=== PATIENT | male | born 1935 | race Caucasian/White ===

== ENCOUNTER → 2018-06-03 10:03 | Outpatient (CLI) | payer MEDICARE, OTHER, SELFPAY ==
[2018-05-19 09:38] VITALS: BMI 23.6
[2018-06-03 12:56] LABS: ALB/GLOB Ratio 1.2 RATIO (0.9-2.4); AST(SGOT) 17 U/L (15-37); Alanine Aminotransfer ALT/SGPT 32 U/L (16-61); Alkaline Phosphatase 101 U/L (45-117); Anion Gap 8 (5-15); BUN 34 mg/dL (7-18); BUN/Creat Ratio 22.2 RATIO (10-20); Calcium,Total 8.8 mg/dL (8.5-10.1); Chloride 109 mmol/L (98-107); Cholesterol 149 mg/dL (200); Creatinine, Serum 1.53 mg/dL (0.70-1.30); EST Glomerular Filtration Rate 46 mL/min (>60); Est Glom Filt Rate - Afr Amer 56 mL/min (>60); Globulin 3.4 g/dL (2.2-4.2); Glucose 95 mg/dL (74-106); High Density Lipoprotein 40 mg/dL; PSA,Total- Diagnostic 2.78 ng/mL (0.0-4.0); Potassium 6.1 mmol/L (3.5-5.1); Protein, Total 7.4 g/dL (6.4-8.2); Sodium Level 139 mmol/L (136-145); Triglycerides 145 mg/dL; Very Low Density Lipoprotein 29 mg/dL (5-40)
[2018-06-03 15:37] LABS: T4 Free Direct 0.86 ng/dL (0.76-1.46)
== END ==
PROVIDERS: Family Provider Family Medicine; PCP Family Medicine; Referring Provider Family Medicine; Visit Provider Family Medicine
DX: I50.30 Unspecified diastolic (congestive) heart failure (principal); E78.5 Hyperlipidemia, unspecified; R82.90 Unspecified abnormal findings in urine; N40.0 Benign prostatic hyperplasia without lower urinary tract symptoms; R79.89 Other specified abnormal findings of blood chemistry
CPT/HCPCS: 36415; 80053; 80061; 84153; 84439; 84443; 87086; 87088

== ENCOUNTER → 2018-06-07 08:15 | Outpatient (CLI) | payer MEDICARE, OTHER, SELFPAY ==
[2018-05-19 09:38] VITALS: BMI 23.6
[2018-06-07 10:30] LABS: Anion Gap 12 (5-15); BUN 37 mg/dL (7-18); BUN/Creat Ratio 25.9 RATIO (10-20); Chloride 109 mmol/L (98-107); Creatinine, Serum 1.43 mg/dL (0.70-1.30); EST Glomerular Filtration Rate 50 mL/min (>60); Est Glom Filt Rate - Afr Amer 61 mL/min (>60); Glucose 95 mg/dL (74-106); Potassium 4.2 mmol/L (3.5-5.1); Sodium Level 142 mmol/L (136-145)
== END ==
PROVIDERS: Family Provider Family Medicine; PCP Family Medicine; Visit Provider Family Medicine
DX: N18.3 Chronic kidney disease, stage 3 (moderate) (principal)
CPT/HCPCS: 36415; 80048

== ENCOUNTER → 2018-08-09 | Outpatient (CLI) | payer MEDICARE, OTHER, SELFPAY ==
[2018-05-19 09:38] VITALS: BMI 23.6
--- NOTE | 2018-08-09 08:34 | ECHOD_ITS ---
Reason For Study: CAD, S/P CABG Procedure This was a 2D Doppler, Color Flow transthoracic echocardiogram. Exam performed in department. Left Ventricle Normal LV size. Mild concentric left ventricular hypertrophy. Left ventricular systolic function is normal. The estimated ejection fraction is 55 %. Stage 2 diastolic dysfunction. No regional wall motion abnormalities noted. Right Ventricle Normal RV size. Normal systolic function. Atria The left atrium is moderately enlarged. The right atrium is mildly enlarged. Mitral Valve Mild diffuse mitral valve thickening. Mild (1+) eccentric mitral valve insufficiency. Tricuspid Valve Normal tricuspid valve. Mild tricuspid valve insufficiency. Pulmonary artery systolic pressure is 36 mmHg. Aortic Valve Trisinus/trileaflet aortic valve. Mild focal aortic valve calcification. Mild (1+) eccentric aortic valve insufficiency. Pulmonic Valve Normal pulmonic valve. Great Vessels Normal aortic root. The pulmonary artery is normal size. Normal inferior vena cava. Pericardium/Pleural No pericardial effusion. MMode/2D Measurements & Calculations LVIDd: 4.6 cm IVSd: 1.2 cm Ao root diam: 3.5 cm LVIDs: 3.4 cm LVPWd: 1.2 cm FS: 26.8 % LAV(MOD-bp): 86.8 ml LA A4 area: 25.0 cm2 LA dimension(2D): 4.6 cm LAV(MOD-bp) Indexed: 45.1 ml/m2 LAV(MOD-sp2): 91.2 ml LAV(MOD-sp4): 84.9 ml RA A4 area: 20.4 cm2 Time Measurements MV dec time: 0.20 sec Doppler Measurements & Calculations MV E max salas: 98.2 cm/sec Lat Peak E' Salas: 5.6 cm/sec Med Peak E' Salas: 5.8 cm/sec MV A max salas: 74.5 cm/sec E/E' lat: 17.6 E/E' med: 16.9 MV E/A: 1.3 Ao V2 max: 148.5 cm/sec AI max salas: 366.9 cm/sec LV V1 max: 78.3 cm/sec Ao max P.8 mmHg AI max P.9 mmHg LV V1 max P.5 mmHg AI dec slope: 195.0 cm/sec2 AI P1/2t: 551.3 msec PA V2 max: 96.5 cm/sec PI end-d salas: 117.7 cm/sec TR max salas: 290.8 cm/sec PI dec slope: 295.3 cm/sec2 TR max P.0 mmHg Interpretation Summary Normal LV size. Mild concentric left ventricular hypertrophy. Left ventricular systolic function is normal. The estimated ejection fraction is 55 %. Stage 2 diastolic dysfunction. Mild tricuspid valve insufficiency. Mild (1+) eccentric aortic valve insufficiency. Ordering Physician: Bhavesh Potts Referring Physician: Rick Butler Performed By: Sheron Leyva, BÁRBARA, RVT
== END | disposition home or self-care (01) ==
LOC: CVS 08:34
PROVIDERS: Family Provider Family Medicine; PCP Family Medicine; Referring Provider Internal Medicine Cardiovascular Disease; Visit Provider Internal Medicine Cardiovascular Disease
DX: I50.32 Chronic diastolic (congestive) heart failure (principal)
CPT/HCPCS: 93306

== ENCOUNTER → 2019-05-19 10:41 | Outpatient (CLI) | payer MEDICARE, OTHER, SELFPAY ==
[2019-05-19 09:02] VITALS: BMI 25.5
[2019-05-19 11:58] LABS: AST(SGOT) 21 U/L (15-37); Alanine Aminotransfer ALT/SGPT 28 U/L (16-61); Albumin, Serum 3.9 g/dL (3.2-5.0); Alkaline Phosphatase 121 U/L (45-117); Bilirubin, Direct 0.09 mg/dL (0.00-0.30); Cholesterol 136 mg/dL (200); Globulin 3.3 g/dL (2.2-4.2); High Density Lipoprotein 47 mg/dL; Protein, Total 7.2 g/dL (6.4-8.2); Triglycerides 82 mg/dL; Very Low Density Lipoprotein 16 mg/dL (5-40)
== END ==
PROVIDERS: PCP Family Medicine; Referring Provider Internal Medicine Cardiovascular Disease; Visit Provider Internal Medicine Cardiovascular Disease
DX: I25.810 Atherosclerosis of coronary artery bypass graft(s) without angina pectoris (principal); E78.5 Hyperlipidemia, unspecified
CPT/HCPCS: 36415; 80061; 80076

== ENCOUNTER → 2019-07-14 | Outpatient (CLI) | payer MEDICARE, OTHER, SELFPAY ==
[2019-05-19 09:02] VITALS: BMI 25.5
--- NOTE | 2019-07-14 13:59 | MRI_ITS ---
STUDY: MRI BRAIN WITH AND WITHOUT CONTRAST (ATTENTION INTERNAL AUDITORY CANALS - I.A.C.''s) REASON FOR EXAM: Male, 84 years old. L hearing loss, vertigo x 2 wks- sudden onset TECHNIQUE: Standardized multiplanar fat and water weighted pulse sequences were obtained. IV Dotarem 15ml was administered for the contrast portion of the examination. COMPARISON: None. FINDINGS: Normal bilateral temporal bones. Normal bilateral internal auditory canals. 4 mm round solidly enhancing mass of the 8th cranial nerve laterally in the internal auditory canal consistent with a vestibular schwannoma (acoustic neuroma). There Normal bilateral cochlea, vestibules and semicircular canals. There is mild cerebral atrophy with widening of the extra-axial spaces and ventricular dilatation. There are a limited number of small white matter hyperintensities, distributed throughout the deep white matter tracts of the cerebral hemispheres, consistent with mild chronic white matter ischemic changes. There is no evidence for recent intracranial ischemia or other cause of cytotoxic edema on diffusion weighted imaging (DWI). Normal bilateral basal ganglia. Normal thalami. Normal flow voids within the major intracranial circulation suggesting patency by spin echo criteria. Normal venous enhancement. There is no enhancing intra-axial or extra-axial abnormality. There is no extra-axial fluid accumulation. Normal sella turcica, pituitary gland, infundibular stalk, optic chiasm and hypothalamus. Normal tectal plate and pineal gland. Normal midbrain, gaurang and medulla. Normal cerebellum. Normal basal cisterns. No demonstrated orbital abnormality, within the constraints of a routine brain study. Normal visualized paranasal sinuses. Normal calvarium and skull base. Normal visualized soft tissue structures. Normal visualized upper cervical spine. MRI/Brain W/WO Contrast IMPRESSION: 1. Involutional changes of the brain, as described above. 2. 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 No left-sided vestibular schwannoma. Electronically Signed: Arnold Parmar MD at 15:57 EDT Tel , Service support ,
[2019-07-14 15:11] LABS: CREATININE FINGERSTICK 1.7 mg/dL (0.70-1.30)
== END | disposition home or self-care (01) ==
LOC: MRI 13:54
PROVIDERS: PCP Family Medicine; Referring Provider Otolaryngology; Visit Provider Otolaryngology
DX: H91.92 Unspecified hearing loss, left ear (principal)
CPT/HCPCS: 70553; A9575

== ENCOUNTER → 2019-08-01 | Outpatient (CLI) | payer MEDICARE, OTHER, SELFPAY ==
[2019-05-19 09:02] VITALS: BMI 25.5
--- NOTE | 2019-08-01 09:08 | STRESSREP_ITS ---
Stress Test Report Exercise myocardial perfusion stress test. 83-year-old man with a history of coronary artery disease status post coronary to bypass stenting. Stress protocol: Resting EKG demonstrates normal sinus rhythm with a rate of 72 bpm occasional premature ventricular complexes noted resting blood pressures 122/74 mmHg. The patient exercised according to regular Todd protocol for a total duration of 5 minutes the maximum heart rate was 126 bpm which was 93% of maximum practice heart rate the maximum workload was 7 metabolic equivalents. At rest there were no ST or T wave changes noted to suggest ischemia. At peak exercise there was approximately 1.[address] depression noted in lead V5 and V6 suggestive of ischemia. Occasional premature ventricular complexes were noted during recovery. Patient did experience some sharp chest discomfort with exercise. He was offered nitroglycerin but decided he did not want it. The r esting blood pressure was 122/74 with a peak blood pressure 152/80 mmHg. Myocardial perfusion stress test. 11.8 mCi of technetium 99m sestamibi was injected at rest. The patient exercised according to regular Todd protocol for a total duration of 5 minutes and at peak exercise 34.6 mCi of technetium 99m sestamibi was injected stress images were obtained stress and rest edges were reconstructed and compared in the short axis vertical and horizontal long axis. Gated images were also obtained Perfusion SPECT analysis: Review of the stress images demonstrate normal uptake of tracer noted in all areas of the myocardium the resting images similarly demonstrated normal areas of perfusion noted in all areas of the myocardium. The gated ejection fraction is 73%. Conclusion: Pharmacologic myocardial perfusion stress test with no nuclear images demonstrating ischemia. Electrocardiographic changes suggestive of ischemia at a moderate workload. Atypical chest discomfort noted. Preserved ejection fraction.
== END | disposition home or self-care (01) ==
LOC: CVS 06:38
PROVIDERS: PCP Family Medicine; Referring Provider Physician Assistant Medical; Visit Provider Physician Assistant Medical
DX: I25.10 Atherosclerotic heart disease of native coronary artery without angina pectoris (principal)
CPT/HCPCS: 78452; 93017; A9500; A4216

== ENCOUNTER 2019-08-10 06:26 | Day surgery (SDC) | payer MEDICARE, OTHER, SELFPAY ==
[2019-05-19 09:02] VITALS: BMI 25.5
--- NOTE | 2019-08-09 07:07 | RAD_ITS ---
STUDY: X-RAY CHEST REASON FOR EXAM: Male, 84 years old. Abnormal stress test, pre heart cath -- no chest complaints -- hx-CB, MT TECHNIQUE: PA and lateral views of the chest. COMPARISON: None. FINDINGS: The lungs are clear and expanded. There is no demonstrated pleural abnormality. Sternal cerclage wires and vascular clips are present from a prior sternotomy and coronary artery bypass graft procedure (CABG). Normal mediastinum and sherlyn. Normal visualized pulmonary arteries. There is atherosclerotic calcification of the aortic arch with tortuosity. There are diffuse degenerative changes of the visualized thoracic spine. Normal visualized ribs, clavicles, and shoulders. There is no demonstrated abnormality of the visualized soft tissue structures of the upper abdomen. RAD/Chest PA and Lateral IMPRESSION: No acute abnormality is seen. Prior CABG. Electronically Signed: Antonio Martin, at 8:42 EDT , Service support ,
[2019-08-09 07:17] LABS: Absolute Lymphocyte Count 1.03 X10^3/uL (0.83-4.51); Absolute Neutrophil Count 2.8 X10^3/uL (2.0-7.7); Basophil# 0.02 X10^3/uL; Basophil% 0.4 % (0-1); Eosinophil# 0.27 X10^3/uL; Eosinophils% 5.9 % (0-5); Hematocrit 34.9 % (40-54); Hemoglobin 11.2 g/dL (13.0-16.5); Lymphocyte # 1.03 X10^3/ul (4.0); Lymphocyte % 22.5 % (19-41); Mean Corp Hgb Conc 32.1 g/dL (32-36); Mean Corpuscular Hgb 30.2 pg (27.0-32.0); Mean Corpuscular Volume 94.1 fL (80-94); Mean Platelet Vol. 9.5 fl (6.2-12.0); Monocyte# 0.46 X10^3/uL; NRBC Flagged by Analyzer 0 % (0-5); Neutrophil # 2.79 X10^3/uL (2.7-7.7); Platelet Count 170 K/mm3 (150-450); RBC Distribution Width CV 13.2 % (11.6-14.6); Red Blood Count 3.71 M/mm3 (4.6-6.2); White Blood Count 4.6 K/mm3 (4.4-11.0)
[2019-08-09 07:48] LABS: Anion Gap 4 (5-15); BUN 38 mg/dL (7-18); Calcium,Total 9.2 mg/dL (8.5-10.1); Chloride 114 mmol/L (98-107); Creatinine, Serum 1.52 mg/dL (0.70-1.30); EST Glomerular Filtration Rate 47 mL/min (>60); Est Glom Filt Rate - Afr Amer 56 mL/min (>60); Glucose 99 mg/dL (74-106); Sodium Level 140 mmol/L (136-145)
[2019-08-09 09:18] VITALS: BMI 25.5
--- NOTE | 2019-08-10 09:28 | CL.D_ITS ---
Patient Name: BEVERLY GUSMAN Study Date: 08/10/2019 Performing: Bhavesh Potts MD Ht: 70.07 inches 178 cm : 1935 Wt: 178.57 lbs 81 kg Age: 84 Gender: male BSA: 1.99 PROCEDURE(S) PERFORMED UC58-[id number]/COR/CABG CLINICAL PROFILE AND INDICATIONS Heart Failure: None Stress/Imaging Date: 08/01/2019Stress Test with SPECT MPI: Indeterminant CONCLUSIONS Severe [place] coronary artery disease with a single saphenous vein graft bypass patent to the obtuse marginal branch with moderate disease and a patent left internal mammary artery to the left anterior descending artery. RECOMMENDATIONS Medical therapy DESCRIPTION OF PROCEDURE The patient arrived to the procedure lab. The risks and benefits of the procedure as well as a full d escription of our services here and current unavailability of surgical backup were fully explained to the patient and/or their significant other prior to the catheterization. The Timeout was completed, verifying the correct patient and procedure. The patient's procedural site was prepped and draped in the usual fashion. Local anesthetic was given subcutaneously to right radial region with Lidocaine 2% . Local anesthetic was given subcutaneously to left radial region with Lidocaine 2%. Using a modified Seldinger technique, arterial access was obtained via the right radial artery, a 6Fr sheath was inse rted., arterial access was obtained via the left radial artery, a 6Fr sheath was inserted. Right Cor onary Artery selective angiography was then performed in multiple views using a [address] Left Coronary Artery selective angiography was performed in multiple views using a 5 Fr. 4.0 [place] catheter. Saphenous Vein graft to the OM 1 selective angiography was performed in multi ple views using a 5 Fr. 4.0 [place] catheter. Left internal mammary artery graft to the LAD selective a ngiography was performed in multiple views using a 5 Fr. IM catheter. CORONARY ANGIOGRAPHY DOMINANCE: Right Dominant LEFT HEART ASSESSMENT Left Ventricular Ejection Fraction: by Echo 55 % Normal LV wall motion LEFT MAIN: Mild calcification, Non-obstructive LEFT ANTERIOR DESCENDING ARTERY: PROX LAD: is occluded CIRCUMFLEX ARTERY: PROX CIRC: is occluded RIGHT CORONARY ARTERY: PROX RCA: is occluded GRAFTS: Saphenous Vein graft to the Mid CIRC is diffusely diseased up to 30 % Saphenous Vein graft to the RPDA is totally occluded Saphenous Vein graft to the 1st Diagonal is totally occluded PAREKH graft to the Mid LAD is patent COMPLICATIONS No Complications PROCEDURE MEDICATIONS Fentanyl 50 mcg IV Versed 1 mg IV Oxygen: 2 L/min via nasal cannula Heparin diluted in 23cc Heparinized saline. Patient given 10cc IA of this solution. 08/10/2019 08:36:5 2 Heparin given IA 08/10/2019 09:15:21 Verapamil 2.5mg, Ntg 100mcgs, 2000 units of Heparin diluted in 23cc Heparinized saline. Patient give n 10cc IA of this solution. 08/10/2019 08:36:52 Verapamil 2.5mg, Ntg 100mcgs, 3000 units of Heparin given IA 08/10/2019 09:15:21 SUMMARY OF HEMODYNAMIC DATA Time AIR REST ECG 06:57:42 AO 116/67 (90) SA 08:49:31 Signed By Bhavesh Potts MD On 08/10/2019 09:27:38 Bhavesh Potts MD
--- NOTE | 2019-08-10 10:57 | HP.PCM_ITS ---
History and Physical This is an 84-year-old gentleman that presents here today for an urgent heart catheterization. Patient had called our office a few weeks ago with concerning of increased chest discomfort with exertion. He did undergo a stress test which demonstrated no nuclear images of ischemia however EKG was suggestive of ischemia at a moderate workload. We had attempted to maximize his medications during this coated pandemic. However patient continued to have worsening symptoms and now has discomfort at rest. He recently established with us. He does have a history of coronary artery disease with bypass surgery in 1989. He had an PAREKH to the LAD, SVG to the posterior descending, SVG to the obtuse marginal, SVG to the first diagonal ma rginal. Allergies No Known Allergies Allergy (Unverified 05/19/19 09:02) Medications See chart [facility] Medical History Atherosclerosis of coronary artery bypass graft without angina pectoris (Chronic) Atherosclerosis of coronary artery of [place] [place] heart without angina pectoris (Chronic) History of non-ST elevation myocardial infarction (NSTEMI) (Resolved 01/2015) Chronic diastolic (congestive) heart failure (Chronic) Essential (primary) hypertension (Chronic) Hyperlipidemia (Chronic) Chronic kidney disease (Chronic) Osteoarthritis (Chronic) Melanoma (Resolved) Surgical History H/O coronary artery bypass surgery (Resolved 1989) History of coronary artery stent placement (Resolved 2005) H/O left knee surgery (Acute) H/O foot surgery (Resolved) History of herniorrhaphy (Resolved) History of left heart catheterization (Resolved 01/22/15) Family History Father Heart disease Social History (Updated 05/19/19 @ 10:25 by Bhavesh Potts MD) Smoking Status: Never smoker ROS Const Const: Negative for fatigue, weakness, headache(s), frequent falls, difficulty sleeping or excessive sweating Eyes Eyes: Negative for loss of peripheral vision, transient loss of vision, blurry vision, double vision or tunnel vision ENT ENT: Negative for headache(s), dizziness, Nosebleed/epistaxis or balance problems Cardio Chest Pain: yes Palpitations: No Edema: yes Muscle aches with walking: None Resp Respiratory: Positive for SOB with activity (Initially with activity, but resolves quickly); negative for SOB at rest, SOB orthopnea\SOB lying down, Cough or paroxysmal nocturnal dyspnea GI GI: Negative nausea, vomiting, heartburn or black,tarry stools : Negative for hematuria Musc Musc: Negative for muscle aches/ myalgia, muscle weakness, joint pain or balance problems Skin Skin: Negative non-healing lesions, rash or unusual bruising Neuro Neuro: Negative for dizziness, lightheadedness, near syncope, syncope, orthostatic symptoms, frequent falls, headache(s), weakness, blurry vision, double vision or lack of coordination Melecio Hematologic/Lymphatic: Negative for easy bleeding or easy bruising Endo Endo: Negative for fatigue, excessive sweating or increased thirst/drinking Psych Psych: Negative for anxiety or depression Allergy Allergy/Immunology: Negative for hives, Negative for rash Cardiology Exam Const Appearance: cooperative, healthy appearing, no acute distress, well developed and well groomed Nutritional Appearance: average body habitus and well nourished Orientation: alert, awake and oriented x3 Head Head: normal to inspection, normocephalic and atraumatic Ears: hearing grossly normal bilaterally and external ears normal Nose: external nose normal, nares normal, nasal mucous membranes and turbinates normal, septum normal, no nasal discharge Face and Sinus: face symmetric Mouth: oral mucosae normal, tongue normal, oropharynx normal and moist mucous membranes Teeth and gingiva: dentition normal Throat: posterior oropharynx normal, tonsils normal and uvula midline Eyes General: appearance normal, both eyes and all related structures Eyelids: eyelids normal Conjunctivae: conjunctivae normal Pupils: PERRL, normal by confrontation and accommodation normal EOM: EOM intact bilaterally Neck Neck: normal visual inspection, trachea midline and no JVD JVD: +5 Carotids: normal carotid upstroke and bounding pulses Chest Chest inspection: normal inspection of the chest, symmetric chest movement and normal respiratory effort Auscultation: Bilateral: Clear to Auscultation Cardio Palpation: normal PMI Rate: regular rate Rhythm: regular rhythm Heart sounds: S1 normal, S2 normal and normal, physiologic split S2; soft 1/6 JORDAN GI GI: normal to inspection, soft, no hepatosplenomegaly and bowel sounds present Neuro General: alert, awake, oriented x3, gait normal, moves all extremities and no focal sensory deficit Skin Skin: no rashes or lesions noted Extremities Pulses: Normal: Right Femoral Pulse, Left Femoral Pulse, Right Dorsalis Pedis Pulse, Left Dorsalis Pedis Pulse, Right Posterior Tibial Pulse, Left Posterior Tibial Pulse, Right Radial Pulse, Left Radial Pulse Lower Extremity Edema: trace bilateral Musculoskel Musculoskeletal: No joint tenderness Psych Psychological: normal affect Assessment and plan 1. Coronary artery disease with angina. With patient concerns over worsening angina and abnormal stress test. Would like to proceed with a diagnostic heart catheterization today. Patient did fail maximum medical therapy as he continued to have chest discomfort. He will follow-up in office accordingly. Essential Procedure Criteria Procedure Essential: Yes Criteria Note: On 07/19/2019 the [place] Department of Health ([facility]) Public Order signed by [facility] Director Tia Tanner M.D., regarding the Management of Non- Essential Surgeries and Procedures for the purpose of preserving Personal Protective Equipment (PPE) and critical hospital capacity and resources within [place] went into effect as of 07/20/2019 at 5:00PM. According to the [facility] Public Order: This action will remain in full force and effect until the State of Emergency declared by the Governor no longer exists or the Director of the [facility] rescinds or modifies this Order.. This [facility] order stated all non-essential or elective surgeries and procedures that utilize PPE should be delayed unless there is undue risk to the current or future health of a patient. After reviewing the aforementioned [facility] Public Order and the patients clinical case, I have determined that the scheduled procedure meets the criteria to go forward. Risk to Patient if Procedure Delayed: Risk of rapidly worsening to severe symptoms - Pt has been having worseng chest pain at rest and with exertion
== END 2019-08-10 12:33 | disposition home or self-care (01) ==
LOC: CLSP 06:28
PROVIDERS: PCP Family Medicine; Referring Provider Internal Medicine Cardiovascular Disease; Visit Provider Internal Medicine Cardiovascular Disease
DX: I25.119 Atherosclerotic heart disease of native coronary artery with unspecified angina pectoris (principal); I25.2 Old myocardial infarction; E78.5 Hyperlipidemia, unspecified; M19.90 Unspecified osteoarthritis, unspecified site; I13.0 Hypertensive heart and chronic kidney disease with heart failure and stage 1 through stage 4 chronic kidney disease, or unspecified chronic kidney disease; N18.9 Chronic kidney disease, unspecified; I50.32 Chronic diastolic (congestive) heart failure
CPT/HCPCS: 36415; 71046; 80048; 85025; 93455; 99152; 99153; J7040; Q9967; C1769; C1894

== ENCOUNTER → 2019-09-20 08:07 | Outpatient (CLI) | payer MEDICARE, OTHER, SELFPAY ==
[2019-08-23 14:05] VITALS: BMI 25.5
--- NOTE | 2019-09-20 08:13 | CT_ITS ---
STUDY: CT CHEST WITHOUT CONTRAST REASON FOR EXAM: Male, 84 years old. EXERTIONAL CP, DYSPNEA RADIATION DOSAGE (If Supplied By Facility): CTDIvol = ( 13.83 ) mGy, DLP = ( 501.10 ) mGycm TECHNIQUE: Transaxial imaging was performed without the administration of intravenous contrast material. Individualized dose optimization techniques were used for this CT. COMPARISON: None. FINDINGS: There is a small calcified granuloma of the left lower lobe. There is an additional tiny calcified granuloma of the right middle lobe. There is a small broad-based focus of pleural thickening of the lower lateral left hemithorax measuring 3.0 cm at the base. There is mild cardiomegaly. Coronary arterial calcifications are present. There is no pericardial effusion. Postsurgical changes of the heart are noted. Normal mediastinum. There are calcified left hilar nodes. There is dilatation of the main and right pulmonary arteries. The main pulmonary artery measures up to 3.4 cm in diameter. The ascending thoracic aorta is ectatic measuring up to 3.8 cm. The descending thoracic aorta is upper limits of normal in caliber. There is diffuse endplate spondylosis of the thoracic spine. Status post sternotomy changes are noted. There are several small right renal cysts. There are calcified splenic granulomas. CT/Chest without Contrast IMPRESSION: 1. Tiny calcified granulomas of the left lower lobe and right middle lobe. Calcified left hilar nodes. 2. Small broad-based focus of pleural thickening of the lower lateral left hemithorax measuring 3.0 cm at the bases. 3. Status post cardiac surgical changes. Coronary arterial calcifications are present. There is mild cardiomegaly. 4. Dilatation of the main pulmonary artery measuring up to 3.4 cm in diameter. This may be associated with pulmonary hypertension. 5. Ectatic ascending thoracic aorta measuring up to 3.8 cm. Electronically Signed: Brandan Aleman MD at 17:21 EDT , Service support ,
--- NOTE | 2019-09-22 08:28 | PFT ---
INTRODUCTION: The patient is a 84-year-old male that presents for pulmonary function studies secondary to a diagnosis of dyspnea. Respiratory therapy reports good patient effort. Bronchodilators were used during testing. INTERPRETATION: Forced expiration spirometry demonstrates the presence of a mild large airways obstructive ventilatory defect. There was no significant response to aerosolized bronchodilators. Spirograms are of good quality and plateau gradually indicating slow emptying of the lungs. Body plethysmography was performed and reveals lung volumes to be within normal limits. Diffusing capacity by single breath CO is preserved at 94% of predicted. IMPRESSION: Irreversible mild large airways obstructive ventilatory defect with normal lung volumes and preserved diffusing capacity.
== END ==
PROVIDERS: PCP Family Medicine; Referring Provider Family Medicine; Visit Provider Family Medicine
DX: R07.9 Chest pain, unspecified (principal); R06.00 Dyspnea, unspecified
CPT/HCPCS: 71250; 94060; 94726; 94729

== ENCOUNTER 2019-10-13 12:33 | Emergency (ER) | payer MEDICARE, OTHER, SELFPAY ==
[2019-10-04 05:44] VITALS: BMI 24.3
[2019-10-13 12:34] VITALS: BP 130/65; PULSE 51; RESP 16; TEMP 36.3; O2SAT 99; BMI 23.6
--- NOTE | 2019-10-13 12:42 | ED.VIS.GEN ---
History of Present Illness Chief Complaint: Hypotension Informant: Patient Onset: Today Current Severity: Mild Maximum Severity: Mild Narrative: He presents reporting when he took his home blood pressure using left upper arm it was about 70 then later [address] Barlow's office and was told to come to the emergency department Dr. Barlow would meet him here. His blood pressure in the ED is 133/80 his other vital signs are unremarkable indicates he is feeling at baseline, he has had no fever no cough no chest pain eating and drinking well bowel bladder habits normal, recently had extensive outpatient lab work-up that was unremarkable he indicates he used a blood pressure machine normally, that blood pressure checks today were routine he was feeling fine Past Medical History - Allergies and Home Meds Allergies/Adverse Reactions: Allergies isosorbide Adverse Reaction (Verified 10/13/19 12:34) headache Primary Care Physician: Rick Butler MD [Primary Care Provider] - Past Medical History: - - Cardiac Smoking Status: Never smoker Review of Systems General: Denies: Chills, Fever, Sweats Eyes: Denies: Visual changes - bilaterally, Diplopia ENT: Denies: Rhinorrhea, Sore throat Cardiovascular: Denies: Chest pain, Palpitations Respiratory: Denies: Dyspnea, Cough, Dyspnea on exertion Gastrointestinal: Denies: Abdominal pain, Nausea, Vomiting, Diarrhea, Melena, Hematochezia Genitourinary: Denies: Dysuria, Hematuria, Frequency Musculoskeletal: Denies: Back pain, Extremity Pain Skin: Denies: Rash, Wounds Neurological: Denies: Headache, Weakness, Numbness Physical Exam Vital Signs/Narrative: Vital Signs Temp Pulse Resp BP Pulse Ox 10/13/19 12:34 97.4 F L 51 L 16 130/65 H 99 General: Well nourished, Well developed, No Acute Distress Head: Normocephalic, Atraumatic Eyes: Perrl, EOMI ENT: Moist mucous membranes, No rhinorrhea Neck: Supple, Nontender Cardiovascular: Regular rate, Regular rhythm, No murmurs Respiratory: No distress, CTA bilaterally, Chest nontender Abdomen: Soft, Nontender, Nondistended, Normal bowel sounds Back: Nontender, Normal Inspection Extremities: Nontender, No edema Skin: Normal color, No rash Neurological: Alert, Oriented x3, Cranial nerves II-XII grossly intact, Normal Strength, Normal Sensation Psychological: Normal affect, Normal Mood Diagnostic/Tx/Re-eval - Medical Decision Making The patient's vital signs are unremarkable indicates again he feels fine spoke with Dr. Barlow who informed them he did not tell the patient he would meet him in the emergency department I explained all of the above to the patient, I explained we could do an ED evaluation with EKG labs x-rays etc. urinalysis he did not wish to undergo any of that testing we offered him lunch coffee extended observation etc. he assured me he felt fine he got up walked around the emergency department with me had no symptoms and stated he simply wanted to go home as he felt back to his baseline and he would follow-up with his outpatient providers the was in the room with him she concurred with the above Home stable Final impression reportedly low blood pressure at home resolved ED Disposition - Plan for ED Patient: Diagnosis: Hypotension Diagnosis: (Ruled Out): Instructions: ED Hypotension Orthostatic, ED Low Blood Pressure All Causes Referrals: Rick Butler MD [Primary Care Provider] -
== END 2019-10-13 13:34 | disposition home or self-care (01) ==
LOC: ED 13:13
PROVIDERS: Emergency Provider Emergency Medicine; PCP Family Medicine
DX: I95.9 Hypotension, unspecified (principal)
CPT/HCPCS: 99282

== ENCOUNTER → 2020-03-15 11:07 | Outpatient (CLI) | payer MEDICARE, OTHER, SELFPAY ==
[2020-01-20 09:42] VITALS: BMI 25.5
[2020-03-15 12:37] LABS: Absolute Lymphocyte Count 1.12 X10^3/uL (0.83-4.51); Absolute Neutrophil Count 3.4 X10^3/uL (2.0-7.7); Basophil# 0.02 X10^3/uL; Basophil% 0.4 % (0-1); Eosinophil# 0.14 X10^3/uL; Eosinophils% 2.7 % (0-5); Hematocrit 38.5 % (40-54); Hemoglobin 12.1 g/dL (13.0-16.5); Lymphocyte # 1.12 X10^3/ul (4.0); Lymphocyte % 21.8 % (19-41); Mean Corp Hgb Conc 31.4 g/dL (32-36); Mean Corpuscular Hgb 29.8 pg (27.0-32.0); Mean Corpuscular Volume 94.8 fL (80-94); Mean Platelet Vol. 9.9 fl (6.2-12.0); Monocyte# 0.44 X10^3/uL; Monocyte% 8.6 % (0-10); NRBC Flagged by Analyzer 0 % (0-5); Neutrophil % 66.3 % (47-70); Platelet Count 136 K/mm3 (150-450); RBC Distribution Width CV 13.2 % (11.6-14.6); RBC Distribution Width SD 46.1 fl (35.1-43.9); Red Blood Count 4.06 M/mm3 (4.6-6.2); White Blood Count 5.1 K/mm3 (4.4-11.0)
[2020-03-15 13:04] LABS: International Normalized Ratio 1.1; Prothrombin Time (Protime)PT. 13.8 SECONDS (11.7-14.9)
[2020-03-15 13:05] LABS: Partial Thromboplast Time 29.3 Seconds (24.1-36.2)
[2020-03-15 13:12] LABS: ALB/GLOB Ratio 1.1 RATIO (0.9-2.4); AST(SGOT) 16 U/L (15-37); Alanine Aminotransfer ALT/SGPT 27 U/L (16-61); Albumin, Serum 3.8 g/dL (3.2-5.0); Alkaline Phosphatase 119 U/L (45-117); Anion Gap 4 (5-15); BUN 46 mg/dL (7-18); BUN/Creat Ratio 25.8 RATIO (10-20); Calcium,Total 9.2 mg/dL (8.5-10.1); Chloride 112 mmol/L (98-107); Creatinine, Serum 1.78 mg/dL (0.70-1.30); EST Glomerular Filtration Rate 39 mL/min (>60); Est Glom Filt Rate - Afr Amer 47 mL/min (>60); Globulin 3.4 g/dL (2.2-4.2); Glucose 83 mg/dL (74-106); Potassium 5.4 mmol/L (3.5-5.1); Protein, Total 7.2 g/dL (6.4-8.2); Sodium Level 137 mmol/L (136-145)
== END ==
PROVIDERS: PCP Family Medicine; Referring Provider Family Medicine; Visit Provider Family Medicine
DX: Z01.818 Encounter for other preprocedural examination (principal)
CPT/HCPCS: 36415; 80053; 85025; 85610; 85730

== ENCOUNTER → 2020-03-19 09:59 | Outpatient (CLI) | payer MEDICARE, OTHER, SELFPAY ==
[2020-01-20 09:42] VITALS: BMI 25.5
[2020-03-19 12:57] LABS: Anion Gap 8 (5-15); BUN 55 mg/dL (7-18); BUN/Creat Ratio 27.9 RATIO (10-20); Calcium,Total 9.1 mg/dL (8.5-10.1); Chloride 108 mmol/L (98-107); Creatinine, Serum 1.97 mg/dL (0.70-1.30); EST Glomerular Filtration Rate 35 mL/min (>60); Est Glom Filt Rate - Afr Amer 42 mL/min (>60); Glucose 95 mg/dL (74-106); Sodium Level 137 mmol/L (136-145)
== END ==
PROVIDERS: PCP Family Medicine; Visit Provider Family Medicine
DX: E78.5 Hyperlipidemia, unspecified (principal)
CPT/HCPCS: 36415; 80048

== ENCOUNTER 2020-03-20 07:00 | Outpatient (RCR) | payer MEDICARE, OTHER, SELFPAY ==
[2020-01-20 09:42] VITALS: BMI 25.5
--- NOTE | 2020-03-13 11:07 | HP.PTREVAL ---
Dr. Rick Butler MD, It has been my pleasure to treat BEVERLY GUSMAN over the last 5 visits for parkinson's. Please see the progress note below for an update on the physical therapy plan of care! Subjective: Pt reports that he is doing well and that he is doing his exercises everyday and he feels that they are getting easier. He is not sure that he is improving but he is really thinking about his posture all the time. He thinks that he recognizes his posture more. Still can not figure out the steps... He had pain in his R knee from putting all his weight on his R leg because he can not do the recip stairs because of the L knee not bending.... He had L knee surgery since September 1967 and his knee has gotten worse since then. He has an appointment today at 1:00 with an ortho for his L knee. Objective/Function: opp arm and leg movements are good with sequence but he does not take a big enough step.... Plan Plan: Pt to come in in 1 month to review HEP and see if advancement is needed and to see if he has increased ability to ascend and desend the stairs with his L knee. Goals Goal 1:: I HEP Goal Time Frame: 12-16 Weeks Goal Progress: Goal Met Goal 2:: Increase posture to be able to hold head up easier with gait and sitting Goal Time Frame: 12-16 Weeks Goal Progress: Progressing Goal 3:: Be able to do opp arm and leg movements alternating 3 X 10 B without messing up sequence or losing balance Goal Time Frame: 12-16 Weeks Anticipated Interventions Patient/Client Instruction: Educate patient on: Condition, Plan of Care For the Purpose of:: To improve muscle performance and motor function, To increase tolerance to activity/condition/position, To improve performance and independence with ADL's, To decrease level of supervision to perform tasks, To improve ability of physical actions for home/community/work/leisure, To improve gait and locomotor functions, To improve health of tissue, To decrease soft tissue restriction, To improve endurance, To improve safety with gait Therapeutic Exercise to Include: Strength training, Balance training, Coordination, Body mechanics, Postural training, Flexibilty training, Gait and locomotor training, Neuromotor development, Active ROM, Dynamic Lumbar Stabilization For the Purpose of:: To increase ROM, To improve nutrient delivery to tissue, To improve muscle performance and motor function, To improve ability to perform ADL's, To increase tolerance to activity/condition/position, To improve performance and independence with ADL's, To decrease level of supervision to perform tasks, To improve ability of physical actions for home/community/work/leisure, To improve gait and locomotor functions, To improve health of tissue, To decrease soft tissue restriction, To increase flexibility/ROM, To improve endurance, To improve balance, To improve safety with gait Functional Training to Include: Gait training For the Purpose of:: To improve safety with gait Please do not hesitate to contact me at [phone] by phone or if you have questions or concerns regarding this new plan of care! Sincerely, Alicia Faulkner, MPT
--- NOTE | 2020-03-20 07:57 | HP.PTDCSUM ---
It has been my pleasure to treat BEVERLY GUSMAN referred by Dr. Rick Butler MD, with the diagnosis of parkinson's for a total of 6 visit(s). Discharge Date: 03/20/20 Please see the following information for a summary of their discharge status. Subjective: Pt reports that he has no questions about his exeercies and he does not need his papers anymore to tell him which ones to do. Pt reports that he hurt his leg when walking and taking bigger steps. He reports that he is fine now since the Dr did a cortizone injection in his R knee. He will have a L TKR on Apr 09 and gel injections on the R knee on Apr 03. We will put PD PT on hold until after the surgery. Issued our TKR booklet as pt will be staying in the hospital for surgery. R back pain Pain Intensity (Out of 10): 2 % Improvement: 20 Objective/Function: opp arm and leg movements: able to do 2 X 20 each leg without messing up Goal 1:: I HEP Goal Progress: Goal Met Goal 2:: Increase posture to be able to hold head up easier with gait and sitting Goal Progress: Goal Met Goal 3:: Be able to do opp arm and leg movements alternating 3 X 10 B without messing up sequence or losing balance Goal Progress: Goal Met Plan: DC PT at this time due to Pt having surgery. He will call into his Dr after surgery to get another script for PT after his knee rehab. Discharge Comments: DC PT to HEP If there are questions or concerns regarding this patient's physical therapy, please feel free to call me at [phone]. Thank you for the referral of this patient. Sincerely, Alicia Faulkner, MPT
== END 2020-03-20 19:00 | disposition home or self-care (01) ==
LOC: PT 07:00
PROVIDERS: PCP Family Medicine; Referring Provider Family Medicine; Visit Provider Family Medicine
DX: G20 Parkinson's disease (principal)
CPT/HCPCS: 97110; 97161

== ENCOUNTER → 2020-03-21 07:23 | Outpatient (CLI) | payer MEDICARE, OTHER, SELFPAY ==
[2020-01-20 09:42] VITALS: BMI 25.5
--- NOTE | 2020-03-21 07:25 | CT_ITS ---
STUDY: LEFT LOWER EXTREMITY CT SCAN REASON FOR EXAM: Male, 84 years old. LEFT KNEE PAIN RADIATION DOSAGE (If Supplied By Facility): CTDIvol = ( 18.30 ) mGy, DLP = ( 1045.14 ) mGycm. Individualized dose optimization techniques were used for this CT.? TECHNIQUE: Axial multidetector CT scan of the left lower trauma. Coronal and sagittal reformatted images. MARION technique for preoperative evaluation. COMPARISON: None. FINDINGS: GENERAL: No acute fracture line. No acute dislocation. No acute bone destruction. No focal muscle atrophy. HIP: Moderate left hip osteoarthritis with joint space narrowing, productive changes and chondrocalcinosis. Mild pubic symphysis arthrosis. Visualized left hemipelvis intact. Visualized left proximal femur intact. Prostate radiotherapy seeds. Hamstring calcific peritendinitis. KNEE: Severe lateral compartment joint space narrowing. Moderate medial compartment joint space narrowing. Moderate/severe patellofemoral joint space narrowing. Multiple osteophytes. Extensive chondrocalcinosis at the left knee. Small loose bodies. Distal quadriceps enthesophyte. Mild proximal tibiofibular arthrosis. Vascular calcifications. Peripherally calcified large popliteal cyst with bursal thickening. Large volume left knee joint effusion. ANKLE: Achilles enthesophyte. Normal tibiotalar joint. Normal subtalar joint. Distal tibia, fibula and hindfoot intact. CT/Extremity Lower without Contra IMPRESSION: Moderate left hip osteoarthritis Severe left knee osteoarthritis Left knee joint effusion and popliteal cyst Normal left ankle Additional degenerative changes, as above Electronically Signed: Rick Cespedes DO at 9:32 EST Tel , Service support ,
== END ==
PROVIDERS: PCP Family Medicine; Referring Provider Physician Assistant; Visit Provider Physician Assistant
DX: M17.11 Unilateral primary osteoarthritis, right knee (principal)
CPT/HCPCS: 73700

== ENCOUNTER 2020-04-09 09:54 | Observation (INO) | payer MEDICARE, OTHER, SELFPAY ==
[2020-01-20 09:42] VITALS: BMI 25.5
--- NOTE | 2020-04-02 08:58 | EKG12_ITS ---
Test Reason : PRE OP Blood Pressure : / mmHG Vent. Rate : 058 BPM Atrial Rate : 058 BPM P-R Int : 234 ms QRS Dur : 084 ms QT Int : 392 ms P-R-T Axes : 067 044 004 degrees QTc Int : 384 ms Sinus bradycardia with 1st degree A-V block Otherwise normal ECG Confirmed by KEELY MITCHELL, TRIXIE ([id number]), field map editor PAUL CHRISTIE ([id number]) on 04/03/2020 9:24:15 AM Referred By: Hudson Murdock Confirmed By:TRIXIE RIGGS MD
[2020-04-02 09:13] LABS: Absolute Lymphocyte Count 1.03 X10^3/uL (0.83-4.51); Absolute Neutrophil Count 4.5 X10^3/uL (2.0-7.7); Basophil# 0.02 X10^3/uL; Basophil% 0.3 % (0-1); Eosinophil# 0.23 X10^3/uL; Eosinophils% 3.7 % (0-5); Hematocrit 38.4 % (40-54); Hemoglobin 11.9 g/dL (13.0-16.5); Lymphocyte # 1.03 X10^3/ul (4.0); Lymphocyte % 16.5 % (19-41); Mean Corpuscular Hgb 29.5 pg (27.0-32.0); Mean Corpuscular Volume 95.3 fL (80-94); Mean Platelet Vol. 9.4 fl (6.2-12.0); Monocyte# 0.46 X10^3/uL; Monocyte% 7.4 % (0-10); NRBC Flagged by Analyzer 0 % (0-5); Neutrophil # 4.48 X10^3/uL (2.7-7.7); Neutrophil % 71.8 % (47-70); Platelet Count 124 K/mm3 (150-450); RBC Distribution Width CV 13.3 % (11.6-14.6); RBC Distribution Width SD 47.3 fl (35.1-43.9); Red Blood Count 4.03 M/mm3 (4.6-6.2); White Blood Count 6.2 K/mm3 (4.4-11.0)
[2020-04-02 09:34] LABS: Magnesium 1.8 mg/dL (1.6-2.6)
[2020-04-02 09:36] LABS: Anion Gap 4 (5-15); BUN 40 mg/dL (7-18); BUN/Creat Ratio 23.8 RATIO (10-20); Chloride 113 mmol/L (98-107); Creatinine, Serum 1.68 mg/dL (0.70-1.30); EST Glomerular Filtration Rate 41 mL/min (>60); Est Glom Filt Rate - Afr Amer 50 mL/min (>60); Glucose 82 mg/dL (74-106); Potassium 4.9 mmol/L (3.5-5.1); Sodium Level 138 mmol/L (136-145)
[2020-04-09] VITALS (18 sets, daily range): BP systolic 97–144; BP diastolic 55–79; PULSE 65–82; RESP 14–20; TEMP 36–36.6; O2SAT 94–100; BMI 25.3; BMI 25.4
--- NOTE | 2020-04-09 | KNEE_PTH ---
PATIENT: BEVERLY GUSMAN LOC: [facility]3 U#:[id number] AGE/SX: 84/M ROOM: OK313 RE04/09/[address]: Dr. Hudson Murdock DO : 1935 BED: 1 DIS: 04/10/2020 SPEC #: [id number] RECD: 04/09/20 12:31 STATUS: TREY RETarun #: [id number] LUIS: 04/09/20 00:[address]: Hudson Murdock DEPT: SURGICAL PATHOLOGY RECD BY: Hemant Pérez ENTERED: 04/09/20 12:32 SP TYPE: TOTAL KNEE OTHR DR: Rick Butler MD Tissues: Knee, NOS Procedures: Decalcification bone/plaque Surgery Specimen Level IV HEADER OPERATION: ERAS, total knee replacement robotic arm assist PRE-OP DIAGNOSIS: Osteoarthritis left knee; valgus deformity left knee TISSUE SUBMITTED: Left knee bone and soft tissue MICROSCOPIC DIAGNOSIS Bone and soft tissue of left knee, total knee resection: 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 Bone with severe degenerative joint disease. AM:kristy 04/12/20 MICROSCOPIC DESCRIPTION Slides are reviewed. GROSS DESCRIPTION Received is one container designated bone and soft tissue left knee. The specimen consists of multiple fragments of grier-yellow bone measuring in aggregate 14 x 12 x 2 cm. Also in the specimen container are multiple fragments of yellow-white soft tissue measuring in aggregate 10 x 7 x 2 cm. A number of bony fragments contain articular surfaces consistent with tibial plateau and femoral condyle and displaying prominent osteophyte formation, eburnation, and bone erosion. Plywood Matcher sections are submitted in two cassettes as follows: 1 - soft tissue, 2 - bone after decalcification. / AM:kristy 04/09/20 TC:5 [facility]: [id number], [id number]
[2020-04-09] MEDS: Acetaminophen 500 MG Tablet 1000 MG PO ×3 (08:17→22:14)
[2020-04-09] MEDS: Gabapentin 600 MG Tablet PO (08:20)
[2020-04-09] MEDS: Lactated Ringers 1,000 ML 100 ML IV ×2 (08:30→14:40)
[2020-04-09 09:01] LABS: Bedside Glucose 72 mg/dL (70-110)
[2020-04-09] MEDS: Cefazolin 2 GM in 0.9% Normal Saline 100 ML IV (09:35)
--- NOTE | 2020-04-09 09:56 | RAD_ITS ---
STUDY: X-RAY - LEFT KNEE REASON FOR EXAM: Male, 84 years old. POST OP TECHNIQUE: 2 view(s) of the knee. COMPARISON: None. FINDINGS: Normal visualized distal femur. Normal visualized proximal tibia and fibula. Normal proximal tibiofibular articulation. The patient is status post total knee replacement. There is good alignment. Postoperative soft tissue changes. RAD/Knee 1 or 2 Views IMPRESSION: Status post total knee replacement. There is good alignment. Postoperative soft tissue changes. Electronically Signed: Antonio Martin, at 12:37 EST , Service support ,
[2020-04-09 12:40] LABS: Hematocrit 32.4 % (40-54); Hemoglobin 10.2 g/dL (13.0-16.5); Mean Corp Hgb Conc 31.5 g/dL (32-36); Mean Corpuscular Hgb 29.7 pg (27.0-32.0); Mean Corpuscular Volume 94.2 fL (80-94); Mean Platelet Vol. 9.5 fl (6.2-12.0); Platelet Count 109 K/mm3 (150-450); RBC Distribution Width CV 13.3 % (11.6-14.6); RBC Distribution Width SD 45.8 fl (35.1-43.9); Red Blood Count 3.44 M/mm3 (4.6-6.2); White Blood Count 5.9 K/mm3 (4.4-11.0)
[2020-04-09 12:53] LABS: Anion Gap 6 (5-15); BUN 38 mg/dL (7-18); BUN/Creat Ratio 24.2 RATIO (10-20); Calcium,Total 8.5 mg/dL (8.5-10.1); Chloride 111 mmol/L (98-107); Creatinine, Serum 1.57 mg/dL (0.70-1.30); EST Glomerular Filtration Rate 45 mL/min (>60); Est Glom Filt Rate - Afr Amer 54 mL/min (>60); Estimated Creatinine Clearance 35.52 ml/min; Glucose 126 mg/dL (74-106); Potassium 4.8 mmol/L (3.5-5.1); Sodium Level 137 mmol/L (136-145)
--- NOTE | 2020-04-09 13:10 | OP.PCM_ITS ---
Report of Operation Date of Procedure: 04/09/20 Pre-Operative Diagnosis: OA left knee Post-Operative Diagnosis: same Surgery/Procedure Performed:: Left TKR sales marketing director: Kris Barber Type of Anesthesia:: General Anesthesiologist: Michael Panchal - Admit VTE Documentation VTE Present on Admission: No VTE Mechan Device Prophylaxis: SCD's, Thigh High [place] Hose VTE Pharm Prophylaxis ordered?: Yes
--- NOTE | 2020-04-09 14:45 | NURSING ---
PT STILL VERY DROWSY POST OP - UNABLE TO ANSWER QUESTIONS @ THIS TIME
[2020-04-09] MEDS: Cefazolin 1 GM/50 ML BAG IV (17:09)
[2020-04-09] MEDS: Aspirin 81 MG TAB.CHEW PO (17:10)
[2020-04-09] MEDS: Clopidogrel Bisulfate 75 MG Tablet PO (17:10)
[2020-04-09] MEDS: Senna/Docusate Sodium 1 Tablet 2 TABLET PO ×2 (17:10→22:14)
[2020-04-09] MEDS: Albuterol 2.5 MG/3 ML VIAL.NEB. INHALATION (20:11)
[2020-04-09] MEDS: Budesonide Respules 0.5 MG/2 ML AMPUL.NEB. INHALATION (20:11)
[2020-04-09] MEDS: oxyCODONE 5 MG Tablet PO (20:44)
[2020-04-09] MEDS: Atorvastatin Calcium 40 MG Tablet PO (22:14)
[2020-04-09] MEDS: Pramipexole Di-HCl 0.5 MG Tablet PO (22:16)
[2020-04-10] VITALS (7 sets, daily range): BP systolic 105–140; BP diastolic 61–70; PULSE 65–75; RESP 16–18; TEMP 36.6–36.8; O2SAT 95–98
[2020-04-10] MEDS: Cefazolin 1 GM/50 ML BAG IV (00:19)
[2020-04-10] MEDS: Lactated Ringers 1,000 ML 100 ML IV (00:19)
[2020-04-10] MEDS: oxyCODONE 5 MG Tablet PO (05:45)
[2020-04-10] MEDS: Acetaminophen 500 MG Tablet 1000 MG PO (05:45)
--- NOTE | 2020-04-10 05:46 | NURSING ---
alexandrea wrap removed old drainage marked on dressing.
[2020-04-10 06:47] LABS: Hematocrit 29.5 % (40-54); Hemoglobin 9.3 g/dL (13.0-16.5); Mean Corp Hgb Conc 31.5 g/dL (32-36); Mean Corpuscular Hgb 29.8 pg (27.0-32.0); Mean Corpuscular Volume 94.6 fL (80-94); Mean Platelet Vol. 9.8 fl (6.2-12.0); Platelet Count 106 K/mm3 (150-450); RBC Distribution Width CV 13.5 % (11.6-14.6); RBC Distribution Width SD 46.8 fl (35.1-43.9); Red Blood Count 3.12 M/mm3 (4.6-6.2); White Blood Count 5.5 K/mm3 (4.4-11.0)
[2020-04-10] MEDS: Budesonide Respules 0.5 MG/2 ML AMPUL.NEB. INHALATION (07:17)
[2020-04-10] MEDS: Albuterol 2.5 MG/3 ML VIAL.NEB. INHALATION (07:17)
[2020-04-10 07:31] LABS: Anion Gap 5 (5-15); BUN 38 mg/dL (7-18); BUN/Creat Ratio 21.2 RATIO (10-20); Calcium,Total 8.5 mg/dL (8.5-10.1); Chloride 111 mmol/L (98-107); Creatinine, Serum 1.79 mg/dL (0.70-1.30); EST Glomerular Filtration Rate 39 mL/min (>60); Est Glom Filt Rate - Afr Amer 47 mL/min (>60); Estimated Creatinine Clearance 31.15 ml/min; Glucose 120 mg/dL (74-106); Sodium Level 138 mmol/L (136-145)
--- NOTE | 2020-04-10 07:46 | PCM.PN.ORT ---
Subjective: Patient sitting up in bed eating breakfast. Patient states pain is been very well managed. Patient denies chest pain, shortness of breath, calf pain, nausea vomiting. Patient has no other complaints at this time. Patient states he is ready for discharge home, to continue outpatient therapy. Objective: Dressing is clean dry intact. Vitals and labs were all reviewed and noted in the medical record. Patient is afebrile. Negative signs and symptoms of DVT. Neurovascular patient is otherwise intact. Patient is no respiratory distress, speaking in full sentences. - Physical Exam Vitals/I&O's: Vital Signs Temp Pulse Resp BP Pulse Ox 98.2 F 75 18 140/70 H 98 04/10/20 05:52 04/10/20 05:52 04/10/20 05:52 04/10/20 05:52 04/10/20 05:52 Oxygen Flow Rate (L/min) 6 Oxygen Delivery Method Room Air Weight: 80.343 kg Body Mass Index (BMI) 25.4 Intake and Output for Last 24 Hours 04/08/20 04/09/20 04/10/20 23:59 23:59 23:59 Intake Total 961.17 / 961.17 2014 Output Total 600 / 600 Balance 936.17 / 936.17 1415 / 1415 General: Alert, Oriented x3, Cooperative HEENT: PERRLA Oral: Moist Mucosa Cardiovascular: Regular rate Neurological: Cranial nerves II-XII grossly intact Psych/Mental Status: Normal Affect, Alert and oriented to time, place, person, mood and affect Laboratory Results 04/09/20 08:12: POC Glucose 72 04/09/20 12:30: WBC 5.9, RBC 3.44 L, Hgb 10.2 L, Hct 32.4 L, MCV 94.2 H, MCH 29.7, MCHC 31.5 L, RDW Std Deviation 45.8 H, RDW Coeff of Chas 13.3, Plt Count 109 L, MPV 9.5 04/09/20 12:30: Sodium 137, Potassium 4.8, Chloride 111 H, Carbon Dioxide 20.0 L, Anion Gap 6, BUN 38 H, Creatinine 1.57 H, Estim Creat Clear Calc 35.52, Est GFR (MDRD) Af Amer 54 L, Est GFR (MDRD) Non-Af 45 L, BUN/Creatinine Ratio 24.2 H, Glucose 126 H, Calcium 8.5 04/10/20 06:22: WBC 5.5, RBC 3.12 L, Hgb 9.3 L, Hct 29.5 L, MCV 94.6 H, MCH 29.8, MCHC 31.5 L, RDW Std Deviation 46.8 H, RDW Coeff of Chas 13.5, Plt Count 106 L, MPV 9.8 04/10/20 06:22: Sodium 138, Potassium 5.0, Chloride 111 H, Carbon Dioxide 22.0, Anion Gap 5, BUN 38 H, Creatinine 1.79 H, Estim Creat Clear Calc 31.15, Est GFR (MDRD) Af Amer 47 L, Est GFR (MDRD) Non-Af 39 L, BUN/Creatinine Ratio 21.2 H, Glucose 120 H, Calcium 8.5 Current Medications Acetaminophen (Acetaminophen 500 Mg Tablet) 1,000 mg PO Q8 [facility] Last Admin: 04/10/20 05:45 Dose: 1,000 mg Documented by: Albuterol Sulfate (Albuterol 2.5 Mg/3 Ml Vial.Neb.) 2.5 mg INHALATION Q6HWA.RT [facility] Last Admin: 04/10/20 07:17 Dose: 2.5 mg Documented by: Amlodipine Besylate (Amlodipine 5 Mg Tablet) 5 mg PO DAILY [facility] Aspirin (Aspirin 81 Mg Tab.Chew) 81 mg PO BIDCM [facility] Last Admin: 04/09/20 17:39 Dose: Not Given Documented by: Atorvastatin Calcium (Atorvastatin Calcium 40 Mg Tablet) 40 mg PO QHS [facility] Last Admin: 04/09/20 22:14 Dose: 40 mg Documented by: Budesonide (Budesonide Respules 0.5 Mg/2 Ml Ampul.Neb.) 0.5 mg INHALATION Q12H.RT [facility] Last Admin: 04/10/20 07:17 Dose: 0.5 mg Documented by: Clopidogrel Bisulfate (Clopidogrel Bisulfate 75 Mg Tablet) 75 mg PO DAILY [facility] Last Admin: 04/09/20 17:10 Dose: 75 mg Documented by: Lactated Ringer's () 1,000 mls @ 100 mls/hr IV .Q10H ALEJANDRO Last Admin: 04/10/20 00:19 Dose: 100 mls/hr Documented by: Insulin Human Lispro (Insulin Lispro 100 Unit/Ml Insuln.Pen) 1 - 6 unit SC Q4H PRN PRN; Protocol PRN Reason: BG>/= 180, SEE PROTOCOL Lisinopril (Lisinopril 20 Mg Tablet) 20 mg PO DAILY [facility] Metoprolol Tartrate (Metoprolol Tartrate 25 Mg Tablet) 25 mg PO DAILY [facility] Nitroglycerin (Nitroglycerin (Inpatient Use) 0.4 Mg Tab.Subl) 0.4 mg SUBLINGUAL .Q5-15M PRN PRN Reason: chest pain Ondansetron HCl (Ondansetron 4 Mg/2 Ml Vial) 4 mg IV Q8H PRN PRN PRN Reason: NAUSEA Oxycodone HCl (Oxycodone 5 Mg Tablet) 5 - 10 mg PO Q4H PRN PRN PRN Reason: Pain Score 4-10 Last Admin: 04/10/20 05:45 Dose: 5 mg Documented by: Pramipexole Dihydrochloride (Pramipexole Di-Hcl 0.5 Mg Tablet) 0.5 mg PO BID [facility] Last Admin: 04/09/20 22:16 Dose: 0.5 mg Documented by: Promethazine HCl (Promethazine 25 Mg/Ml Syringe) 12.5 mg IM Q6H PRN PRN; Protocol PRN Reason: NAUSEA/VOMITING Senna/Docusate Sodium (Senna/Docusate Sodium 1 Tablet) 2 tablet PO BID [facility] Last Admin: 04/09/20 22:14 Dose: 2 tablet Documented by: Sodium Chloride (0.9% Saline Lock 10 Ml Syringe) 10 - 40 ml IV UD PRN PRN Reason: SALINE FLUSH Assessment/Plan All Active Problems (Last Updated 10/14/19 @ 07:37 by Annette Murphy) History of non-ST elevation myocardial infarction (NSTEMI) (Resolved 01/2015) H/O coronary artery bypass surgery (Resolved 1989) History of coronary artery stent placement (Resolved 2005) Abnormal cardiovascular stress test (Resolved) Angina at rest (Resolved) Status post left total knee arthroplasty Plan 1. Continue all pain medications as prescribed 2. Continue physical therapy, weight-bear as tolerated with walker 3. Resume Plavix as prescribed preoperatively. Patient will continue his Plavix for postop DVT prophylaxis 4. Encourage incentive spirometry 5. Discharge home today to continue with outpatient physical therapy at [facility] 6. Follow-up as scheduled, see pink sheet
--- NOTE | 2020-04-10 07:53 | DCINST_ITS ---
Discharge Diet: No Restrictions Discharge Activity: May Not Drive, May Shower, Use Walker May shower in (days): 3 Ice area for (Minutes): 20 - each hour while awake. Weight Bearing Status: Weight bearing as tolerated Elevate: Operative Extremity Additional Activity Instructions:: Wear elastic stockings for 2 weeks after your surgery. Call your doctor if your incision/area has: Continuous Slow Oozing, Sudden Increased Bleeding, Increased Pain/ Swelling, Increased Redness, Foul Smelling Discharge Call your doctor if you observe: Fever of 101 or Higher, Coldness, Increased Pain - in extremity, Numbness or Tingling, Change in Color, Calf discomfort, Uncontrolled pain Change Dressing in (Days):: 0 - and daily as needed. Remove Dressing in (days):: 3 Cleanse incision/area with: Soap & Water Allergies/Adverse Reactions: Allergies isosorbide Adverse Reaction (Verified 03/23/20 09:18) headache Medications to take at Discharge aspirin 81 mg tablet,delayed release 81 mg PO DAILY 09/13/18 clopidogrel 75 mg tablet 75 mg PO DAILY #90 tab 05/19/19 nitroglycerin 0.4 mg sublingual tablet 0.4 mg SUBLINGUAL Q5-15M PRN #25 tab 08/03/19 amlodipine 5 mg tablet 5 mg PO DAILY tab 09/20/19 atorvastatin 80 mg tablet 40 mg PO QHS tab 10/04/19 pramipexole 0.5 mg tablet 0.5 mg PO BID tab 10/04/19 metoprolol tartrate 25 mg tablet 25 mg PO DAILY tab 10/13/19 Benazepril HCl 20 mg PO DAILY 03/23/20 Budesonide/Formoterol Fumarate [Symbicort 160-4.5 Mcg Inhaler] 2 puff INHALATION BID PRN 03/23/20 Acetaminophen [Tylenol] 1,000 mg PO Q8 #90 tab 04/10/20 Oxycodone [Oxyir] 5 - 10 mg PO Q4H PRN PRN 7 Days #84 tablet 04/10/20 The following prescriptions were given: Oxycodone [Oxyir] 5 - 10 mg PO Q4H PRN PRN 7 Days #84 tablet PRN Reason: Pain Score 4-10 Transmission Status: Sent to [facility] Acetaminophen [Tylenol] 1,000 mg PO Q8 #90 tab Transmission Status: Pending to [facility] Orders to be completed after discharge: 12 Lead EKG [[facility]] Time Frame: 04/02/20, Location: None Selected Primary Care Physician: Rick Butler MD [Primary Care Provider] - Test Results: Test results from this visit will be discussed in further detail at your follow- up appointment, if applicable. Please Follow Up With: Kris Barber PA-C
[2020-04-10] MEDS: Aspirin 81 MG TAB.CHEW PO (08:10)
[2020-04-10] MEDS: Metoprolol Tartrate 25 MG Tablet PO (08:10)
[2020-04-10] MEDS: amLODIPine 5 MG Tablet PO (08:12)
[2020-04-10] MEDS: Clopidogrel Bisulfate 75 MG Tablet PO (08:12)
[2020-04-10] MEDS: Lisinopril 20 MG Tablet PO (08:12)
[2020-04-10] MEDS: Senna/Docusate Sodium 1 Tablet 2 TABLET PO (08:12)
[2020-04-10] MEDS: Pramipexole Di-HCl 0.5 MG Tablet PO (08:16)
--- NOTE | 2020-04-10 10:50 | CASEMGMT ---
RN CM Face to Face with patient for initial transition planning/care coordination assessment. RN CM introduced self and role at [facility]. Patient sitting, alert and oriented. Patient willing to participate in assessment and is able to answer all questions appropriately. Care providers, pharmacy, and demographics verified. Patient wishes to discharge home and is setup with [facility] for outpatient therapy. Patient states he has no further needs or concerns at this time. CM to follow for discharge planning needs that may arise. PCP: Rick Butler Specialists: Valentina, urologist; Delroy, online trader Preferred Pharmacy: [facility] Insurance: [employer] Prescription Benefit: No Living Will/HPOA: yes, Sarah Flores LNOK: Living Arrangements: Patient lives with in a single story home with 3 steps to enter the home. Patient states he was independent at home prior to surgery. Transportation: DME/C: Patient states he has a walker. Patient is setup with [facility] for outpatient therapy starting Thursday. Disposition Plan: Patient to discharge home with outpatient therapy, family support, and follow-up plans in place. Key SANCHEZ, RN, CM
--- NOTE | 2020-04-10 11:48 | PHA.DC.MC ---
Pharmacy Service has performed discharge medication reconciliation and counseling for this patient. 1. OXYCODONE 5-10MG PO Q4H PRN PAIN 4-10 The patient's discharge medication list was reviewed for discrepancies and discrepancies were resolved. Home Medications aspirin 81 mg tablet,delayed release 81 mg PO DAILY 09/13/18 clopidogrel 75 mg tablet 75 mg PO DAILY #90 tab 05/19/19 nitroglycerin 0.4 mg sublingual tablet 0.4 mg SUBLINGUAL Q5-15M PRN #25 tab 08/03/19 amlodipine 5 mg tablet 5 mg PO DAILY tab 09/20/19 atorvastatin 80 mg tablet 40 mg PO QHS tab 10/04/19 pramipexole 0.5 mg tablet 0.5 mg PO BID tab 10/04/19 metoprolol tartrate 25 mg tablet 25 mg PO DAILY tab 10/13/19 Benazepril HCl 20 mg PO DAILY 03/23/20 Budesonide/Formoterol Fumarate [Symbicort 160-4.5 Mcg Inhaler] 2 puff INHALATION BID PRN 03/23/20 Acetaminophen [Tylenol] 1,000 mg PO Q8 #90 tab 04/10/20 Oxycodone [Oxyir] 5 - 10 mg PO Q4H PRN PRN 7 Days #84 tab 04/10/20 The patient was counseled on the following discharge medications and changes in medications for homegoing were reviewed. The Reason for Use, instructions for use, and potential side effects were reviewed for all new medications. The patient's questions regarding all of their medications were answered. The patient was able to verbally demonstrate an understanding of their discharge medications.
== END 2020-04-10 13:55 | disposition home or self-care (01) ==
LOC: SDC 12:56 → MS3 12:56
PROVIDERS: Anesthesiology; Admitting Provider Orthopaedic Surgery; PCP Family Medicine; Referring Provider Orthopaedic Surgery; Visit Provider Orthopaedic Surgery
PROC: 0SRD0JZ Replacement of Left Knee Joint with Synthetic Substitute, Open Approach (ICD-10-PCS; CPT 27447; principal; 2020-04-09 09:10)
DX: M17.12 Unilateral primary osteoarthritis, left knee (principal); Z20.828 Contact with and (suspected) exposure to other viral communicable diseases; I25.2 Old myocardial infarction; I25.10 Atherosclerotic heart disease of native coronary artery without angina pectoris; E78.00 Pure hypercholesterolemia, unspecified; G20 Parkinson's disease; R00.1 Bradycardia, unspecified; I73.9 Peripheral vascular disease, unspecified; I11.0 Hypertensive heart disease with heart failure; I50.9 Heart failure, unspecified; L40.9 Psoriasis, unspecified; Z95.1 Presence of aortocoronary bypass graft; Z79.899 Other long term (current) drug therapy; Z79.51 Long term (current) use of inhaled steroids; Z79.02 Long term (current) use of antithrombotics/antiplatelets; M21.062 Valgus deformity, not elsewhere classified, left knee
CPT/HCPCS: 01400; 27447; 64447; S2900; 36415; 73560; 80048; 82962; 83735; 85025; 85027; 87081; 87426; 88305; 88311; 93005; 94640; 96361; 96365; 96366; 97110; 97116; 97162; 97166; 97535; 99218; 99251; C1776; C9803; J7120; G0378; G0379; G0463

== ENCOUNTER → 2020-05-17 10:59 | Outpatient (CLI) | payer MEDICARE, OTHER, SELFPAY ==
[2020-05-17 08:54] VITALS: BMI 24.5
[2020-05-17 12:01] LABS: Anion Gap 4 (5-15); BUN 42 mg/dL (7-18); BUN/Creat Ratio 21.3 RATIO (10-20); Calcium,Total 9.6 mg/dL (8.5-10.1); Chloride 109 mmol/L (98-107); Creatinine, Serum 1.97 mg/dL (0.70-1.30); EST Glomerular Filtration Rate 34 mL/min (>60); Est Glom Filt Rate - Afr Amer 42 mL/min (>60); Glucose 100 mg/dL (74-106); Potassium 5.4 mmol/L (3.5-5.1); Sodium Level 136 mmol/L (136-145)
== END ==
PROVIDERS: PCP Family Medicine; Referring Provider Internal Medicine Cardiovascular Disease; Visit Provider Internal Medicine Cardiovascular Disease
DX: Z95.1 Presence of aortocoronary bypass graft (principal)
CPT/HCPCS: 36415; 80048

== ENCOUNTER 2020-05-24 15:00 | Outpatient (RCR) | payer MEDICARE, OTHER, SELFPAY ==
[2020-05-17 08:54] VITALS: BMI 24.5
== END 2020-05-24 23:59 ==
LOC: IMMUN 15:00
PROVIDERS: PCP Family Medicine; Visit Provider Family Medicine
DX: Z23 Encounter for immunization (principal)
CPT/HCPCS: 0011A; 0012A; 91301

== ENCOUNTER → 2020-08-07 10:50 | Outpatient (CLI) | payer MEDICARE, OTHER, SELFPAY ==
[2020-08-07 08:40] VITALS: BMI 25.2
[2020-08-07 11:39] LABS: Absolute Lymphocyte Count 1.25 X10^3/uL (0.83-4.51); Basophil# 0.02 X10^3/uL; Basophil% 0.3 % (0-1); Eosinophil# 0.13 X10^3/uL; Eosinophils% 2.2 % (0-5); Hematocrit 33.7 % (40-54); Hemoglobin 10.1 g/dL (13.0-16.5); Lymphocyte # 1.25 X10^3/ul (4.0); Lymphocyte % 21.2 % (19-41); Mean Corpuscular Hgb 27.1 pg (27.0-32.0); Mean Corpuscular Volume 90.3 fL (80-94); Mean Platelet Vol. 9.9 fl (6.2-12.0); Monocyte# 0.48 X10^3/uL; Monocyte% 8.1 % (0-10); NRBC Flagged by Analyzer 0 % (0-5); Neutrophil # 3.99 X10^3/uL (2.7-7.7); Neutrophil % 67.9 % (47-70); Platelet Count 178 K/mm3 (150-450); Red Blood Count 3.73 M/mm3 (4.6-6.2); White Blood Count 5.9 K/mm3 (4.4-11.0)
[2020-08-07 12:19] LABS: Anion Gap 5 (5-15); BUN 38 mg/dL (7-18); BUN/Creat Ratio 22.6 RATIO (10-20); Calcium,Total 8.9 mg/dL (8.5-10.1); Chloride 107 mmol/L (98-107); Creatinine, Serum 1.68 mg/dL (0.70-1.30); EST Glomerular Filtration Rate 41 mL/min (>60); Est Glom Filt Rate - Afr Amer 50 mL/min (>60); Glucose 97 mg/dL (74-106); Potassium 5.2 mmol/L (3.5-5.1); Sodium Level 137 mmol/L (136-145)
== END ==
PROVIDERS: PCP Family Medicine; Referring Provider Internal Medicine Cardiovascular Disease; Visit Provider Internal Medicine Cardiovascular Disease
DX: N18.9 Chronic kidney disease, unspecified (principal); Z95.1 Presence of aortocoronary bypass graft
CPT/HCPCS: 36415; 80048; 85025

== ENCOUNTER → 2020-08-08 09:39 | Outpatient (CLI) | payer MEDICARE, OTHER, SELFPAY ==
[2020-08-07 08:40] VITALS: BMI 25.2
--- NOTE | 2020-08-08 09:48 | RAD_ITS ---
STUDY: X-RAY CHEST REASON FOR EXAM: Male, 85 years old. Chest pain TECHNIQUE: PA and lateral views of the chest. COMPARISON: 08/09/2019 FINDINGS: Lungs are mildly hyperexpanded with chronic interstitial changes but no superimposed acute pulmonary process. There is no demonstrated pleural abnormality. Sternal cerclage wires and vascular clips are present from a prior sternotomy and coronary artery bypass graft procedure (CABG). Normal mediastinum and sherlyn. Normal visualized pulmonary arteries. Normal visualized aortic arch and descending thoracic aorta. There are diffuse degenerative changes of the visualized thoracic spine. Normal visualized ribs, clavicles, and shoulders. There is no demonstrated abnormality of the visualized soft tissue structures of the upper abdomen. RAD/Chest PA and Lateral IMPRESSION: Mildly hyperexpanded lungs with chronic interstitial changes, no superimposed acute pulmonary process Electronically Signed: Jovany Kaplan MD at 14:15 EDT , Service support ,
== END ==
PROVIDERS: PCP Family Medicine; Referring Provider Internal Medicine Cardiovascular Disease; Visit Provider Internal Medicine Cardiovascular Disease
DX: I25.700 Atherosclerosis of coronary artery bypass graft(s), unspecified, with unstable angina pectoris (principal); I25.110 Atherosclerotic heart disease of native coronary artery with unstable angina pectoris; R94.39 Abnormal result of other cardiovascular function study; Z95.1 Presence of aortocoronary bypass graft
CPT/HCPCS: 71046

== ENCOUNTER → 2020-08-13 10:50 | Outpatient (CLI) | payer MEDICARE, OTHER, SELFPAY ==
[2020-08-07 08:40] VITALS: BMI 25.2
[2020-08-13 12:29] LABS: Absolute Lymphocyte Count 1.26 X10^3/uL (0.83-4.51); Basophil# 0.02 X10^3/uL; Basophil% 0.3 % (0-1); Eosinophils% 1.7 % (0-5); Lymphocyte # 1.26 X10^3/ul (4.0); Lymphocyte % 21.4 % (19-41); Mean Corp Hgb Conc 30.6 g/dL (32-36); Mean Corpuscular Hgb 27.2 pg (27.0-32.0); Mean Corpuscular Volume 89.1 fL (80-94); Mean Platelet Vol. 10.3 fl (6.2-12.0); Monocyte# 0.46 X10^3/uL; Monocyte% 7.8 % (0-10); NRBC Flagged by Analyzer 0 % (0-5); Neutrophil # 4.04 X10^3/uL (2.7-7.7); Neutrophil % 68.5 % (47-70); Platelet Count 189 K/mm3 (150-450); RBC Distribution Width CV 14.9 % (11.6-14.6); RBC Distribution Width SD 49.1 fl (35.1-43.9); Red Blood Count 4.04 M/mm3 (4.6-6.2); White Blood Count 5.9 K/mm3 (4.4-11.0)
[2020-08-13 12:34] LABS: International Normalized Ratio 1.1; Prothrombin Time (Protime)PT. 13.7 SECONDS (11.7-14.9)
[2020-08-13 12:35] LABS: Partial Thromboplast Time 28.1 Seconds (24.1-36.2)
[2020-08-13 12:38] LABS: AST(SGOT) 15 U/L (15-37); Alanine Aminotransfer ALT/SGPT 38 U/L (16-61); Albumin, Serum 3.9 g/dL (3.2-5.0); Alkaline Phosphatase 168 U/L (45-117); Anion Gap 5 (5-15); BUN 42 mg/dL (7-18); BUN/Creat Ratio 24.6 RATIO (10-20); Calcium,Total 9.4 mg/dL (8.5-10.1); Chloride 105 mmol/L (98-107); Creatinine, Serum 1.71 mg/dL (0.70-1.30); EST Glomerular Filtration Rate 41 mL/min (>60); Est Glom Filt Rate - Afr Amer 49 mL/min (>60); Globulin 4.1 g/dL (2.2-4.2); Glucose 99 mg/dL (74-106); Potassium 5.4 mmol/L (3.5-5.1); Sodium Level 134 mmol/L (136-145)
[2020-08-13 13:02] LABS: Vitamin D,25 Hydroxy 17.4 ng/mL
== END ==
PROVIDERS: PCP Family Medicine; Visit Provider Family Medicine
DX: S86.002A Unspecified injury of left Achilles tendon, initial encounter (principal)
CPT/HCPCS: 36415; 80053; 82306; 85025; 85610; 85730

== ENCOUNTER → 2020-08-13 12:56 | Outpatient (CLI) | payer MEDICARE, OTHER, SELFPAY ==
[2020-08-07 08:40] VITALS: BMI 25.2
--- NOTE | 2020-08-13 12:57 | ECHOD_ITS ---
Reason For Study: SOB, CAD Procedure This was a 2D Doppler, Color Flow transthoracic echocardiogram. Exam performed in department. Left Ventricle Normal LV size. Moderate concentric left ventricular hypertrophy. Left ventricular systolic function is normal. The estimated ejection fraction is 65 %. No regional wall motion abnormalities noted. Right Ventricle Normal RV size. Normal systolic function. Atria The left atrium is moderately enlarged. Normal right atrium. Mitral Valve Bileaflet diffuse mitral valve thickening. Mild-Moderate (1-2+) eccentric mitral valve insufficiency. Tricuspid Valve Normal tricuspid valve. Mild to moderate (1-2+) tricuspid valve insufficiency. Pulmonary artery systolic pressure is 45 mmHg. Aortic Valve Trisinus/trileaflet aortic valve. Mild focal aortic valve calcification. Peak aortic valve gradient 23 mmHg. Mean aortic valve gradient 12 mmHg. Mild aortic stenosis. Pulmonic Valve Normal pulmonic valve. Great Vessels Calcified aortic root. The pulmonary artery is normal size. Pericardium/Pleural No pericardial effusion. MMode/2D Measurements & Calculations LVIDd: 3.9 cm IVSd: 1.5 cm LVOT diam: 2.2 cm LVIDs: 2.8 cm LVPWd: 1.6 cm LVOT area: 3.6 cm2 RVDd: 4.2 cm FS: 29.0 % Ao root diam: 3.0 cm LAV(MOD-bp): 102.1 ml EDV(MOD-sp4): 111.3 ml LAV(MOD-bp) Indexed: 53.1 ml/m2 ESV(MOD-sp4): 32.2 ml LAV(MOD-sp2): 94.7 ml EF(MOD-sp4): 71.1 % LAV(MOD-sp4): 101.5 ml EDV(MOD-sp2): 93.9 ml SV(MOD-sp4): 79.1 ml SV(MOD-sp2): 55.6 ml EF(MOD-sp2): 59.2 % LA A4 area: 27.9 cm2 LA dimension(2D): 5.1 cm RA A4 area: 17.6 cm2 Doppler Measurements & Calculations MV E max salas: 95.0 cm/sec Lat Peak E' Salas: 6.5 cm/sec Med Peak E' Salas: 6.6 cm/sec MV A max salas: 60.0 cm/sec E/E' lat: 14.5 E/E' med: 14.4 MV E/A: 1.6 Ao V2 max: 241.3 cm/sec AI max salas: 346.5 cm/sec LV V1 max: 103.0 cm/sec Ao max P.4 mmHg AI max P.1 mmHg LV V1 max P.2 mmHg Ao V2 mean: 161.5 cm/sec LV V1 mean P.3 mmHg Ao mean P.8 mmHg AI dec slope: 157.2 cm/sec2 LV V1 mean: 71.6 cm/sec Ao V2 VTI: 54.9 cm AI P1/2t: 645.6 msec LV V1 VTI: 25.1 cm CONY(I,D): 1.7 cm2 CONY(V,D): 1.5 cm2 SV(LVOT): 91.0 ml PA V2 max: 112.8 cm/sec TR max salas: 320.6 cm/sec TR max P.3 mmHg ECHO/Echo Complete Interpretation Summary Normal LV size. Moderate concentric left ventricular hypertrophy. Left ventricular systolic function is normal. The estimated ejection fraction is 65 %. Mean aortic valve gradient 12 mmHg. Mild aortic stenosis. Pulmonary artery systolic pressure is 45 mmHg. The global longitudinal strain = -20.5 % (normal). Ordering Physician: Bhavesh Potts Referring Physician: Rick Butler MD Performed By: Irene Birmingham RDCS
== END ==
PROVIDERS: PCP Family Medicine; Referring Provider Internal Medicine Cardiovascular Disease; Visit Provider Internal Medicine Cardiovascular Disease
DX: R06.00 Dyspnea, unspecified (principal); I50.30 Unspecified diastolic (congestive) heart failure; N18.30 Chronic kidney disease, stage 3 unspecified; S86.002A Unspecified injury of left Achilles tendon, initial encounter
CPT/HCPCS: 36415; 80053; 82306; 85025; 85610; 85730; 93306

== ENCOUNTER → 2020-08-16 13:41 | Outpatient (CLI) | payer MEDICARE, OTHER, SELFPAY ==
[2020-08-07 08:40] VITALS: BMI 25.2
--- NOTE | 2020-08-16 13:43 | ART_ITS ---
Reason For Study: PVD Procedure A bilateral lower extremity continuous wave Doppler with analog waveform analysis and ankle brachial indexes. Left Segmental Pressures Left brachial= 152mmHg. Left posterior tibial artery = 174mmHg. Left dorsalis pedis artery = 176mmHg. The left dorsalis pedis waveforms are triphasic. The left posterior tibial artery waveforms are triphasic. Right Segmental Pressures Right brachial= 158mmHg. Right posterior tibial artery = 181mmHg. Right dorsalis pedis artery = 162mmHg. The right dorsalis pedis waveforms are triphasic. The right posterior tibial artery waveforms are triphasic. Indices The right ankle brachial index by the dorsalis pedis is 1.03. The right ankle brachial index by the posterior tibial artery is 1.15. The left ankle brachial index by the posterior tibial artery is 1.1. The left ankle brachial index by the dorsalis pedis is 1.11. VL/Ankle Brachial Index Interpretation Summary Normal resting bilateral lower extremity ankle-brachial indices and triphasic b ilateral posterior tibialis and dorsalis pedis Doppler waveforms Ordering Physician: Bhavesh Potts Performed By: Oscar Jefferson RVT and Student
== END ==
PROVIDERS: PCP Family Medicine; Referring Provider Internal Medicine Cardiovascular Disease; Visit Provider Internal Medicine Cardiovascular Disease
DX: I73.9 Peripheral vascular disease, unspecified (principal)
CPT/HCPCS: 93922

== ENCOUNTER 2020-09-21 11:00 | Outpatient (RCR) | payer MEDICARE, OTHER, SELFPAY ==
[2020-08-07 08:40] VITALS: BMI 25.2
--- NOTE | 2020-08-21 13:15 | HP.PTEVAL ---
Patient's Visit Information BEVERLY GUSMAN is a 85 year old M referred to Physical Therapy by Dr. Rick Butler MD with a diagnosis of PD. Date of Evaluation: 08/21/20 Physical Therapist: ISIDRO Dimas - Visit Plan Frequency: 3x /Week Duration: 4 Weeks Plan: 3X/ week for 4 weeks for postural exercises, deep slow breathing with good posture, endurance, gait training with upright posture, dual tasking with strengthening with HEP - Subjective Pt had L TKR (Apr 09) and had PT and he is better. Dr Butler now wants him to come here for PD. Pt reports that he struggles with SOB. He has been to pulmonary and heart Dr and all of that is normal. He will sit there and just be out of breath. THis happens about a dozen times a day. His pulse is normal and O2 is normal. He is not having any axiety. He tries to walk and can walk 500 feet and has to stop and catch his breath. Going up the stairs and down the stairs he has to stop and catch his breath. When he walks to the car he has to stop and catch his breath. Still doing postural exercises at home and riding his bike/seated elliptical every other day... 10 min...at a slow pace. This started a month ago.... He had a COVID shot in May and JUN. He had no reaction. No sawllowing issues. He is sleeping like he normal does... not well. Dr Butler pointed out that he is walking shorter strides and something wrong with his speech. He feels that he is walking same pace inside but outside he is slower. Pt feels that his balance is good. Sometimes he can go up stairs with no SOB and other times he has SOB. They have changed his meds for PD last week. - Objective Not using abdomin muscles to help him breath. Takes short breaths when asked to breathe in deep and back out. Posture: sits with rounded shoulders and fw head. Gait: walks with decreased trunk rotation and decreased arm swing, fw head, feet close together,. FGA . LE MMT: B hip flex, abd 4+/5, B B knee flex and ext 4+/5. Pt is able to walk on heels and toes. Stairs: up and down recip with 1 hand rail. Had pt sit up nice and tall and he was able to breathe in a deep breathe and control letting it come out. Then had pt slump fw and he was not able to get as good of a deep breath. Pt became SOB after walking to the stairs, up and down the stairs. He was also SOB walking back to the treatment area and was not able to keep up with my walking pace. seated in chair with towel behind shoulder blades thoracic stretch, seated in chair high thoracic extension mobs over theraist hand... pt felt he could sit with more retraction of the scapular/thoracic - Balance Scores Functional Gait Assessment Score: 20 % Disability: 33.3400 - Goals Goal 1:: Be able to work in the yard with fewer SOB episodes Goal Time Frame: 4-6 Weeks Goal 2:: Be able to walk back to the treatment area with no SOB episodes and complete entire treatment with no SOB episodes Goal Time Frame: 4-6 Weeks Goal 3:: Be able to increase FGA by 5 points to decrease fall risk (score at time of eval was 20) Goal Time Frame: 4-6 Weeks Goal 4:: Be able to sit and walk with upright posture with increase trunk motion and arm swing Goal Time Frame: 4-6 Weeks - Rehabilitation Potential Rehabilitation Potential: Good - Anticipated Interventions Patient/Client Instruction: Educate patient on: Condition, Plan of Care For the Purpose of:: To increase ROM, To improve nutrient delivery to tissue, To increase oxygenation perfusion, To improve muscle performance and motor function, To improve ability to perform ADL's, To increase tolerance to activity/condition/position, To improve performance and independence with ADL's, To improve ability of physical actions for home/community/work/leisure, To improve gait and locomotor functions, To increase flexibility/ROM, To improve endurance, To improve safety with gait Therapeutic Exercise to Include: Strength training, Endurance training, Balance training, Body mechanics, Postural training, Flexibilty training, Gait and locomotor training, Neuromotor development, Passive ROM, Active ROM, Dynamic Lumbar Stabilization, Scapular Strength/Stabilization For the Purpose of:: To increase ROM, To improve nutrient delivery to tissue, To increase oxygenation perfusion, To improve muscle performance and motor function, To improve ability to perform ADL's, To increase tolerance to activity/condition/position, To improve performance and independence with ADL's, To decrease level of supervision to perform tasks, To improve ability of physical actions for home/community/work/leisure, To improve health of tissue, To decrease soft tissue restriction, To increase flexibility/ROM, To improve balance, To improve safety with gait Functional Training to Include: Gait training For the Purpose of:: To improve safety with gait Manual Therapy Techniques to Include: Mobilization, Soft tissue mobilization For the Purpose of:: To increase ROM, To improve nutrient delivery to tissue, To improve muscle performance and motor function, To improve ability to perform ADL's, To increase tolerance to activity/condition/position, To improve performance and independence with ADL's, To decrease level of supervision to perform tasks, To improve ability of physical actions for home/community/work/leisure, To improve gait and locomotor functions, To improve health of tissue, To decrease soft tissue restriction, To increase flexibility/ROM Thank you for the opportunity to evaluate your patient. For Medicare and Medicare HMO plans, please review the plan of care and approve it. It will need to be FAXED BACK to us at [phone] for Medicare purposes. For Medicare only, by signing this I certify the plan of care. Please let me know if there are questions or concerns regarding this plan of care. Physician Signature: Date:
--- NOTE | 2020-09-18 10:08 | HP.PTREVAL ---
Dr. Rick Butler MD, It has been my pleasure to treat BEVERLY GUSMAN over the last 10 visits for PD. Please see the progress note below for an update on the physical therapy plan of care! Subjective: Pt reports that he is sore and stiff today because he did mulch yesterday... Objective/Function: pt did very well today. Improved posture and head and thoracici ext noticed. Plan Plan: 3X/ week for 4 weeks for postural exercises, deep slow breathing with good posture, endurance, gait training with upright posture, dual tasking with strengthening with HEP Goals Goal 1:: Be able to work in the yard with fewer SOB episodes Goal Time Frame: 4-6 Weeks Goal Progress: Progressing Goal 2:: Be able to walk back to the treatment area with no SOB episodes and complete entire treatment with no SOB episodes Goal Time Frame: 4-6 Weeks Goal Progress: Progressing Goal 3:: Be able to increase FGA by 5 points to decrease fall risk (score at time of eval was 20) Goal Time Frame: 4-6 Weeks Goal 4:: Be able to sit and walk with upright posture with increase trunk motion and arm swing Goal Time Frame: 4-6 Weeks Goal Progress: Progressing Anticipated Interventions Patient/Client Instruction: Educate patient on: Condition, Plan of Care For the Purpose of:: To increase ROM, To improve nutrient delivery to tissue, To increase oxygenation perfusion, To improve muscle performance and motor function, To improve ability to perform ADL's, To increase tolerance to activity/condition/position, To improve performance and independence with ADL's, To improve ability of physical actions for home/community/work/leisure, To improve gait and locomotor functions, To increase flexibility/ROM, To improve endurance, To improve safety with gait Therapeutic Exercise to Include: Strength training, Endurance training, Balance training, Body mechanics, Postural training, Flexibilty training, Gait and locomotor training, Neuromotor development, Passive ROM, Active ROM, Dynamic Lumbar Stabilization, Scapular Strength/Stabilization For the Purpose of:: To increase ROM, To improve nutrient delivery to tissue, To increase oxygenation perfusion, To improve muscle performance and motor function, To improve ability to perform ADL's, To increase tolerance to activity/condition/position, To improve performance and independence with ADL's, To decrease level of supervision to perform tasks, To improve ability of physical actions for home/community/work/leisure, To improve health of tissue, To decrease soft tissue restriction, To increase flexibility/ROM, To improve balance, To improve safety with gait Functional Training to Include: Gait training For the Purpose of:: To improve safety with gait Manual Therapy Techniques to Include: Mobilization, Soft tissue mobilization For the Purpose of:: To increase ROM, To improve nutrient delivery to tissue, To improve muscle performance and motor function, To improve ability to perform ADL's, To increase tolerance to activity/condition/position, To improve performance and independence with ADL's, To decrease level of supervision to perform tasks, To improve ability of physical actions for home/community/work/leisure, To improve gait and locomotor functions, To improve health of tissue, To decrease soft tissue restriction, To increase flexibility/ROM Please do not hesitate to contact me at [phone] by phone or if you have questions or concerns regarding this new plan of care! Sincerely, Alicia Faulkner MPT
--- NOTE | 2021-01-18 09:51 | HP.PTDCNRP_ITS ---
BEVERLY GUSMAN was seen in my office for initial evaluation on 08/21/20. The following Plan of Care was established for this patient: Initial Frequency: 3x /Week Initial Duration: 4 Weeks Patient/Client Instruction: Educate patient on: Condition, Plan of Care For the Purpose of:: To increase ROM, To improve nutrient delivery to tissue, To increase oxygenation perfusion, To improve muscle performance and motor function, To improve ability to perform ADL's, To increase tolerance to activity/condition/position, To improve performance and independence with ADL's, To improve ability of physical actions for home/community/work/leisure, To improve gait and locomotor functions, To increase flexibility/ROM, To improve endurance, To improve safety with gait Therapeutic Exercise to Include: Strength training, Endurance training, Balance training, Body mechanics, Postural training, Flexibilty training, Gait and locomotor training, Neuromotor development, Passive ROM, Active ROM, Dynamic Lumbar Stabilization, Scapular Strength/Stabilization For the Purpose of:: To increase ROM, To improve nutrient delivery to tissue, To increase oxygenation perfusion, To improve muscle performance and motor function, To improve ability to perform ADL's, To increase tolerance to activity/condition/position, To improve performance and independence with ADL's, To decrease level of supervision to perform tasks, To improve ability of ph ysical actions for home/community/work/leisure, To improve health of tissue, To decrease soft tissue restriction, To increase flexibility/ROM, To improve balance, To improve safety with gait Functional Training to Include: Gait training For the Purpose of:: To improve safety with gait Manual Therapy Techniques to Include: Mobilization, Soft tissue mobilization For the Purpose of:: To increase ROM, To improve nutrient delivery to tissue, To improve muscle performance and motor function, To improve ability to perform ADL's, To increase tolerance to activity/condition/position, To improve performance and independence with ADL's, To decrease level of supervision to perform tasks, To improve ability of physical actions for home/community/work/leisure, To improve gait and locomotor functions, To improve health of tissue, To decrease soft tissue restriction, To increase flexibility/ROM This patient was last seen in our office 09/21/20. Pertinent comments regarding their Physical therapy will appear below: DC PT to HEP At this point I will be discontinuing this patient from physical therapy. I would be happy to see this patient again in the future if found appropriate by the physician. Thank you! Alicia Faulkner, ISIDRO Balance/Gait/Functional tests - Balance/Special Test Scores Functional Gait Assessment Score: 20 % Disability: 33.3400 Lower Extremity Functional Score: 52
== END 2020-09-21 19:00 | disposition home or self-care (01) ==
LOC: PT 11:00
PROVIDERS: PCP Family Medicine; Referring Provider Family Medicine; Visit Provider Family Medicine
DX: G20 Parkinson's disease (principal)
CPT/HCPCS: 97110; 97161

== ENCOUNTER → 2021-03-07 12:38 | Outpatient (CLI) | payer MEDICARE, OTHER, SELFPAY ==
[2021-03-07 15:17] LABS: Absolute Lymphocyte Count 1.16 X10^3/uL (0.83-4.51); Absolute Neutrophil Count 3.1 X10^3/uL (2.0-7.7); Basophil# 0.02 X10^3/uL; Basophil% 0.4 % (0-1); Eosinophil# 0.15 X10^3/uL; Eosinophils% 3.1 % (0-5); Hematocrit 34.7 % (40-54); Hemoglobin 11.3 g/dL (13.0-16.5); Lymphocyte # 1.16 X10^3/ul (0.83-4.51); Lymphocyte % 23.6 % (19-41); Mean Corp Hgb Conc 32.6 g/dL (32-36); Mean Corpuscular Hgb 29.9 pg (27.0-32.0); Mean Corpuscular Volume 91.8 fL (80-94); Mean Platelet Vol. 10.2 fl (6.2-12.0); Monocyte# 0.52 X10^3/uL; Monocyte% 10.6 % (0-10); NRBC Flagged by Analyzer 0 % (0-5); Neutrophil # 3.05 X10^3/uL (2.7-7.7); Neutrophil % 62.1 % (47-70); Platelet Count 130 K/mm3 (150-450); RBC Distribution Width CV 13.5 % (11.6-14.6); Red Blood Count 3.78 M/mm3 (4.6-6.2); White Blood Count 4.9 K/mm3 (4.4-11.0)
[2021-03-07 15:56] LABS: Hemoglobin A1c 5.5 % (3.8-5.6)
[2021-03-07 16:15] LABS: ALB/GLOB Ratio 1.1 RATIO (0.9-2.4); AST(SGOT) 17 U/L (15-37); Alanine Aminotransfer ALT/SGPT 20 U/L (16-61); Albumin, Serum 3.6 g/dL (3.2-5.0); Alkaline Phosphatase 125 U/L (45-117); Anion Gap 6 (5-15); BUN 35 mg/dL (7-18); BUN/Creat Ratio 21.3 RATIO (10-20); Calcium,Total 9.2 mg/dL (8.5-10.1); Chloride 109 mmol/L (98-107); Creatinine, Serum 1.64 mg/dL (0.70-1.30); EST Glomerular Filtration Rate 43 mL/min (>60); Est Glom Filt Rate - Afr Amer 51 mL/min (>60); Globulin 3.4 g/dL (2.2-4.2); Glucose 96 mg/dL (74-106); PSA,Total- Diagnostic 0.79 ng/mL (0.0-4.0); Potassium 4.9 mmol/L (3.5-5.1); Sodium Level 139 mmol/L (136-145)
== END ==
PROVIDERS: PCP Family Medicine; Referring Provider Family Medicine; Visit Provider Family Medicine
DX: N40.0 Benign prostatic hyperplasia without lower urinary tract symptoms (principal); R35.1 Nocturia; R06.9 Unspecified abnormalities of breathing
CPT/HCPCS: 36415; 80053; 83036; 84153; 85025

== ENCOUNTER → 2021-04-22 16:41 | Outpatient (CLI) | payer MEDICARE, OTHER, SELFPAY ==
--- NOTE | 2021-04-22 16:44 | RAD_ITS ---
STUDY: X-RAY - RIGHT FOOT CLINICAL: Male, 85 years old. pain TECHNIQUE: 3 view(s) of the foot. COMPARISON: None. FINDINGS: Normal talus, calcaneus, and tarsal bones. Normal visualized subtalar, talonavicular, calcaneocuboid, tarsal and tarsometatarsal articulations. Normal metatarsi. There is degenerative arthrosis of the metatarsophalangeal joint of the hallux . Normal tibial and fibular sesamoid bones. Normal interphalangeal joint of the great toe. Normal phalanges of the great toe. Normal second through fifth metatarsophalangeal joints. Normal interphalangeal joints and phalanges of the lesser toes. The soft tissue structures are unremarkable. RAD/Foot min 3 Views IMPRESSION: Severe first metatarsophalangeal joint arthrosis. Electronically Signed: Arnold Parmar MD at 16:59 EST Tel , Service support ,
--- NOTE | 2021-04-22 16:44 | RAD_ITS ---
STUDY: X-RAY - RIGHT ANKLE REASON FOR EXAM: Male, 85 years old. pain TECHNIQUE: 3 view(s) of the ankle. COMPARISON: None. FINDINGS: Normal visualized distal tibia and fibula. Normal medial and lateral malleoli. Normal tibiotalar articulation and ankle mortise. Normal visualized talus and calcaneus. The visualized subtalar, talonavicular, calcaneocuboid and tarsal articulations are normal. The soft tissue structures are unremarkable. RAD/Ankle min 3 Views IMPRESSION: Normal x-ray examination of the ankle. Electronically Signed: Darryl Gibson DO at 6:28 EST Tel , Service support ,
== END ==
PROVIDERS: PCP Family Medicine; Referring Provider Nurse Practitioner Family; Visit Provider Nurse Practitioner Family
DX: M79.671 Pain in right foot (principal)
CPT/HCPCS: 73610; 73630

== ENCOUNTER 2021-05-21 09:00 | Outpatient (CLI) | payer MEDICARE, OTHER, SELFPAY ==
--- NOTE | 2021-05-21 09:03 | CT_ITS ---
STUDY: CT RIGHT LOWER EXTREMITY WITHOUT CONTRAST REASON FOR EXAM: Right knee osteoarthritis, surgical planning. TECHNIQUE: Transaxial CT imaging of the lower extremity was performed. Coronal and sagittal images were reformatted. Individualized dose optimization techniques were used for this CT. COMPARISON: None. FINDINGS: Knee: There is joint space narrowing of the lateral femorotibial compartment (coronal reconstruction 26). There is joint space narrowing of the lateral aspect of the patellofemoral articulation (axial image 276). There is a joint effusion. There is chondrocalcinosis, and calcific tendinitis of the patellar tendon (sagittal reconstructions 21-49). There is vascular calcification. Hip: There is a herniation pit in the lateral aspect of the femoral head/neck (coronal reconstruction 54). There is chondrocalcinosis (coronal reconstructions 49-61). There is calcific tendinitis of the right hamstring tendons (coronal reconstructions 73-75). There is vascular calcification. Ankle: There is mild chondrocalcinosis the tibiotalar articulation (sagittal reconstructions 25-30). There is a small posterior calcaneal enthesophyte. There is calcific tendinitis of the flexor digitorum longus tendon (sagittal reconstruction 37). CT/Extremity Lower without Contra IMPRESSION: Right knee osteoarthritis. Electronically Signed: Nickolas Escalera MD at 15:00 EST Tel , Service support ,
== END 2021-05-21 23:59 | disposition short-term general hospital (02) ==
LOC: CT 09:01
PROVIDERS: PCP Family Medicine; Referring Provider Orthopaedic Surgery; Visit Provider Orthopaedic Surgery
DX: M17.11 Unilateral primary osteoarthritis, right knee (principal); M25.561 Pain in right knee
CPT/HCPCS: 73700

== ENCOUNTER 2021-05-28 08:17 | Outpatient (CLI) | payer MEDICARE, OTHER, SELFPAY ==
[2021-05-28 09:09] LABS: Anion Gap 5 (5-15); BUN 45 mg/dL (7-18); Calcium,Total 9.4 mg/dL (8.5-10.1); Chloride 107 mmol/L (98-107); EST Glomerular Filtration Rate 38 mL/min (>60); Est Glom Filt Rate - Afr Amer 46 mL/min (>60); Glucose 99 mg/dL (74-106); Magnesium 2.1 mg/dL (1.6-2.6); Potassium 4.5 mmol/L (3.5-5.1); Sodium Level 137 mmol/L (136-145)
== END 2021-05-28 23:59 | disposition short-term general hospital (02) ==
PROVIDERS: PCP Family Medicine; Visit Provider Family Medicine
DX: I50.30 Unspecified diastolic (congestive) heart failure (principal)
CPT/HCPCS: 80048; 83735

== ENCOUNTER 2021-06-03 05:12 | Day surgery (SDC) | payer MEDICARE, OTHER, SELFPAY ==
--- NOTE | 2021-05-21 08:59 | EKG12_ITS ---
Test Reason : PRE OP Blood Pressure : / mmHG Vent. Rate : 055 BPM Atrial Rate : 055 BPM P-R Int : 244 ms QRS Dur : 082 ms QT Int : 420 ms P-R-T Axes : 063 064 027 degrees QTc Int : 401 ms Sinus bradycardia with 1st degree A-V block with occasional Premature ventricular complexes Otherwise normal ECG Confirmed by ТАТЬЯНА MITCHELL, VICTOR M ([id number]), online editor PAUL CHRISTIE ([id number]) on 05/22/2021 9:46:53 AM Referred By: Hudson Murdock Confirmed By:VICTOR M VAZ MD
[2021-05-21 11:35] LABS: Hematocrit 37.6 % (40-54); Hemoglobin 11.7 g/dL (13.0-16.5); Mean Corp Hgb Conc 31.1 g/dL (32-36); Mean Corpuscular Volume 93.3 fL (80-94); Mean Platelet Vol. 10.1 fl (6.2-12.0); Platelet Count 111 K/mm3 (150-450); RBC Distribution Width CV 13.7 % (11.6-14.6); RBC Distribution Width SD 46.4 fl (35.1-43.9); Red Blood Count 4.03 M/mm3 (4.6-6.2); White Blood Count 6.2 K/mm3 (4.4-11.0)
[2021-05-21 11:57] LABS: International Normalized Ratio 1.1; Prothrombin Time (Protime)PT. 13.9 SECONDS (11.7-14.9)
[2021-05-21 11:58] LABS: Partial Thromboplast Time 31.5 Seconds (24.1-36.2)
[2021-05-21 12:01] LABS: Anion Gap 5 (5-15); BUN 35 mg/dL (7-18); BUN/Creat Ratio 21.3 RATIO (10-20); Calcium,Total 9.2 mg/dL (8.5-10.1); Chloride 107 mmol/L (98-107); Creatinine, Serum 1.64 mg/dL (0.70-1.30); EST Glomerular Filtration Rate 43 mL/min (>60); Est Glom Filt Rate - Afr Amer 51 mL/min (>60); Glucose 103 mg/dL (74-106); Magnesium 2.1 mg/dL (1.6-2.6); Potassium 5.4 mmol/L (3.5-5.1); Sodium Level 139 mmol/L (136-145)
[2021-05-21 12:07] LABS: AST(SGOT) 16 U/L (15-37); Alanine Aminotransfer ALT/SGPT 30 U/L (16-61); Albumin, Serum 3.8 g/dL (3.2-5.0); Alkaline Phosphatase 126 U/L (45-117); Bilirubin, Direct 0.18 mg/dL (0.00-0.30); Cholesterol 114 mg/dL (200); Globulin 3.3 g/dL (2.2-4.2); High Density Lipoprotein 46 mg/dL; Protein, Total 7.1 g/dL (6.4-8.2); Triglycerides 76 mg/dL; Very Low Density Lipoprotein 15 mg/dL (5-40)
[2021-05-21 12:11] LABS: Hemoglobin A1c 5.6 % (3.8-5.6)
[2021-06-03] VITALS (9 sets, daily range): BP systolic 121–170; BP diastolic 57–84; PULSE 55–69; RESP 15–34; TEMP 36.3–37; O2SAT 93–100; BMI 25.7
[2021-06-03 06:21] LABS: Bedside Glucose 68 mg/dL (70-110)
[2021-06-03] MEDS: Gabapentin 600 MG Tablet PO (06:35)
[2021-06-03] MEDS: Acetaminophen 500 MG Tablet 1000 MG PO (06:35)
[2021-06-03 06:37] LABS: Potassium 4.4 mmol/L (3.5-5.1)
[2021-06-03] MEDS: Lactated Ringers 1,000 ML 15 ML IV (07:04)
[2021-06-03] MEDS: Cefazolin 2 GM in 0.9% Normal Saline 100 ML IV (08:00)
--- NOTE | 2021-06-03 08:00 | KNEE_PTH ---
PATIENT: BEVERLY GUSMAN LOC: [facility] [place] U#:[id number] AGE/SX: 85/M ROOM: RE06/03/[address]: Dr. Hudson Murdock DO : 1935 BED: DIS: 06/03/2021 SPEC #: [id number] RECD: 06/03/21 10:19 STATUS: TREY RETarun #: [id number] LUIS: 06/03/21 08:[address]: Hudson Murdock DEPT: SURGICAL PATHOLOGY RECD BY: Paris Garcia ENTERED: 06/03/21 10:54 SP TYPE: TOTAL KNEE OTHR DR: Rick Butler MD Tissues: Knee, NOS Procedures: Decalcification bone/plaque Surgery Specimen Level IV HEADER OPERATION: ERAS, total knee replacement robotic arm assist PRE-OP DIAGNOSIS: Osteoarthritis right knee TISSUE SUBMITTED: Right knee bone and soft tissue MICROSCOPIC DIAGNOSIS Bone and tissue of right knee, total knee resection: Severe degenerative joint disease. AM:kristy 06/06/2021 MICROSCOPIC DESCRIPTION Slides are reviewed. GROSS DESCRIPTION Received is one container designated bone and soft tissue right knee. The specimen consists of multiple fragments of grier-yellow bone measuring in aggregate 10 x 9 x 3 cm. No soft tissue is identified. A number of bony fragments contain articular surfaces consistent with tibial plateau and femoral condyle and displaying prominent osteophyte formation, eburnation, and bone erosion. Ostomy Care Nurse sections are submitted in two cassettes after decalcification. / SJ:kristy 06/03/2021 TC:5 CPT: 50553, 02392
[2021-06-03] MEDS: TXA 1000mg in NS100 100ml (IVPB at Incision) 660 MG IV (08:15)
[2021-06-03] MEDS: TXA 1000mg in NS100 100ml (IVPB at Closure) 660 MG IV (09:05)
--- NOTE | 2021-06-03 09:15 | OP.PCM_ITS ---
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 Findings: Stable knee with good patella tracking Specimen(s): Bony cuts Complications: No intraoperative complications Estimated Blood Loss: 20 cc IV Fluids: 1000 cc crystalloid Implants Used: 1. [place] [employer] press-fit size 4 CR femur 2. [place] [employer] size 5 tibia 3. 35 mm patella 4. 9 mm CS polyethylene Brief History Operative Indications: [ (85 y/o male) ] with history of [right ] knee osteoarthrosis with radiographic findings with loss of joint space, osteophyte formation and subchondral sclerosis. Failed conservative measures as mentioned in the H&P. Discussion of total knee arthroplasty as well as risk and benefits were discussed with the patient including but not limited to blood loss, DVTs, PEs, neurovascular damage, general risk of anesthesia including loss of life, and stiffness or instability were also discussed with the patient. Patient demonstrated understanding and was able to sign informed consent. Procedure: On the date of procedure, patient's [right ] lower extremity was marked in the preoperative area. The patient was then taken back to the operating room where that patient was placed on the table in the supine position. All bony prominences were identified and well-padded. Anesthesia assumed control of the C-spine and airway throughout the remainder of the procedure. A tourniquet was placed on the [right ] upper thigh and the leg was prepped in a sterile fashion. The surgeon then scrubbed at this time. Upon reentering the room, the [ right ] lower extremity was draped in a standard orthopedic fashion. A timeout was then called and everyone agreed upon the side, the site, the procedure to be performed, patient's identity and antibiotics given. Esmarch bandage was used to exsanguinate the extremity and the tourniquet was placed up to 250 mmHg with the knee in flexion. A midline skin incision was made and a sharp dissection was taken down through skin, subcutaneous tissue and fat. The standard medial parapatellar incision was made and the patella was subluxed laterally. An appropriate deep MCL release was done and the fat pad was resected. Our attention was then directed to the patella. The patella was everted and a flat resection was made. The knee was then flexed up and 2 femoral pins were placed inside the incision and 2 tibial pins were placed outside the incision in the medial tibia bicortically. Once this was completed, the 2 checkpoints in the femur and tibia were placed. Knee was then flexed up and the bony landmarks were registered. Once the was completed, the knee taken through range of motion and manually stressed allowing us to plan for an appropriate tibial cut. The robotic arm was brought into the field sterilely and checkpoint and saw were registered. Based on the patient's deformity, the tibial cut was made in [neutral ]. At this time, the tensioner was then placed in the joint and ligament tension was checked at 90 degrees and full extension. Based on the patient's ligamentous tension, appropriate adjustments were made to the operative plan and ligament releases were done. Once we were happy with our operative plan with balanced flexion and extension gaps, our attention was directed to the femur. The robot was brought into the field sterilely and registered. Posterior condylar cuts, anterior chamfer cuts and anterior cuts were appropriately made for a [ size 4 ] femur. When these were completed, the saws were switched out in the distal femoral and posterior chamfer cuts were made. Protecting the soft tissue throughout this time. A [ size 5 ] base plate was selected. The knee was flexed to 90 degrees and soft tissues and posterior osteophytes were removed from the joint. 40 cc of the periarticular injection was injected into the posterior medial corner of the joint. The appropriate trials were then placed on the femur and tibia. A trial polyethylene was trialed to ensure proper balancing and stability of the knee. The appropriate tibial internal rotation was then marked with a bovie. Our attention was then directed to the patella. The lug holes were drilled and the patella trial was placed. Patellar tracking was checked and deemed appropriate. Once we were happy, lug holes were drilled for the femur and trial components were removed. The tibia was subluxed and pinned into place and the keel was punched and drilled appropriately. Final components were verified and opened. The wound was copiously irrigated with normal saline. The components were impacted into place with the tibia, femur and finally the patella. The trial poly component was placed and the knee was placed in full extension. The tracking, alignment and balance were verified and a [ 9 mm CS ] polyethylene component was placed. Once the final components were placed an Irrisept lavage was performed and the wound was copiously irrigated with normal saline solution and the periarticular injection was given. the wound was closed in a layer-gross fashion using #1 vicryl interrupted sutures for the arthrotomy, 2-0 interrupted vicryl suture for the subcuticular layer and marizol for final skin closure. A sterile compressive dressing was then placed. The patient was then awakened from anesthesia, transferred to the rmobile and transferred to the PACU for recovery. My physician librarian assistant was a vital part of this case. He was important in appropriate retraction during the case, and protection of soft tissues during bony cuts. His intimate knowledge of the case and my steps aided in safe and expedient completion of the procedure as well as appropriate position of the leg during the case. He was also vital in assisting with closure under my direct supervision. Due to the complexity of this case, robotic arm was used to assist in the surgery to improve accuracy and clinical outcomes. Post-op Plan: DVT ppx; ASA 81 mg BID, thigh high compression stockings Follow up: in office in 2 weeks for wound check PT: to start POD #0 at hospital, outpatient PT should be arranged. Preoperative antibiotic: Ancef 2 grams IV Hudson Murdock DO Surgeon: Hudson Murdock laminating machine feeder: Kris Barber Type of Anesthesia: General Anesthesiologist: Rick Delarosa Specimen's removed: bone Estimated Blood Loss (mL): 20 cc Fluids Replaced: 1000 cc crystalloid Admit VTE Documentation VTE Present on Admission: No VTE Mechan Device Prophylaxis: Thigh High [place] Hose VTE Pharm Prophylaxis ordered?: Yes
[2021-06-03] MEDS: 0.9% Normal Saline 1,000 ML 80 ML IV (10:00)
--- NOTE | 2021-06-03 10:15 | RAD_ITS ---
STUDY: X-RAY - RIGHT KNEE REASON FOR EXAM: Male, 85 years old. Post op TKR -- in PACU TECHNIQUE: 2 view(s) of the knee. COMPARISON: None. FINDINGS: Normal visualized distal femur. Normal visualized proximal tibia and fibula. Normal proximal tibiofibular articulation. The patient is status post total knee replacement. There is good alignment. Postoperative soft tissue changes. RAD/Knee 1 or 2 Views IMPRESSION: Status post total knee replacement. There is good alignment. Postoperative soft tissue changes. Electronically Signed: Antonio Martin MD at 15:57 EST ,
[2021-06-03 10:36] LABS: Bedside Glucose 118 mg/dL (70-110)
[2021-06-03] MEDS: oxyCODONE 5 MG Tablet PO (11:19)
[2021-06-03 11:55] LABS: Bedside Glucose 121 mg/dL (70-110)
[2021-06-03 12:51] LABS: Magnesium 2.4 mg/dL (1.6-2.6)
== END 2021-06-03 23:59 | disposition home or self-care (01) ==
LOC: SDC 05:13 → AC 05:13
PROVIDERS: Anesthesiology; Internal Medicine Cardiovascular Disease; PCP Family Medicine; Referring Provider Orthopaedic Surgery; Visit Provider Orthopaedic Surgery
PROC: 0SRC0JZ Replacement of Right Knee Joint with Synthetic Substitute, Open Approach (ICD-10-PCS; CPT 27447; principal; 2021-06-03 07:30)
DX: M17.11 Unilateral primary osteoarthritis, right knee (principal); G20 Parkinson's disease; I27.21 Secondary pulmonary arterial hypertension; I25.709 Atherosclerosis of coronary artery bypass graft(s), unspecified, with unspecified angina pectoris; I25.10 Atherosclerotic heart disease of native coronary artery without angina pectoris; I35.0 Nonrheumatic aortic (valve) stenosis; I12.9 Hypertensive chronic kidney disease with stage 1 through stage 4 chronic kidney disease, or unspecified chronic kidney disease; N18.9 Chronic kidney disease, unspecified; I44.0 Atrioventricular block, first degree; I25.2 Old myocardial infarction; E78.00 Pure hypercholesterolemia, unspecified; Z95.1 Presence of aortocoronary bypass graft; Z95.5 Presence of coronary angioplasty implant and graft; Z79.82 Long term (current) use of aspirin; Z79.899 Other long term (current) drug therapy
CPT/HCPCS: 27447; S2900; 01402; 64447; 36415; 73560; 80048; 80061; 80076; 82962; 83036; 83735; 84132; 85027; 85610; 85730; 87081; 88305; 88311; 93005; 97162; C1776; J7120; J2405

== ENCOUNTER 2021-08-09 11:44 | Outpatient (CLI) | payer MEDICARE, OTHER, SELFPAY ==
--- NOTE | 2021-08-09 11:46 | RAD_ITS ---
HISTORY: SOB EXAMINATION/TECHNIQUE: XR Chest 2 Views: COMPARISON: August 09, [address] chest [address]ograph. Sep [address] chest FINDINGS: LINES/DEVICES: None. LUNGS: Left inferior lower lung subpleural fat unchanged from August 09, 2019. No airspace consolidation. Unremarkable interstitium. No effusion. No pneumothorax. MEDIASTINUM: No cardiomegaly. Coronary stent noted. MUSCULOSKELETAL: No acute osseous finding. Sternotomy wires are midline and intact. RAD/Chest PA and Lateral IMPRESSION: No evidence of acute cardiopulmonary process. at 0638 Reported and signed by: Oracio Stanton MD Electronically Signed: Oracio Stanton MD at 6:36 EDT ,
[2021-08-09 14:15] LABS: BNP,B-Type NATRIURETIC PEPTIDE 364.5 pg/mL (0-100)
[2021-08-09 14:22] LABS: Anion Gap 4 (5-15); BUN 49 mg/dL (7-18); BUN/Creat Ratio 24.6 RATIO (10-20); Calcium,Total 9.2 mg/dL (8.5-10.1); Chloride 106 mmol/L (98-107); Creatinine, Serum 1.99 mg/dL (0.70-1.30); EST Glomerular Filtration Rate 34 mL/min (>60); Est Glom Filt Rate - Afr Amer 41 mL/min (>60); Glucose 96 mg/dL (74-106); Potassium 5.1 mmol/L (3.5-5.1); Sodium Level 134 mmol/L (136-145)
== END 2021-08-09 23:59 | disposition home or self-care (01) ==
PROVIDERS: PCP Family Medicine; Referring Provider Nurse Practitioner Family; Visit Provider Nurse Practitioner Family
DX: R06.00 Dyspnea, unspecified (principal); N18.9 Chronic kidney disease, unspecified
CPT/HCPCS: 36415; 71046; 80048; 83880

== ENCOUNTER 2021-08-19 07:47 | Outpatient (CLI) | payer MEDICARE, OTHER, SELFPAY ==
[2021-08-19 08:32] LABS: Anion Gap 5 (5-15); BUN 75 mg/dL (7-18); BUN/Creat Ratio 35.7 RATIO (10-20); Calcium,Total 9.2 mg/dL (8.5-10.1); Chloride 108 mmol/L (98-107); EST Glomerular Filtration Rate 32 mL/min (>60); Est Glom Filt Rate - Afr Amer 39 mL/min (>60); Glucose 111 mg/dL (74-106); Potassium 4.7 mmol/L (3.5-5.1); Sodium Level 138 mmol/L (136-145)
== END 2021-08-19 23:59 | disposition home or self-care (01) ==
LOC: LAB 07:48
PROVIDERS: PCP Family Medicine; Referring Provider Nurse Practitioner Family; Visit Provider Nurse Practitioner Family
DX: R06.00 Dyspnea, unspecified (principal); I12.9 Hypertensive chronic kidney disease with stage 1 through stage 4 chronic kidney disease, or unspecified chronic kidney disease; N18.9 Chronic kidney disease, unspecified; Z95.1 Presence of aortocoronary bypass graft
CPT/HCPCS: 36415; 80048

== ENCOUNTER 2021-08-29 21:28 | Observation (INO) | payer MEDICARE, OTHER, SELFPAY ==
[2021-08-29 21:29] VITALS: BP 130/70; PULSE 59; RESP 18; TEMP 36.7; O2SAT 98; BMI 23.6
--- NOTE | 2021-08-29 21:47 | EKG12_ITS ---
Test Reason : CP Blood Pressure : / mmHG Vent. Rate : 066 BPM Atrial Rate : 066 BPM P-R Int : 250 ms QRS Dur : 082 ms QT Int : 404 ms P-R-T Axes : 083 027 007 degrees QTc Int : 423 ms Sinus rhythm with 1st degree A-V block with occasional and consecutive Premature ventricular complexe s Abnormal ECG Confirmed by ТАТЬЯНА MITCHELL, VICTOR M ([id number]), editor producer PAUL CHRISTIE ([id number]) on 09/02/2021 11:34:15 AM Referred By: EMMANUEL Confirmed By:VICTOR M VAZ MD
--- NOTE | 2021-08-29 21:47 | ED.VIS.CHEST ---
HPI History of Present Illness Chief Complaint: Chest Pain Informant: patient and spouse/S.O. Narrative Narrative: 86-year-old male presenting to the emergency department for the evaluation of chest pain. The patient states that he has a known history of coronary artery disease having had coronary bypass surgery as well as prior stenting. History of aortic stenosis and follows locally with Dr. Potts. The patient states that for some time now he has been having dyspnea and has been working with cardiology to assist him with that. Recently they have added and Lasix. Work-up so far has been negative. Last heart catheterization August 2019 after a failed stress test. He had an echocardiogram spring 2020 that showed mild aortic stenosis and ejection fraction 65% The patient states that today he has been taking his blood pressure every hour to 2 hours and has noticed that it has been up and down. Around 9:00 his blood pressure was in the 120/70 range with a heart rate of 59 and he mentioned that he was having some chest pressure to his . He states that he had been feeling that there was something abnormal going on in his chest since around 1700 hrs but he did not want to alarm anybody so he did not mention it. Currently he states that things are calming down. [facility] Medical History (Updated 08/29/21 @ 22:[address] Esteban Prado, ) Acute bacterial sinusitis Atherosclerosis of coronary artery bypass graft of [place] heart with angina pectoris Atherosclerosis of coronary artery of [place] heart without angina pectoris Bronchiectasis Cardiology follow-up encounter Chronic diastolic (congestive) heart failure Chronic kidney disease Diverticulitis Easy bruising Essential (primary) hypertension Excessive bleeding High cholesterol History of diverticulitis History of echocardiogram History of edema History of heart attack History of hiatal hernia History of irregular heartbeat History of non-ST elevation myocardial infarction (NSTEMI) (01/2015) History of stress test History of trigger finger Hx of melanoma of skin Hyperlipidemia Kidney stones Loss of consciousness Melanoma Osteoarthritis Parkinson's disease Prostate disease Restless legs Secondary pulmonary arterial hypertension Shortness of breath on exertion Thickening of pleura Wears dentures Wears glasses Home Medications aspirin 81 mg tablet,delayed release 81 mg PO DAILY 09/13/18 [History Last Taken 08/10/19] nitroglycerin 0.4 mg sublingual tablet 0.4 mg SUBLINGUAL Q5-15M PRN #25 tab 04/01/20 [Rx Last Taken Unknown] pramipexole 0.5 mg tablet 0.5 mg PO BID tab 10/04/19 [History Last Taken 06/03/21 03:45] cholecalciferol (vitamin D3) [Vitamin D3] 25 mcg PO DAILY 05/20/21 [History Last Taken Unknown] atorvastatin 40 mg tablet 40 mg PO QHS #90 tab 05/21/21 [Rx Last Taken Unknown] benazepril 5 mg tablet 5 mg PO DAILY #90 tab 05/21/21 [Rx Last Taken 06/03/21 03:45] metoprolol tartrate 25 mg tablet 25 mg PO BID #180 tab 05/21/21 [Rx Last Taken 06/03/21 03:45] amlodipine 2.5 mg tablet 2.5 mg PO DAILY #30 tab 08/21/21 [Rx Last Taken Unknown] furosemide 40 mg tablet 40 mg PO DAILY #60 tab 08/27/21 [Rx Last Taken Unknown] Allergy/AdvReac Type Severity Reaction Status Date / Time isosorbide AdvReac headache Verified 08/29/21 21:32 Family History Father Heart disease Mother CVA (cerebral vascular accident) Surgical History (Updated 08/29/21 @ 21:58 by Alvaro Austin) H/O coronary artery bypass surgery (1989) H/O foot surgery H/O left knee surgery History of cardiac catheterization History of carpal tunnel release of both wrists History of coronary artery stent placement (2005) History of herniorrhaphy History of left cataract surgery History of left heart catheterization (08/10/19) History of right knee joint replacement (05/03/21) History of total left knee replacement (04/2020) Hx of hernia repair Hx of oral surgery Social History Smoking Status: Never smoker alcohol intake: never substance use type: does not use caffeine: Yes ROS ROS ED Constitutional Constitutional ED: Denies chills or weight loss Eyes Eyes: Denies change in vision or diplopia ENT ENT ED: Denies ear pain, rhinorrhea or sore throat Cardiovascular Cardiovascular: Reports chest pain; Denies orthopnea, palpitations or racing heartbeat Respiratory/Chest Respiratory/Chest: Reports dyspnea; Denies cough or orthopnea Gastrointestinal Gastrointestinal: Denies abdominal pain, diarrhea, nausea or vomiting Genitourinary Genitourinary ED: Denies dysuria, hematuria or urinary frequency Musculoskeletal Musculoskeletal: Denies arthralgias or myalgias Integumentary Denies abscess or rash Neurologic Neurologic: Denies headache(s) or weakness Psychiatric Psychiatric: Denies anxiety, depression, suicidal ideation or suicidal thoughts Endocrine Endocrinology: Denies polydipsia, polyphagia or polyuria Allergic/Immunologic Allergic/Immunologic ED: Denies mouth swelling, tongue swelling or urticaria EXAM Physical Exam Const Vital Signs: 08/29/21 21:29 Temperature 98.0 F Temperature Source Temporal Pulse Rate 59 L Respiratory Rate 18 Blood Pressure 130/70 H Blood Pressure Mean 90 Pulse Ox 98 Oxygen Delivery Method Room Air Positive well nourished and well developed General Appearance ED: well developed HEENT Reports normocephalic, head/scalp atraumatic and moist mucous membranes Eyes PERRL and EOMs intact bilaterally Neck no lymphadenopathy, supple and no JVD Resp normal respiratory effort and clear to auscultation bilaterally Cardio regular rate and regular rhythm; Negative for no murmurs Rate: other Other Details: Systolic murmur GI normal to inspection, nondistended, normoactive bowel sounds and non-tender Palpation: soft Back/Spine no CVA tenderness and normal ROM Extremity normal to inspection General Extremety ED: Yes edema General Extremity: edema Neuro oriented x3 and CN's II-XII intact bilaterally Sensorium / Orientation: alert Motor Exam: strength 5/5 throughout Psych mental status grossly normal Mood & Affect: Negative for depressed or tearful Skin no rashes or lesions noted and no wounds Heart Score History: Moderately Suspicious ECG: Normal Age: >/= 65 years Risk Factors: >/= 3 Risk Factors or History of CAD Troponin: </= Normal Limit Score: 5 MDM MDM MDM Narrative Medical decision making narrative: CBC shows a hemoglobin of 10.6. BMP demonstrates a creatinine of 2.16. BUN of 58. Troponin 32. My interpretation of the chest x-ray is mild pulmonary edema. Otherwise unchanged from prior. He has had no events on the monitor and is now pain-free. I spoke with Dr. Garcia who came to the emergency room to evaluate the patient. Plan is admission with serial enzymes and echocardiogram. Lab Data Attestation: I reviewed the patient's lab results. Labs: Laboratory Results - last 24 hr 08/29/21 08/29/21 08/29/21 21:40 21:40 21:40 WBC 9.8 RBC 3.74 L Hgb 10.6 L Hct 34.0 L MCV 90.9 MCH 28.3 MCHC 31.2 L RDW Std Deviation 48.7 H RDW Coeff of Chas 14.6 Plt Count 141 L MPV 9.7 Immature Gran % (Auto) 0.400 Neut % (Auto) 73.5 H Lymph % (Auto) 17.6 L [facility] % (Auto) 6.7 Eos % (Auto) 1.6 Baso % (Auto) 0.2 Absolute Neuts (auto) 7.2 Absolute Lymphs (auto) 1.72 Nucleated RBC % 0 Sodium 136 Potassium 5.1 Chloride 107 Carbon Dioxide 24.0 Anion Gap 5 BUN 58 H Creatinine 2.16 H Estim Creat Clear Calc 24.88 Est GFR (MDRD) Af Amer 37 L Est GFR (MDRD) Non-Af 31 L BUN/Creatinine Ratio 26.9 H Glucose 115 H Calcium 9.4 Troponin I High Sens 32 EKG Initial EKG: Attestation: I personally reviewed and interpreted this EKG as follows: Comments: Sinus rhythm with first-degree AV block. Ventricular rate of 66 bpm. PVCs noted. Discharge Plan Dx/Rx/DC Orders Clinical Impression: Chest pain, Chronic kidney disease, Aortic stenosis, CAD (coronary artery disease) Disposition Disposition: Acute Care [facility]
[2021-08-29] MEDS: Aspirin 81 MG TAB.CHEW 324 MG PO (21:55)
[2021-08-29 22:10] LABS: Absolute Lymphocyte Count 1.72 X10^3/uL (0.83-4.51); Absolute Neutrophil Count 7.2 X10^3/uL (2.0-7.7); Basophil# 0.02 X10^3/uL; Basophil% 0.2 % (0-1); Eosinophil# 0.16 X10^3/uL; Eosinophils% 1.6 % (0-5); Hemoglobin 10.6 g/dL (13.0-16.5); Lymphocyte # 1.72 X10^3/ul (0.83-4.51); Lymphocyte % 17.6 % (19-41); Mean Corp Hgb Conc 31.2 g/dL (32-36); Mean Corpuscular Hgb 28.3 pg (27.0-32.0); Mean Corpuscular Volume 90.9 fL (80-94); Mean Platelet Vol. 9.7 fl (6.2-12.0); Monocyte# 0.65 X10^3/uL; Monocyte% 6.7 % (0-10); NRBC Flagged by Analyzer 0 % (0-5); Neutrophil # 7.18 X10^3/uL (2.7-7.7); Neutrophil % 73.5 % (47-70); Platelet Count 141 K/mm3 (150-450); RBC Distribution Width CV 14.6 % (11.6-14.6); RBC Distribution Width SD 48.7 fl (35.1-43.9); Red Blood Count 3.74 M/mm3 (4.6-6.2); White Blood Count 9.8 K/mm3 (4.4-11.0)
--- NOTE | 2021-08-29 22:12 | RAD_ITS ---
EXAM: XR CHEST, 1 VIEW CLINICAL INDICATION: chest pain TECHNIQUE: Frontal view of the chest. This report was created using [employer] report generation technology. COMPARISON: Multiple exams including August 08, [address] September 20, 2019. Prior chest CT mentioned ectatic ascending aorta 3.8 cm and upper limits of normal descending thoracic aorta. FINDINGS: LUNGS AND PLEURAL SPACES: The lung bases are mildly suboptimally inflated compared to prior exams. Mild double density appearance adjacent to the apparent right hemidiaphragm is most suspicious for mild diaphragmatic eventration. There was minimal lobulated contour of the right diaphragm prior exams. It is difficult to exclude infiltrate or infarct but they are less likely. No pulmonary vascular congestion. No pneumothorax. No effusion. HEART: Borderline cardiomegaly, similar to prior exams. MEDIASTINUM: Central airways and mediastinal contour are stable. 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 BONES/JOINTS: Median sternotomy wires are again noted. SOFT TISSUES: Unremarkable. RAD/Chest 1 View (Portable) IMPRESSION: Mildly underinflated lung bases and question of atelectasis versus infiltrate or diaphragmatic eventration at the right lung base. Please correlate with exam. Consider standard PA and lateral views for further evaluation. Otherwise stable chest compared to August 09, 2019 with borderline cardiomegaly, median sternotomy changes, and mildly tortuous contour of aorta. Electronically Signed: Mari Bravo MD at 22:59 EDT ,
[2021-08-29 22:21] LABS: Anion Gap 5 (5-15); BUN 58 mg/dL (7-18); BUN/Creat Ratio 26.9 RATIO (10-20); Calcium,Total 9.4 mg/dL (8.5-10.1); Chloride 107 mmol/L (98-107); Creatinine, Serum 2.16 mg/dL (0.70-1.30); EST Glomerular Filtration Rate 31 mL/min (>60); Est Glom Filt Rate - Afr Amer 37 mL/min (>60); Estimated Creatinine Clearance 24.88 ml/min; Glucose 115 mg/dL (74-106); Potassium 5.1 mmol/L (3.5-5.1); Sodium Level 136 mmol/L (136-145)
[2021-08-29 22:29] LABS: Troponin-I HS (w/2H Reflex) 32 pg/mL (3.0-78.0)
--- NOTE | 2021-08-29 23:07 | CON.PCM.CA_ITS ---
Assessment & Plan Assessment/Plan (1) Dyspnea on exertion: (2) Chest pain: (3) CAD (coronary artery disease): (4) Atherosclerosis of coronary artery bypass graft of [place] heart with angina pectoris: (5) H/O coronary artery bypass surgery: (6) Essential (primary) hypertension: (7) Acute on chronic diastolic heart failure: PLAN: 86-year-old patient, seen and evaluated in the ER along with the at bedside. Presented with symptoms shortness of breath chest pain and bilateral lower extremity swelling. Patient with extensive cardiac history. Has history of CAD with CABG 1989, PAREKH to LAD, SVG to diagonal, SVG to RPDA and SVG left circumflex Subsequently he had PCI using bare-metal stent to the SVG to the circumflex artery/OM Also noted patient had occluded SVG graft to the PDA and the diagonal branches. Patient actually seen recently in the office and had echocardiogram a year ago which showed LV function preserved Mild aortic stenosis, mild to moderate pulm hypertension, moderate concentric left ventricular hypertrophy. Ejection fraction 65%, moderate concentric left ventricle hypertrophy, mild aortic stenosis, mild to moderate pulm hypertension. Last cardiac catheterization in August 2019 revealed occluded proximal LAD, occluded proximal circumflex and occluded proximal RCA with. Noted PAREKH to LAD is patent with occluded SVG graft to RPDA and SVG graft to first diagonal. Also noted SVG graft to the mid circumflex diffusely diseased 30%. Cardiac care plan recommendations; 1. The initial set of cardiac biomarker is normal we will continue medical treatment This clinical presentation is acute on chronic CHF we will continue on the diuretic therapy and monitor renal function electrolytes 2. I do not see an indication for cardiac catheterization at this point and I will continue conservative treatment and maximizing medical therapy. 3. 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 Potts HPI Consult Data Date of Consult: 08/29/21 HPI Narrative Reason for Consultation: CAD/CABG/[place]/CHF HPI Narrative: BEVERLY GUSMAN, is a 86 M who presents [facility] Medical History (Updated 08/29/21 @ 23:[address] Kaleb Garcia MD) Acute bacterial sinusitis Acute on chronic diastolic heart failure Atherosclerosis of coronary artery bypass graft of [place] heart with angina pectoris Atherosclerosis of coronary artery of [place] heart without angina pectoris Bronchiectasis Cardiology follow-up encounter Chronic diastolic (congestive) heart failure Chronic kidney disease Diverticulitis Easy bruising Essential (primary) hypertension Excessive bleeding High cholesterol History of diverticulitis History of echocardiogram History of edema History of heart attack History of hiatal hernia History of irregular heartbeat History of non-ST elevation myocardial infarction (NSTEMI) (01/2015) History of stress test History of trigger finger Hx of melanoma of skin Hyperlipidemia Kidney stones Loss of consciousness Melanoma Osteoarthritis Parkinson's disease Prostate disease Restless legs Secondary pulmonary arterial hypertension Shortness of breath on exertion Thickening of pleura Wears dentures Wears glasses Home Medications aspirin 81 mg tablet,delayed release 81 mg PO DAILY 09/13/18 [History Last Taken 08/10/19] nitroglycerin 0.4 mg sublingual tablet 0.4 mg SUBLINGUAL Q5-15M PRN #25 tab 08/03/19 [Rx Last Taken Unknown] pramipexole 0.5 mg tablet 0.5 mg PO BID tab 10/04/19 [History Last Taken 06/03/21 03:45] cholecalciferol (vitamin D3) [Vitamin D3] 25 mcg PO DAILY 05/20/21 [History Last Taken Unknown] atorvastatin 40 mg tablet 40 mg PO QHS #90 tab 05/21/21 [Rx Last Taken Unknown] benazepril 5 mg tablet 5 mg PO DAILY #90 tab 05/21/21 [Rx Last Taken 06/03/21 03 :45] metoprolol tartrate 25 mg tablet 25 mg PO BID #180 tab 05/21/21 [Rx Last Taken 06/03/21 03:45] amlodipine 2.5 mg tablet 2.5 mg PO DAILY #30 tab 08/21/21 [Rx Last Taken Unknown] furosemide 40 mg tablet 40 mg PO DAILY #60 tab 08/27/21 [Rx Last Taken Unknown] Allergy/AdvReac Type Severity Reaction Status Date / Time isosorbide AdvReac headache Verified 08/29/21 21:32 Family History Father Heart disease Mother CVA (cerebral vascular accident) Surgical History (Updated 08/29/21 @ 21:58 by Alvaro Austin) H/O coronary artery bypass surgery (1989) H/O foot surgery H/O left knee surgery History of cardiac catheterization History of carpal tunnel release of both wrists History of coronary artery stent placement (2005) History of herniorrhaphy History of left cataract surgery History of left heart catheterization (08/10/19) History of right knee joint replacement (05/03/21) History of total left knee replacement (04/2020) Hx of hernia repair Hx of oral surgery Social History Smoking Status: Never smoker alcohol intake: never substance use type: does not use caffeine: Yes ROS ROS Narrative Patient presented with symptoms of chest discomfort Bilateral lower extremity swelling and shortness of breath Physical Exam Narrative Seen and evaluated in the ER, at bedside Patient cooperative not in acute distress cardiovascular exam almond paste mixer showed normal sinus with PVCs Cardiac examination S1-S2 regular Had systolic murmur well heard in the aortic valve area There is no diastolic murmur Chest examination minimal bilateral basilar rales. Examination lower extremity had +2?+3 lower extremity edema bilateral Risk Stratification Risk Stratification Applicable: Yes Age >/= 65: Yes >/= 3 CAD Risk Factors (HTN, HLD, DM, family hx of CAD, or current smoker): Yes Aspirin Use in the Past 7 Days: Yes Severe Angina (>/= episodes in 24 hours): No EKG ST Changes >/= 0.5mm: No Positive Cardiac Marker: No DARBY Risk Stratification Score: 3 DARBY % Risk: 13% Risk Objective Data Vital Signs: Vital Signs Temp Pulse Resp BP Pulse Ox 98.0 F 59 L 18 130/70 H 98 08/29/21 21:29 08/29/21 21:29 08/29/21 21:29 08/29/21 21:29 08/29/21 21:29 Oxygen Delivery Method Room Air Weight: 165 lb Body Mass Index (BMI) 23.6 Lab / Micro Data Result Diagrams: 08/29/21 21:40 08/29/21 21:40 Labs: Laboratory Results - last 24 hr 08/29/21 21:40: WBC 9.8, RBC 3.74 L, Hgb 10.6 L, Hct 34.0 L, MCV 90.9, MCH 28.3, MCHC 31.2 L, RDW Std Deviation 48.7 H, RDW Coeff of Chas 14.6, Plt Count 141 L, MPV 9.7, Immature Gran % (Auto) 0.400, Neut % (Auto) 73.5 H, Lymph % (Auto) 17.6 L, [place] % (Auto) 6.7, Eos % (Auto) 1.6, Baso % (Auto) 0.2, Absolute Neuts (auto) 7.2, Absolute Lymphs (auto) 1.72, Nucleated RBC % 0 08/29/21 21:40: Sodium 136, Potassium 5.1, Chloride 107, Carbon Dioxide 24.0, Anion Gap 5, BUN 58 H, Creatinine 2.16 H, Estim Creat Clear Calc 24.88, Est GFR (MDRD) Af Amer 37 L, Est GFR (MDRD) Non-Af 31 L, BUN/Creatinine Ratio 26.9 H, Glucose 115 H, Calcium 9.4 08/29/21 21:40: Troponin I High Sens 32 Cardiology Labs/Tests 08/29/21 21:40: WBC 9.8, RBC 3.74 L, Hgb 10.6 L, Hct 34.0 L, MCV 90.9, MCH 28.3, MCHC 31.2 L, Plt Count 141 L, MPV 9.7, Immature Gran % (Auto) 0.400, Neut % (Auto) 73.5 H, Lymph % (Auto) 17.6 L, [place] % (Auto) 6.7, Eos % (Auto) 1.6, Baso % (Auto) 0.2, Absolute Neuts (auto) 7.2, Nucleated RBC % 0 08/29/21 21:40: Sodium 136, Potassium 5.1, Chloride 107, Carbon Dioxide 24.0, Anion Gap 5, BUN 58 H, Creatinine 2.16 H, Est GFR (MDRD) Af Amer 37 L, Est GFR (MDRD) Non-Af 31 L, BUN/Creatinine Ratio 26.9 H, Glucose 115 H, Calcium 9.4 Rhythm: Underlying normal sinus with PVCs Radiography Diagnostic Testing: Radiology Impression Chest X-Ray 08/29/21 22:12 IMPRESSION: Mildly underinflated lung bases and question of atelectasis versus infiltrate or diaphragmatic eventration at the right lung base. Please correlate with exam. Consider standard PA and lateral views for further evaluation. Otherwise stable chest compared to August 09, 2019 with borderline cardiomegaly, median sternotomy changes, and mildly tortuous contour of aorta. Electronically Signed: Mari Bravo MD at 22:59 EDT ,
--- NOTE | 2021-08-29 23:09 | HP.PCM.HOS_ITS ---
[facility] - General General Date of Admission: 08/29/21 HPI Narrative BEVERLY GUSMAN, is a 86 M with a significant history of heart failure with preserved ejection fraction; Valvular disease; CAD s/p CABG and stent who presents to the emergency department with excruciating chest pain dustpan across his entire chest. His chest pain started on the same day of presentation. His chest pain was intermittent and then it became constant. He described chest pain as somebody sitting on his chest. The chest pain is nonradiating. He denies any aggravating factors or chest pain. His chest pain improved with a second nitroglycerin tablets that he took at home. Also he received 4 baby aspirin at emergency department and that helped with his chest pain. Patient reports having a quadruple CABG in 1989. He had 2 stents placed in his coronaries in 2002 and 1 stent placed in his coronary in 2005. He reported that all his stents have clogged off and he has been told that he is not a candidate of further cardiac angiography. He reports that his chest pain is reminiscent of previous heart attack although he report that with previous episode of chest pain he had pain going into his jaws and in his arms. At the time of hospitalist evaluation at the emergency department patient's chest pain had resolved. He report that after vein harvest in his left leg in 1989 he has had swelling in his left leg. He also reported he has had bilateral knee surgery. And after a knee surgery in his right knee on June 03, 2021 he has had swelling in his right leg. Patient has been on Lasix for swelling in his legs. His Lasix was 60 mg every day but recently it was decreased to 40 mg awaiting repeat labs. He reports dyspnea on exertion that been going on for at least 1 year. His dyspnea on exertion worsened after his knee surgery on June 03, 2021. His dyspnea on exertion has progressively gotten worse. He denies any nausea or vomiting. He denies any diaphoresis. Emergency plan doctor discussed the case with weigher alloy who saw patient's at the emergency department and recommended that patient stays at the hospital. [facility] Medical History Acute bacterial sinusitis Acute on chronic diastolic heart failure Atherosclerosis of coronary artery bypass graft of [place] heart with angina pectoris Atherosclerosis of coronary artery of [place] heart without angina pectoris Bronchiectasis Cardiology follow-up encounter Chronic diastolic (congestive) heart failure Chronic kidney disease Diverticulitis Easy bruising Essential (primary) hypertension Excessive bleeding High cholesterol History of diverticulitis History of echocardiogram History of edema History of heart attack History of hiatal hernia History of irregular heartbeat History of non-ST elevation myocardial infarction (NSTEMI) (01/2015) History of stress test History of trigger finger Hx of melanoma of skin Hyperlipidemia Kidney stones Loss of consciousness Melanoma Osteoarthritis Parkinson's disease Prostate disease Restless legs Secondary pulmonary arterial hypertension Shortness of breath on exertion Thickening of pleura Wears dentures Wears glasses Home Medications aspirin 81 mg tablet,delayed release 81 mg PO DAILY 09/13/18 [History Last Taken 08/10/19] nitroglycerin 0.4 mg sublingual tablet 0.4 mg SUBLINGUAL Q5-15M PRN #25 tab 08/03/19 [Rx Last Taken Unknown] pramipexole 0.5 mg tablet 0.5 mg PO BID tab 10/04/19 [History Last Taken 06/03/21 03:45] cholecalciferol (vitamin D3) [Vitamin D3] 25 mcg PO DAILY 05/20/21 [History Last Taken Unknown] atorvastatin 40 mg tablet 40 mg PO QHS #90 tab 05/21/21 [Rx Last Taken Unknown] benazepril 5 mg tablet 5 mg PO DAILY #90 tab 05/21/21 [Rx Last Taken 06/03/21 03:45] metoprolol tartrate 25 mg tablet 25 mg PO BID #180 tab 05/21/21 [Rx Last Taken 06/03/21 03:45] amlodipine 2.5 mg tablet 2.5 mg PO DAILY #30 tab 08/21/21 [Rx Last Taken Unknown] furosemide 40 mg tablet 40 mg PO DAILY #60 tab 08/27/21 [Rx Last Taken Unknown] Allergy/AdvReac Type Severity Reaction Status Date / Time isosorbide AdvReac headache Verified 08/29/21 21:32 Family History Father Heart disease Mother CVA (cerebral vascular accident) Surgical History H/O coronary artery bypass surgery (1989) H/O foot surgery H/O left knee surgery History of cardiac catheterization History of carpal tunnel release of both wrists History of coronary artery stent placement (2005) History of herniorrhaphy History of left cataract surgery History of left heart catheterization (08/10/19) History of right knee joint replacement (05/03/21) History of total left knee replacement (04/2020) Hx of hernia repair Hx of oral surgery Social History Smoking Status: Never smoker alcohol intake: never substance use type: does not use caffeine: Yes ROS ROS Narrative Pertinent positives and pertinent negatives as noted in HPI. All other systems were reviewed and are negative. Vital Signs Vital Signs Vital Signs: 08/29/21 21:29 Temperature 98.0 F Temperature Source Temporal Pulse Rate 59 L Respiratory Rate 18 Blood Pressure 130/70 H Blood Pressure Mean 90 Pulse Ox 98 Oxygen Delivery Method Room Air Weight Weight: 74.843 kg Body Mass Index (BMI) 23.6 Physical Exam Narrative Physical exam: General: Well-nourished, well-developed. Head: Normocephalic, atraumatic, no tenderness Eyes: Vision is grossly intact. EOMI ENT, no trauma, moist mucous membranes, no rhinorrhea Neck: Nontender, full range of motion, no spinal tenderness, deformities, step- off CVS: Regular rate and rhythm. S1-S2 present. Murmur present. No gallop or rub. Respiratory : clear to auscultation bilaterally, chest wall nontender, no wheezing Abdomen: Soft, nontender, nondistended, normal bowel sounds, no masses : Deferred Back: Nontender, no CVA tenderness, no midline spinal tenderness, deformities, step-offs Extremities: Nontender full range of motion, no trauma. 2+ bilateral leg edema. Skin: Normal color, no trauma, abrasions Neuro: Alert, oriented, cranial nerves II through XII grossly intact. Psychiatry: Normal mood. Normal affect. Not depressed. Not anxious. Results Lab / Micro Data Result Diagrams: 08/29/21 21:40 08/29/21 21:40 Labs: Laboratory Results - last 24 hr 08/29/21 21:40: WBC 9.8, RBC 3.74 L, Hgb 10.6 L, Hct 34.0 L, MCV 90.9, MCH 28.3, MCHC 31.2 L, RDW Std Deviation 48.7 H, RDW Coeff of Chas 14.6, Plt Count 141 L, MPV 9.7, Immature Gran % (Auto) 0.400, Neut % (Auto) 73.5 H, Lymph % (Auto) 17.6 L, [place] % (Auto) 6.7, Eos % (Auto) 1.6, Baso % (Auto) 0.2, Absolute Neuts (auto) 7.2, Absolute Lymphs (auto) 1.72, Nucleated RBC % 0 08/29/21 21:40: Sodium 136, Potassium 5.1, Chloride 107, Carbon Dioxide 24.0, Anion Gap 5, BUN 58 H, Creatinine 2.16 H, Estim Creat Clear Calc 24.88, Est GFR (MDRD) Af Amer 37 L, Est GFR (MDRD) Non-Af 31 L, BUN/Creatinine Ratio 26.9 H, Glucose 115 H, Calcium 9.4 08/29/21 21:40: Troponin I High Sens 32 Radiology Impression Chest X-Ray 08/29/21 22:12 IMPRESSION: Mildly underinflated lung bases and question of atelectasis versus infiltrate or diaphragmatic eventration at the right lung base. Please correlate with exam. Consider standard PA and lateral views for further evaluation. Otherwise stable chest compared to August 09, 2019 with borderline cardiomegaly, median sternotomy changes, and mildly tortuous contour of aorta. Electronically Signed: Mari Bravo MD at 22:59 EDT Reading Location ID and State: [facility] / [place] Tel , Service support , Assessment & Plan Assessment/Plan (1) Chest pain: QUALIFIERS: Chest pain type: unspecified Qualified Code(s): R07.9 - Chest pain, unspecified (2) Acute on chronic diastolic heart failure: PLAN: Chest Pain Place on a monitored bed at PCU Actual CXR image was visualized and independently interpreted. I agree with radiologist interpretation of questionable atelectasis versus infiltration or diaphragmatic eventration at the right lung base. We will follow radiologist recommendation and get a chest x-ray PA and lateral. Actual EKG tracing was independently visualized. EKG tracing showed SR with occasional PVCs and first-degree heart block Continue daily ASA and high intensity statin ASA 81 mg p.o. daily ordered SL NTG 0.4 mg prn as needed for chest pain ordered Initial high sensitive troponin was unremarkable. Serial cardiac enzymes ordered Stat EKG as needed for chest pain Cardiology consult DVT prophylaxis ordered. Acute Exacerbation of heart failure with preserved ejection fraction Last echocardiogram on file was on 08/13/2020: Estimate ejection fraction 65%. Mild to moderate eccentric mitral valve insufficiency; mild to moderate tricuspid valve insufficiency; pulmonary artery systolic pressure of 45 mmHg; mild aortic stenosis Discussed with cardiology within the patient may been extubation of heart failure. New echocardiogram and BNP recommended. Echocardiogram ordered. BNP ordered in the ED. BNP returned as 200.9. His BNP on 08/09/2021 was 364.5. On home Lasix 40 mg p.o. daily. Per cardiology recommendation Lasix 40 mg IV daily ordered. Lasix 40 mg IV ordered at the ED. Place on monitored bed on progressive care unit Weight on admission to the floor; and then daily Strict I&O's Jhonny wrap to bilateral lower extremities Fluid restriction of 1500 mls daily Cardiac diet ordered Chronic anemia Review of CBC showed normal white counts but a chronic anemia. Also with mild thrombocytopenia. Trend CBC. CKD stage IIIb Stable. Trend BMP DVT prophylaxis Subcutaneous Lovenox ordered. Charges/Coding Visit Charges OBSV E&M: 09392 Initial observation care L3
[2021-08-29 23:23] LABS: BNP,B-Type NATRIURETIC PEPTIDE 200.9 pg/mL (0-100)
[2021-08-29] MEDS: Furosemide 40 MG/4 ML Vial IV (23:43)
--- NOTE | 2021-08-29 23:50 | EKG12_ITS ---
Test Reason : CP ADMIT Blood Pressure : / mmHG Vent. Rate : 062 BPM Atrial Rate : 062 BPM P-R Int : 258 ms QRS Dur : 088 ms QT Int : 394 ms P-R-T Axes : 110 011 014 degrees QTc Int : 399 ms Sinus rhythm with 1st degree A-V block Otherwise normal ECG Confirmed by ТАТЬЯНА MITCHELL, VICTOR M ([id number]), editor dictionary PAUL CHRISTIE ([id number]) on 09/02/2021 11:36:45 AM Referred By: DR BAEZA Confirmed By:VICTOR M VAZ MD
--- NOTE | 2021-08-29 23:50 | ECHOD_ITS ---
Reason For Study: Chest Pain Procedure This was a 2D Doppler, Color Flow transthoracic echocardiogram. The exam was of adequate technical quality. Exam performed portable in patient room. Left Ventricle Normal LV size. Left ventricular systolic function is normal. The estimated ejection fraction is 55 %. There is evidence of diastolic dysfunction. No regional wall motion abnormalities noted. Right Ventricle Normal RV size. Normal systolic function. Atria The left atrium is moderately enlarged. The right atrium is mildly enlarged. No doppler evidence for ASD. Mitral Valve There is no mitral annular calcification. Mild focal mitral valve calcification of the anterior leaflet. Mild-Moderate (1-2+) mitral valve insufficiency. Tricuspid Valve Normal tricuspid valve. Mild to moderate (1-2+) tricuspid valve insufficiency. Right ventricular systolic pressure estimated to be 32 mmHg. Aortic Valve Trisinus/trileaflet aortic valve. Mild diffuse aortic valve thickening. Mild diffuse aortic valve calcification. Mild to moderate aortic stenosis. Trivial aortic valve insufficiency. Pulmonic Valve The pulmonic valve is not well visualized. Moderately severe (3+) pulmonic valve insufficiency. Great Vessels The aortic root is not well visualized. Pericardium/Pleural No pericardial effusion. MMode/2D Measurements & Calculations LVIDd: 4.6 cm IVSd: 1.1 cm LVOT diam: 2.2 cm LVIDs: 2.8 cm LVPWd: 1.4 cm LVOT area: 3.7 cm2 RVDd: 4.5 cm FS: 39.0 % LA dimension: 4.8 cm LAV(MOD-bp): 67.7 ml Aortic Valve Planimetry: 1.1 cm2 LAV(MOD-bp) Indexed: 34.7 ml/m2 LAV(MOD-sp2): 56.4 ml LAV(MOD-sp4): 83.7 ml LA A4 area: 24.3 cm2 RA A4 area: 21.3 cm2 Time Measurements MV dec time: 0.29 sec Doppler Measurements & Calculations MV E max salas: 69.6 cm/sec Lat Peak E' Salas: 5.9 cm/sec Med Peak E' Salas: 4.6 cm/sec MV A max salas: 82.5 cm/sec E/E' lat: 11.7 E/E' med: 15.0 MV E/A: 0.84 MV V2 max: 84.1 cm/sec MV P1/2t max salas: 79.6 cm/sec Ao V2 max: 257.0 cm/sec MV max P.8 mmHg MV P1/2t: 71.2 msec Ao max P.5 mmHg MV V2 mean: 46.4 cm/sec MV dec slope: 327.5 cm/sec2 Ao V2 mean: 158.2 cm/sec MV mean P.0 mmHg Ao mean P.9 mmHg MV V2 VTI: 31.7 cm MVA(P1/2t): 3.1 cm2 Ao V2 VTI: 53.8 cm MVA(VTI): 2.3 cm2 CONY(I,D): 1.4 cm2 CONY(V,D): 1.3 cm2 AI max salas: 382.7 cm/sec LV V1 max: 89.7 cm/sec SV(LVOT): 73.0 ml AI max P.6 mmHg LV V1 max P.2 mmHg LV V1 mean P.6 mmHg AI dec slope: 148.0 cm/sec2 LV V1 mean: 59.1 cm/sec AI P1/2t: 757.3 msec LV V1 VTI: 19.7 cm PA V2 max: 93.4 cm/sec PI end-d salas: 110.7 cm/sec TR max salas: 271.1 cm/sec TR max P.4 mmHg ECHO/Echo Complete Interpretation Summary Left ventricular systolic function is normal. The estimated ejection fraction is 55 %. The left atrium is moderately enlarged. The right atrium is mildly enlarged. Mild focal mitral valve calcification of the anterior leaflet. Mild-Moderate (1-2+) mitral valve insufficiency. Mild to moderate (1-2+) tricuspid valve insufficiency. Mild to moderate aortic stenosis. Trivial aortic valve insufficiency. Moderately severe (3+) pulmonic valve insufficiency. Right ventricular systolic pressure estimated to be 32 mmHg. There is evidence of diastolic dysfunction. Ordering Physician: Wilson Hutchinson Referring Physician: Rick Butler Performed By: Terrence Grady RCS
[2021-08-29 23:57] VITALS: PULSE 61; BMI 24.3
[2021-08-29 23:57] LABS: Reflex Troponin-HS? (from REC) Y
[2021-08-30] VITALS (8 sets, daily range): BP systolic 100–151; BP diastolic 58–73; PULSE 60–98; RESP 14–18; TEMP 35.9–37.2; O2SAT 96–100
[2021-08-30 00:28] LABS: Troponin-I HS 33 pg/mL (3.0-78.0)
[2021-08-30 04:06] LABS: Absolute Lymphocyte Count 1.09 X10^3/uL (0.83-4.51); Basophil# 0.01 X10^3/uL; Basophil% 0.1 % (0-1); Eosinophil# 0.11 X10^3/uL; Eosinophils% 1.6 % (0-5); Hemoglobin 10.1 g/dL (13.0-16.5); Lymphocyte # 1.09 X10^3/ul (0.83-4.51); Lymphocyte % 16.3 % (19-41); Mean Corp Hgb Conc 31.6 g/dL (32-36); Mean Corpuscular Hgb 28.4 pg (27.0-32.0); Mean Corpuscular Volume 89.9 fL (80-94); Mean Platelet Vol. 9.7 fl (6.2-12.0); Monocyte# 0.45 X10^3/uL; Monocyte% 6.7 % (0-10); NRBC Flagged by Analyzer 0 % (0-5); Neutrophil # 5.02 X10^3/uL (2.7-7.7); Platelet Count 116 K/mm3 (150-450); RBC Distribution Width CV 14.5 % (11.6-14.6); Red Blood Count 3.56 M/mm3 (4.6-6.2); White Blood Count 6.7 K/mm3 (4.4-11.0)
[2021-08-30 04:23] LABS: Troponin-I HS 35 pg/mL (3.0-78.0)
[2021-08-30 04:27] LABS: Anion Gap 6 (5-15); BUN 60 mg/dL (7-18); BUN/Creat Ratio 29.3 RATIO (10-20); Calcium,Total 9.2 mg/dL (8.5-10.1); Chloride 108 mmol/L (98-107); Cholesterol 135 mg/dL (200); Creatinine, Serum 2.05 mg/dL (0.70-1.30); EST Glomerular Filtration Rate 33 mL/min (>60); Est Glom Filt Rate - Afr Amer 40 mL/min (>60); Estimated Creatinine Clearance 26.21 ml/min; Glucose 114 mg/dL (74-106); High Density Lipoprotein 51 mg/dL; Sodium Level 136 mmol/L (136-145); Triglycerides 54 mg/dL; Very Low Density Lipoprotein 11 mg/dL (5-40)
--- NOTE | 2021-08-30 08:40 | RAD_ITS ---
STUDY: X-RAY CHEST REASON FOR EXAM: Male, 86 years old. CHEST PAIN Chest Pain; Dsypnea on exertion TECHNIQUE: XR Chest 2 Views COMPARISON: Yesterday FINDINGS: There is no demonstrated pleural abnormality. There are multiple median sternotomy wires. Normal size heart. Normal mediastinum and sherlyn. Normal visualized pulmonary arteries. There is atherosclerotic calcification of the aortic arch with tortuosity. There are diffuse degenerative changes of the visualized thoracic spine. There is degenerative osteoarthritis of the bilateral shoulders. There is no demonstrated abnormality of the visualized soft tissue structures of the upper abdomen. RAD/Chest PA and Lateral IMPRESSION: There are no acute findings. Electronically Signed: Srinivasan Roberts MD at 17:27 EDT ,
[2021-08-30] MEDS: Enoxaparin 30 MG/0.3 ML Syringe SC (09:59)
[2021-08-30] MEDS: Furosemide 40 MG/4 ML Vial IV (09:59)
--- NOTE | 2021-08-30 14:17 | PCM.DC ---
Discharge Instructions Diet Discharge Diet: 2000 mg Sodium Diet Activity Discharge Activity: Return to Normal Activity Follow Up Care Test Results: Test results from this visit will be discussed in further detail at your follow-up appointment, if applicable. Discharge Plan Admission Admit Date/Time: 08/29/21 22:59 Primary Reason for Your Visit: Chest pain Attending Provider: Cristine Adams Primary Care Provider: Rick Butler Consulting Providers: Kaleb Garcia Instructions Additional Instructions / Restrictions: Continue to take your medications as prescribed. Follow-up with cardiology in the outpatient. Discharge Orders/Prescriptions Prescriptions: Continued pramipexole 0.5 mg tablet 0.5 mg PO BID RF: 0 cholecalciferol (vitamin D3) [Vitamin D3] 25 mcg (1,000 unit) Tablet 25 mcg PO DAILY RF: 0 aspirin [Adult Aspirin Regimen] 81 mg tablet,delayed release (DR/EC) 81 mg PO DAILY RF: 0 nitroglycerin 0.4 mg tablet, sublingual 0.4 mg SUBLINGUAL Q5-15M PRN (Reason: chest pain) Qty: 25 RF: 11 atorvastatin 40 mg tablet 40 mg PO QHS Qty: 90 RF: 3 benazepril 5 mg tablet 5 mg PO DAILY Qty: 90 RF: 3 metoprolol tartrate 25 mg tablet 25 mg PO BID Qty: 180 RF: 3 furosemide [Lasix] 40 mg tablet 40 mg PO DAILY Qty: 60 RF: 2 Discontinued amlodipine 2.5 mg tablet 2.5 mg PO DAILY Qty: 30 RF: 11 Referrals / Follow Up: Rick Butler MD [Primary Care Provider] - Within 1 Week Disposition Disposition (needs filled in before D/C Order can be placed): Home, Self Care
--- NOTE | 2021-08-30 14:30 | DS.PCM_ITS ---
Providers Date of Admission: 08/29/21 Date of Discharge: 08/31/21 Primary Care Physician: Rick Butler MD Consultations 08/29/21 23:50 Consult: Cardiology Routine Consulting Provider: Kaleb Garcia Reason for Consult: chest pain; dyspnea on exertion EMERGENT Consult: No MD Notified: Yes Date Notified: 08/29/21 Time Notified: 23:44 Method of Notification: ED Physician Initiated Comments:: Radha saw pt in ED Reason For Visit: ACUTE EXACERBATION OF HEART FAILURE W/PRESERVE EF Diagnosis Discharge Diagnosis (1) Chest pain: Status: Acute Code(s): R07.9 - Chest pain, unspecified Qualifiers: Chest pain type: unspecified Qualified Code(s): R07.9 - Chest pain, unspecified (2) Acute on chronic diastolic heart failure: Status: Chronic Code(s): I50.33 - Acute on chronic diastolic (congestive) heart failure Medications at Discharge Home Medications aspirin 81 mg tablet,delayed release 81 mg PO DAILY 09/13/18 nitroglycerin 0.4 mg sublingual tablet 0.4 mg SUBLINGUAL Q5-15M PRN #25 tab 08/03/19 pramipexole 0.5 mg tablet 0.5 mg PO BID tab 10/04/19 cholecalciferol (vitamin D3) [Vitamin D3] 25 mcg PO DAILY 05/20/21 atorvastatin 40 mg tablet 40 mg PO QHS #90 tab 05/21/21 benazepril 5 mg tablet 5 mg PO DAILY #90 tab 05/21/21 furosemide [Lasix] 60 mg PO DAILY 30 Days #45 tab 08/30/21 isosorbide mononitrate 30 mg PO DAILY 30 Days #30 tab 08/30/21 metoprolol tartrate 12.5 mg PO BID 30 Days #30 tab 08/30/21 Hospital Course Operations None Procedures 2-D Echocardiogram Summary of Care Provided Minutes Spent on Discharge: 30 Hospital Course: 86-year-old male with past medical history of heart failure with preserved EF, history of CAD status post CABG and stents who presented with substernal chest pain that radiated across his entire chest. This was intermittent, described as somebody sitting on his chest, no aggravating factors. This was associated with dyspnea on exertion. Patient took 4 baby aspirin's and 2 nitroglycerin tablets that helped a little bit. He was admitted to the Medr floor. His admitting EKG shows sinus rhythm with occasional PVCs. Troponins were 32. Cardiology was consulted. Patient was also managed as acute exacerbation of heart failure preserved EF. His admitting BNP was 200.9. He was on Lasix 60 mg daily at home and that was decreased recently approximately 130. He improved on Lasix 40 mg IV twice daily. He was discharged back on Lasix 60 mg p.o. daily. Patient had a 2D echo done that showed EF of 55%, mild to moderate mitral and tricuspid valve insufficiency. There was evidence of diastolic dysfunction. Patient was discharged on Imdur, metoprolol, Lasix, aspirin, statin, benazepril. He had relative hypotension and his home amlodipine was discontinued at discharge. He will follow-up with his primary care doctor as well as with cardiology in the outpatient. Physical Exam Narrative Physical exam: General: Alert, Oriented x3, Cooperative, No apparent distress, appears frail HEENT: Atraumatic Oral: Moist Mucosa Neck: Supple Lungs: diminished at the lung bases to auscultation Cardiovascular: HS I+II, regular, no murmurs Abdomen: Bowel Sounds Present, Soft, Non Tender Extremities: No edema Skin: No rashes, No breakdown Neurological: Grossly intact Psych/Mental Status: Appropriate Weight / BMI Weight Weight: 76.7 kg Body Mass Index (BMI) 24.3 ABG / Lab / Microbiology Data Result Diagrams: 08/30/21 03:51 08/30/21 03:51 Laboratory: Laboratory Results - last 24 hr 08/29/21 21:40: WBC 9.8, RBC 3.74 L, Hgb 10.6 L, Hct 34.0 L, MCV 90.9, MCH 28.3, MCHC 31.2 L, RDW Std Deviation 48.7 H, RDW Coeff of Chas 14.6, Plt Count 141 L, MPV 9.7, Immature Gran % (Auto) 0.400, Neut % (Auto) 73.5 H, Lymph % (Auto) 17.6 L, [place] % (Auto) 6.7, Eos % (Auto) 1.6, Baso % (Auto) 0.2, Absolute Neuts (auto) 7.2, Absolute Lymphs (auto) 1.72, Nucleated RBC % 0 08/29/21 21:40: Sodium 136, Potassium 5.1, Chloride 107, Carbon Dioxide 24.0, Anion Gap 5, BUN 58 H, Creatinine 2.16 H, Estim Creat Clear Calc 24.88, Est GFR (MDRD) Af Amer 37 L, Est GFR (MDRD) Non-Af 31 L, BUN/Creatinine Ratio 26.9 H, Glucose 115 H, Calcium 9.4 08/29/21 21:40: Troponin I High Sens 32 08/29/21 21:40: B-Natriuretic Peptide 200.9 H 08/30/21 00:02: Troponin I High Sens 33 08/30/21 03:51: WBC 6.7, RBC 3.56 L, Hgb 10.1 L, Hct 32.0 L, MCV 89.9, MCH 28.4, MCHC 31.6 L, RDW Std Deviation 48.0 H, RDW Coeff of Chas 14.5, Plt Count 116 L, MPV 9.7, Immature Gran % (Auto) 0.300, Neut % (Auto) 75.0 H, Lymph % (Auto) 16.3 L, [place] % (Auto) 6.7, Eos % (Auto) 1.6, Baso % (Auto) 0.1, Absolute Neuts (auto) 5.0, Absolute Lymphs (auto) 1.09, Nucleated RBC % 0 08/30/21 03:51: Sodium 136, Potassium 5.0, Chloride 108 H, Carbon Dioxide 22.0, Anion Gap 6, BUN 60 H, Creatinine 2.05 H, Estim Creat Clear Calc 26.21, Est GFR (MDRD) Af Amer 40 L, Est GFR (MDRD) Non-Af 33 L, BUN/Creatinine Ratio 29.3 H, Glucose 114 H, Calcium 9.2, Triglycerides 54, Cholesterol 135, LDL Cholesterol 73, VLDL Cholesterol 11, HDL Cholesterol 51 08/30/21 03:51: Troponin I High Sens 35 Radiography Diagnostic Testing: Radiology Impression Chest X-Ray 08/29/21 22:12 IMPRESSION: Mildly underinflated lung bases and question of atelectasis versus infiltrate or diaphragmatic eventration at the right lung base. Please correlate with exam. Consider standard PA and lateral views for further evaluation. Otherwise stable chest compared to August 09, 2019 with borderline cardiomegaly, median sternotomy changes, and mildly tortuous contour of aorta. Electronically Signed: Mari Bravo MD at 22:59 EDT , ADDENDUM: 08/29/21 0605 IMPRESSION: Mildly underinflated lung bases and question of atelectasis versus infiltrate or diaphragmatic eventration at the right lung base. Please correlate with exam. Consider standard PA and lateral views for further evaluation. Otherwise stable chest compared to August 09, 2019 with borderline cardiomegaly, median sternotomy changes, and mildly tortuous contour of aorta. N.B. : Jose F Bartlett RN, confirmed on 08/29/2021 23:09:03 (ET) that the healthcare facility has received the radiology report. Electronically Signed: Mari Bravo MD at 22:59 EDT , Echocardiogram 08/29/21 23:50 Interpretation Summary Left ventricular systolic function is normal. The estimated ejection fraction is 55 %. The left atrium is moderately enlarged. The right atrium is mildly enlarged. Mild focal mitral valve calcification of the anterior leaflet. Mild-Moderate (1-2+) mitral valve insufficiency. Mild to moderate (1-2+) tricuspid valve insufficiency. Mild to moderate aortic stenosis. Trivial aortic valve insufficiency. Moderately severe (3+) pulmonic valve insufficiency. Right ventricular systolic pressure estimated to be 32 mmHg. There is evidence of diastolic dysfunction. Ordering Physician: Wilson Hutchinson Referring Physician: Rick Butler Performed By: Terrence Grady RCS D/C Instructions Discharge Diet: 2000 mg Sodium Diet Meaningful Use Info Meaningful Use Diagnoses (Choose all that apply): None applicable Discharge Plan Admission Admit Date/Time: 08/29/21 22:59 Primary Reason for Your Visit: Chest pain Attending Provider: Cristine Adams Primary Care Provider: Rick Butler Consulting Providers: Kaleb Garcia Instructions Additional Instructions / Restrictions: Continue to take your medications as prescribed. Follow-up with cardiology in the outpatient. Discharge Orders/Prescriptions Prescriptions: New furosemide [Lasix] 40 mg tablet 60 mg PO DAILY 30 Days Qty: 45 RF: 0 isosorbide mononitrate 30 mg tablet extended release 24 hr 30 mg PO DAILY 30 Days Qty: 30 RF: 0 metoprolol tartrate 25 mg tablet 12.5 mg PO BID 30 Days Qty: 30 RF: 0 Continued pramipexole 0.5 mg tablet 0.5 mg PO BID RF: 0 cholecalciferol (vitamin D3) [Vitamin D3] 25 mcg (1,000 unit) Tablet 25 mcg PO DAILY RF: 0 aspirin [Adult Aspirin Regimen] 81 mg tablet,delayed release (DR/EC) 81 mg PO DAILY RF: 0 nitroglycerin 0.4 mg tablet, sublingual 0.4 mg SUBLINGUAL Q5-15M PRN (Reason: chest pain) Qty: 25 RF: 11 atorvastatin 40 mg tablet 40 mg PO QHS Qty: 90 RF: 3 benazepril 5 mg tablet 5 mg PO DAILY Qty: 90 RF: 3 Discontinued metoprolol tartrate 25 mg tablet 25 mg PO BID Qty: 180 RF: 3 amlodipine 2.5 mg tablet 2.5 mg PO DAILY Qty: 30 RF: 11 furosemide [Lasix] 40 mg tablet 40 mg PO DAILY Qty: 60 RF: 2 Referrals / Follow Up: Rick Butler MD [Primary Care Provider] - Within 1 Week Disposition Disposition (needs filled in before D/C Order can be placed): Home, Self Care Charges/Coding Addendum Addendum: I discussed and explained in details the various types of CODE STATUS- full code, DNR CCA, DNR CC. Patient stated that he does not want aggressive cardiopulmonary resuscitation.-I explained the different types of DNR. Patient stated that he just wanted to be comfortable and chose DNR CC. Time spent discussing CODE STATUS 16 minutes Visit Charges OBSV E&M: 69335 Observation care discharge Procedures Hospitalists Procedures: 76640 Advncd Care Plan 30 Min
--- NOTE | 2021-08-30 14:31 | PCM.PN.CARD ---
Subjective Subjective This is a pleasant 86-year-old white male who appears to be resting reasonably comfortably at the moment in no acute distress. He states his main concern has been shortness of breath and dyspnea especially with any exertional activity. He denies ongoing chest discomfort other than the sensation he gets when he feels more short of breath and dyspneic. Objective Data Vital Signs: Vital Signs Temp Pulse Resp BP Pulse Ox 98.6 F 60 14 108/58 L 100 08/30/21 11:40 08/30/21 11:40 08/30/21 11:40 08/30/21 11:40 08/30/21 11:40 Oxygen Delivery Method Room Air Weight: 169 lb 1.513 oz Body Mass Index (BMI) 24.3 Intake & Output: Intake and Output for Last 24 Hours 08/28/21 08/29/21 08/30/21 23:59 23:59 23:59 Intake Total 600 / 600 Output Total 2100 / 2100 Balance -1500 / -1500 Lab / Micro Data Result Diagrams: 08/30/21 03:51 08/30/21 03:51 Labs: Laboratory Results - last 24 hr 08/29/21 21:40: WBC 9.8, RBC 3.74 L, Hgb 10.6 L, Hct 34.0 L, MCV 90.9, MCH 28.3, MCHC 31.2 L, RDW Std Deviation 48.7 H, RDW Coeff of Chas 14.6, Plt Count 141 L, MPV 9.7, Immature Gran % (Auto) 0.400, Neut % (Auto) 73.5 H, Lymph % (Auto) 17.6 L, [place] % (Auto) 6.7, Eos % (Auto) 1.6, Baso % (Auto) 0.2, Absolute Neuts (auto) 7.2, Absolute Lymphs (auto) 1.72, Nucleated RBC % 0 08/29/21 21:40: Sodium 136, Potassium 5.1, Chloride 107, Carbon Dioxide 24.0, Anion Gap 5, BUN 58 H, Creatinine 2.16 H, Estim Creat Clear Calc 24.88, Est GFR (MDRD) Af Amer 37 L, Est GFR (MDRD) Non-Af 31 L, BUN/Creatinine Ratio 26.9 H, Glucose 115 H, Calcium 9.4 08/29/21 21:40: Troponin I High Sens 32 08/29/21 21:40: B-Natriuretic Peptide 200.9 H 08/30/21 00:02: Troponin I High Sens 33 08/30/21 03:51: WBC 6.7, RBC 3.56 L, Hgb 10.1 L, Hct 32.0 L, MCV 89.9, MCH 28.4, MCHC 31.6 L, RDW Std Deviation 48.0 H, RDW Coeff of Chas 14.5, Plt Count 116 L, MPV 9.7, Immature Gran % (Auto) 0.300, Neut % (Auto) 75.0 H, Lymph % (Auto) 16.3 L, [place] % (Auto) 6.7, Eos % (Auto) 1.6, Baso % (Auto) 0.1, Absolute Neuts (auto) 5.0, Absolute Lymphs (auto) 1.09, Nucleated RBC % 0 08/30/21 03:51: Sodium 136, Potassium 5.0, Chloride 108 H, Carbon Dioxide 22.0, Anion Gap 6, BUN 60 H, Creatinine 2.05 H, Estim Creat Clear Calc 26.21, Est GFR (MDRD) Af Amer 40 L, Est GFR (MDRD) Non-Af 33 L, BUN/Creatinine Ratio 29.3 H, Glucose 114 H, Calcium 9.2, Triglycerides 54, Cholesterol 135, LDL Cholesterol 73, VLDL Cholesterol 11, HDL Cholesterol 51 08/30/21 03:51: Troponin I High Sens 35 Cardiology Labs/Tests 08/29/21 21:40: WBC 9.8, RBC 3.74 L, Hgb 10.6 L, Hct 34.0 L, MCV 90.9, MCH 28.3, MCHC 31.2 L, Plt Count 141 L, MPV 9.7, Immature Gran % (Auto) 0.400, Neut % (Auto) 73.5 H, Lymph % (Auto) 17.6 L, [place] % (Auto) 6.7, Eos % (Auto) 1.6, Baso % (Auto) 0.2, Absolute Neuts (auto) 7.2, Nucleated RBC % 0 08/29/21 21:40: Sodium 136, Potassium 5.1, Chloride 107, Carbon Dioxide 24.0, Anion Gap 5, BUN 58 H, Creatinine 2.16 H, Est GFR (MDRD) Af Amer 37 L, Est GFR (MDRD) Non-Af 31 L, BUN/Creatinine Ratio 26.9 H, Glucose 115 H, Calcium 9.4 08/29/21 21:40: B-Natriuretic Peptide 200.9 H 08/30/21 03:51: WBC 6.7, RBC 3.56 L, Hgb 10.1 L, Hct 32.0 L, MCV 89.9, MCH 28.4, MCHC 31.6 L, Plt Count 116 L, MPV 9.7, Immature Gran % (Auto) 0.300, Neut % (Auto) 75.0 H, Lymph % (Auto) 16.3 L, [place] % (Auto) 6.7, Eos % (Auto) 1.6, Baso % (Auto) 0.1, Absolute Neuts (auto) 5.0, Nucleated RBC % 0 08/30/21 03:51: Sodium 136, Potassium 5.0, Chloride 108 H, Carbon Dioxide 22.0, Anion Gap 6, BUN 60 H, Creatinine 2.05 H, Est GFR (MDRD) Af Amer 40 L, Est GFR (MDRD) Non-Af 33 L, BUN/Creatinine Ratio 29.3 H, Glucose 114 H, Calcium 9.2, Triglycerides 54, Cholesterol 135, LDL Cholesterol 73, VLDL Cholesterol 11, HDL Cholesterol 51 Rhythm: Sinus rhythm; PVCs Radiography Diagnostic Testing: Radiology Impression Chest X-Ray 08/29/21 22:12 IMPRESSION: Mildly underinflated lung bases and question of atelectasis versus infiltrate or diaphragmatic eventration at the right lung base. Please correlate with exam. Consider standard PA and lateral views for further evaluation. Otherwise stable chest compared to August 09, 2019 with borderline cardiomegaly, median sternotomy changes, and mildly tortuous contour of aorta. Electronically Signed: Mari Bravo MD at 22:59 EDT , ADDENDUM: 08/29/21 [id number] IMPRESSION: Mildly underinflated lung bases and question of atelectasis versus infiltrate or diaphragmatic eventration at the right lung base. Please correlate with exam. Consider standard PA and lateral views for further evaluation. Otherwise stable chest compared to August 09, 2019 with borderline cardiomegaly, median sternotomy changes, and mildly tortuous contour of aorta. N.B. : Jose F Bartlett RN, confirmed on 08/29/2021 23:09:03 (ET) that the healthcare facility has received the radiology report. Electronically Signed: Mari Bravo MD at 22:59 EDT , Echocardiogram 08/29/21 23:50 Interpretation Summary Left ventricular systolic function is normal. The estimated ejection fraction is 55 %. The left atrium is moderately enlarged. The right atrium is mildly enlarged. Mild focal mitral valve calcification of the anterior leaflet. Mild-Moderate (1-2+) mitral valve insufficiency. Mild to moderate (1-2+) tricuspid valve insufficiency. Mild to moderate aortic stenosis. Trivial aortic valve insufficiency. Moderately severe (3+) pulmonic valve insufficiency. Right ventricular systolic pressure estimated to be 32 mmHg. There is evidence of diastolic dysfunction. Ordering Physician: Wilson Hutchinson Referring Physician: Rick Butler Performed By: Terrence Grady RCS Physical Exam Const alert, oriented x3 and no apparent distress Orientation / Consciousness: awake HEENT normocephalic, head/scalp atraumatic and hearing grossly normal bilaterally Eyes PERRL, EOMs intact bilaterally and conjunctivae normal Neck full ROM, supple and no JVD Resp clear to auscultation bilaterally Cardio regular rate, regular rhythm, S1 normal heart sound and S2 normal heart sound Rhythm: abnormal rhythm ectopic beats Heart Sounds: murmur systolic III/ harsh mid left sternal border and LVOT GI normal to inspection, nondistended, normoactive bowel sounds Extremity General Extremity: edema bilateral lower extremity Details: trace Skin no rashes or lesions noted Psych mental status grossly normal Assessment & Plan Assessment/Plan (1) CAD (coronary artery disease): PLAN: He does have a history of CAD as previously described. At the moment he will continue risk factor modification and medical management. (2) History of coronary artery stent placement: PLAN: He has undergone revascularization therapy. Per his medical records this is included PCI and CABG. He will continue medical therapy and follow-up. (3) H/O coronary artery bypass surgery: PLAN: He has undergone CABG in the past. He is undergone subsequent invasive evaluation. Based upon his studies there is notation of progressive graft vessel disease. (4) Aortic stenosis: PLAN: He did have an element of aortic valve stenosis. (5) Acute on chronic diastolic heart failure: PLAN: There is some concern he has developed acute on chronic diastolic mediated CHF. He does need to continue medical therapy. (6) Hyperlipidemia: PLAN: He will continue risk factor evaluation and care. Procedure Criteria Type of Procedure Procedure Type: Elective Elective Risks - COVID COVID Risk Discussion: At the present time status post review of his case, review of his outpatient cardiovascular records, review of the cardiovascular consultation, and discussion with the patient, it appears the consensus is to continue conservative medical management. The patient states has been told in the past that he is not an ideal candidate for additional invasive evaluation/revascularization therapy. This would also have to be taken into consideration, with respect IV contrast related studies, based upon his chronic renal insufficiency as well because of the concerns of IV contrast related nephropathy. Thus at the present time he will continue conservative medical therapy with an attempt to optimize his medications as best as possible. This may include the addition of nitrates as long as tolerated and increasing his diuretic dose. 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 Potts. The patient's case has been discussed and reviewed with the patient and Dr. Adams. This note was generated using a voice recognition system and there may be incorrect words, spelling or punctuation that were not noted when reviewing the office note prior to saving.
--- NOTE | 2021-08-30 16:33 | CASEMGMT ---
Pt has been up ambulating halls independent throughout the day and states no concerns with going home. Linh AZUL CM
== END 2021-08-30 14:16 | disposition home or self-care (01) ==
LOC: ED 23:07 → PCU 23:12
PROVIDERS: Admitting Provider Hospitalist; Emergency Provider Emergency Medicine; PCP Family Medicine; Visit Provider Internal Medicine
DX: I13.0 Hypertensive heart and chronic kidney disease with heart failure and stage 1 through stage 4 chronic kidney disease, or unspecified chronic kidney disease (principal); G20 Parkinson's disease; I50.33 Acute on chronic diastolic (congestive) heart failure; I27.21 Secondary pulmonary arterial hypertension; I77.1 Stricture of artery; I25.119 Atherosclerotic heart disease of native coronary artery with unspecified angina pectoris; N18.32 Chronic kidney disease, stage 3b; E78.5 Hyperlipidemia, unspecified; Z79.82 Long term (current) use of aspirin; Z79.899 Other long term (current) drug therapy; Z95.1 Presence of aortocoronary bypass graft; M19.90 Unspecified osteoarthritis, unspecified site; I08.3 Combined rheumatic disorders of mitral, aortic and tricuspid valves; I44.0 Atrioventricular block, first degree
CPT/HCPCS: 36415; 71045; 71046; 80048; 80061; 83880; 84484; 85025; 93005; 93306; 96372; 96374; 96376; 99218; 99283; A4216; G0378; J1940

== ENCOUNTER → 2021-09-03 | Outpatient (CLI) | payer MEDICARE, OTHER, SELFPAY ==
[2021-09-03 11:35] LABS: Anion Gap 11 (5-15); BUN 89 mg/dL (7-18); Calcium,Total 9.6 mg/dL (8.5-10.1); Chloride 103 mmol/L (98-107); Creatinine, Serum 2.54 mg/dL (0.70-1.30); EST Glomerular Filtration Rate 26 mL/min (>60); Est Glom Filt Rate - Afr Amer 31 mL/min (>60); Glucose 99 mg/dL (74-106); Potassium 4.8 mmol/L (3.5-5.1); Sodium Level 136 mmol/L (136-145)
== END | disposition home or self-care (01) ==
LOC: LAB 10:17
PROVIDERS: PCP Family Medicine; Visit Provider Nurse Practitioner Family
DX: N18.9 Chronic kidney disease, unspecified (principal); R06.00 Dyspnea, unspecified
CPT/HCPCS: 36415; 80048

== ENCOUNTER → 2021-09-04 | Outpatient (CLI) | payer MEDICARE, OTHER, SELFPAY ==
[2021-09-04 17:55] LABS: Absolute Lymphocyte Count 1.23 X10^3/uL (0.83-4.51); Absolute Neutrophil Count 4.5 X10^3/uL (2.0-7.7); Basophil# 0.02 X10^3/uL; Basophil% 0.3 % (0-1); Eosinophil# 0.07 X10^3/uL; Eosinophils% 1.1 % (0-5); Hematocrit 33.3 % (40-54); Hemoglobin 10.6 g/dL (13.0-16.5); Lymphocyte # 1.23 X10^3/ul (0.83-4.51); Lymphocyte % 19.7 % (19-41); Mean Corp Hgb Conc 31.8 g/dL (32-36); Mean Corpuscular Hgb 28.3 pg (27.0-32.0); Mean Platelet Vol. 10.5 fl (6.2-12.0); Monocyte# 0.44 X10^3/uL; Monocyte% 7.1 % (0-10); NRBC Flagged by Analyzer 0 % (0-5); Neutrophil # 4.47 X10^3/uL (2.7-7.7); Neutrophil % 71.6 % (47-70); Platelet Count 125 K/mm3 (150-450); RBC Distribution Width CV 14.7 % (11.6-14.6); RBC Distribution Width SD 47.3 fl (35.1-43.9); Red Blood Count 3.74 M/mm3 (4.6-6.2); White Blood Count 6.2 K/mm3 (4.4-11.0)
[2021-09-04 18:18] LABS: Ferritin 54 ng/mL (26-388); Iron 94 ug/dL (65-175); Iron Binding Capacity,Total 315 ug/dL (250-450)
== END | disposition home or self-care (01) ==
LOC: MFPLAB 14:51
PROVIDERS: PCP Family Medicine; Referring Provider Family Medicine; Visit Provider Nurse Practitioner Family
DX: D64.9 Anemia, unspecified (principal)
CPT/HCPCS: 36415; 82728; 83540; 83550; 85025

== ENCOUNTER → 2021-09-10 | Outpatient (CLI) | payer MEDICARE, OTHER, SELFPAY ==
[2021-09-10 11:35] LABS: Anion Gap 8 (5-15); BUN 65 mg/dL (7-18); Calcium,Total 9.2 mg/dL (8.5-10.1); Chloride 108 mmol/L (98-107); Creatinine, Serum 1.97 mg/dL (0.70-1.30); EST Glomerular Filtration Rate 34 mL/min (>60); Est Glom Filt Rate - Afr Amer 42 mL/min (>60); Glucose 119 mg/dL (74-106); Potassium 4.5 mmol/L (3.5-5.1); Sodium Level 137 mmol/L (136-145)
== END | disposition home or self-care (01) ==
LOC: LAB 09:27
PROVIDERS: PCP Family Medicine; Referring Provider Nurse Practitioner Family; Visit Provider Nurse Practitioner Family
DX: N18.9 Chronic kidney disease, unspecified (principal)
CPT/HCPCS: 36415; 80048

== ENCOUNTER → 2021-09-12 | Outpatient (CLI) | payer MEDICARE, OTHER, SELFPAY ==
[2021-09-12 07:29] LABS: Platelet Count 109 K/mm3 (150-450); RET-HE 33.7 pg (30-35); Reticulocyte Count 1.07 % (0.5-1.5)
[2021-09-12 08:38] LABS: Vitamin B12 342 pg/mL (211-911)
== END | disposition home or self-care (01) ==
PROVIDERS: PCP Family Medicine; Referring Provider Nurse Practitioner Family; Visit Provider Nurse Practitioner Family
DX: D64.9 Anemia, unspecified (principal)
CPT/HCPCS: 36415; 82607; 82746; 85045

== ENCOUNTER → 2021-09-23 | Outpatient (CLI) | payer MEDICARE, OTHER, SELFPAY | END | disposition home or self-care (01) | LOC: PSN 08:40 | PROVIDERS: PCP Family Medicine; Referring Provider Nurse Practitioner Family; Visit Provider Nurse Practitioner Family | DX: R00.1 Bradycardia, unspecified (principal); R53.83 Other fatigue; G47.10 Hypersomnia, unspecified | CPT/HCPCS: 93225; 93226 ==

== ENCOUNTER → 2021-10-22 | Outpatient (CLI) | payer MEDICARE, OTHER, SELFPAY | END | disposition home or self-care (01) | LOC: MFPLAB 10:30 | PROVIDERS: PCP Family Medicine; Referring Provider Family Medicine; Visit Provider Family Medicine | DX: R79.89 Other specified abnormal findings of blood chemistry (principal); E78.5 Hyperlipidemia, unspecified | CPT/HCPCS: 36415; 84439; 84443; 84481 ==

== ENCOUNTER → 2021-10-23 | Outpatient (CLI) | payer MEDICARE, OTHER, SELFPAY ==
[2021-10-23 12:48] LABS: Free T3 1.6 pg/mL (2.18-3.98); T4 Free Direct 1.03 ng/dL (0.76-1.46); Thyroid Stim Hormone (TSH) 7.84 uIU/mL (0.358-3.74)
== END | disposition home or self-care (01) ==
PROVIDERS: Ophthalmology; PCP Family Medicine; Referring Provider Family Medicine; Visit Provider Family Medicine
DX: H53.2 Diplopia (principal); R79.89 Other specified abnormal findings of blood chemistry; E78.5 Hyperlipidemia, unspecified
CPT/HCPCS: 36415; 84439; 84443; 84481

== ENCOUNTER → 2021-12-06 | Outpatient (CLI) | payer MEDICARE, OTHER, SELFPAY ==
[2021-12-06 10:35] LABS: BNP,B-Type NATRIURETIC PEPTIDE 156.3 pg/mL (0-100)
[2021-12-06 10:53] LABS: Anion Gap 5 (5-15); BUN 37 mg/dL (7-18); BUN/Creat Ratio 19.2 RATIO (10-20); Calcium,Total 9.5 mg/dL (8.5-10.1); Chloride 107 mmol/L (98-107); Creatinine, Serum 1.93 mg/dL (0.70-1.30); EST Glomerular Filtration Rate 35 mL/min (>60); Est Glom Filt Rate - Afr Amer 43 mL/min (>60); Free T3 1.7 pg/mL (2.18-3.98); Glucose 103 mg/dL (74-106); Potassium 4.8 mmol/L (3.5-5.1); Sodium Level 138 mmol/L (136-145); Thyroid Stim Hormone (TSH) 7.95 uIU/mL (0.358-3.74)
== END | disposition home or self-care (01) ==
PROVIDERS: PCP Family Medicine; Referring Provider Family Medicine; Visit Provider Family Medicine
DX: E03.9 Hypothyroidism, unspecified (principal); I50.30 Unspecified diastolic (congestive) heart failure
CPT/HCPCS: 36415; 80048; 83880; 84436; 84443; 84481

== ENCOUNTER → 2022-01-08 | Outpatient (CLI) | payer MEDICARE, OTHER, SELFPAY ==
[2022-01-08 08:27] LABS: Hematocrit 34.3 % (40-54); Hemoglobin 11.2 g/dL (13.0-16.5); Mean Corp Hgb Conc 32.7 g/dL (32-36); Mean Platelet Vol. 9.3 fl (6.2-12.0); Platelet Count 128 K/mm3 (150-450); RBC Distribution Width CV 13.8 % (11.6-14.6); RBC Distribution Width SD 46.5 fl (35.1-43.9); Red Blood Count 3.73 M/mm3 (4.6-6.2); White Blood Count 5.2 K/mm3 (4.4-11.0)
[2022-01-08 09:06] LABS: ALB/GLOB Ratio 1.1 RATIO (0.9-2.4); AST(SGOT) 21 U/L (15-37); Alanine Aminotransfer ALT/SGPT 19 U/L (16-61); Albumin, Serum 3.7 g/dL (3.2-5.0); Alkaline Phosphatase 127 U/L (45-117); Anion Gap 7 (5-15); BUN 45 mg/dL (7-18); BUN/Creat Ratio 21.1 RATIO (10-20); Calcium,Total 9.8 mg/dL (8.5-10.1); Chloride 107 mmol/L (98-107); Creatinine, Serum 2.13 mg/dL (0.70-1.30); EST Glomerular Filtration Rate 31 mL/min (>60); Est Glom Filt Rate - Afr Amer 38 mL/min (>60); Globulin 3.3 g/dL (2.2-4.2); Glucose 103 mg/dL (74-106); Potassium 4.4 mmol/L (3.5-5.1); Sodium Level 139 mmol/L (136-145)
[2022-01-08 09:15] LABS: Free T3 1.9 pg/mL (2.18-3.98); T4 Free Direct 1.18 ng/dL (0.76-1.46); Thyroid Stim Hormone (TSH) 5.21 uIU/mL (0.358-3.74)
[2022-01-08 09:28] LABS: BNP,B-Type NATRIURETIC PEPTIDE 140.1 pg/mL (0-100)
== END | disposition home or self-care (01) ==
PROVIDERS: PCP Family Medicine; Referring Provider Nurse Practitioner Gerontology; Visit Provider Nurse Practitioner Gerontology
DX: I50.32 Chronic diastolic (congestive) heart failure (principal); N18.9 Chronic kidney disease, unspecified; R60.9 Edema, unspecified; R06.00 Dyspnea, unspecified; E03.9 Hypothyroidism, unspecified
CPT/HCPCS: 36415; 80053; 83880; 84439; 84443; 84481; 85027

== ENCOUNTER 2022-02-08 15:33 | Emergency (ER) | payer MEDICARE, OTHER, SELFPAY ==
[2022-02-08 15:35] VITALS: BP 147/51; PULSE 72; RESP 18; TEMP 36.5; O2SAT 98; BMI 26.4
--- NOTE | 2022-02-08 15:55 | CT_ITS ---
STUDY: CT BRAIN WITHOUT CONTRAST ADMINISTRATION OF 1604 HOURS ON 02/08/2022 REASON FOR EXAM: 86-year-old male with head trauma after falling on steps. RADIATION DOSAGE (If Supplied By Facility): CTDIvol = ( 44.99 ) mGy, DLP = ( 796.11 ) mGycm. TECHNIQUE: Transaxial CT imaging of the brain was performed without administration of intravenous contrast material. Individualized dose optimization techniques were used for this CT. Sagittal and coronal reconstructions were obtained and all were demonstrated in osseous and soft tissue algorithms. COMPARISON: No relevant priors. FINDINGS: Mild cortical atrophy. Normal ventricular system without midline shift. No subdural, epidural, or intracerebral hematoma, hemorrhage or contusion. No intracranial mass lesions or metastatic disease. No ischemic or hemorrhagic infarct. Normal sella and pituitary appear normal brainstem and posterior fossa. Normal calvarium without linear or depressed skull fractures. Normal paranasal sinuses. Presence of a 3.4 cm in width by 7 mm in depth left frontal cephalohematoma. CT/Brain/Head without Contrast IMPRESSION: 1. No subdural, epidural, or intracerebral hematoma, hemorrhage or contusion. 2. No infarcts or intracranial mass lesions. 3. No other intracranial pathology. 4. Normal calvarium without fractures. 5. Findings of a 3.4 cm in width by 7 mm in depth left frontal cephalohematoma. 6. Normal paranasal sinuses. Electronically Signed: Vivek Manuel MD at 17:11 EDT ,
--- NOTE | 2022-02-08 15:56 | EDS_ITS ---
HPI HPI - Fall History of Present Illness Chief Complaint: Head Injury Informant: patient and family Occured/Mechanism Occurred: Today and Hours Mechanism/Context: Yes same level fall and Yes trip Usually ambulates: Without assistance Pain/Injury Pain Location: head Quality of Pain: Dull and Aching Current Severity: Mild Maximum Severity: Mild Associated Symptoms Associated Symptoms: Negative for Parasthesias, Weakness, Loss of function, Inability to ambulate, Loss of consciousness or Amnesia Narrative Narrative: 86-year-old male history of CAD, CHF and CABG. Parkinson's disease and chronic kidney disease. He is on aspirin but no other blood thinners. Today he was walking in his home from the outside going up the front steps tripped or lost his balance on the last step fell forward striking his head on the cement. No LOC. Mild headache. Moderate sized left frontal contusion and abrasion. He denies any other injuries. He had no loss conscious. No neck pain. He denies any nausea or vomiting. Prior similar symptoms: No Recent Illness/Hospitalization: No PFSH PFSH Medical History Acute bacterial sinusitis Acute on chronic diastolic heart failure Atherosclerosis of coronary artery bypass graft of [place] heart with angina pectoris Atherosclerosis of coronary artery of [place] heart without angina pectoris Bronchiectasis Cardiology follow-up encounter Chronic diastolic (congestive) heart failure Chronic kidney disease Diverticulitis Easy bruising Essential (primary) hypertension Excessive bleeding High cholesterol History of diverticulitis History of echocardiogram History of edema History of heart attack History of hiatal hernia History of irregular heartbeat History of non-ST elevation myocardial infarction (NSTEMI) (01/2015) History of stress test History of trigger finger Hx of melanoma of skin Hyperlipidemia Kidney stones Loss of consciousness Melanoma Osteoarthritis Parkinson's disease Prostate disease Restless legs Secondary pulmonary arterial hypertension Shortness of breath on exertion Thickening of pleura Wears dentures Wears glasses Home Medications aspirin 81 mg tablet,delayed release (Adult Aspirin Regimen) 81 mg PO DAILY 09/13/18 [History Last Taken 08/10/19] nitroglycerin 0.4 mg sublingual tablet 0.4 mg sublingual Q5-15M PRN chest pain #25 tabs 08/03/19 [Rx Last Taken Unknown] cholecalciferol (vitamin D3) 25 mcg (1,000 unit) tablet (Vitamin D3) 25 mcg PO DAILY 05/20/21 [History Last Taken Unknown] atorvastatin 40 mg tablet 40 mg PO QHS HOLD until calls for new RX #90 tabs 05/21/21 [Rx Last Taken Unknown] glycopyrrolate 1 mg tablet 0.5 mg PO BID PRN 09/03/21 [History Last Taken Unknown] pramipexole 0.5 mg tablet 0.5 mg PO BID 12/02/21 [History Last Taken Unknown] selenium 200 mcg tablet 200 mcg PO DAILY 12/02/21 [History Last Taken Unknown] amiodarone 100 mg tablet 100 mg PO DAILY 01/07/22 [History Last Taken Unknown] levothyroxine 50 mcg tablet 50 mcg PO DAILY 01/07/22 [History Last Taken Unknown] doxazosin 4 mg tablet 4 mg PO QHS #90 tabs 01/28/22 [Rx Last Taken Unknown] furosemide 40 mg tablet 40 mg PO .COMPLEX edema 01/28/22 [History Last Taken Unknown] Allergy/AdvReac Type Severity Reaction Status Date / Time amlodipine AdvReac Intermediate severe leg Verified 02/08/22 15:40 edema isosorbide AdvReac headache Verified 02/08/22 15:40 Family History Father Heart disease Mother CVA (cerebral vascular accident) Surgical History H/O coronary artery bypass surgery (1989) H/O foot surgery H/O left knee surgery History of cardiac catheterization History of carpal tunnel release of both wrists History of coronary artery stent placement (2005) History of herniorrhaphy History of left cataract surgery History of left heart catheterization (08/10/19) History of right knee joint replacement (05/03/21) History of total left knee replacement (04/2020) Hx of hernia repair Hx of oral surgery Social History Smoking Status: Never smoker alcohol intake: never substance use type: does not use caffeine: Yes ROS ROS ED ROS Narrative Mild headache post fall. Denies any recent illness. Review of Systems ROS Unobtainable: Denies due to encephalopathy Constitutional Constitutional ED: Denies chills or fever(s) Eyes Eyes: Denies blurry vision ENT ENT ED: Denies ear pain Cardiovascular Cardiovascular: Denies chest pain Respiratory/Chest Respiratory/Chest: Denies cough or dyspnea Gastrointestinal Gastrointestinal: Denies abdominal pain Genitourinary Genitourinary ED: Denies dysuria or hematuria Musculoskeletal Musculoskeletal: Denies arthralgias Integumentary Denies abscess Neurologic Neurologic: Reports headache(s) Psychiatric Psychiatric: Denies anxiety Endocrine Endocrinology: Denies polydipsia Hematologic/Lymphatic Hematologic/Lymphatic: Denies easy bleeding or easy bruising Allergic/Immunologic Allergic/Immunologic ED: Denies mouth swelling or tongue swelling EXAM Physical Exam Narrative Exam Narrative: 86-year-old male no acute distress. Vital signs stable afebrile. H EENT exam give dry mutilation motions are intact pupils about 2 mm bilaterally. Reactive light. His left forehead he has a half dollar sized contusion that is raised. There is an abrasion but no laceration is repaired. No other facial trauma scalp otherwise nontender. C-spine nontender. Trachea midline. Normal range of motion. Lungs clear to auscultation. Heart regular rhythm rate about 70 4/6 systolic ejection murmur. Chest wall nontender. Abdomen soft nontender. Pelvic girdle intact. Back nontender spine nontender. He has normal lamination inspector strength both upper extremities. Normal range of motion of both wrists, elbows and shoulders. Hips, knees and ankles are nontender. He has 1+ pitting edema both lower extremities which is chronic. Neurologically is awake and alert. No focal motor deficits. Answering questions and following commands. GCS of 15. Const Vital Signs: 02/08/22 15:35 02/08/22 15:41 02/08/22 17:48 Temperature 97.7 F L Temperature Source Oral Pulse Rate 72 70 Respiratory Rate 18 18 Respiratory Effort Normal Non-Labored Respiratory Depth Normal Respiratory Pattern Normal Blood Pressure 147/51 H 140/62 H Blood Pressure Mean 83 88 Pulse Ox 98 97 Oxygen Delivery Method Room Air Room Air Room Air Positive well nourished and well developed; Negative for obese, cachectic, contractures or unkempt General Appearance ED: well developed and NAD; Negative for unkempt, cachectic or contractures Nutritional Appearance: Negative for cachectic or obese HEENT Reports normocephalic HEENT Narrative: Left forehead contusion, abrasion and hematoma. trauma, contusion and hematoma; Negative for atraumatic Eyes PERRL and EOMs intact bilaterally General Eye ED: Negative for pale conjunctiva or scleral icterus Neck full ROM, no lymphadenopathy and supple General: Negative for tenderness Chest Wall inspection of chest normal and palpation of chest normal Resp normal respiratory effort, no retractions and clear to auscultation bilaterally Effort and Inspection: Negative for pain with movement Auscultation: Negative for rales, rhonchi or wheezes Cardio regular rate, regular rhythm, S1 normal heart sound, S2 normal heart sound and no murmurs Rate: Negative for bradycardia or tachycardic Rhythm: Negative for abnormal rhythm Bruits: Negative for other GI non-tender, non-distended and no masses Inspection: Negative for abdominal distention Auscultation: normoactive bowel sounds Palpation: soft; Negative for guarding Back/Spine no CVA tenderness General Back: Negative for CVA tenderness, erythema, ecchymosis, swelling or tenderness Cervical Spine: Negative for cervical spine tenderness Thoracic Spine / Upper Back: Negative for ROM limited, pain with ROM or thoracic spinal tenderness Lumbar Spine / Lower Back: Negative for lumbar spinal tenderness or paraspinal muscle tenderness Neuro oriented x3, CN's II-XII intact bilaterally, moves all extremities and no focal motor deficits [place] Coma Scale: document GCS findings Spontaneous Obeys Commands Oriented 15 Sensorium / Orientation: alert, oriented to person, oriented to place and oriented to time; Negative for orientation impaired, confused, lethargic or stuporous Motor Exam: strength 5/5 throughout Psych Appearance: Negative for unkempt Skin Skin Narrative: Left forearm abrasion and hematoma. General Skin Exam: Negative for other Lesions: no lesions Rashes: no rashes Trauma: abrasion MDM MDM MDM Narrative Medical decision making narrative: A 78-year-old male that fell striking his head on the cement. No LOC history. He is on aspirin, thinners. With a moderate sized left forward contusion and hematoma. Nothing needs to be sewn. CAT scan will be performed. He has no neck pain. He will be given Tylenol for his headache. Repeat exam patient doing well. We discussed his CAT scan results. He will be discharged home. Nurses will clean and dress his left forehead contusion hematoma. Wound care instructions. Head injury instructions. Radiography Diagnostic Testing: Clinical Impression(s) from Imaging Studies Brain CT 02/08/22 15:55 IMPRESSION: 1. No subdural, epidural, or intracerebral hematoma, hemorrhage or contusion. 2. No infarcts or intracranial mass lesions. 3. No other intracranial pathology. 4. Normal calvarium without fractures. 5. Findings of a 3.4 cm in width by 7 mm in depth left frontal cephalohematoma. 6. Normal paranasal sinuses. Electronically Signed: Vivek Manuel MD at 17:11 EDT , Discharge Plan Triage Chief Complaint: Head Injury ED Provider: Bakari Lau Dx/Rx/DC Orders Clinical Impression: Fall, Head injury, Facial hematoma, History of Parkinson's disease Instructions: ED Concussion, ED Facial Contusion Prescriptions: No Action glycopyrrolate 1 mg tablet 0.5 mg PO BID PRN Label Comments: TAKE 1/2 TO 1 (ONE-HALF TO ONE) TABLET BY MOUTH EVERY 8 HOURS TO REDUCE SALIVATION pramipexole 0.5 mg tablet 0.5 mg PO BID selenium 200 mcg tablet 200 mcg PO DAILY Label Comments: TAKE 1 TABLET BY MOUTH ONCE DAILY cholecalciferol (vitamin D3) [Vitamin D3] 25 mcg (1,000 unit) Tablet 25 mcg PO DAILY aspirin [Adult Aspirin Regimen] 81 mg tablet,delayed release (DR/EC) 81 mg PO DAILY nitroglycerin 0.4 mg tablet, sublingual 0.4 mg SUBLINGUAL Q5-15M PRN (Reason: chest pain) Qty: 25 11RF Rx Instructions: Take one table under the tongue every 5-15 minutes if needed. Do not exceed 3 doses. atorvastatin 40 mg tablet 40 mg PO QHS Qty: 90 3RF levothyroxine 50 mcg tablet 50 mcg PO DAILY amiodarone 100 mg tablet 100 mg PO DAILY doxazosin 4 mg tablet 4 mg PO QHS Qty: 90 3RF furosemide 40 mg tablet 40 mg PO .COMPLEX Rx Instructions: 40 mg orally Mon, Weds, Fri; Primary Care Provider: Rick Butler Referrals: Rick Butler MD [Primary Care Provider] - 3-5 Days if not improving Activity Restrictions/Additional Instructions: Ice to his left forehead to decrease pain and swelling. Tylenol for pain. Return if severe headache, vomiting or not acting right. Disposition Disposition: Home, Self Care Discharge Date/Time: 02/08/22 17:51
[2022-02-08] MEDS: Acetaminophen 500 MG Tablet 1000 MG PO (16:11)
[2022-02-08 17:48] VITALS: BP 140/62; PULSE 70; RESP 18; O2SAT 97
== END 2022-02-08 17:51 | disposition home or self-care (01) ==
LOC: ED 16:27
PROVIDERS: Emergency Provider Emergency Medicine; PCP Family Medicine; Visit Provider Emergency Medicine
DX: S00.83XA Contusion of other part of head, initial encounter (principal); G20 Parkinson's disease; I13.0 Hypertensive heart and chronic kidney disease with heart failure and stage 1 through stage 4 chronic kidney disease, or unspecified chronic kidney disease; I50.32 Chronic diastolic (congestive) heart failure; N18.9 Chronic kidney disease, unspecified; E78.5 Hyperlipidemia, unspecified; I25.10 Atherosclerotic heart disease of native coronary artery without angina pectoris; Z79.82 Long term (current) use of aspirin; W10.8XXA Fall (on) (from) other stairs and steps, initial encounter; Z79.899 Other long term (current) drug therapy
CPT/HCPCS: 70450; 99284

== ENCOUNTER → 2022-02-11 | Outpatient (CLI) | payer MEDICARE, OTHER, SELFPAY ==
--- NOTE | 2022-02-11 11:47 | RAD_ITS ---
STUDY: X-RAY - LEFT SHOULDER REASON FOR EXAM: Male, 86 years old. Increasing pain with decreased range of motion. TECHNIQUE: 4 view(s) of the shoulder. COMPARISON: None. FINDINGS: Osteopenia. Mild arthrosis of the glenohumeral joint. Mild arthrosis of the AC joint. Small subacromial spur. Normal humeral head and visualized proximal humerus. The soft tissue structures are unremarkable. Normal visualized pulmonary apex. RAD/Shoulder min 2 Views IMPRESSION: Osteopenia with mild arthrosis of the glenohumeral and acromioclavicular joints. Small subacromial spur. No acute abnormality or erosive changes. Electronically Signed: Kris Perez, at 12:14 EDT ,
== END | disposition home or self-care (01) ==
LOC: MTRAD 11:41
PROVIDERS: PCP Family Medicine; Referring Provider Nurse Practitioner Family; Visit Provider Nurse Practitioner Family
DX: M25.512 Pain in left shoulder (principal)
CPT/HCPCS: 73030

== ENCOUNTER → 2022-02-24 | Outpatient (CLI) | payer MEDICARE, OTHER, SELFPAY ==
[2022-02-24 15:26] LABS: Absolute Neutrophil Count 3.4 X10^3/uL (2.0-7.7); Basophil# 0.01 X10^3/uL; Basophil% 0.2 % (0-1); Eosinophils% 2.1 % (0-5); Hematocrit 30.2 % (40-54); Hemoglobin 9.6 g/dL (13.0-16.5); Lymphocyte % 18.9 % (19-41); Mean Corp Hgb Conc 31.8 g/dL (32-36); Mean Corpuscular Hgb 29.7 pg (27.0-32.0); Mean Corpuscular Volume 93.5 fL (80-94); Mean Platelet Vol. 9.9 fl (6.2-12.0); Monocyte# 0.32 X10^3/uL; Monocyte% 6.7 % (0-10); NRBC Flagged by Analyzer 0 % (0-5); Neutrophil # 3.42 X10^3/uL (2.7-7.7); Neutrophil % 71.9 % (47-70); Platelet Count 118 K/mm3 (150-450); RBC Distribution Width CV 14.3 % (11.6-14.6); RBC Distribution Width SD 49.1 fl (35.1-43.9); RET-HE 32.7 pg (30-35); Red Blood Count 3.23 M/mm3 (4.6-6.2); Reticulocyte Count 0.82 % (0.5-1.5); White Blood Count 4.8 K/mm3 (4.4-11.0)
[2022-02-24 16:08] LABS: Vitamin B12 311 pg/mL (211-911)
[2022-02-24 17:02] LABS: ALB/GLOB Ratio 1.2 RATIO (0.9-2.4); AST(SGOT) 19 U/L (15-37); Alanine Aminotransfer ALT/SGPT 19 U/L (16-61); Albumin, Serum 3.5 g/dL (3.2-5.0); Alkaline Phosphatase 102 U/L (45-117); Anion Gap 5 (5-15); BUN 51 mg/dL (7-18); BUN/Creat Ratio 24.1 RATIO (10-20); Calcium,Total 9.2 mg/dL (8.5-10.1); Chloride 110 mmol/L (98-107); Creatinine, Serum 2.12 mg/dL (0.70-1.30); EST Glomerular Filtration Rate 32 mL/min (>60); Est Glom Filt Rate - Afr Amer 38 mL/min (>60); Ferritin 23 ng/mL (26-388); Free T3 1.7 pg/mL (2.18-3.98); Glucose 98 mg/dL (74-106); Iron 43 ug/dL (65-175); Iron Binding Capacity,Total 302 ug/dL (250-450); Potassium 4.9 mmol/L (3.5-5.1); Protein, Total 6.5 g/dL (6.4-8.2); Sodium Level 139 mmol/L (136-145); T4 Free Direct 1.21 ng/dL (0.76-1.46); Thyroid Stim Hormone (TSH) 3.15 uIU/mL (0.358-3.74)
[2022-02-24 18:22] LABS: Microalbumin,Random Urine 47.3 mg/L (NO RANGE EST.); Microalbumin:Creatinine Ratio 36.1 mg/g CRE (<30 mg/g CRE)
== END | disposition home or self-care (01) ==
LOC: MFPLAB 14:06
PROVIDERS: PCP Family Medicine; Visit Provider Family Medicine
DX: I50.30 Unspecified diastolic (congestive) heart failure (principal); G47.30 Sleep apnea, unspecified; D64.9 Anemia, unspecified; R79.89 Other specified abnormal findings of blood chemistry
CPT/HCPCS: 36415; 80053; 82043; 82570; 82607; 82728; 82746; 83540; 83550; 83735; 84439; 84443; 84481; 85025; 85045

== ENCOUNTER 2022-02-26 08:22 | Inpatient (IN) | payer MEDICARE, OTHER, SELFPAY ==
--- NOTE | 2022-02-18 10:04 | EKG12_ITS ---
Test Reason : PREOP Blood Pressure : / mmHG Vent. Rate : 062 BPM Atrial Rate : 062 BPM P-R Int : 000 ms QRS Dur : 090 ms QT Int : 440 ms P-R-T Axes : 000 036 024 degrees QTc Int : 446 ms Sinus vs Ectopic Atrial Rhythm Abnormal ECG Confirmed by ТАТЬЯНА MITCHELL, VICTOR M ([id number]), deputy editor in chief PAUL CHRISTIE ([id number]) on 02/19/2022 6:45:58 AM Referred By: GRABIEL Confirmed By:VICTOR M VAZ MD
[2022-02-18 10:31] LABS: Erythrocyte Sedimentation Rate 6 mm/hr (0-20)
[2022-02-18 10:39] LABS: Absolute Lymphocyte Count 0.91 X10^3/uL (0.83-4.51); Absolute Neutrophil Count 3.2 X10^3/uL (2.0-7.7); Basophil# 0.01 X10^3/uL; Basophil% 0.2 % (0-1); Eosinophil# 0.15 X10^3/uL; Eosinophils% 3.3 % (0-5); Hematocrit 33.6 % (40-54); Hemoglobin 10.4 g/dL (13.0-16.5); Lymphocyte # 0.91 X10^3/ul (0.83-4.51); Lymphocyte % 19.9 % (19-41); Mean Corpuscular Hgb 28.7 pg (27.0-32.0); Mean Corpuscular Volume 92.6 fL (80-94); Mean Platelet Vol. 9.7 fl (6.2-12.0); Monocyte# 0.32 X10^3/uL; NRBC Flagged by Analyzer 0 % (0-5); Neutrophil # 3.17 X10^3/uL (2.7-7.7); Neutrophil % 69.4 % (47-70); Platelet Count 129 K/mm3 (150-450); RBC Distribution Width CV 13.9 % (11.6-14.6); RBC Distribution Width SD 46.9 fl (35.1-43.9); Red Blood Count 3.63 M/mm3 (4.6-6.2); White Blood Count 4.6 K/mm3 (4.4-11.0)
[2022-02-18 10:54] LABS: International Normalized Ratio 1.2; Partial Thromboplast Time 30.7 Seconds (24.1-36.2); Prothrombin Time (Protime)PT. 14.9 SECONDS (11.7-14.9)
[2022-02-18 11:01] LABS: Albumin, Serum 3.7 g/dL (3.2-5.0); CRP < 2.90 mg/L (0.0-3.0)
[2022-02-18 11:15] LABS: AST(SGOT) 25 U/L (15-37); Alanine Aminotransfer ALT/SGPT 23 U/L (16-61); Albumin, Serum 3.8 g/dL (3.2-5.0); Alkaline Phosphatase 111 U/L (45-117); Bilirubin, Direct 0.16 mg/dL (0.00-0.30); Globulin 3.2 g/dL (2.2-4.2); Magnesium 2.1 mg/dL (1.6-2.6); Thyroid Stim Hormone (TSH) 4.44 uIU/mL (0.358-3.74)
[2022-02-26] VITALS (20 sets, daily range): BP systolic 101–154; BP diastolic 51–84; PULSE 63–75; RESP 14–18; TEMP 36.3–36.9; O2SAT 92–100; BMI 25.6; BMI 27.5
[2022-02-26] MEDS: Lactated Ringers 1,000 ML 999 ML IV ×2 (08:58→15:00)
[2022-02-26] MEDS: Celecoxib 200 MG Capsule 400 MG PO (08:59)
[2022-02-26] MEDS: Acetaminophen 500 MG Tablet 1000 MG PO ×2 (08:59→22:36)
[2022-02-26] MEDS: Magnesium 1 GM over 15 mins IV (08:59)
[2022-02-26] MEDS: Gabapentin 600 MG Tablet PO (09:00)
[2022-02-26 09:35] LABS: Bedside Glucose 93 mg/dL (74-106)
[2022-02-26] MEDS: Lactated Ringers 1,000 ML 75 ML IV (10:31)
[2022-02-26] MEDS: dexAMETHasone 10 MG/ML Vial IV (11:19)
[2022-02-26] MEDS: Cefazolin 2 GM in 0.9% Normal Saline 100 ML IV (11:19)
[2022-02-26] MEDS: TXA 1000mg in NS100 100ml (IVPB at Incision) 660 MG IV (11:25)
[2022-02-26] MEDS: TXA 1000mg in NS100 100ml (IVPB at Closure) 660 MG IV (11:47)
--- NOTE | 2022-02-26 12:46 | OP.PCM_ITS ---
Report of Operation Date of Procedure: 02/26/22 Pre-Operative Diagnosis: Painful right total knee, instability Post-Operative Diagnosis: Painful right total knee, instability Surgery/Procedure Performed:: Revision right total knee replacement polyethylene exchange Description of Surgical Findings:: Patient had instability with varus and valgus testing and anterior posterior drawer testing with his 9 mm polyethylene. After trialing a 11 mm polyethylene patient had greater stability and decreased anterior posterior translation. Surgeon: Wilman Good development editor: Sarita Abrams Type of Anesthesia: General Anesthesiologist: Joon Ayoub Special Medications: 2 g Ancef, 1 g TXA at incision, 1 g TXA closure, 10 mg Decadron, joint cocktail (5 mg Duramorph, 30 mL of 0.5% Ropivicaine, 1000 units of epinephrine, 30 mg of Toradol) Specimen's removed: 3 separate specimens were sent to microbiology Estimated Blood Loss (mL): 50 Fluids Replaced: 500 mL crystalloid Description of Procedure: 86 yo m history of r TKA presents with symptoms of instability and associated pain. Reviewed options were discussed the patient. Risks and benefits of the procedure were discussed with the patient including but not limited to blood loss, DVTs, PEs, neurovascular damage, infection, general risk of anesthesia including loss of life. Demonstrated understanding and was able to sign informed consent. On the date of procedure patient's R lower extremity was marked in the preoperative area. The patient was then taken back to the operating room where the patient was placed on the table in the supine position. All bony prominences were identified a well-padded. Anesthesia assumed control of the C-spine and airway and remained controlled throughout the remainder of the procedure. A tourniquet was placed on the operative thigh and the leg was prepped in a sterile fashion. The surgeon then scrubbed at this time .Upon reentering the room left lower extremity was draped in a standard orthopedic fashion. A timeout was then called and everyone agreed upon the side, the site, the procedure to be performed, patient's identity and antibiotics given. A midline skin incision was made and sharp dissection was taken down through skin subcutaneous tissue and fat. Appropriate flaps were elevated medially and laterally. His arthrotomy was identified and the standard medial parapatellar incision was made and the patella was subluxed laterally. The standard deep MCL release was done. At this point an aggressive synovectomy commenced. Our attention was first turned towards the subpatellar pouch and all suspicious synovium and tissues were debrided. We then directed our attention towards medial lateral gutters were these tissues were aggressively debrided. Knee was then flexed up the polyethylene was removed. Once polyethylene was removed we did the remainder of the synovium in the medial and lateral gutters and along the lateral structures and MCL. Knee was flexed up and culture was taken from the femoral notch. And also there was a membrane beneath the tibial baseplate that was removed and sent for culture. He had completed our synovectomy and were happy with the joint. The trial polyethylene components were used to trial an 11 mm polyethylene. This gave the patient increased varus and valgus stability as well as decreased anterior posterior translation with the knee in flexion. At this point the tourniquet was let down and hemostasis was obtained and the trial component was removed. 6 L of normal saline were then irrigated throughout the wound with low-pressure lavage and the wound was once again explored. 11 mm polyethylene was then opened and put back into place after appropriate trialing. Once the final components were placed the wound was copiously irrigated with normal saline solution. The wound was closed in a layer gross fashion using #1 vicryl interrupted sutures for the arthrotomy, 2-0 interrupted Vicryl for the subcuticular layer and marizol for final skin closure. A sterile compressive dressing was then placed. The patient was then awakened from anesthesia, transferred to the [facility] and transferred to the PACU for recovery. Post op plan 1. DVT prophylaxis: 81 mg aspirin twice daily 2. Therapy: Activity as tolerated, weightbearing as tolerated 3. Patient be placed on doxycycline 100 mg twice daily for 2 weeks as we follow cultures. Grafts/Implants Used: [place] triathlon X3 11 mm size 5 CS polyethylene component Complications No intraoperative complications Admit VTE Documentation VTE Present on Admission: No VTE Mechan Device Prophylaxis: SCD's and Thigh High [place] Hose VTE Pharm Prophylaxis ordered?: Yes
--- NOTE | 2022-02-26 12:55 | RAD_ITS ---
EXAM: XR RIGHT KNEE, 1 OR 2 VIEWS CLINICAL INDICATION: post op -- AP and Lateral xray of operative knee in PACU TECHNIQUE: Frontal and/or lateral views of the right knee. This report was created using [employer] report [employer] technology. COMPARISON: None. FINDINGS: BONES/JOINTS: There is a total knee prosthesis in anatomic alignment. SOFT TISSUES: There is a small amount of gas in soft tissues due to recent surgery. There is no osseous abnormality. No radiopaque foreign body. RAD/Knee 1 or 2 Views IMPRESSION: Total knee prosthesis in anatomic alignment. Electronically Signed: Matti Caldwell MD at 16:50 EDT ,
[2022-02-26] MEDS: Lactated Ringers 1,000 ML 125 ML IV (16:01)
--- NOTE | 2022-02-26 16:46 | PCM.PN.HOSP ---
Subjective Subjective [id number] male presents to the hospital for an elective total knee replacement secondary to significant pain in his right knee with instability. He is doing well postoperatively. Denies any changes in his medications recently and states that his medical history is stable at the moment. Objective Data Objective Data Vital Signs: Vital Signs Temp Pulse Resp BP Pulse Ox O2 Del Method O2 Flow Rate 98.4 F 69 16 127/73 H 92 Nasal Cannula 2 02/26/22 15:30 02/26/22 15:30 02/26/22 15:30 02/26/22 15:30 02/26/22 15:30 02/26/22 15:30 02/26/22 15:30 Oxygen Flow Rate (L/min) 2 Oxygen Delivery Method Nasal Cannula Weight: 178 lb 9.191 oz Body Mass Index (BMI) 25.6 Intake & Output: Intake and Output for Last 24 Hours 02/25/22 02/26/22 02/27/22 03:59 03:59 03:59 Intake Total 2432 / 2432 Balance 2432 / 2432 Lab / Micro Data Result Diagrams: 02/18/22 09:52 Labs: Laboratory Results - last 24 hr 02/26/22 08:46: POC Glucose 93 Micro: Microbiology 02/26/22 11:50 Tissue - Tibial Membrane Gram Stain - Final 02/26/22 11:50 Tissue - Femoral Membrane Gram Stain - Final 02/26/22 11:50 Tissue - Suprapatellar Pouch Gram Stain - Final 02/18/22 09:52 Swab (Method) Nasal Screen MRSA/MSSA - Final Physical Exam Narrative General: Alert, Oriented x3, Cooperative, No apparent distress HEENT: Atraumatic, PERRLA, EOMI, Normocephalic Oral: Moist Mucosa Neck: Supple, No JVD Lungs: Clear to auscultation, Normal air movement, No rhonchi, No wheeze, No rales Cardiovascular: Regular rate, Regular Rhythm, Normal S1, Normal S2, J[place]AN Abdomen: Soft, Non Tender, Non-Distended, No Hepato-splenomegaly Extremities: No edema, Capillary Refill Less than 3 Seconds Skin: Dressing intact Musculoskeletal: No Tenderness to Palpation of Joints or Extremities Neurological: Cranial nerves II-XII grossly intact, Motor Exam 5/5 strength throughout, Sensory exam intact to light touch and pain Psych/Mental Status: Normal Affect, Appropriate Assessment & Plan Assessment/Plan (1) Status post revision of total replacement of right knee: PLAN: Plan 1. Status post right total knee revision on 02/26/2022 ? Pain management per primary ? Anticoagulation per primary ? PT/OT 2. CAD status post CABG and stents/HTN/HLD/chronic diastolic CHF/borderline dilated thoracic aorta/PVCs ? Blood pressures are stable ? Can continue with his amiodarone ? Continue with his Lasix per his home instructions secondary to his edema and his diastolic dysfunction ? Continue with Lipitor ? Continue with aspirin initially to be twice daily postoperatively then he go back to his daily dosing 3. Hypothyroidism ? Stable ? Continue with Synthroid 4. BPH ? Stable ? Continue with doxazosin DVT: Aspirin twice daily Charges/Coding Visit Charges Inpatient E&M: 59471 Subs Hosp L2
[2022-02-26] MEDS: Ensure Surgery 237 ML LIQUID PO (17:53)
[2022-02-26] MEDS: Cefazolin 1 GM/50 ML BAG IV (17:53)
[2022-02-26] MEDS: Pramipexole Di-HCl 0.5 MG Tablet PO (22:35)
[2022-02-26] MEDS: Doxazosin 4 MG Tablet PO (22:35)
[2022-02-26] MEDS: Atorvastatin Calcium 40 MG Tablet PO (22:35)
[2022-02-26] MEDS: Senna/Docusate Sodium 1 Tablet 2 TABLET PO (22:35)
[2022-02-26] MEDS: Aspirin 81 MG TAB.CHEW PO (22:35)
[2022-02-26] MEDS: Doxycycline 100 MG CAPSULE PO (22:37)
[2022-02-27 03:00] VITALS: BP 138/71; PULSE 64; RESP 18; TEMP 36.6; O2SAT 96
[2022-02-27] MEDS: Cefazolin 1 GM/50 ML BAG IV (03:07)
[2022-02-27 03:34] VITALS: BP 138/71; PULSE 64; RESP 18; TEMP 36.6; O2SAT 96
[2022-02-27] MEDS: Pramipexole Di-HCl 0.5 MG Tablet PO ×2 (05:40→14:37)
[2022-02-27] MEDS: Levothyroxine 50 MCG Tablet PO (05:40)
[2022-02-27] MEDS: Acetaminophen 500 MG Tablet 1000 MG PO ×2 (05:40→14:37)
--- NOTE | 2022-02-27 06:21 | NURSING ---
On 1844 surgical site was bleeding profusely, previous shift changed the mepilex dsg and 5lb sand bag and alexandrea was applied. After one hour the bleeding had stopped leaving a small spot on the new mepilex. This morning 02/27 at 0530, dsg is still intact. Patient is pain free and sitting up in chair.
[2022-02-27 06:58] LABS: Hematocrit 27.5 % (40-54); Hemoglobin 8.9 g/dL (13.0-16.5); Mean Corp Hgb Conc 32.4 g/dL (32-36); Mean Corpuscular Volume 92.6 fL (80-94); Mean Platelet Vol. 10.1 fl (6.2-12.0); Platelet Count 117 K/mm3 (150-450); RBC Distribution Width CV 13.9 % (11.6-14.6); RBC Distribution Width SD 47.5 fl (35.1-43.9); Red Blood Count 2.97 M/mm3 (4.6-6.2); White Blood Count 6.8 K/mm3 (4.4-11.0)
[2022-02-27 07:23] LABS: Anion Gap 4 (5-15); BUN 53 mg/dL (7-18); BUN/Creat Ratio 22.9 RATIO (10-20); Calcium,Total 8.8 mg/dL (8.5-10.1); Chloride 106 mmol/L (98-107); Creatinine, Serum 2.31 mg/dL (0.70-1.30); EST Glomerular Filtration Rate 29 mL/min (>60); Est Glom Filt Rate - Afr Amer 35 mL/min (>60); Estimated Creatinine Clearance 23.26 ml/min; Glucose 137 mg/dL (74-106); Potassium 5.8 mmol/L (3.5-5.1); Sodium Level 135 mmol/L (136-145)
[2022-02-27 07:38] VITALS: BP 128/57; PULSE 67; RESP 16; TEMP 37.1; O2SAT 97
[2022-02-27] MEDS: Aspirin 81 MG TAB.CHEW PO (08:02)
[2022-02-27] MEDS: Ensure Surgery 237 ML LIQUID PO ×2 (08:02→12:41)
--- NOTE | 2022-02-27 09:57 | PCM.PN.ORT ---
Subjective Subjective Patient is s/p revision right total knee replacement with polyethylene exchange with Dr. Good 02/26/2022. Patient resting comfortably in bed. Rates pain 5/ 10 at rest. With movement 7/10. States taking Tylenol and oxycodone as needed and ice help to relieve pain. Patient has been up with therapy. Walking with the assit of a walker. Afebrile, no chest pain, shortness of breath, negative calf pain/ erythema, and no other signs of DVT. Patient's dressing was saturated last night and required sand bagging and an exchange. Since then today he has a small area of dried blood at superior aspect. No additional issues. Objective Data Objective Data Vital Signs: Vital Signs Temp Pulse Resp BP Pulse Ox O2 Del Method O2 Flow Rate 98.8 F 67 16 128/57 H 97 Room Air 2 02/27/22 07:38 02/27/22 07:38 02/27/22 07:38 02/27/22 07:38 02/27/22 07:38 02/27/22 07:38 02/26/22 17:41 Oxygen Flow Rate (L/min) 2 Oxygen Delivery Method Room Air Weight: 87 kg Body Mass Index (BMI) 27.5 Intake & Output: Intake and Output for Last 24 Hours 02/25/22 02/26/22 02/27/22 23:59 23:59 23:59 Intake Total 9122 / 4722 50 / 50 Output Total 300 / 300 Balance 7722 / 0022 -250 / -250 Lab / Micro Data Result Diagrams: 02/27/22 06:20 02/27/22 06:20 Labs: Laboratory Results - last 24 hr 02/27/22 06:20: WBC 6.8, RBC 2.97 L, Hgb 8.9 L, Hct 27.5 L, MCV 92.6, MCH 30.0, MCHC 32.4, RDW Std Deviation 47.5 H, RDW Coeff of Chas 13.9, Plt Count 117 L, MPV 10.1 02/27/22 06:20: Sodium 135 L, Potassium 5.8 H, Chloride 106, Carbon Dioxide 25.0, Anion Gap 4 L, BUN 53 H, Creatinine 2.31 H, Estim Creat Clear Calc 23.26, Est GFR (MDRD) Af Amer 35 L, Est GFR (MDRD) Non-Af 29 L, BUN/Creatinine Ratio 22.9 H, Glucose 137 H, Calcium 8.8 Micro: Microbiology 02/26/22 11:50 Tissue - Tibial Membrane Gram Stain - Final 02/26/22 11:50 Tissue - Tibial Membrane Wound Culture - Preliminary No growth-Final to follow 02/26/22 11:50 Tissue - Femoral Membrane Gram Stain - Final 02/26/22 11:50 Tissue - Femoral Membrane Wound Culture - Preliminary No growth-Final to follow 02/26/22 11:50 Tissue - Suprapatellar Pouch Gram Stain - Final 02/26/22 11:50 Tissue - Suprapatellar Pouch Wound Culture - Preliminary No growth-Final to follow 02/18/22 09:52 Swab (Method) Nasal Screen MRSA/MSSA - Final Radiography Diagnostic Testing: Radiology Impression Knee X-Ray 02/26/22 12:55 IMPRESSION: Total knee prosthesis in anatomic alignment. Electronically Signed: Matti Caldwell MD at 16:50 EDT , Physical Exam Narrative Patient resting comfortably in bed No signs of acute distress Satting well on room air Limb is warm to touch, Sensation intact throughout entire lower extremity, including saphenous, sural, superficial and deep peroneal, and tibial distribution. DP/PT pulses bounding. Dorsi and plantar flexion strength 5/5 Dressing small area of dried blood at superior portion. Otherwise clear dry intact. Calf nontender to palpation, no erythema, no edema. Negative Homans Assessment & Plan Assessment/Plan (1) Status post revision of total replacement of right knee: PLAN: 1. Will continue PT today. Weightbearing as tolerated 2. plan for discharge this afternoon following PT 3. Patient will follow up for post op appointment in 2 weeks as previously scheduled 4. Patient has outpatient PT appointment on Thursday 5. WBC 6.8 no acute reactive leukocytosis 6. H/H 8.9/.5: post operavtive anemia secondary to acute blood loss intraoperatively. Patient is asymptomatic at this time. No intraoperative complications. will continue to monitor. no acute interventions. 7. DVT prophylaxis : Aspirin 81 mg twice daily x4 weeks 8. Pain control: patient instructed to take tylenol 500mg 2 tablets TID. and oxycodone 1-2 tablets every 4-6 hours only as needed for pain control. 9. ok to remove post op dressing. post op day 5
--- NOTE | 2022-02-27 10:05 | CASEMGMT ---
JORGE ALBERTO INGRAM Assessment: Face to Face with pt for initial transition planning/care coordination assessment. JORGE ALBERTO INGRAM introduced self and role at [facility], pt voices understanding and consents to assessment. Pt is A/O x4 and answers all questions appropriately at this time. Pt sitting up in chair in no distress. Care providers, pharmacy, and demographics verified/updated. Admitting Dx: R total knee poly exchange PCP:Luke Specialists:Florentino Murdock, myranda; Delroy, cardio; Altaf, neuro Preferred Pharmacy: [facility] Retail Insurance: [facility], [employer] Prescription Benefit: no LNOK: Sarah Flores, Living Arrangements: Pt lives with in a single story house with one step to enter and rails on both sides when entering the garage. Pt reports prior to surgery he was I in ADL's. Transportation: Pt drives self and denies concerns with transportation. Pt is able to transport pt to medical appts until pt can drive again. DME/HHC/SNF: Pt has a FWW, built in shower chair and grab bars in the bathroom. Pt typically does not use AD. Pt denies hx of HHC or SNF stays. Pt states no concerns with going home at time of dc. He states he normally walks 150 miles/month in his living complex area. Pt has outpt therapy set up at [facility] on Thursday. Pt states no further concerns/needs. CM to follow. Advised pt to ask CM if any further question/concerns/needs arise, voices understanding. Pt Goal: Home with outpt therapy already set up Plan: Home with outpt therapy already set up
[2022-02-27] MEDS: Doxycycline 100 MG CAPSULE PO (10:17)
[2022-02-27] MEDS: Senna/Docusate Sodium 1 Tablet 2 TABLET PO (10:17)
[2022-02-27] MEDS: Cholecalciferol (VIT D3) 25 MCG TABLET (1,000 UNITS) PO (10:17)
[2022-02-27] MEDS: Famotidine 20 MG Tablet PO (10:17)
[2022-02-27] MEDS: Amiodarone 200 MG Tablet 100 MG PO (10:17)
--- NOTE | 2022-02-27 10:42 | DCINST_ITS ---
Discharge Instructions Diet Discharge Diet: No restrictions Activity Discharge Activity: Return to Normal Activity Weight Bearing Status: Weight bearing as tolerated Dressing / Incision Call your doctor if your incision/area has: Continuous Slow Oozing, Sudden Increased Bleeding, Increased Pain/ Swelling, Increased Redness, Foul Smelling Discharge and Swelling at the incision site Call your doctor if you observe: Fever of 101 or Higher, Shortness of breath, Chest pain and Calf discomfort Remove Dressing in: 5 days Cleanse incision/area with: Soap & Water and Keep Dressing Clean & Dry Follow Up Care Test Results: Test results from this visit will be discussed in further detail at your follow- up appointment, if applicable. Discharge Plan Admission Admit Date/Time: 02/26/22 08:22 Attending Provider: Wilman Good Primary Care Provider: Rick Butler Consulting Providers: Claire Mirza ; Sulaiman Cruz ; Roosevelt Valencia Discharge Orders/Prescriptions Prescriptions: No Action glycopyrrolate 1 mg tablet 0.5 mg PO BID PRN (Reason: OTHER) Label Comments: TAKE 1/2 TO 1 (ONE-HALF TO ONE) TABLET BY MOUTH EVERY 8 HOURS TO REDUCE SALIVATION pramipexole 0.5 mg tablet 0.5 mg PO TID selenium 200 mcg tablet 200 mcg PO DAILY Label Comments: TAKE 1 TABLET BY MOUTH ONCE DAILY cholecalciferol (vitamin D3) [Vitamin D3] 25 mcg (1,000 unit) Tablet 25 mcg PO DAILY doxazosin 4 mg tablet 4 mg PO QHS amiodarone 100 mg tablet 100 mg PO DAILY aspirin [Adult Aspirin Regimen] 81 mg tablet,delayed release (DR/EC) 81 mg PO DAILY nitroglycerin 0.4 mg tablet, sublingual 0.4 mg SUBLINGUAL Q5-15M PRN (Reason: chest pain) Qty: 25 11RF Rx Instructions: Take one table under the tongue every 5-15 minutes if needed. Do not exceed 3 doses. atorvastatin 40 mg tablet 40 mg PO QHS Qty: 90 3RF levothyroxine 50 mcg tablet 50 mcg PO DAILY furosemide 40 mg tablet 40 mg PO .COMPLEX Rx Instructions: 40 mg orally Mon, Weds, Fri; Other Ambulatory Orders: 12 Lead EKG (Routine) Timeframe: [id number] Location: None Selected Ordered By: Dr. Michael Panchal Referrals / Follow Up: Rick Butler MD [Primary Care Provider] -
[2022-02-27 12:01] VITALS: O2SAT 96
[2022-02-27 14:34] VITALS: BP 114/62; PULSE 63; RESP 16; TEMP 36.7; O2SAT 98
== END 2022-02-27 15:20 | disposition home or self-care (01) | DRG 488 ==
LOC: ACINP 08:23 → MS3 15:38
PROVIDERS: Anesthesiology; Admitting Provider Specialist; PCP Family Medicine; Referring Provider Specialist; Visit Provider Specialist
PROC: 0SPC09Z Removal of Liner from Right Knee Joint, Open Approach (ICD-10-PCS; CPT 27487; principal; 2022-02-26 10:55)
DX: T84.84XA Pain due to internal orthopedic prosthetic devices, implants and grafts, initial encounter (principal); I50.32 Chronic diastolic (congestive) heart failure; I11.0 Hypertensive heart disease with heart failure; E03.9 Hypothyroidism, unspecified; G20 Parkinson's disease; I73.9 Peripheral vascular disease, unspecified; E78.5 Hyperlipidemia, unspecified; M25.561 Pain in right knee; M25.361 Other instability, right knee; I25.10 Atherosclerotic heart disease of native coronary artery without angina pectoris; I25.2 Old myocardial infarction; I49.3 Ventricular premature depolarization; Z96.651 Presence of right artificial knee joint; N40.0 Benign prostatic hyperplasia without lower urinary tract symptoms; Z95.1 Presence of aortocoronary bypass graft; Y82.9 Unspecified medical devices associated with adverse incidents
CPT/HCPCS: 36415; 73560; 80048; 80053; 80076; 82040; 82043; 82570; 82607; 82728; 82746; 82962; 83540; 83550; 83735; 84439; 84443; 84481; 85025; 85027; 85045; 85610; 85652; 85730; 86140; 87015; 87070; 87075; 87081; 87102; 87116; 87176; 87205; 87206; 93005; 97110; 97116; 97162; 97166; 97530; 97535; 99251; C1776; J7120; G0463; J2405; J3475

== ENCOUNTER → 2022-03-18 | Outpatient (CLI) | payer MEDICARE, OTHER, SELFPAY ==
--- NOTE | 2022-03-18 09:28 | MRI_ITS ---
STUDY: MRI BRAIN WITHOUT CONTRAST REASON FOR EXAM: Male, 86 years old. 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 COMPARISON: 07/14/2019 FINDINGS: There is mild cerebral atrophy with widening of the extra-axial spaces and ventricular dilatation. There are a limited number of small white matter hyperintensities, distributed throughout the deep white matter tracts of the cerebral hemispheres, consistent with mild chronic white matter ischemic changes. There is no evidence for recent intracranial ischemia or other cause of cytotoxic edema on diffusion weighted imaging (DWI). Normal bilateral basal ganglia. Normal thalami. There is no extra-axial fluid accumulation. Normal flow voids within the major intracranial circulation suggesting patency by spin echo criteria. Normal sella turcica, pituitary gland, infundibular stalk, optic chiasm and hypothalamus. Normal tectal plate and pineal gland. Normal midbrain, gaurang and medulla. Normal cerebellum. Normal basal cisterns. Normal bilateral temporal bones. Normal bilateral internal auditory canals. There are bilateral ocular lens implants with otherwise normal intraorbital contents. Normal visualized paranasal sinuses. Normal calvarium and skull base. Normal visualized soft tissue structures. Normal visualized upper cervical spine. MRI/Brain without Contrast IMPRESSION: Involutional changes of the brain, as described above. No acute infarct. Electronically Signed: Arnold Parmar MD at 13:02 [facility] ,
== END | disposition home or self-care (01) ==
LOC: MRI 09:23
PROVIDERS: PCP Family Medicine; Referring Provider Psychiatry & Neurology Neurology; Visit Provider Psychiatry & Neurology Neurology
DX: G50.0 Trigeminal neuralgia (principal)
CPT/HCPCS: 70551

== ENCOUNTER → 2022-03-19 | Outpatient (CLI) | payer MEDICARE, OTHER, SELFPAY ==
[2022-03-19 10:08] LABS: Absolute Lymphocyte Count 0.73 X10^3/uL (0.83-4.51); Absolute Neutrophil Count 2.4 X10^3/uL (2.0-7.7); Basophil# 0.02 X10^3/uL; Basophil% 0.5 % (0-1); Eosinophils% 5.4 % (0-5); Hematocrit 27.5 % (40-54); Hemoglobin 8.5 g/dL (13.0-16.5); Lymphocyte # 0.73 X10^3/ul (0.83-4.51); Lymphocyte % 19.8 % (19-41); Mean Corp Hgb Conc 30.9 g/dL (32-36); Mean Corpuscular Hgb 29.1 pg (27.0-32.0); Mean Corpuscular Volume 94.2 fL (80-94); Mean Platelet Vol. 9.9 fl (6.2-12.0); Monocyte% 8.2 % (0-10); NRBC Flagged by Analyzer 0 % (0-5); Neutrophil # 2.42 X10^3/uL (2.7-7.7); Neutrophil % 65.8 % (47-70); Platelet Count 124 K/mm3 (150-450); RBC Distribution Width SD 51.5 fl (35.1-43.9); Red Blood Count 2.92 M/mm3 (4.6-6.2); White Blood Count 3.7 K/mm3 (4.4-11.0)
[2022-03-19 10:57] LABS: ALB/GLOB Ratio 1.1 RATIO (0.9-2.4); AST(SGOT) 20 U/L (15-37); Alanine Aminotransfer ALT/SGPT 26 U/L (16-61); Albumin, Serum 3.3 g/dL (3.2-5.0); Alkaline Phosphatase 95 U/L (45-117); Anion Gap 7 (5-15); BUN 32 mg/dL (7-18); BUN/Creat Ratio 18.5 RATIO (10-20); Calcium,Total 9.3 mg/dL (8.5-10.1); Chloride 110 mmol/L (98-107); Creatinine, Serum 1.73 mg/dL (0.70-1.30); EST Glomerular Filtration Rate 40 mL/min (>60); Est Glom Filt Rate - Afr Amer 48 mL/min (>60); Free T3 1.5 pg/mL (2.18-3.98); Glucose 82 mg/dL (74-106); Magnesium 2.1 mg/dL (1.6-2.6); Potassium 4.5 mmol/L (3.5-5.1); Protein, Total 6.3 g/dL (6.4-8.2); Sodium Level 140 mmol/L (136-145); T4 Free Direct 1.15 ng/dL (0.76-1.46); Thyroid Stim Hormone (TSH) 5.58 uIU/mL (0.358-3.74)
[2022-03-19 11:59] LABS: Microalbumin:Creatinine Ratio 35.4 mg/g CRE (<30 mg/g CRE)
== END | disposition home or self-care (01) ==
LOC: MFPLAB 09:15
PROVIDERS: PCP Family Medicine; Referring Provider Family Medicine; Visit Provider Family Medicine
DX: R79.89 Other specified abnormal findings of blood chemistry (principal); I50.30 Unspecified diastolic (congestive) heart failure; G47.30 Sleep apnea, unspecified; D64.9 Anemia, unspecified; E03.9 Hypothyroidism, unspecified
CPT/HCPCS: 36415; 80053; 82043; 82570; 83735; 84439; 84443; 84481; 85025

== ENCOUNTER 2022-05-20 08:29 | Outpatient (CLI) | payer MEDICARE, OTHER, SELFPAY ==
[2022-05-20 09:48] LABS: Absolute Lymphocyte Count 1.18 X10^3/uL (0.83-4.51); Absolute Neutrophil Count 2.7 X10^3/uL (2.0-7.7); Basophil# 0.02 X10^3/uL; Basophil% 0.5 % (0-1); Eosinophil# 0.15 X10^3/uL; Eosinophils% 3.4 % (0-5); Hematocrit 33.4 % (40-54); Hemoglobin 10.5 g/dL (13.0-16.5); Lymphocyte # 1.18 X10^3/ul (0.83-4.51); Mean Corp Hgb Conc 31.4 g/dL (32-36); Mean Corpuscular Hgb 29.9 pg (27.0-32.0); Mean Corpuscular Volume 95.2 fL (80-94); Mean Platelet Vol. 10.2 fl (6.2-12.0); Monocyte# 0.33 X10^3/uL; Monocyte% 7.6 % (0-10); NRBC Flagged by Analyzer 0 % (0-5); Neutrophil # 2.68 X10^3/uL (2.7-7.7); Neutrophil % 61.3 % (47-70); Platelet Count 103 K/mm3 (150-450); RBC Distribution Width CV 14.5 % (11.6-14.6); RBC Distribution Width SD 50.2 fl (35.1-43.9); Red Blood Count 3.51 M/mm3 (4.6-6.2); White Blood Count 4.4 K/mm3 (4.4-11.0)
[2022-05-20 10:17] LABS: Iron 45 ug/dL (65-175); Iron Binding Capacity,Total 273 ug/dL (250-450); PERCENT IRON SATURATION 16.5 % (15.0-55.0)
[2022-05-20 10:18] LABS: Ferritin 37 ng/mL (26-388)
[2022-05-20 16:35] LABS: Xtra Tube EP Lab EXTRA TUBE
== END 2022-05-20 23:59 | disposition home or self-care (01) ==
LOC: LAB 08:32
PROVIDERS: PCP Family Medicine; Referring Provider Internal Medicine Hematology & Oncology; Visit Provider Internal Medicine Hematology & Oncology
DX: I25.10 Atherosclerotic heart disease of native coronary artery without angina pectoris (principal); N18.9 Chronic kidney disease, unspecified; D63.1 Anemia in chronic kidney disease
CPT/HCPCS: 82728; 83540; 83550; 85025

== ENCOUNTER → 2022-06-18 | Outpatient (CLI) | payer MEDICARE, OTHER, SELFPAY | END | disposition home or self-care (01) | LOC: MFPLAB 08:25 | PROVIDERS: PCP Family Medicine; Referring Provider Family Medicine; Visit Provider Family Medicine | DX: E03.9 Hypothyroidism, unspecified (principal) | CPT/HCPCS: 36415; 84439; 84481 ==

== ENCOUNTER → 2022-09-23 | Outpatient (CLI) | payer MEDICARE, OTHER, SELFPAY ==
[2022-09-23 10:45] LABS: Microalbumin,Random Urine 23.5 mg/L (NO RANGE EST.); Microalbumin:Creatinine Ratio 27.6 mg/g CRE (<30 mg/g CRE)
[2022-09-23 10:57] LABS: ALB/GLOB Ratio 1.3 RATIO (0.9-2.4); AST(SGOT) 49 U/L (15-37); Alanine Aminotransfer ALT/SGPT 86 U/L (16-61); Albumin, Serum 3.6 g/dL (3.2-5.0); Alkaline Phosphatase 117 U/L (45-117); Anion Gap 7 (5-15); BUN 46 mg/dL (7-18); Calcium,Total 8.9 mg/dL (8.5-10.1); Chloride 108 mmol/L (98-107); Creatinine, Serum 1.92 mg/dL (0.70-1.30); EST Glomerular Filtration Rate 35 mL/min (>60); Est Glom Filt Rate - Afr Amer 43 mL/min (>60); Ferritin 228 ng/mL (26-388); Globulin 2.7 g/dL (2.2-4.2); Glucose 102 mg/dL (74-106); Iron 62 ug/dL (65-175); Iron Binding Capacity,Total 274 ug/dL (250-450); Magnesium 2.1 mg/dL (1.6-2.6); Potassium 5.2 mmol/L (3.5-5.1); Protein, Total 6.3 g/dL (6.4-8.2); Sodium Level 139 mmol/L (136-145)
== END | disposition home or self-care (01) ==
LOC: MFPLAB 09:10
PROVIDERS: PCP Family Medicine; Visit Provider Family Medicine
DX: N18.30 Chronic kidney disease, stage 3 unspecified (principal); D63.8 Anemia in other chronic diseases classified elsewhere
CPT/HCPCS: 36415; 80053; 82043; 82570; 82728; 83540; 83550; 83735

== ENCOUNTER 2022-10-09 03:16 | Emergency (ER) | payer MEDICARE, OTHER, SELFPAY ==
[2022-10-09 03:16] VITALS: BP 158/95; PULSE 71; RESP 18; TEMP 36.4; O2SAT 97; BMI 25.5
[2022-10-09] MEDS: Lidocaine 2% /Epi 1:100 (20ml) 20 ML VIAL INFILT (03:36)
--- NOTE | 2022-10-09 04:12 | EDS_ITS ---
HPI History of Present Illness Chief Complaint: Nosebleed Informant: patient and spouse/S.O. Narrative Narrative: Patient is an 87-year-old male from home with past medical history of hypertension hyperlipidemia and chronic kidney disease who is currently only on aspirin. He states he awoke from sleep with spontaneous bleeding from his right nostril. He states he has had spontaneous bleeding in the past but this 1 was more severe. He denies any trauma but states that he tried holding pressure at home without any symptom improvement and therefore had to call EMS to bring him in for evaluation [facility] Medical History Acute bacterial sinusitis Acute on chronic diastolic heart failure Anemia of chronic renal failure Arthritis Atherosclerosis of coronary artery bypass graft of [place] heart with angina pectoris Atherosclerosis of coronary artery of [place] heart without angina pectoris Bronchiectasis Cancer Chronic diastolic (congestive) heart failure Chronic kidney disease Chronic renal failure, stage 3b Diverticulitis Dyspnea on exertion Easy bruising Essential (primary) hypertension Excessive bleeding Facial hematoma Fall Head injury High cholesterol History of CHF (congestive heart failure) History of diverticulitis History of echocardiogram History of edema History of heart attack History of hiatal hernia History of irregular heartbeat History of non-ST elevation myocardial infarction (NSTEMI) (01/2015) History of renal disease History of stress test History of trigger finger Hx of melanoma of skin Hyperlipidemia Hypersomnolence Hypertension Iron deficiency anemia due to chronic blood loss Kidney stones Loss of consciousness Melanoma Non-smoker Nonrheumatic aortic (valve) stenosis Osteoarthritis Parkinson's disease Pitting edema Prostate disease Restless legs Secondary pulmonary arterial hypertension Shortness of breath on exertion Thickening of pleura Thyroid disease Wears dentures Wears glasses Wears partial dentures Home Medications nitroglycerin 0.4 mg sublingual tablet 0.4 mg sublingual Q5-15M PRN chest pain #25 tabs 08/03/19 [Rx Last Taken Unknown] cholecalciferol (vitamin D3) 25 mcg (1,000 unit) tablet (Vitamin D3) 25 mcg PO DAILY Check with primary doctor 05/20/21 [History Last Taken Unknown] pramipexole 0.5 mg tablet 0.5 mg PO TID Check with primary doctor 12/02/21 [History Last Taken Unknown] selenium 200 mcg tablet 200 mcg PO DAILY Check with primary doctor 08/01/22 [History Last Taken Unknown] doxazosin 4 mg tablet 4 mg PO QHS Check with primary doctor 02/17/22 [History Last Taken Unknown] amiodarone 200 mg tablet 100 mg PO DAILY Pt wants to cut pills in half due to cost #45 tabs 04/21/22 [Rx Last Taken Unknown] levothyroxine 50 mcg tablet 50 mcg PO DAILY Check with primary doctor 05/20/22 [History Last Taken Unknown] liothyronine 5 mcg tablet 5 mcg PO DAILY 05/20/22 [History Last Taken Unknown] acetaminophen 500 mg tablet 1,000 mg PO Q8 PRN Pain 05/22/22 [History Last Taken Unknown] aspirin 81 mg chewable tablet 81 mg PO QODAY 05/22/22 [History Last Taken Unknown] atorvastatin 40 mg tablet 40 mg PO QHS #90 tabs 08/15/22 [Rx Last Taken Unknown] furosemide 40 mg tablet 40 mg PO MOWEFR edema 10/09/22 [History Last Taken Unknown] glycopyrrolate 1 mg tablet 1 mg PO QHS 10/09/22 [History Last Taken Unknown] Allergy/AdvReac Type Severity Reaction Status Date / Time levofloxacin Allergy Unknown PT UNSURE Verified 10/09/22 03:21 OF REACTION meloxicam Allergy Unknown PT UNSURE Verified 10/09/22 03:21 OF REACTION amlodipine AdvReac Intermediate severe leg Verified 10/09/22 03:21 edema isosorbide AdvReac headache Verified 10/09/22 03:21 Family History Father Heart disease Mother CVA (cerebral vascular accident) Surgical History H/O coronary artery bypass surgery (1989) H/O foot surgery H/O left knee surgery History of cardiac catheterization History of carpal tunnel release of both wrists History of coronary artery stent placement (2005) History of herniorrhaphy History of left cataract surgery History of left heart catheterization (08/10/19) History of right knee joint replacement (05/03/21) History of total left knee replacement (04/2020) Hx of hernia repair Hx of oral surgery Hx of transurethral resection of prostate Status post revision of total replacement of right knee Social History Smoking Status: Never smoker alcohol intake: never substance use type: does not use caffeine: Yes ROS ROS ED Constitutional Constitutional ED: Denies chills or fever(s) Eyes Eyes: Denies change in vision ENT ENT ED: Reports other Details: Positive nosebleed ; Denies sore throat Cardiovascular Cardiovascular: Denies chest pain Respiratory/Chest Respiratory/Chest: Reports cough; Denies dyspnea Gastrointestinal Gastrointestinal: Denies abdominal pain, diarrhea, nausea or vomiting Genitourinary Genitourinary ED: Denies dysuria Musculoskeletal Musculoskeletal: Denies myalgias Integumentary Denies rash Neurologic Neurologic: Denies headache(s) Hematologic/Lymphatic Hematologic/Lymphatic: Denies easy bleeding or easy bruising EXAM Physical Exam Const Vital Signs: 10/09/22 03:16 Temperature 97.5 F L Temperature Source Temporal Pulse Rate 71 Respiratory Rate 18 Blood Pressure 158/95 H Blood Pressure Mean 116 Pulse Ox 97 Positive well nourished, well developed and obese General Appearance ED: well developed Nutritional Appearance: obese HEENT HEENT Narrative: Patient has a brisk dark red bleed coming from his right nostril. There is blood clot present in the left nostril which when removed showed only mild ooze of blood. There is dried blood present in the posterior pharynx but no signs of active posterior bleeding. No tongue or lip swelling no oral lesions no airway edema or compromise. Eyes PERRL and EOMs intact bilaterally General Eye ED: Yes pale conjunctiva Neck supple Resp normal respiratory effort and clear to auscultation bilaterally Cardio regular rate and regular rhythm Extremity normal to inspection Neuro oriented x3, CN's II-XII intact bilaterally and no sensory deficits noted Sensorium / Orientation: alert Psych mental status grossly normal Skin no rashes or lesions noted MDM MDM MDM Narrative Medical decision making narrative: Patient had spontaneous onset of right sided nasal bleeding. The bleeding was brisk but it was still dark red nonpulsatile indicating it is a bleed from Kiesselbach plexus/anterior nosebleed versus posterior and the sphenopalatine artery. Based on the brisk nature of the bleed I elected to have the patient blow his nose and following this a 7.5 cm rapid Rhino was placed into the right nasal passage. The balloon was inflated to 6 cm of air. Following this lidocaine with epinephrine and Afrin soaked cotton balls were then placed in the left nostril. The cotton balls were left in place for 25 minutes. Once the cotton balls were removed there is no active bleeding out of the left nostril. There is no active bleeding from the right nostril either that the rapid Rhino was placed in. Once again checking the posterior pharynx there is dried blood but no active bleeding noted. These findings indicate that the right anterior nosebleed has been cauterized/coagulated. The patient is awake and alert with stable heart rate blood pressure and oxygen value going against any severe blood loss and therefore do not feel there is need to check these values. At this time patient will have the rapid Rhino left in place but as there is no active bleeding or derangement of vital signs he can follow-up with ENT on an outpatient basis. History & Record Review Discussion w/independent historian: EMS personnel, Patient and Significant other Discharge Plan Triage Chief Complaint: Nosebleed ED Provider: Hao Herron Dx/Rx/DC Orders Clinical Impression: Acute anterior epistaxis, Essential (primary) hypertension, Chronic kidney disease Instructions: ED Epistaxis (Adult) Prescriptions: No Action acetaminophen 500 mg tablet 1,000 mg PO Q8 PRN (Reason: Pain) aspirin 81 mg tablet,chewable 81 mg PO QODAY pramipexole 0.5 mg tablet 0.5 mg PO TID selenium 200 mcg tablet 200 mcg PO DAILY Label Comments: TAKE 1 TABLET BY MOUTH ONCE DAILY liothyronine 5 mcg tablet 5 mcg PO DAILY Label Comments: prescribed by PCP to be taken with Levothyroxine cholecalciferol (vitamin D3) [Vitamin D3] 25 mcg (1,000 unit) Tablet 25 mcg PO DAILY doxazosin 4 mg tablet 4 mg PO QHS glycopyrrolate 1 mg tablet 1 mg PO QHS Label Comments: TAKE 1/2 TO 1 (ONE-HALF TO ONE) TABLET BY MOUTH EVERY 8 HOURS TO REDUCE SALIVATION furosemide 40 mg tablet 40 mg PO MOWEFR nitroglycerin 0.4 mg tablet, sublingual 0.4 mg SUBLINGUAL Q5-15M PRN (Reason: chest pain) Qty: 25 11RF Rx Instructions: Take one table under the tongue every 5-15 minutes if needed. Do not exceed 3 doses. amiodarone 200 mg tablet 100 mg PO DAILY Qty: 45 3RF levothyroxine 50 mcg tablet 50 mcg PO DAILY atorvastatin 40 mg tablet 40 mg PO QHS Qty: 90 3RF Primary Care Provider: Rick Butler Referrals: Rick Butler MD [Primary Care Provider] - Saurabh Encinas MD [Med Staff - Active Staff] - Activity Restrictions/Additional Instructions: Please contact Dr. Encinas/GUERO today to arrange follow-up regarding your nosebleed and placement of packing. If you have return of bleeding despite the packing or any further concerns please return to the ER for repeat evaluation. Disposition Disposition: Home, Self Care
[2022-10-09 05:26] VITALS: BP 140/78; PULSE 81; RESP 16; O2SAT 97
== END 2022-10-09 05:33 | disposition home or self-care (01) ==
PROVIDERS: Emergency Provider Emergency Medicine; PCP Family Medicine; Visit Provider Emergency Medicine
DX: R04.0 Epistaxis (principal); I13.0 Hypertensive heart and chronic kidney disease with heart failure and stage 1 through stage 4 chronic kidney disease, or unspecified chronic kidney disease; I50.32 Chronic diastolic (congestive) heart failure; N18.32 Chronic kidney disease, stage 3b; I25.10 Atherosclerotic heart disease of native coronary artery without angina pectoris; E78.00 Pure hypercholesterolemia, unspecified; Z79.82 Long term (current) use of aspirin; Z79.899 Other long term (current) drug therapy; E66.9 Obesity, unspecified
CPT/HCPCS: 30901; 99284

== ENCOUNTER 2022-10-13 20:00 | Emergency (ER) | payer MEDICARE, OTHER, SELFPAY ==
[2022-10-13 20:01] VITALS: BP 151/79; PULSE 78; RESP 16; TEMP 36.3; O2SAT 99; BMI 25.5
--- NOTE | 2022-10-13 21:38 | EDS_ITS ---
HPI History of Present Illness Chief Complaint: Nosebleed Narrative Narrative: Patient presents with right-sided epistaxis. He just had his nasal packing removed and he was cauterized by ENT. He started bleeding and soon after. [facility] Medical History Acute bacterial sinusitis Acute on chronic diastolic heart failure Anemia of chronic renal failure Arthritis Atherosclerosis of coronary artery bypass graft of [place] heart with angina pectoris Atherosclerosis of coronary artery of [place] heart without angina pectoris Bronchiectasis Cancer Chronic diastolic (congestive) heart failure Chronic kidney disease Chronic renal failure, stage 3b Diverticulitis Dyspnea on exertion Easy bruising Essential (primary) hypertension Excessive bleeding Facial hematoma Fall Head injury High cholesterol History of CHF (congestive heart failure) History of diverticulitis History of echocardiogram History of edema History of heart attack History of hiatal hernia History of irregular heartbeat History of non-ST elevation myocardial infarction (NSTEMI) (01/2015) History of renal disease History of stress test History of trigger finger Hx of melanoma of skin Hyperlipidemia Hypersomnolence Hypertension Iron deficiency anemia due to chronic blood loss Kidney stones Loss of consciousness Melanoma Non-smoker Nonrheumatic aortic (valve) stenosis Osteoarthritis Parkinson's disease Pitting edema Prostate disease Restless legs Secondary pulmonary arterial hypertension Shortness of breath on exertion Thickening of pleura Thyroid disease Wears dentures Wears glasses Wears partial dentures Home Medications nitroglycerin 0.4 mg sublingual tablet 0.4 mg sublingual Q5-15M PRN chest pain #25 tabs 08/03/19 [Rx Last Taken Unknown] cholecalciferol (vitamin D3) 25 mcg (1,000 unit) tablet (Vitamin D3) 25 mcg PO DAILY Check with primary doctor 05/20/21 [History Last Taken Unknown] pramipexole 0.5 mg tablet 0.5 mg PO TID Check with primary doctor 12/02/21 [History Last Taken Unknown] selenium 200 mcg tablet 200 mcg PO DAILY Check with primary doctor 12/02/21 [History Last Taken Unknown] doxazosin 4 mg tablet 4 mg PO QHS Check with primary doctor 02/17/22 [History Last Taken Unknown] amiodarone 200 mg tablet 100 mg PO DAILY Pt wants to cut pills in half due to cost #45 tabs 04/21/22 [Rx Last Taken Unknown] levothyroxine 50 mcg tablet 50 mcg PO DAILY Check with primary doctor 05/20/22 [History Last Taken Unknown] liothyronine 5 mcg tablet 5 mcg PO DAILY 05/20/22 [History Last Taken Unknown] acetaminophen 500 mg tablet 1,000 mg PO Q8 PRN Pain 05/22/22 [History Last Taken Unknown] aspirin 81 mg chewable tablet 81 mg PO QODAY 05/22/22 [History Last Taken Unknown] atorvastatin 40 mg tablet 40 mg PO QHS #90 tabs 08/15/22 [Rx Last Taken Unknown] furosemide 40 mg tablet 40 mg PO MOWEFR edema 10/09/22 [History Last Taken Unknown] glycopyrrolate 1 mg tablet 1 mg PO QHS 10/09/22 [History Last Taken Unknown] clindamycin HCl 150 mg capsule 150 mg PO TID #14 caps 10/13/22 [Rx Last Taken Unknown] Allergy/AdvReac Type Severity Reaction Status Date / Time levofloxacin Allergy Unknown PT UNSURE Verified 10/13/22 20:03 OF REACTION meloxicam Allergy Unknown PT UNSURE Verified 10/13/22 20:03 OF REACTION amlodipine AdvReac Intermediate severe leg Verified 10/13/22 20:03 edema isosorbide AdvReac headache Verified 10/13/22 20:03 Family History Father Heart disease Mother CVA (cerebral vascular accident) Surgical History H/O coronary artery bypass surgery (1989) H/O foot surgery H/O left knee surgery History of cardiac catheterization History of carpal tunnel release of both wrists History of coronary artery stent placement (2005) History of herniorrhaphy History of left cataract surgery History of left heart catheterization (08/10/19) History of right knee joint replacement (05/03/21) History of total left knee replacement (04/2020) Hx of hernia repair Hx of oral surgery Hx of transurethral resection of prostate Status post revision of total replacement of right knee Social History Smoking Status: Never smoker alcohol intake: never substance use type: does not use caffeine: Yes ROS ROS ED ROS Narrative Past medical history: Reviewed Medications: Reviewed Social history: Noncontributory Review of systems: All systems negative except as indicated General: No fever Eyes: No visual changes ENT: Epistaxis as in HPI Hematologic: On aspirin only he usually does not bleed easily. EXAM Physical Exam Narrative Exam Narrative: Physical exam General: Patient appears somewhat uncomfortable Head: Normocephalic, Atraumatic Eyes: Conjunctiva not pale ENT: Right epistaxis is quite brisk Neck: Supple, Nontender, No lymphadenopathy Skin: Normal color, No rash Const Vital Signs: 10/13/22 20:01 Temperature 97.4 F L Temperature Source Temporal Pulse Rate 78 Respiratory Rate 16 Blood Pressure 151/79 H Blood Pressure Mean 103 Pulse Ox 99 Oxygen Delivery Method Room Air MDM MDM MDM Narrative Medical decision making narrative: I talked to the patient's also give me the history. Patient received a Rhino Rocket. I will observe him in the ED and he did not rebleed. I will discharge him with antibiotics and ENT follow-up. Procedures Other Procedures Procedure(s): Epistaxis Verbal consent Because of the briskness of epistaxis and nasal rocket was placed I inflated it with about 8 cc of air, epistaxis is now controlled. Discharge Plan Triage Chief Complaint: Nosebleed ED Provider: Liban Webster Dx/Rx/DC Orders Clinical Impression: Acute anterior epistaxis Instructions: ED Epistaxis (Adult) Prescriptions: New clindamycin HCl 150 mg capsule 150 mg PO TID Qty: 14 0RF No Action acetaminophen 500 mg tablet 1,000 mg PO Q8 PRN (Reason: Pain) aspirin 81 mg tablet,chewable 81 mg PO QODAY pramipexole 0.5 mg tablet 0.5 mg PO TID selenium 200 mcg tablet 200 mcg PO DAILY Label Comments: TAKE 1 TABLET BY MOUTH ONCE DAILY liothyronine 5 mcg tablet 5 mcg PO DAILY Label Comments: prescribed by PCP to be taken with Levothyroxine cholecalciferol (vitamin D3) [Vitamin D3] 25 mcg (1,000 unit) Tablet 25 mcg PO DAILY doxazosin 4 mg tablet 4 mg PO QHS glycopyrrolate 1 mg tablet 1 mg PO QHS Label Comments: TAKE 1/2 TO 1 (ONE-HALF TO ONE) TABLET BY MOUTH EVERY 8 HOURS TO REDUCE SALIVATION furosemide 40 mg tablet 40 mg PO MOWEFR nitroglycerin 0.4 mg tablet, sublingual 0.4 mg SUBLINGUAL Q5-15M PRN (Reason: chest pain) Qty: 25 11RF Rx Instructions: Take one table under the tongue every 5-15 minutes if needed. Do not exceed 3 doses. amiodarone 200 mg tablet 100 mg PO DAILY Qty: 45 3RF levothyroxine 50 mcg tablet 50 mcg PO DAILY atorvastatin 40 mg tablet 40 mg PO QHS Qty: 90 3RF Primary Care Provider: Rick Butler Referrals: Rick Butler MD [Primary Care Provider] - Saurabh Encinas MD [Med Staff - Active Staff] - 3-5 Days Disposition Disposition: Home, Self Care
[2022-10-13] MEDS: HYDROcodone Bitartrate/Apap 5/325 Tablet PO (21:53)
[2022-10-13 21:55] VITALS: BP 139/74; PULSE 67; RESP 18; O2SAT 98
== END 2022-10-13 22:27 | disposition home or self-care (01) ==
PROVIDERS: Emergency Provider Emergency Medicine; PCP Family Medicine; Visit Provider Emergency Medicine
DX: R04.0 Epistaxis (principal); I13.0 Hypertensive heart and chronic kidney disease with heart failure and stage 1 through stage 4 chronic kidney disease, or unspecified chronic kidney disease; I50.32 Chronic diastolic (congestive) heart failure; N18.32 Chronic kidney disease, stage 3b; I25.10 Atherosclerotic heart disease of native coronary artery without angina pectoris; E78.00 Pure hypercholesterolemia, unspecified; D63.1 Anemia in chronic kidney disease; D50.0 Iron deficiency anemia secondary to blood loss (chronic)
CPT/HCPCS: 30901; 99283

== ENCOUNTER 2022-10-16 13:24 | Emergency (ER) | payer MEDICARE, OTHER, SELFPAY ==
[2022-10-16 13:24] VITALS: BP 109/63; PULSE 75; RESP 18; TEMP 36.2; O2SAT 100
[2022-10-16 13:27] VITALS: BMI 25.7
--- NOTE | 2022-10-16 14:04 | EKG12_ITS ---
Test Reason : CP Blood Pressure : / mmHG Vent. Rate : 079 BPM Atrial Rate : 096 BPM P-R Int : 000 ms QRS Dur : 096 ms QT Int : 394 ms P-R-T Axes : 000 053 248 degrees QTc Int : 451 ms Atrial fibrillation Anterior infarct , age undetermined Abnormal ECG Confirmed by LEEANNE MITCHELL, VICK ([id number]), scientific publications editor PAUL CHRISTIE ([id number]) on 10/20/2022 10:14:57 A M Referred By: THOMAS/SHWETA Confirmed By:AL FALLON MD
--- NOTE | 2022-10-16 14:05 | RAD_ITS ---
STUDY: X-RAY CHEST REASON FOR EXAM: Male, 87 years old. Chest pain TECHNIQUE: PA and lateral views of the chest. COMPARISON: Comparison is made with prior study dated August 30, 2021. FINDINGS: EKG electrodes are seen. There is hyperinflation of the lungs consistent with chronic obstructive lung disease (COPD). There is no demonstrated pleural abnormality. Sternal cerclage wires and vascular clips are present from a prior sternotomy and coronary artery bypass graft procedure (CABG). Normal mediastinum and sherlyn. Normal visualized pulmonary arteries. There is atherosclerotic calcification of the aortic arch with tortuosity. There are degenerative changes of the visualized thoracic spine. There is degenerative osteoarthritis of the bilateral shoulders. There is no demonstrated abnormality of the visualized soft tissue structures of the upper abdomen. RAD/Chest PA and Lateral IMPRESSION: Hypoventilation. The lungs are clear. Electronically Signed: Antonio Martin MD at 15:05 EDT ,
--- NOTE | 2022-10-16 14:05 | ED.VIS.CHEST ---
HPI History of Present Illness Chief Complaint: Chest Pain Informant: patient and spouse/S.O. Narrative Narrative: Patient presenting with nonpleuritic substernal chest heaviness that started while sitting at rest this morning around 6 hours prior to evaluation here in the ED. It has been unchanged ever since. No associated symptoms. He has taken 3 or 4 nitroglycerin, none of them have helped any of the discomfort. He has not taken aspirin, usually takes baby aspirin daily, but he stopped it several days ago after a recurrent epistaxis. He is on no other antiplatelet or anticoagulant medications. He had a right-sided nosebleed 1 week ago, he was seen in the ER and had a pack placed, he followed up with ENT and had a removed but then they recurred that night after getting it cauterized in the office, and had another packing placed at which point he then stopped his aspirin. He has had no bleeding issues since and the pack is still in place. [facility] Medical History Acute bacterial sinusitis Acute on chronic diastolic heart failure Anemia of chronic renal failure Arthritis Atherosclerosis of coronary artery bypass graft of [place] heart with angina pectoris Atherosclerosis of coronary artery of [place] heart without angina pectoris Bronchiectasis Cancer Chronic diastolic (congestive) heart failure Chronic kidney disease Chronic renal failure, stage 3b Diverticulitis Dyspnea on exertion Easy bruising Essential (primary) hypertension Excessive bleeding Facial hematoma Fall Head injury High cholesterol History of CHF (congestive heart failure) History of diverticulitis History of echocardiogram History of edema History of heart attack History of hiatal hernia History of irregular heartbeat History of non-ST elevation myocardial infarction (NSTEMI) (01/2015) History of renal disease History of stress test History of trigger finger Hx of melanoma of skin Hyperlipidemia Hypersomnolence Hypertension Iron deficiency anemia due to chronic blood loss Kidney stones Loss of consciousness Melanoma Non-smoker Nonrheumatic aortic (valve) stenosis Osteoarthritis Parkinson's disease Pitting edema Prostate disease Restless legs Secondary pulmonary arterial hypertension Shortness of breath on exertion Thickening of pleura Thyroid disease Wears dentures Wears glasses Wears partial dentures Home Medications nitroglycerin 0.4 mg sublingual tablet 0.4 mg sublingual Q5-15M PRN chest pain #25 tabs 08/03/19 [Rx Last Taken Unknown] cholecalciferol (vitamin D3) 25 mcg (1,000 unit) tablet (Vitamin D3) 25 mcg PO DAILY Check with primary doctor 05/20/21 [History Last Taken Unknown] pramipexole 0.5 mg tablet 0.5 mg PO TID Check with primary doctor 12/02/21 [History Last Taken Unknown] selenium 200 mcg tablet 200 mcg PO DAILY Check with primary doctor 12/02/21 [History Last Taken Unknown] doxazosin 4 mg tablet 4 mg PO QHS Check with primary doctor 02/17/22 [History Last Taken Unknown] amiodarone 200 mg tablet 100 mg PO DAILY Pt wants to cut pills in half due to cost #45 tabs 04/21/22 [Rx Last Taken Unknown] levothyroxine 50 mcg tablet 50 mcg PO DAILY Check with primary doctor 05/20/22 [History Last Taken Unknown] liothyronine 5 mcg tablet 5 mcg PO DAILY 05/20/22 [History Last Taken Unknown] acetaminophen 500 mg tablet 1,000 mg PO Q8 PRN Pain 05/22/22 [History Last Taken Unknown] aspirin 81 mg chewable tablet 81 mg PO QODAY 05/22/22 [History Last Taken Unknown] atorvastatin 40 mg tablet 40 mg PO QHS #90 tabs 08/15/22 [Rx Last Taken Unknown] furosemide 40 mg tablet 40 mg PO MOWEFR edema 10/09/22 [History Last Taken Unknown] glycopyrrolate 1 mg tablet 1 mg PO QHS 10/09/22 [History Last Taken Unknown] clindamycin HCl 150 mg capsule 150 mg PO TID #14 caps 10/13/22 [Rx Last Taken Unknown] Allergy/AdvReac Type Severity Reaction Status Date / Time levofloxacin Allergy Unknown PT UNSURE Verified 10/13/22 20:03 OF REACTION meloxicam Allergy Unknown PT UNSURE Verified 10/13/22 20:03 OF REACTION amlodipine AdvReac Intermediate severe leg Verified 10/13/22 20:03 edema isosorbide AdvReac headache Verified 10/13/22 20:03 Family History Father Heart disease Mother CVA (cerebral vascular accident) Surgical History H/O coronary artery bypass surgery (1989) H/O foot surgery H/O left knee surgery History of cardiac catheterization History of carpal tunnel release of both wrists History of coronary artery stent placement (2005) History of herniorrhaphy History of left cataract surgery History of left heart catheterization (08/10/19) History of right knee joint replacement (05/03/21) History of total left knee replacement (04/2020) Hx of hernia repair Hx of oral surgery Hx of transurethral resection of prostate Status post revision of total replacement of right knee Social History Smoking Status: Never smoker alcohol intake: never substance use type: does not use caffeine: Yes ROS ROS ED Constitutional Constitutional ED: Denies chills or fever(s) Eyes Eyes: Denies change in vision or diplopia ENT ENT ED: Denies rhinorrhea or sore throat Cardiovascular Cardiovascular: Reports chest pain and pedal edema; Denies palpitations or racing heartbeat Respiratory/Chest Respiratory/Chest: Denies cough or dyspnea Gastrointestinal Gastrointestinal: Denies abdominal pain, diarrhea, nausea or vomiting Genitourinary Genitourinary ED: Denies dysuria or hematuria Musculoskeletal Musculoskeletal: Denies back pain or neck pain Integumentary Denies abscess or rash Neurologic Neurologic: Denies headache(s), paresthesias or weakness Psychiatric Psychiatric: Denies anxiety or suicidal thoughts EXAM Physical Exam Const Vital Signs: 10/16/22 13:24 10/16/22 13:39 10/16/22 15:33 Temperature 97.1 F L Temperature Source Temporal Pulse Rate 75 59 L Respiratory Rate 18 14 Respiratory Effort Normal Non-Labored Blood Pressure 109/63 114/68 Blood Pressure Mean 78 83 Pulse Ox 100 96 Oxygen Delivery Method Room Air Room Air 10/16/22 16:14 10/16/22 17:33 Temperature Temperature Source Pulse Rate 65 61 Respiratory Rate 16 17 Respiratory Effort Blood Pressure 127/67 H 100/82 H Blood Pressure Mean 87 88 Pulse Ox 97 97 Oxygen Delivery Method Room Air Positive well nourished and well developed General Appearance ED: well developed and NAD HEENT Reports moist mucous membranes normocephalic and atraumatic Eyes PERRL and EOMs intact bilaterally Neck full ROM and supple Resp normal respiratory effort and clear to auscultation bilaterally Resp Narrative: Diminished throughout, symmetrically, no distress Cardio regular rate and regular rhythm Rate: other Other Details: Frequent irregularity. Soft systolic 1/6 murmur more prominent at right second intercostal space. GI non-tender and non-distended Auscultation: normoactive bowel sounds Palpation: soft Back/Spine no CVA tenderness General Back: other FROM Extremity normal to inspection General Extremety ED: Yes edema; Negative for pulses abnormal or tenderness General Extremity: edema bilateral lower extremity Details: moderate; Negative for pulses abnormal Neuro oriented x3, CN's II-XII intact bilaterally and no sensory deficits noted Sensorium / Orientation: awake and alert Motor Exam: strength 5/5 throughout Psych mental status grossly normal Skin no rashes or lesions noted and no wounds Heart Score History: Moderately Suspicious ECG: Normal Age: >/= 65 years Risk Factors: >/= 3 Risk Factors or History of CAD Troponin: </= Normal Limit Score: 5 MDM MDM MDM Narrative Medical decision making narrative: Patient has a significant history of coronary artery disease. He had a CABG before the year 1999, then he had 2 stents placed separately from each other in the mid-late . He does not recall ever having this chest discomfort before. He has chronic leg edema that is unchanged. No pleuritic symptoms, palpitations, syncope or near syncope, no recent travel out of the area or history of DVT or PE. No history of A-fib that he knows of or other dysrhythmias. While working him up patient was given morphine 2 mg in addition to a GI cocktail after his initial troponin came back normal. On reevaluation he is pain-free and states he has been ever since he received some morphine. The GI cocktail did make a difference since his pain was already gone. I did 2-hour troponin repeated, it actually went down. This is essentially ruling out acute coronary syndrome in this patient although his heart score is high it is because of his history not necessarily his acute symptoms. Given all of this I am comfortable with him going home. It is notable that his hemoglobin is 8.8. He does not require transfusion here and it is possible this is related to his recent recurrent epistaxis, but he should follow-up with his doctor for further testing and evaluation which I discussed with him and his . History & Record Review Discussion w/independent historian: Patient and Family Additional record(s) reviewed:: Prior outpatient record and Prior labs Lab Data Attestation: I reviewed the patient's lab results. Labs: Laboratory Results - last 24 hr 10/16/22 10/16/22 10/16/22 13:35 13:35 16:05 WBC 6.9 RBC 2.80 L Hgb 8.8 L Hct 28.1 L MCV 100.4 H MCH 31.4 MCHC 31.3 L RDW Std Deviation 55.1 H RDW Coeff of Chas 14.8 H Plt Count 109 L MPV 9.9 Immature Gran % (Auto) 0.300 Neut % (Auto) 75.6 H Lymph % (Auto) 14.6 L Real % (Auto) 8.3 Eos % (Auto) 0.9 Baso % (Auto) 0.3 Absolute Neuts (auto) 5.2 Absolute Lymphs (auto) 1.00 Nucleated RBC % 0 Sodium 138 Potassium 3.9 Chloride 106 Carbon Dioxide 25.0 Anion Gap 7 BUN 47 H Creatinine 2.43 H Est GFR (MDRD) Af Amer 33 L Est GFR (MDRD) Non-Af 27 L BUN/Creatinine Ratio 19.3 Glucose 123 H Calcium 9.2 Troponin I High Sens 56 55 Radiography Diagnostic Testing: Clinical Impression(s) from Imaging Studies Chest X-Ray 10/16/22 14:05 IMPRESSION: Hypoventilation. The lungs are clear. Electronically Signed: Antonio Martin MD at 15:05 EDT , Rhythm Strip Rhythm Strip: Sinus Rhythm Rate: 80 Ectopy: PVC(s) EKG Initial EKG: Attestation: I personally reviewed and interpreted this EKG as follows: Interpretation: Sinus Rhythm (Limited eval due to artifact not able to rule out A-fib versus a flutter), No Acute Injury Pattern and Non-Specific ST Changes (Nonspecific diffuse T wave flattening in limb leads) Comments: Frequent PVCs appear monofocal Prior EKG tracings: available for review Prior: Unchanged (Except for minor T wave flattening in some of the limb leads, and PVCs) Discharge Plan Triage Chief Complaint: Chest Pain ED Provider: Buck Mcdaniel Dx/Rx/DC Orders Clinical Impression: Chest pain, unspecified, Anemia Instructions: Anemia, ED Chest Pain, Uncertain Cause Prescriptions: No Action acetaminophen 500 mg tablet 1,000 mg PO Q8 PRN (Reason: Pain) aspirin 81 mg tablet,chewable 81 mg PO QODAY pramipexole 0.5 mg tablet 0.5 mg PO TID selenium 200 mcg tablet 200 mcg PO DAILY Label Comments: TAKE 1 TABLET BY MOUTH ONCE DAILY liothyronine 5 mcg tablet 5 mcg PO DAILY Label Comments: prescribed by PCP to be taken with Levothyroxine cholecalciferol (vitamin D3) [Vitamin D3] 25 mcg (1,000 unit) Tablet 25 mcg PO DAILY doxazosin 4 mg tablet 4 mg PO QHS glycopyrrolate 1 mg tablet 1 mg PO QHS Label Comments: TAKE 1/2 TO 1 (ONE-HALF TO ONE) TABLET BY MOUTH EVERY 8 HOURS TO REDUCE SALIVATION furosemide 40 mg tablet 40 mg PO MOWEFR clindamycin HCl 150 mg capsule 150 mg PO TID Qty: 14 0RF nitroglycerin 0.4 mg tablet, sublingual 0.4 mg SUBLINGUAL Q5-15M PRN (Reason: chest pain) Qty: 25 11RF Rx Instructions: Take one table under the tongue every 5-15 minutes if needed. Do not exceed 3 doses. amiodarone 200 mg tablet 100 mg PO DAILY Qty: 45 3RF levothyroxine 50 mcg tablet 50 mcg PO DAILY atorvastatin 40 mg tablet 40 mg PO QHS Qty: 90 3RF Primary Care Provider: Rick Butler Referrals: Rick Butler MD [Primary Care Provider] - 3-5 Days Activity Restrictions/Additional Instructions: Would be reasonable to hold off on taking your aspirin until the nasal packing comes out and you know you were no longer bleeding. Disposition Disposition: Home, Self Care
[2022-10-16 14:18] LABS: Absolute Neutrophil Count 5.2 X10^3/uL (2.0-7.7); Basophil# 0.02 X10^3/uL; Basophil% 0.3 % (0-1); Eosinophil# 0.06 X10^3/uL; Eosinophils% 0.9 % (0-5); Hematocrit 28.1 % (40-54); Hemoglobin 8.8 g/dL (13.0-16.5); Lymphocyte % 14.6 % (19-41); Mean Corp Hgb Conc 31.3 g/dL (32-36); Mean Corpuscular Hgb 31.4 pg (27.0-32.0); Mean Corpuscular Volume 100.4 fL (80-94); Mean Platelet Vol. 9.9 fl (6.2-12.0); Monocyte# 0.57 X10^3/uL; Monocyte% 8.3 % (0-10); NRBC Flagged by Analyzer 0 % (0-5); Neutrophil # 5.18 X10^3/uL (2.7-7.7); Neutrophil % 75.6 % (47-70); Platelet Count 109 K/mm3 (150-450); RBC Distribution Width CV 14.8 % (11.6-14.6); RBC Distribution Width SD 55.1 fl (35.1-43.9); White Blood Count 6.9 K/mm3 (4.4-11.0)
[2022-10-16] MEDS: Ondansetron 4 MG/2 ML Vial IV (14:20)
[2022-10-16] MEDS: Morphine 4 MG/ML Syringe 2 MG IV (14:20)
[2022-10-16 14:29] LABS: Anion Gap 7 (5-15); BUN 47 mg/dL (7-18); BUN/Creat Ratio 19.3 RATIO (10-20); Calcium,Total 9.2 mg/dL (8.5-10.1); Chloride 106 mmol/L (98-107); Creatinine, Serum 2.43 mg/dL (0.70-1.30); EST Glomerular Filtration Rate 27 mL/min (>60); Est Glom Filt Rate - Afr Amer 33 mL/min (>60); Glucose 123 mg/dL (74-106); Potassium 3.9 mmol/L (3.5-5.1); Sodium Level 138 mmol/L (136-145); Troponin-I HS (w/2H Reflex) 56 pg/mL (3.0-78.0)
[2022-10-16 15:33] VITALS: BP 114/68; PULSE 59; RESP 14; O2SAT 96
[2022-10-16] MEDS: Mag Hydrox/Al Hydrox/Simeth 30 ML UDC PO (15:58)
[2022-10-16 16:10] LABS: Reflex Troponin-HS? (from REC) Y
[2022-10-16 16:14] VITALS: BP 127/67; PULSE 65; RESP 16; O2SAT 97
[2022-10-16 16:39] LABS: Troponin-I HS 55 pg/mL (3.0-78.0)
[2022-10-16 17:33] VITALS: BP 100/82; PULSE 61; RESP 17; O2SAT 97
== END 2022-10-16 18:14 | disposition home or self-care (01) ==
PROVIDERS: Emergency Provider Emergency Medicine; PCP Family Medicine; Visit Provider Emergency Medicine
DX: R07.9 Chest pain, unspecified (principal); I13.0 Hypertensive heart and chronic kidney disease with heart failure and stage 1 through stage 4 chronic kidney disease, or unspecified chronic kidney disease; I50.32 Chronic diastolic (congestive) heart failure; N18.32 Chronic kidney disease, stage 3b; E78.00 Pure hypercholesterolemia, unspecified; I25.10 Atherosclerotic heart disease of native coronary artery without angina pectoris; D64.9 Anemia, unspecified; Z95.1 Presence of aortocoronary bypass graft; Z95.5 Presence of coronary angioplasty implant and graft; R60.0 Localized edema
CPT/HCPCS: 71046; 80048; 84484; 85025; 93005; 96374; 96375; 99283; A4216; J2405

== ENCOUNTER → 2022-10-29 | Outpatient (CLI) | payer MEDICARE, OTHER, SELFPAY ==
[2022-10-29 17:29] LABS: Absolute Lymphocyte Count 0.81 X10^3/uL (0.83-4.51); Absolute Neutrophil Count 4.1 X10^3/uL (2.0-7.7); Basophil# 0.01 X10^3/uL; Basophil% 0.2 % (0-1); Eosinophil# 0.06 X10^3/uL; Eosinophils% 1.1 % (0-5); Hematocrit 29.6 % (40-54); Hemoglobin 9.1 g/dL (13.0-16.5); Lymphocyte # 0.81 X10^3/ul (0.83-4.51); Lymphocyte % 15.3 % (19-41); Mean Corp Hgb Conc 30.7 g/dL (32-36); Mean Corpuscular Hgb 31.3 pg (27.0-32.0); Mean Corpuscular Volume 101.7 fL (80-94); Mean Platelet Vol. 9.8 fl (6.2-12.0); Monocyte# 0.31 X10^3/uL; Monocyte% 5.9 % (0-10); NRBC Flagged by Analyzer 0 % (0-5); Neutrophil # 4.07 X10^3/uL (2.7-7.7); Neutrophil % 77.1 % (47-70); Platelet Count 113 K/mm3 (150-450); RBC Distribution Width CV 15.1 % (11.6-14.6); RBC Distribution Width SD 56.7 fl (35.1-43.9); RET-HE 33.4 pg (30-35); Red Blood Count 2.91 M/mm3 (4.6-6.2); Reticulocyte Count 1.78 % (0.5-1.5); White Blood Count 5.3 K/mm3 (4.4-11.0)
[2022-10-29 18:11] LABS: ALB/GLOB Ratio 1.2 RATIO (0.9-2.4); AST(SGOT) 21 U/L (15-37); Alanine Aminotransfer ALT/SGPT 31 U/L (16-61); Albumin, Serum 3.5 g/dL (3.2-5.0); Alkaline Phosphatase 129 U/L (45-117); Anion Gap 4 (5-15); BUN 44 mg/dL (7-18); BUN/Creat Ratio 19.6 RATIO (10-20); Calcium,Total 9.1 mg/dL (8.5-10.1); Chloride 111 mmol/L (98-107); Creatinine, Serum 2.24 mg/dL (0.70-1.30); EST Glomerular Filtration Rate 30 mL/min (>60); Est Glom Filt Rate - Afr Amer 36 mL/min (>60); Ferritin 88 ng/mL (26-388); Globulin 2.8 g/dL (2.2-4.2); Glucose 103 mg/dL (74-106); Iron 36 ug/dL (65-175); Iron Binding Capacity,Total 263 ug/dL (250-450); Potassium 4.7 mmol/L (3.5-5.1); Protein, Total 6.3 g/dL (6.4-8.2); Sodium Level 140 mmol/L (136-145)
== END | disposition home or self-care (01) ==
LOC: MFPLAB 16:31
PROVIDERS: PCP Family Medicine; Visit Provider Family Medicine
DX: D64.9 Anemia, unspecified (principal)
CPT/HCPCS: 36415; 80053; 82728; 83540; 83550; 85025; 85045

== ENCOUNTER 2022-11-03 11:10 | Observation (INO) | payer MEDICARE, OTHER, SELFPAY ==
[2022-11-03] VITALS (12 sets, daily range): BP systolic 105–157; BP diastolic 59–97; PULSE 53–76; RESP 7–21; TEMP 36.5–36.7; O2SAT 94–99; BMI 26.6; BMI 25.5
--- NOTE | 2022-11-03 12:06 | EKG12_ITS ---
Test Reason : CP Blood Pressure : / mmHG Vent. Rate : 073 BPM Atrial Rate : 000 BPM P-R Int : 000 ms QRS Dur : 102 ms QT Int : 408 ms P-R-T Axes : 000 046 -19 degrees QTc Int : 449 ms Atrial fibrillation with premature ventricular or aberrantly conducted complexes Low voltage QRS Nonspecific T wave abnormality Abnormal ECG Confirmed by LEEANNE MITCHELL, VICK ([id number]), state editor PAUL CHRISTIE ([id number]) on 11/05/2022 11:24:25 AM Referred By: EL Confirmed By:AL FALLON MD
[2022-11-03] MEDS: Nitroglycerin Oint 1 INCH PACKET 0.5 INCH TRANSDERM. (12:14)
[2022-11-03] MEDS: Aspirin 81 MG TAB.CHEW 324 MG PO (12:14)
[2022-11-03 12:18] LABS: Absolute Lymphocyte Count 1.08 X10^3/uL (0.83-4.51); Absolute Neutrophil Count 3.6 X10^3/uL (2.0-7.7); Basophil# 0.01 X10^3/uL; Basophil% 0.2 % (0-1); Eosinophil# 0.11 X10^3/uL; Eosinophils% 2.1 % (0-5); Hematocrit 31.1 % (40-54); Hemoglobin 9.4 g/dL (13.0-16.5); Lymphocyte # 1.08 X10^3/ul (0.83-4.51); Lymphocyte % 20.8 % (19-41); Mean Corp Hgb Conc 30.2 g/dL (32-36); Mean Corpuscular Hgb 30.9 pg (27.0-32.0); Mean Corpuscular Volume 102.3 fL (80-94); Mean Platelet Vol. 10.1 fl (6.2-12.0); Monocyte% 7.7 % (0-10); NRBC Flagged by Analyzer 0 % (0-5); Neutrophil # 3.58 X10^3/uL (2.7-7.7); Neutrophil % 68.8 % (47-70); Platelet Count 108 K/mm3 (150-450); RBC Distribution Width CV 14.9 % (11.6-14.6); RBC Distribution Width SD 56.6 fl (35.1-43.9); Red Blood Count 3.04 M/mm3 (4.6-6.2); White Blood Count 5.2 K/mm3 (4.4-11.0)
--- NOTE | 2022-11-03 12:20 | RAD_ITS ---
STUDY: X-RAY CHEST REASON FOR EXAM: Male, 87 years old. Chest pain. TECHNIQUE: Single AP portable view of the chest. COMPARISON: Comparison is made with prior study dated October 16, 2022. FINDINGS: EKG electrodes are seen. Hyperinflation. Stable mild linear scarring at the lung bases. There is no demonstrated pleural abnormality. Sternal cerclage wires and vascular clips are present from a prior sternotomy and coronary artery bypass graft procedure (CABG). Normal mediastinum and sherlyn. Normal visualized pulmonary arteries. There is atherosclerotic tortuosity of the aortic arch and descending thoracic aorta. There are diffuse degenerative changes of the visualized thoracic spine. Normal visualized ribs, clavicles, and shoulders. There is no demonstrated abnormality of the visualized soft tissue structures of the upper abdomen. RAD/Chest 1 View (Portable) IMPRESSION: Hyperinflation. No acute abnormality is seen. Electronically Signed: Antoino Martin MD at 12:42 EDT ,
--- NOTE | 2022-11-03 12:23 | ED.VIS.CHEST ---
HPI History of Present Illness Chief Complaint: Chest Pain Informant: patient and spouse/S.O. Narrative Narrative: About an hour prior to arrival, patient was standing in his garage without exerting himself, he had chest pressure like someone sitting on his chest, radiating into both upper arms simultaneously without any other acute symptoms. Nonpleuritic. [place] cardiac to him he has a history of that, a CABG in the s, several stents that were placed after that, the last of which was 2007. He took 3 nitroglycerin total, with almost complete resolution of the discomfort, he states it is barely there in his chest right now substernal without radiation currently or dyspnea. No syncope today or other acute symptoms. He was seen here by myself last week for chest discomfort that was with light activity, but it was a little different and did not go away when he took nitroglycerin. He ruled out and we discharged him home with close outpatient follow-up, he saw his PCP and the nurse practitioner in cardiology, they repeated his labs because he was anemic, his hemoglobin went up a little, and no stress test was scheduled. He was initially thought to be anemic because of a nosebleed, he has had no recurrence of that. This is the only other episode of chest discomfort that he has had since he was discharged from his last ER visit. 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 Atherosclerosis of coronary artery of elim ir[place] heart without angina pectoris Bronchiectasis Cancer Chronic diastolic (congestive) heart failure Chronic kidney disease Chronic renal failure, stage 3b Diverticulitis Dyspnea on exertion Easy bruising Essential (primary) hypertension Excessive bleeding Facial hematoma Fall Head injury High cholesterol History of CHF (congestive heart failure) History of diverticulitis History of echocardiogram History of edema History of heart attack History of hiatal hernia History of irregular heartbeat History of non-ST elevation myocardial infarction (NSTEMI) (01/2015) History of renal disease History of stress test History of trigger finger Hx of melanoma of skin Hyperlipidemia Hypersomnolence Hypertension Iron deficiency anemia due to chronic blood loss Kidney stones Loss of consciousness Melanoma Non-smoker Nonrheumatic aortic (valve) stenosis Osteoarthritis Parkinson's disease Pitting edema Prostate disease Restless legs Secondary pulmonary arterial hypertension Shortness of breath on exertion Thickening of pleura Thyroid disease Wears dentures Wears glasses Wears partial dentures Home Medications nitroglycerin 0.4 mg sublingual tablet 0.4 mg sublingual Q5-15M PRN chest pain #25 tabs 08/03/19 [Rx Last Taken 11/03/22] cholecalciferol (vitamin D3) 25 mcg (1,000 unit) tablet (Vitamin D3) 25 mcg PO DAILY SUPPLEMENT 05/20/21 [History Last Taken 11/03/22] selenium 200 mcg tablet 200 mcg PO DAILY SUPPLEMENT 12/02/21 [History Last Taken 11/03/22] amiodarone 200 mg tablet 100 mg (1/2 x 200 mg) PO DAILY HEART #45 tabs 04/21/22 [Rx Last Taken 11/03/22] levothyroxine 50 mcg tablet 50 mcg PO DAILY THYROID 05/20/22 [History Last Taken 11/03/22] liothyronine 5 mcg tablet 5 mcg PO DAILY THYROID 05/20/22 [History Last Taken 11/03/22] acetaminophen 500 mg tablet 1,000 mg PO Q8 PRN Pain 05/22/22 [History Last Taken Unknown] aspirin 81 mg chewable tablet 81 mg PO QODAY HEART HEALTH 05/22/22 [History Last Taken 11/03/22] atorvastatin 40 mg tablet 40 mg PO QHS CHOLESTEROL #90 tabs 08/15/22 [Rx Last Taken 11/02/22] furosemide 40 mg tablet 40 mg PO MOWEFR edema 10/09/22 [History Last Taken 10/31/22] glycopyrrolate 1 mg tablet 0.5 - 1 mg PO Q8H SALIVATION REDUCTION 10/09/22 [History Last Taken 11/02/22] doxazosin 4 mg tablet 2 mg PO QHS BLOOD PRESSURE 10/29/22 [History Last Taken 11/02/22] ferrous sulfate 325 mg (65 mg iron) tablet (FeroSul) 325 mg PO DAILY 10/29/22 [History Last Taken 11/03/22] pramipexole 0.5 mg tablet 0.5 mg PO BID RESTLESS LEGS 10/29/22 [History Last Taken 11/02/22] Allergy/AdvReac Type Severity Reaction Status Date / Time levofloxacin Allergy Unknown PT UNSURE Verified 10/29/22 15:00 OF REACTION meloxicam Allergy Unknown PT UNSURE Verified 10/29/22 15:00 OF REACTION amlodipine AdvReac Intermediate severe leg Verified 10/29/22 15:00 edema isosorbide AdvReac headache Verified 10/29/22 15:00 Family History Father Heart disease Mother CVA (cerebral vascular accident) Surgical History H/O coronary artery bypass surgery (1989) H/O foot surgery H/O left knee surgery History of cardiac catheterization History of carpal tunnel release of both wrists History of coronary artery stent placement (2005) History of herniorrhaphy History of left cataract surgery History of left heart catheterization (08/10/19) History of right knee joint replacement (05/03/21) History of total left knee replacement (04/2020) Hx of hernia repair Hx of oral surgery Hx of transurethral resection of prostate Status post revision of total replacement of right knee Social History Smoking Status: Never smoker alcohol intake: never substance use type: does not use caffeine: Yes ROS ROS ED Constitutional Constitutional ED: Denies chills or fever(s) Eyes Eyes: Denies change in vision or diplopia ENT ENT ED: Denies rhinorrhea or sore throat Cardiovascular Cardiovascular: Reports as per HPI, chest pain and radiating jaw, neck or arm pain; Denies lightheadedness, palpitations or syncope Respiratory/Chest Respiratory/Chest: Denies cough or dyspnea Gastrointestinal Gastrointestinal: Denies abdominal pain, diarrhea, nausea or vomiting Genitourinary Genitourinary ED: Denies dysuria or hematuria Musculoskeletal Musculoskeletal: Denies back pain or neck pain Integumentary Denies abscess or rash Neurologic Neurologic: Denies headache(s), paresthesias or weakness Psychiatric Psychiatric: Denies anxiety or suicidal thoughts EXAM Physical Exam Const Vital Signs: 11/03/22 11:11 11/03/22 11:16 11/03/22 12:09 Temperature 97.7 F L Temperature Source Oral Pulse Rate 76 Respiratory Rate 7 L Respiratory Effort Normal Non-Labored Blood Pressure 147/85 H Blood Pressure Mean 105 Pulse Ox 97 97 Oxygen Delivery Method Room Air Room Air 11/03/22 12:14 11/03/22 13:04 11/03/22 14:05 Temperature Temperature Source Pulse Rate 66 56 L 55 L Respiratory Rate 14 15 Respiratory Effort Blood Pressure 119/59 L 152/80 H 132/97 H Blood Pressure Mean 104 108 Pulse Ox 99 99 Oxygen Delivery Method Room Air Room Air 11/03/22 15:11 Temperature Temperature Source Pulse Rate 66 Respiratory Rate 16 Respiratory Effort Blood Pressure 132/86 H Blood Pressure Mean 101 Pulse Ox 94 Oxygen Delivery Method Room Air Positive well nourished and well developed General Appearance ED: well developed and NAD HEENT Reports moist mucous membranes normocephalic and atraumatic Eyes PERRL and EOMs intact bilaterally Neck full ROM and supple Chest Wall inspection of chest normal and palpation of chest normal Resp normal respiratory effort and clear to auscultation bilaterally Cardio regular rate, regular rhythm and peripheral pulses 2+ throughout Rate: Negative for tachycardic Heart Sounds: murmur systolic II/ soft GI non-tender and non-distended Auscultation: normoactive bowel sounds Palpation: soft Back/Spine no CVA tenderness General Back: other FROM Extremity normal to inspection General Extremety ED: Negative for edema, pulses abnormal or tenderness General Extremity: Negative for edema or pulses abnormal Neuro oriented x3, CN's II-XII intact bilaterally and no sensory deficits noted Sensorium / Orientation: awake and alert Motor Exam: strength 5/5 throughout Psych mental status grossly normal Skin no rashes or lesions noted and no wounds Heart Score ECG: Nonspecific Repolarization Age: >/= 65 years Risk Factors: >/= 3 Risk Factors or History of CAD Troponin: </= Normal Limit Score: 5 MDM MDM MDM Narrative Medical decision making narrative: Patient's chest discomfort resolved with nitroglycerin paste placed on his chest. 2 serial troponins are noted as below, slight elevation. EKG is nonspecific. Given his heart score, and second episode of chest discomfort with anemia that is only slowly getting better, which she does not necessarily need to be transfused for, I think admitting him is most reasonable. Will discuss with cardiology as well as hospitalist. Patient was given aspirin as well. History & Record Review Additional record(s) reviewed:: Prior ED visit Lab Data Attestation: I reviewed the patient's lab results. Labs: Laboratory Results - last 24 hr 11/03/22 11/03/22 12:00 14:05 WBC 5.2 RBC 3.04 L Hgb 9.4 L Hct 31.1 L MCV 102.3 H MCH 30.9 MCHC 30.2 L RDW Std Deviation 56.6 H RDW Coeff of Chas 14.9 H Plt Count 108 L MPV 10.1 Immature Gran % (Auto) 0.400 Neut % (Auto) 68.8 Lymph % (Auto) 20.8 [place] % (Auto) 7.7 Eos % (Auto) 2.1 Baso % (Auto) 0.2 Absolute Neuts (auto) 3.6 Absolute Lymphs (auto) 1.08 Nucleated RBC % 0 Sodium 138 Potassium 4.6 Chloride 110 H Carbon Dioxide 25.0 Anion Gap 3 L BUN 44 H Creatinine 2.04 H Estim Creat Clear Calc 25.84 Est GFR (MDRD) Af Amer 40 L Est GFR (MDRD) Non-Af 33 L BUN/Creatinine Ratio 21.6 H Glucose 97 Calcium 9.3 Troponin I High Sens 39 42 Radiography Chest X-Ray - ED: 2 View, Read by ED Physician, No Acute Disease and No Infiltrates Diagnostic Testing: Clinical Impression(s) from Imaging Studies Chest X-Ray 11/03/22 12:20 IMPRESSION: Hyperinflation. No acute abnormality is seen. Electronically Signed: Antonio Martin MD at 12:42 EDT , Rhythm Strip Rhythm Strip: A-fib Rate: 75 Ectopy: None EKG Initial EKG: Attestation: I personally reviewed and interpreted this EKG as follows: Interpretation: No Acute Injury Pattern, Atrial Fibrillation and Non-Specific ST Changes Prior EKG tracings: available for review Prior: Unchanged Management Discussion w/another healthcare provider: Hospitalist and Research Nutritionist (Dr. Skinner cardiology) Discharge Plan Dx/Rx/DC Orders Clinical Impression: Chest pain, Chronic renal failure, stage 3b, Atrial fibrillation, Anemia Disposition Disposition: Acute Care [facility]
[2022-11-03 12:37] LABS: Anion Gap 3 (5-15); BUN 44 mg/dL (7-18); BUN/Creat Ratio 21.6 RATIO (10-20); Calcium,Total 9.3 mg/dL (8.5-10.1); Chloride 110 mmol/L (98-107); Creatinine, Serum 2.04 mg/dL (0.70-1.30); EST Glomerular Filtration Rate 33 mL/min (>60); Est Glom Filt Rate - Afr Amer 40 mL/min (>60); Estimated Creatinine Clearance 25.84 ml/min; Glucose 97 mg/dL (74-106); Potassium 4.6 mmol/L (3.5-5.1); Sodium Level 138 mmol/L (136-145); Troponin-I HS (w/2H Reflex) 39 pg/mL (3.0-78.0)
[2022-11-03 14:14] LABS: Reflex Troponin-HS? (from REC) Y
[2022-11-03 14:51] LABS: Troponin-I HS 42 pg/mL (3.0-78.0)
[2022-11-03 18:51] LABS: Troponin-I HS 47 pg/mL (3.0-78.0)
--- NOTE | 2022-11-03 19:03 | PCM.HP.STD ---
HPI - General General Date of Admission: 11/03/22 HPI Narrative BEVERLY GUSMAN, is a 87 M who presents the hospital with chest pain. He said that it started on the day of admission he took 3 nitros and lasted for about 15 minutes and then resolved. He denies any chest pain currently. He said he had a similar episode a few weeks ago that also resolved on its own. He does have a previous history of CABG as well as stents for coronary artery disease. EKG on admission is nonischemic and troponins are normal. He denies any association with activity and states that both times he had the chest pain he was not doing any type of strenuous activity. [facility] Medical History (Updated 11/03/22 @ 17:15 by Nereyda Sahu) Acute bacterial sinusitis Acute on chronic diastolic heart failure Anemia of chronic renal failure Arthritis Atherosclerosis of coronary artery bypass graft of [place] heart with angina pectoris Atherosclerosis of coronary artery of [place] heart without angina pectoris Bronchiectasis Cancer Chronic diastolic (congestive) heart failure Chronic kidney disease Chronic renal failure, stage 3b Congestive heart failure (CHF) COPD (chronic obstructive pulmonary disease) Coronary artery disease Diverticulitis Dyspnea on exertion Easy bruising Essential (primary) hypertension Excessive bleeding Facial hematoma Fall Head injury High cholesterol History of CHF (congestive heart failure) History of diverticulitis History of echocardiogram History of edema History of heart attack History of hiatal hernia History of irregular heartbeat History of non-ST elevation myocardial infarction (NSTEMI) (01/2015) History of renal disease History of stress test History of trigger finger Hx of melanoma of skin Hyperlipidemia Hypersomnolence Hypertension Hyperthyroidism Iron deficiency anemia due to chronic blood loss Kidney disease Kidney stones Loss of consciousness Melanoma Migraines Myocardial infarct Non-smoker Nonrheumatic aortic (valve) stenosis Osteoarthritis Parkinson's disease Pitting edema Prostate disease Secondary pulmonary arterial hypertension Shortness of breath on exertion Thickening of pleura Thyroid disease Wears dentures Wears glasses Wears partial dentures Home Medications nitroglycerin 0.4 mg sublingual tablet 0.4 mg sublingual Q5-15M PRN chest pain #25 tabs 08/03/19 [Rx Last Taken 11/03/22] cholecalciferol (vitamin D3) 25 mcg (1,000 unit) tablet (Vitamin D3) 25 mcg PO DAILY SUPPLEMENT 05/20/21 [History Last Taken 11/03/22] selenium 200 mcg tablet 200 mcg PO DAILY SUPPLEMENT 12/02/21 [History Last Taken 11/03/22] amiodarone 200 mg tablet 100 mg (1/2 x 200 mg) PO DAILY HEART #45 tabs 04/21/22 [Rx Last Taken 11/03/22] levothyroxine 50 mcg tablet 50 mcg PO DAILY THYROID 05/20/22 [History Last Taken 11/03/22] liothyronine 5 mcg tablet 5 mcg PO DAILY THYROID 05/20/22 [History Last Taken 11/03/22] acetaminophen 500 mg tablet 1,000 mg PO Q8 PRN Pain 05/22/22 [History Last Taken Unknown] aspirin 81 mg chewable tablet 81 mg PO QODAY HEART HEALTH 05/22/22 [History Last Taken 11/03/22] atorvastatin 40 mg tablet 40 mg PO QHS CHOLESTEROL #90 tabs 08/15/22 [Rx Last Taken 11/02/22] furosemide 40 mg tablet 40 mg PO MOWEFR edema 10/09/22 [History Last Taken 10/31/22] glycopyrrolate 1 mg tablet 0.5 - 1 mg PO Q8H SALIVATION REDUCTION 10/09/22 [History Last Taken 11/02/22] doxazosin 4 mg tablet 2 mg PO QHS BLOOD PRESSURE 10/29/22 [History Last Taken 11/02/22] ferrous sulfate 325 mg (65 mg iron) tablet (FeroSul) 325 mg PO DAILY 10/29/22 [History Last Taken 11/03/22] pramipexole 0.5 mg tablet 0.5 mg PO BID RESTLESS LEGS 10/29/22 [History Last Taken 11/02/22] Allergy/AdvReac Type Severity Reaction Status Date / Time levofloxacin Allergy Unknown PT UNSURE Verified 11/03/22 15:46 OF REACTION meloxicam Allergy Unknown PT UNSURE Verified 11/03/22 15:46 OF REACTION amlodipine AdvReac Intermediate severe leg Verified 11/03/22 15:46 edema isosorbide AdvReac headache Verified 11/03/22 15:46 Family History (Reviewed 10/29/22 @ 15:22 by Leonel Okeefe [employer]OWEL [employer] REPAIRER, [employer]OWEL [employer] REPAIRER-C) Father Heart disease Mother CVA (cerebral vascular accident) Surgical History H/O coronary artery bypass surgery (1989) H/O foot surgery H/O left knee surgery History of cardiac catheterization History of carpal tunnel release of both wrists History of coronary artery stent placement (2005) History of herniorrhaphy History of left cataract surgery History of left heart catheterization (08/10/19) History of right knee joint replacement (05/03/21) History of total left knee replacement (04/2020) Hx of hernia repair Hx of oral surgery Hx of transurethral resection of prostate Status post revision of total replacement of right knee Social History Smoking Status: Never smoker alcohol intake: never substance use type: does not use caffeine: Yes ROS Constitutional Constitutional: Denies chills, fatigue, fever(s) or malaise Eyes Eyes: Denies blurry vision ENT HEENT: Denies headache(s) or nasal discharge Cardiovascular Cardiovascular: Reports chest pain; Denies dyspnea on exertion or syncope Respiratory/Chest Respiratory/Chest: Denies cough, shortness of breath at rest or shortness of breath with exertion Gastrointestinal Gastrointestinal: Denies constipation, diarrhea, nausea or vomiting Genitourinary Genitourinary: Denies dysuria Neurologic Neurologic: Denies focal weakness, numbness or tremor(s) Psychiatric Psychiatric: Denies anxiety or depression Vital Signs Vital Signs Vital Signs: 11/03/22 11:11 11/03/22 11:16 11/03/22 12:09 Temperature 97.7 F L Temperature Source Oral Pulse Rate 76 Respiratory Rate 7 L Respiratory Effort Normal Non-Labored Blood Pressure 147/85 H Blood Pressure Mean 105 Blood Pressure Source Blood Pressure Position Blood Pressure Location Pulse Ox 97 97 Oxygen Delivery Method Room Air Room Air 11/03/22 12:14 11/03/22 13:04 11/03/22 14:05 Temperature Temperature Source Pulse Rate 66 56 L 55 L Respiratory Rate 14 15 Respiratory Effort Blood Pressure 119/59 L 152/80 H 132/97 H Blood Pressure Mean 104 108 Blood Pressure Source Blood Pressure Position Blood Pressure Location Pulse Ox 99 99 Oxygen Delivery Method Room Air Room Air 11/03/22 15:11 11/03/22 15:39 11/03/22 16:09 Temperature 97.9 F Temperature Source Oral Pulse Rate 66 65 65 Respiratory Rate 16 21 H 16 Respiratory Effort Blood Pressure 132/86 H 153/89 H 157/79 H Blood Pressure Mean 101 110 105 Blood Pressure Source Blood Pressure Position Blood Pressure Location Pulse Ox 94 97 99 Oxygen Delivery Method Room Air Room Air Room Air 11/03/22 16:50 11/03/22 17:34 11/03/22 17:04 Temperature 98.1 F Temperature Source Oral Pulse Rate 67 70 70 Respiratory Rate 16 Respiratory Effort Blood Pressure 152/69 H Blood Pressure Mean 96 Blood Pressure Source Monitor Blood Pressure Position Semi-Fowlers Blood Pressure Location Right Arm Pulse Ox 98 Oxygen Delivery Method Room Air Weight Weight: 177 lb 14.4 oz Body Mass Index (BMI) 25.5 Physical Exam Narrative General: Alert, Oriented x3, Cooperative, No apparent distress HEENT: Atraumatic, PERRLA, EOMI, Normocephalic Oral: Moist Mucosa Neck: Supple, No JVD Lungs: Clear to auscultation, Normal air movement, No rhonchi, No wheeze, No rales Cardiovascular: Regular rate, Regular Rhythm, Normal S1, Normal S2, murmurs Abdomen: Soft, Non Tender, Non-Distended, No Hepato-splenomegaly Extremities: No edema, Capillary Refill Less than 3 Seconds Skin: No rashes, No breakdown Musculoskeletal: No Tenderness to Palpation of Joints or Extremities Neurological: Cranial nerves II-XII grossly intact, Motor Exam 5/5 strength throughout, Sensory exam intact to light touch and pain Psych/Mental Status: Normal Affect, Appropriate Results Lab / Micro Data 11/04/22 05:54 11/04/22 05:54 Labs: Laboratory Results - last 24 hr 11/03/22 12:00: WBC 5.2, RBC 3.04 L, Hgb 9.4 L, Hct 31.1 L, MCV 102.3 H, MCH 30.9, MCHC 30.2 L, RDW Std Deviation 56.6 H, RDW Coeff of Chas 14.9 H, Plt Count 108 L, MPV 10.1, Immature Gran % (Auto) 0.400, Neut % (Auto) 68.8, Lymph % (Auto) 20.8, [place] % (Auto) 7.7, Eos % (Auto) 2.1, Baso % (Auto) 0.2, Absolute Neuts (auto) 3.6, Absolute Lymphs (auto) 1.08, Nucleated RBC % 0, Sodium 138, Potassium 4.6, Chloride 110 H, Carbon Dioxide 25.0, Anion Gap 3 L, BUN 44 H, Creatinine 2.04 H, Estim Creat Clear Calc 25.84, Est GFR (MDRD) Af Amer 40 L, Est GFR (MDRD) Non-Af 33 L, BUN/Creatinine Ratio 21.6 H, Glucose 97, Calcium 9.3, Troponin I High Sens 39 11/03/22 14:05: Troponin I High Sens 42 11/03/22 18:16: Troponin I High Sens 47 Rhythm Strip Rhythm Strip: A-fib Rate: 75 Ectopy: None Radiology Impression Chest X-Ray 11/03/22 12:20 IMPRESSION: Hyperinflation. No acute abnormality is seen. Electronically Signed: Antonio Martin MD at 12:42 EDT , Assessment & Plan Assessment/Plan (1) Chest pain: PLAN: Plan 1. Chest pain/CAD status post CABG and stent/HTN/HLD/aortic stenosis ? Will do a stress test, I discussed with him that on 04 November that we will be able to do it and if you have to wait until Thursday which he agreed to ? Continue with his home blood pressure medications ? We will obtain a carotid duplex as he has been having issues with history of dizziness 2. Iron deficiency anemia ? Stable ? Continue with home medications 3. BPH ? Stable ? Continue with doxazosin 4. Hypothyroidism ? Stable ? Continue with Synthroid DVT: Ambulation 75 minutes was spent on direct patient care as well as chart review and collaboration with colleagues Charges/Coding Visit Charges Inpatient E&M: 74233 Init Hosp L3
[2022-11-03] MEDS: Atorvastatin Calcium 40 MG Tablet PO (22:20)
[2022-11-03] MEDS: Glycopyrrolate 1 MG TABLET PO (22:20)
[2022-11-03] MEDS: Doxazosin 1 MG Tablet 2 MG PO (22:20)
[2022-11-03] MEDS: Pramipexole Di-HCl 0.5 MG Tablet PO (22:20)
--- NOTE | 2022-11-04 00:38 | NURSING ---
Nitroglycerin patch was removed at Midnight.
[2022-11-04 05:00] VITALS: BP 153/76; PULSE 65; RESP 18; TEMP 36.7; O2SAT 98
[2022-11-04] MEDS: Glycopyrrolate 1 MG TABLET PO ×3 (05:19→21:52)
[2022-11-04 06:19] LABS: Absolute Lymphocyte Count 0.74 X10^3/uL (0.83-4.51); Absolute Neutrophil Count 2.8 X10^3/uL (2.0-7.7); Basophil# 0.01 X10^3/uL; Basophil% 0.3 % (0-1); Eosinophil# 0.08 X10^3/uL; Eosinophils% 2.1 % (0-5); Hematocrit 28.1 % (40-54); Hemoglobin 8.9 g/dL (13.0-16.5); Lymphocyte # 0.74 X10^3/ul (0.83-4.51); Lymphocyte % 19.4 % (19-41); Mean Corp Hgb Conc 31.7 g/dL (32-36); Mean Corpuscular Hgb 31.6 pg (27.0-32.0); Mean Corpuscular Volume 99.6 fL (80-94); Mean Platelet Vol. 9.7 fl (6.2-12.0); Monocyte# 0.24 X10^3/uL; Monocyte% 6.3 % (0-10); NRBC Flagged by Analyzer 0 % (0-5); Neutrophil # 2.75 X10^3/uL (2.7-7.7); Neutrophil % 71.9 % (47-70); POSITIVE COUNT YES; Platelet Count 97 K/mm3 (150-450); RBC Distribution Width CV 14.8 % (11.6-14.6); RBC Distribution Width SD 54.2 fl (35.1-43.9); Red Blood Count 2.82 M/mm3 (4.6-6.2); White Blood Count 3.8 K/mm3 (4.4-11.0)
[2022-11-04 06:41] LABS: Anion Gap 2 (5-15); BUN 42 mg/dL (7-18); Chloride 112 mmol/L (98-107); Creatinine, Serum 1.91 mg/dL (0.70-1.30); EST Glomerular Filtration Rate 36 mL/min (>60); Est Glom Filt Rate - Afr Amer 43 mL/min (>60); Glucose 97 mg/dL (74-106); Sodium Level 139 mmol/L (136-145)
[2022-11-04 07:08] LABS: Differential Indicated SCAN CRITERIA MET
[2022-11-04 09:09] LABS: Differential Comment SCANNED
[2022-11-04] MEDS: Amiodarone 200 MG Tablet 100 MG PO (09:27)
[2022-11-04] MEDS: Levothyroxine 50 MCG Tablet PO (09:27)
[2022-11-04] MEDS: Liothyronine 5 MCG Tablet PO (09:28)
[2022-11-04] MEDS: Cholecalciferol (VIT D3) 25 MCG TABLET (1,000 UNITS) PO (09:28)
[2022-11-04] MEDS: Pramipexole Di-HCl 0.5 MG Tablet PO ×2 (09:28→21:51)
[2022-11-04] MEDS: Ferrous Sulfate 325 MG Tablet PO (09:29)
--- NOTE | 2022-11-04 10:50 | PN.HOSP_ITS ---
Subjective Subjective Doing well, no issues overnight. No chest pain Objective Data Objective Data Vital Signs: Vital Signs Temp Pulse Resp BP Pulse Ox O2 Del Method 98.1 F 65 18 153/76 H 98 Room Air 11/04/22 05:00 11/04/22 05:00 11/04/22 05:00 11/04/22 05:00 11/04/22 05:00 11/04/22 09:20 Oxygen Delivery Method Room Air Weight: 177 lb 14.4 oz Body Mass Index (BMI) 25.5 Intake & Output: Intake and Output for Last 24 Hours 11/03/22 11/04/22 11/05/22 03:59 03:59 03:59 Intake Total 50 / 50 Balance 50 / 50 Lab / Micro Data 11/04/22 05:54 11/04/22 05:54 Labs: Laboratory Results - last 24 hr 11/03/22 12:00: WBC 5.2, RBC 3.04 L, Hgb 9.4 L, Hct 31.1 L, MCV 102.3 H, MCH 3 0.9, MCHC 30.2 L, RDW Std Deviation 56.6 H, RDW Coeff of Chas 14.9 H, Plt Count 108 L, MPV 10.1, Immature Gran % (Auto) 0.400, Neut % (Auto) 68.8, Lymph % (Auto) 20.8, [place] % (Auto) 7.7, Eos % (Auto) 2.1, Baso % (Auto) 0.2, Absolute Neuts (auto) 3.6, Absolute Lymphs (auto) 1.08, Nucleated RBC % 0, Sodium 138, Potassium 4.6, Chloride 110 H, Carbon Dioxide 25.0, Anion Gap 3 L, BUN 44 H, Creatinine 2.04 H, Estim Creat Clear Calc 25.84, Est GFR (MDRD) Af Amer 40 L, Est GFR (MDRD) Non-Af 33 L, BUN/Creatinine Ratio 21.6 H, Glucose 97, Calcium 9.3, Troponin I High Sens 39 11/03/22 14:05: Troponin I High Sens 42 11/03/22 18:16: Troponin I High Sens 47 11/04/22 05:54: WBC 3.8 L, RBC 2.82 L, Hgb 8.9 L, Hct 28.1 L, MCV 99.6 H, MCH 31.6, MCHC 31.7 L, RDW Std Deviation 54.2 H, RDW Coeff of Chas 14.8 H, Plt Count 97 L, MPV 9.7, Immature Gran % (Auto) 0.000, Neut % (Auto) 71.9 H, Lymph % (Auto) 19.4, [place] % (Auto) 6.3, Eos % (Auto) 2.1, Baso % (Auto) 0.3, Absolute Neuts (auto) 2.8, Absolute Lymphs (auto) 0.74 L, Nucleated RBC % 0, Differential Comment SCANNED, Sodium 139, Potassium 5.0, Chloride 112 H, Carbon Dioxide 25.0, Anion Gap 2 L, BUN 42 H, Creatinine 1.91 H, Estim Creat Clear Calc 27.60, Est GFR (MDRD) Af Amer 43 L, Est GFR (MDRD) Non-Af 36 L, BUN/Creatinine Ratio 22.0 H , Glucose 97, Calcium 9.0 Radiography Diagnostic Testing: Radiology Impression Chest X-Ray 11/03/22 12:20 IMPRESSION: Hyperinflation. No acute abnormality is seen. Electronically Signed: Antonio Martin MD at 12:42 EDT , Rhythm Strip Rhythm Strip: A-fib Rate: 75 Ectopy: None Physical Exam Narrative General: Alert, Oriented x3, Cooperative, No apparent distress HEENT: Atraumatic, PERRLA, EOMI, Normocephalic Oral: Moist Mucosa Neck: Supple, No JVD Lungs: Clear to auscultation, Normal air movement, No rhonchi, No wheeze, No rales Cardiovascular: Regular rate, Regular Rhythm, Normal S1, Normal S2, murmurs Abdomen: Soft, Non Tender, Non-Distended, No Hepato-splenomegaly Extremities: No edema, Capillary Refill Less than 3 Seconds Skin: No rashes, No breakdown Musculoskeletal: No Tenderness to Palpation of Joints or Extremities Neurological: Cranial nerves II-XII grossly intact, Motor Exam 5/5 strength throughout, Sensory exam intact to light touch and pain Psych/Mental Status: Normal Affect, Appropriate Assessment & Plan Assessment/Plan (1) Chest pain: PLAN: Plan 1. Chest pain/CAD status post CABG and stent/HTN/HLD/aortic stenosis ? Will do a stress test, I discussed with him that on 04 November that we will be able to do it and if you have to wait until Thursday which he agreed to ? Continue with his home blood pressure medications ? We will obtain a carotid duplex as he has been having issues with history of dizziness 2. Iron deficiency anemia ? Stable ? Continue with home medications 3. BPH ? Stable ? Continue with doxazosin 4. Hypothyroidism ? Stable ? Continue with Synthroid DVT: Ambulation 75 minutes was spent on direct patient care as well as chart review and collaboration with colleagues Charges/Coding Visit Charges Inpatient E&M: 67230 Subs Hosp L2
--- NOTE | 2022-11-04 10:51 | CDU_ITS ---
Reason For Study: Dizziness Rt. Velocities/BP Lt. Velocities/BP Prox CCA 69.2/8.8 cm/sec. Prox CCA 75.9/9.7 cm/sec. Mid CCA 67.4/9.7 cm/sec. Mid CCA 38.1/7.8 cm/sec. Dist CCA 71.1/9.7 cm/sec. Dist CCA 51.3/7.8 cm/sec. Prox ICA 70.2/11.6 cm/sec. Prox ICA 58.9/14.5 cm/sec. Mid ICA 55/13.1 cm/sec. Mid ICA 65.5/14.5 cm/sec. Dist ICA 60.5/15.1 cm/sec. Dist ICA 59.8/17.3 cm/sec. Rt. ICA/CCA = 1.01. Lt. ICA/CCA = 1.28. Prox ECA 64.5/8.8 cm/sec. Prox ECA 52.2/7.8 cm/sec. Rt. Vert. 39/7.8 cm/sec. Lt. Vert. 38.1/12.6 cm/sec. Right Extracranial There is homogeneous, smooth atherosclerotic plaque noted in the right common carotid artery. There is heterogeneous, irregular atherosclerotic plaque noted in the right internal carotid artery. The right internal carotid artery is very tortuous. There is heterogeneous, irregular atherosclerotic plaque noted in the right external carotid artery. Antegrade flow is noted in the right vertebral artery. Left Extracranial There is homogeneous, smooth atherosclerotic plaque noted in the left common carotid artery. There is heterogeneous, irregular atherosclerotic plaque noted in the left internal carotid artery. There is homogeneous, smooth atherosclerotic plaque noted in the left external carotid artery. Antegrade flow is noted in the left vertebral artery. Procedure Carotid Duplex 31998. This is a Carotid Duplex examination using B-mode, color flow and specral Doppler. Exam performed in department. VL/Carotid Duplex Ultrasound Interpretation Summary Mild (<50%) stenosis right extracranial internal carotid. Mild (<50%) stenosis left extracranial internal carotid. Patent and antegrade vertebrals bilaterally. Ordering Physician: Sulaiman Cruz Referring Physician: Rick Butler MD Performed By: Key Fair RVT
[2022-11-04 11:10] VITALS: BP 117/61; PULSE 62; RESP 16; TEMP 36.4; O2SAT 99
[2022-11-04 17:00] VITALS: BP 115/78; PULSE 61; RESP 18; TEMP 36.6; O2SAT 97
[2022-11-04 21:48] VITALS: BP 137/79; PULSE 60; RESP 18; TEMP 36.7; O2SAT 99
[2022-11-04] MEDS: Doxazosin 1 MG Tablet 2 MG PO (21:51)
[2022-11-04] MEDS: Atorvastatin Calcium 40 MG Tablet PO (21:51)
[2022-11-05 04:19] VITALS: BP 137/72; PULSE 54; RESP 18; TEMP 36.7; O2SAT 95
[2022-11-05 05:53] LABS: Absolute Lymphocyte Count 0.94 X10^3/uL (0.83-4.51); Absolute Neutrophil Count 4.2 X10^3/uL (2.0-7.7); Basophil# 0.02 X10^3/uL; Basophil% 0.4 % (0-1); Eosinophil# 0.15 X10^3/uL; Eosinophils% 2.7 % (0-5); Hematocrit 30.8 % (40-54); Hemoglobin 9.4 g/dL (13.0-16.5); Lymphocyte # 0.94 X10^3/ul (0.83-4.51); Lymphocyte % 16.6 % (19-41); Mean Corp Hgb Conc 30.5 g/dL (32-36); Mean Corpuscular Hgb 31.4 pg (27.0-32.0); Mean Platelet Vol. 9.6 fl (6.2-12.0); Monocyte# 0.34 X10^3/uL; NRBC Flagged by Analyzer 0 % (0-5); Neutrophil # 4.19 X10^3/uL (2.7-7.7); Neutrophil % 73.9 % (47-70); POSITIVE COUNT YES; Platelet Count 97 K/mm3 (150-450); RBC Distribution Width CV 14.5 % (11.6-14.6); RBC Distribution Width SD 54.6 fl (35.1-43.9); Red Blood Count 2.99 M/mm3 (4.6-6.2); White Blood Count 5.7 K/mm3 (4.4-11.0)
--- NOTE | 2022-11-05 05:55 | EKG12_ITS ---
Test Reason : PRE-OP Blood Pressure : / mmHG Vent. Rate : 053 BPM Atrial Rate : 057 BPM P-R Int : 000 ms QRS Dur : 090 ms QT Int : 464 ms P-R-T Axes : 000 046 009 degrees QTc Int : 435 ms Atrial fibrillation Low voltage QRS Abnormal ECG When compared with ECG of 03-NOV-2022 11:17, MANUAL COMPARISON REQUIRED, DATA IS UNCONFIRMED Confirmed by KEELY MITCHELL, TRIXIE ([id number]), senior editor PAUL CHRISTIE ([id number]) on 11/11/2022 12:29:12 PM Referred By: JENNIFFER Confirmed By:TRIXIE RIGGS MD
[2022-11-05 06:29] VITALS: BP 146/75; PULSE 53; RESP 18; TEMP 36.7; O2SAT 98
[2022-11-05] MEDS: Aspirin 81 MG TAB.CHEW PO (06:32)
[2022-11-05] MEDS: Glycopyrrolate 1 MG TABLET PO ×2 (06:32→13:50)
[2022-11-05] MEDS: Amiodarone 200 MG Tablet 100 MG PO (06:32)
[2022-11-05] MEDS: Levothyroxine 50 MCG Tablet PO (06:33)
[2022-11-05 06:43] LABS: Anion Gap 4 (5-15); BUN 43 mg/dL (7-18); BUN/Creat Ratio 21.2 RATIO (10-20); Calcium,Total 9.2 mg/dL (8.5-10.1); Chloride 110 mmol/L (98-107); Creatinine, Serum 2.03 mg/dL (0.70-1.30); EST Glomerular Filtration Rate 33 mL/min (>60); Est Glom Filt Rate - Afr Amer 40 mL/min (>60); Estimated Creatinine Clearance 25.97 ml/min; Glucose 99 mg/dL (74-106); Potassium 4.8 mmol/L (3.5-5.1); Sodium Level 139 mmol/L (136-145)
[2022-11-05] MEDS: Furosemide 40 MG Tablet PO (11:24)
[2022-11-05] MEDS: Pramipexole Di-HCl 0.5 MG Tablet PO (11:24)
[2022-11-05] MEDS: Cholecalciferol (VIT D3) 25 MCG TABLET (1,000 UNITS) PO (11:24)
[2022-11-05] MEDS: Liothyronine 5 MCG Tablet PO (11:24)
[2022-11-05] MEDS: Ferrous Sulfate 325 MG Tablet PO (11:25)
[2022-11-05 11:28] VITALS: BP 141/65; PULSE 62; RESP 18; TEMP 36.4; O2SAT 95
--- NOTE | 2022-11-05 15:35 | DCINST_ITS ---
Discharge Instructions Diet Discharge Diet: Low fat / Low cholesterol Activity Discharge Activity: Return to Normal Activity Dressing / Incision Call your doctor if you observe: Fever of 101 or Higher, Shortness of breath, Dizziness, Fainting spells, Swelling in the ankles, Chest pain and Increased palpitations (irregular heartbeat) Follow Up Care Test Results: Test results from this visit will be discussed in further detail at your follow- up appointment, if applicable. Discharge Plan Admission Admit Date/Time: 11/03/22 17:26 Attending Provider: Sulaiman Cruz Primary Care Provider: Rick Butler Discharge Orders/Prescriptions Prescriptions: Continued acetaminophen 500 mg tablet 1,000 mg PO Q8 PRN (Reason: Pain) aspirin 81 mg tablet,chewable 81 mg PO QODAY Hold Instructions: NOSEBLEEDS selenium 200 mcg tablet 200 mcg PO DAILY pramipexole 0.5 mg tablet 0.5 mg PO BID liothyronine 5 mcg tablet 5 mcg PO DAILY ferrous sulfate [FeroSul] 325 mg (65 mg iron) tablet 325 mg PO DAILY cholecalciferol (vitamin D3) [Vitamin D3] 25 mcg (1,000 unit) Tablet 25 mcg PO DAILY doxazosin 4 mg tablet 2 mg PO QHS glycopyrrolate 1 mg tablet 0.5 - 1 mg PO Q8H furosemide 40 mg tablet 40 mg PO MOWEFR nitroglycerin 0.4 mg tablet, sublingual 0.4 mg SUBLINGUAL Q5-15M PRN (Reason: chest pain) Qty: 25 11RF Rx Instructions: Take one table under the tongue every 5-15 minutes if needed. Do not exceed 3 doses. amiodarone 200 mg tablet 100 mg PO DAILY Qty: 45 3RF levothyroxine 50 mcg tablet 50 mcg PO DAILY atorvastatin 40 mg tablet 40 mg PO QHS Qty: 90 3RF Referrals / Follow Up: Rick Butler MD [Primary Care Provider] - Within 1 Week Disposition Disposition (needs filled in before D/C Order can be placed): Home, Self Care
--- NOTE | 2022-11-05 15:55 | CASEMGMT ---
RN NATALY NOTE: Intro role of CM to patient and family. HARDY form explained re: Observation status for treatment of chest pain.? Explained hospitalization will be paid per?his insurance policy for Outpatient billing?and condition will continue to be evaluated for Inpt necessity. Also let pt and family know that [facility] sends paper in the billing packet with their phone number if questions arise. Discussed Pharmacy section of HARDY form and self administered medication guideline.? Pt and family verbalize understanding and does not have further questions. ?Form signed, copy made and placed in chart, and original given to them. They deny having any concerns w/going home and deny having and discharge planning needs. Emilie SANCHEZ RN CM
[2022-11-05 16:13] VITALS: BP 140/76; PULSE 62; RESP 18; TEMP 36.8; O2SAT 96
--- NOTE | 2022-11-05 16:13 | CHAPLAIN ---
Type of Pastoral Visit _x__ Initial Visit ___ Follow-up Visit ___ On-call Visit ___ General Patient Visit ___ Spiritual Assessment ___ Family Conference ___ Bereavement ___ Rapid Response ___ Code Blue ___ Other (describe below) Pastoral Care Referral From _x__ Patient ___ Family ___ Nurse ___ Physician ___ Director Camp ___ Animal Husbandry Worker ___ Other (describe below) Sacrament/Intervention _x__ Active listening ___ Anointing ___ Bahai ___ Bereavement ___ Communion ___ Marycarmen exploration ___ _x__ Life review _x__ Prayer ___ Reconciliation ___ Sacrament of Sick _x__ Supportive presence ___ Wedding ___ Other (describe below) Pastoral Comments patient states feeling disgusted as he waits for test results and feeling the uncertainty of what is going to take place next, including not having the ability to eat until such decisions by doctors are made; pt speaks of having major changes in his health starting just in last few weeks and finding it difficult due to previous enjoyment of very active life; pt has had history of medical issues including his heart; pt needed to express his feelings and so time given to listen and support; pt is assured of good care and affirmation of future support; prayer is welcomed; pt is member of local protestant; pt spouse is available for support as well
--- NOTE | 2022-11-05 17:17 | STRESSREP ---
Stress Test Report Pharmacologic myocardial perfusion stress test. 87-year-old male with a history of coronary disease Resting EKG demonstrates atrial fibrillation with a rate of 74 bpm. Resting blood pressure is 148/96 mmHg. 0.4 mg of regadenoson was infused per usual protocol followed by rapid intravenous saline flush injection. Continuous EKG monitoring was performed. The maximum heart rate was 84 bpm which was 63% of max impacted heart rate the maximum workload was 1 metabolic equivalent. At rest there were no ST or T wave changes noted to suggest ischemia and at peak infusion nonspecific ST changes were noted which did not meet the criteria for ischemia. No clinical angina is noted. The final blood pressure was 138/78 mmHg. Myocardial perfusion protocol. 12.0 mCi of technetium 99m sestamibi was injected at rest. 0.4 mg of regadenoson was infused per usual protocol. At peak infusion 34.1 mCi of technetium 99m sestamibi was injected stress images were obtained stress and rest images were reconstructed and compared in the short axis vertical long and horizontal long axis. Gated images were also obtained. Perfusion SPECT analysis: Review of the stress images demonstrate normal uptake of tracer noted in all areas of the myocardium. The resting images similar demonstrated normal uptake of tracer noted in all areas of the myocardium. No areas of reversibility are noted to suggest ischemia and no previous infarct is noted. Gated SPECT analysis: The gated ejection fraction is 66%. Conclusion: Normal pharmacologic myocardial perfusion stress test. Preserved ejection fraction.
--- NOTE | 2022-11-05 18:08 | PCM.DC.SUM ---
Providers Date of Admission: 11/03/22 Primary Care Physician: Dr. Rick Butler MD Reason For Visit: CHEST PAIN Diagnosis Discharge Diagnosis (1) Chest pain: Status: Acute Code(s): R07.9 - Chest pain, unspecified Medications at Discharge Home Medications nitroglycerin 0.4 mg sublingual tablet 0.4 mg sublingual Q5-15M PRN chest pain #25 tabs 08/03/19 cholecalciferol (vitamin D3) 25 mcg (1,000 unit) tablet (Vitamin D3) 25 mcg PO DAILY SUPPLEMENT 05/20/21 selenium 200 mcg tablet 200 mcg PO DAILY SUPPLEMENT 12/02/21 amiodarone 200 mg tablet 100 mg (1/2 x 200 mg) PO DAILY HEART #45 tabs 04/21/22 levothyroxine 50 mcg tablet 50 mcg PO DAILY THYROID 05/20/22 liothyronine 5 mcg tablet 5 mcg PO DAILY THYROID 05/20/22 acetaminophen 500 mg tablet 1,000 mg PO Q8 PRN Pain 05/22/22 aspirin 81 mg chewable tablet 81 mg PO QODAY HEART HEALTH 05/22/22 atorvastatin 40 mg tablet 40 mg PO QHS CHOLESTEROL #90 tabs 08/15/22 furosemide 40 mg tablet 40 mg PO MOWEFR edema 10/09/22 glycopyrrolate 1 mg tablet 0.5 - 1 mg PO Q8H SALIVATION REDUCTION 10/09/22 doxazosin 4 mg tablet 2 mg PO QHS BLOOD PRESSURE 10/29/22 ferrous sulfate 325 mg (65 mg iron) tablet (FeroSul) 325 mg PO DAILY anemia 10/29/22 pramipexole 0.5 mg tablet 0.5 mg PO BID RESTLESS LEGS 10/29/22 Hospital Course Operations None Procedures Stress test Summary of Care Provided Minutes Spent on Discharge: 35 Hospital Course: Per HPI: BEVERLY GUSMAN, is a 87 M who presents the hospital with chest pain. He said that it started on the day of admission he took 3 nitros and lasted for about 15 minutes and then resolved. He denies any chest pain currently. He said he had a similar episode a few weeks ago that also resolved on its own. He does have a previous history of CABG as well as stents for coronary artery disease. EKG on admission is nonischemic and troponins are normal. He denies any association with activity and states that both times he had the chest pain he was not doing any type of strenuous activity. Hospital Course: 1. Chest pain/CAD status post CABG and stent/HTN/HLD/aortic stenosis ? Stress test today was unremarkable and carotid ultrasounds were normal o ? Continue with his home blood pressure medications ? Carito with him and his the plan for discharge today he expressed understanding of the risk benefits of going home and would like to go home today. No changes to his medications I do recommend that he follow-up with his PCP and cardiology as an outpatient. 2. Iron deficiency anemia ? Stable ? Continue with home medications 3. BPH ? Stable ? Continue with doxazosin 4. Hypothyroidism ? Stable ? Continue with Synthroid Physical Exam Narrative General: Alert, Oriented x3, Cooperative, No apparent distress HEENT: Atraumatic, PERRLA, EOMI, Normocephalic Oral: Moist Mucosa Neck: Supple, No JVD Lungs: Clear to auscultation, Normal air movement, No rhonchi, No wheeze, No rales Cardiovascular: Regular rate, Regular Rhythm, Normal S1, Normal S2, murmurs Abdomen: Soft, Non Tender, Non-Distended, No Hepato-splenomegaly Extremities: No edema, Capillary Refill Less than 3 Seconds Skin: No rashes, No breakdown Musculoskeletal: No Tenderness to Palpation of Joints or Extremities Neurological: Cranial nerves II-XII grossly intact, Motor Exam 5/5 strength throughout, Sensory exam intact to light touch and pain Psych/Mental Status: Normal Affect, Appropriate Weight / BMI Weight Weight: 177 lb 14.4 oz Body Mass Index (BMI) 25.5 ABG / Lab / Microbiology Data 11/05/22 05:36 11/05/22 05:36 Laboratory: Laboratory Results - last 24 hr 11/05/22 05:36: WBC 5.7, RBC 2.99 L, Hgb 9.4 L, Hct 30.8 L, MCV 103.0 H, MCH 31.4, MCHC 30.5 L, RDW Std Deviation 54.6 H, RDW Coeff of Chas 14.5, Plt Count 97 L, MPV 9.6, Immature Gran % (Auto) 0.400, Neut % (Auto) 73.9 H, Lymph % (Auto) 16.6 L, [place] % (Auto) 6.0, Eos % (Auto) 2.7, Baso % (Auto) 0.4, Absolute Neuts (auto) 4.2, Absolute Lymphs (auto) 0.94, Nucleated RBC % 0, Sodium 139, Potassium 4.8, Chloride 110 H, Carbon Dioxide 25.0, Anion Gap 4 L, BUN 43 H, Creatinine 2.03 H, Estim Creat Clear Calc 25.97, Est GFR (MDRD) Af Amer 40 L, Est GFR (MDRD) Non-Af 33 L, BUN/Creatinine Ratio 21.2 H, Glucose 99, Calcium 9.2 Radiography Diagnostic Testing: Radiology Impression Carotid Duplex 11/04/22 10:51 Interpretation Summary Mild (<50%) stenosis right extracranial internal carotid. Mild (<50%) stenosis left extracranial internal carotid. Patent and antegrade vertebrals bilaterally. Ordering Physician: Sulaiman Cruz Referring Physician: Rick Butler MD Performed By: Key Fair RVT D/C Instructions Discharge Diet: Low fat / Low cholesterol Call your doctor if you observe: Fever of 101 or Higher, Shortness of breath, Dizziness, Fainting spells, Swelling in the ankles, Chest pain and Increased palpitations (irregular heartbeat) Meaningful Use Info Meaningful Use Diagnoses (Choose all that apply): None applicable Discharge Plan Admission Admit Date/Time: 11/03/22 17:26 Attending Provider: Sulaiman Cruz Primary Care Provider: Rick Butler Discharge Orders/Prescriptions Prescriptions: Continued acetaminophen 500 mg tablet 1,000 mg PO Q8 PRN (Reason: Pain) aspirin 81 mg tablet,chewable 81 mg PO QODAY Hold Instructions: NOSEBLEEDS selenium 200 mcg tablet 200 mcg PO DAILY pramipexole 0.5 mg tablet 0.5 mg PO BID liothyronine 5 mcg tablet 5 mcg PO DAILY ferrous sulfate [FeroSul] 325 mg (65 mg iron) tablet 325 mg PO DAILY cholecalciferol (vitamin D3) [Vitamin D3] 25 mcg (1,000 unit) Tablet 25 mcg PO DAILY doxazosin 4 mg tablet 2 mg PO QHS glycopyrrolate 1 mg tablet 0.5 - 1 mg PO Q8H furosemide 40 mg tablet 40 mg PO MOWEFR nitroglycerin 0.4 mg tablet, sublingual 0.4 mg SUBLINGUAL Q5-15M PRN (Reason: chest pain) Qty: 25 11RF Rx Instructions: Take one table under the tongue every 5-15 minutes if needed. Do not exceed 3 doses. amiodarone 200 mg tablet 100 mg PO DAILY Qty: 45 3RF levothyroxine 50 mcg tablet 50 mcg PO DAILY atorvastatin 40 mg tablet 40 mg PO QHS Qty: 90 3RF Referrals / Follow Up: Rick Butler MD [Primary Care Provider] - Within 1 Week Disposition Disposition (needs filled in before D/C Order can be placed): Home, Self Care Charges/Coding Visit Charges Inpatient E&M: 73517 Disch Hosp >30min
== END 2022-11-05 15:38 | disposition home or self-care (01) ==
LOC: ED 12:28 → PCU 17:48
PROVIDERS: Admitting Provider Family Medicine; Emergency Provider Emergency Medicine; PCP Family Medicine; Visit Provider Family Medicine
DX: R07.89 Other chest pain (principal); G20 Parkinson's disease; J44.9 Chronic obstructive pulmonary disease, unspecified; I13.0 Hypertensive heart and chronic kidney disease with heart failure and stage 1 through stage 4 chronic kidney disease, or unspecified chronic kidney disease; I50.32 Chronic diastolic (congestive) heart failure; I27.21 Secondary pulmonary arterial hypertension; I48.91 Unspecified atrial fibrillation; N18.32 Chronic kidney disease, stage 3b; Z95.1 Presence of aortocoronary bypass graft; E78.00 Pure hypercholesterolemia, unspecified; E03.9 Hypothyroidism, unspecified; D63.1 Anemia in chronic kidney disease; I25.10 Atherosclerotic heart disease of native coronary artery without angina pectoris; N40.0 Benign prostatic hyperplasia without lower urinary tract symptoms; I25.2 Old myocardial infarction; Z79.899 Other long term (current) drug therapy; Z79.82 Long term (current) use of aspirin; Z79.890 Hormone replacement therapy; D50.9 Iron deficiency anemia, unspecified; R94.31 Abnormal electrocardiogram [ECG] [EKG]; I65.23 Occlusion and stenosis of bilateral carotid arteries
CPT/HCPCS: 36415; 71045; 78452; 80048; 84484; 85025; 93005; 93017; 93880; 99221; 99285; A9500; A4216; G0378; J2785

== ENCOUNTER 2023-04-03 16:06 | Emergency (ER) | payer MEDICARE, OTHER, SELFPAY ==
[2023-04-03 16:08] VITALS: BP 140/80; PULSE 84; RESP 22; TEMP 37.3; O2SAT 98; BMI 24.5
[2023-04-03 16:20] VITALS: BP 158/87; PULSE 77; PULSE 79; RESP 16; RESP 18; TEMP 38; O2SAT 96
[2023-04-03 16:25] VITALS: O2SAT 95
--- NOTE | 2023-04-03 16:31 | EKG12_ITS ---
Test Reason : Blood Pressure : / mmHG Vent. Rate : 069 BPM Atrial Rate : 000 BPM P-R Int : 000 ms QRS Dur : 094 ms QT Int : 380 ms P-R-T Axes : 000 030 -10 degrees QTc Int : 407 ms Atrial fibrillation Low voltage QRS Abnormal ECG Confirmed by TRIXIE RIGGS MD ([id number]), editorial clerk RISHI WALDRON ([id number]) on 04/06/2023 10:44:26 AM Referred By: Confirmed By:TRIXIE RIGGS MD
--- NOTE | 2023-04-03 16:32 | EX.ED.DYSGE1 ---
HPI History of Present Illness Chief Complaint: Shortness of Breath Informant: patient Onset/Context/Timing Onset: Days Context: Gradual Onset Narrative Narrative: Patient presents secondary to shortness of breath and cough. He developed URI symptoms on Thursday, March 29. He tested positive for COVID on Thursday the . He called his PCP the following day and patient was called in a prescription for Paxlovid. He started that medication this morning. He presents to the ER secondary to cough and having difficulty resting. He is bringing up pink-colored phlegm. He has had poor appetite but states she is making sure that he is eating. [facility] Medical History Acute bacterial sinusitis Acute on chronic diastolic heart failure Anemia Anemia of chronic renal failure Arthritis Atherosclerosis of coronary artery bypass graft of [place] heart with angina pectoris Atherosclerosis of coronary artery of [place] heart without angina pectoris Atrial fibrillation Bronchiectasis Cancer Chronic diastolic (congestive) heart failure Chronic kidney disease Chronic renal failure, stage 3b Congestive heart failure (CHF) COPD (chronic obstructive pulmonary disease) Coronary artery disease Diverticulitis Dyspnea on exertion Easy bruising Essential (primary) hypertension Excessive bleeding Facial hematoma Fall Head injury High cholesterol History of CHF (congestive heart failure) History of diverticulitis History of echocardiogram History of edema History of heart attack History of hiatal hernia History of irregular heartbeat History of non-ST elevation myocardial infarction (NSTEMI) (01/2015) History of renal disease History of stress test History of trigger finger Hx of melanoma of skin Hyperlipidemia Hypersomnolence Hypertension Hypothyroid Iron deficiency anemia due to chronic blood loss Kidney disease Kidney stones Loss of consciousness Melanoma Migraines Myocardial infarct Non-smoker Nonrheumatic aortic (valve) stenosis Osteoarthritis Parkinson's disease Pitting edema Prostate disease Secondary pulmonary arterial hypertension Shortness of breath on exertion Thickening of pleura Thyroid disease Wears dentures Wears glasses Wears partial dentures Home Medications nitroglycerin 0.4 mg sublingual tablet 0.4 mg sublingual Q5-15M PRN chest pain #25 tabs 08/03/19 [Rx Last Taken 11/03/22] cholecalciferol (vitamin D3) 25 mcg (1,000 unit) tablet (Vitamin D3) 25 mcg PO DAILY SUPPLEMENT 05/20/21 [History Last Taken 11/03/22] selenium 200 mcg tablet 200 mcg PO DAILY SUPPLEMENT 12/02/21 [History Last Taken 11/03/22] amiodarone 200 mg tablet 100 mg (1/2 x 200 mg) PO DAILY HEART #45 tabs 04/21/22 [Rx Last Taken 11/03/22] levothyroxine 50 mcg tablet 50 mcg PO DAILY THYROID 05/20/22 [History Last Taken 11/03/22] liothyronine 5 mcg tablet 5 mcg PO DAILY THYROID 05/20/22 [History Last Taken 11/03/22] acetaminophen 500 mg tablet 1,000 mg PO Q8 PRN Pain 05/22/22 [History Last Taken 04/03/23] aspirin 81 mg chewable tablet 81 mg PO QODAY HEART HEALTH 05/22/22 [History Last Taken 11/03/22] atorvastatin 40 mg tablet 40 mg PO QHS CHOLESTEROL #90 tabs 08/15/22 [Rx Last Taken 11/02/22] furosemide 40 mg tablet 40 mg PO MOWEFR edema 10/09/22 [History Last Taken 10/31/22] glycopyrrolate 1 mg tablet 0.5 - 1 mg PO Q8H SALIVATION REDUCTION 10/09/22 [History Last Taken 11/02/22] doxazosin 4 mg tablet 2 mg PO QHS BLOOD PRESSURE 10/29/22 [History Last Taken 11/02/22] ferrous sulfate 325 mg (65 mg iron) tablet (FeroSul) 325 mg PO DAILY anemia 10/29/22 [History Last Taken 11/03/22] pramipexole 0.5 mg tablet 0.5 mg PO BID RESTLESS LEGS 10/29/22 [History Last Taken 11/02/22] benzonatate 200 mg capsule 200 mg PO BID PRN cough #14 caps 04/03/23 [Rx Last Taken Unknown] guaifenesin 1,200 mg tablet, extended release 12 hr (Mucinex) 1,200 mg PO BID PRN congestion #14 tabs 04/03/23 [Rx Last Taken Unknown] Allergy/AdvReac Type Severity Reaction Status Date / Time levofloxacin Allergy Unknown PT UNSURE Verified 04/03/23 16:07 OF REACTION meloxicam Allergy Unknown PT UNSURE Verified 04/03/23 16:07 OF REACTION amlodipine AdvReac Intermediate severe leg Verified 04/03/23 16:07 edema isosorbide AdvReac headache Verified 04/03/23 16:07 Family History Father Heart disease Mother CVA (cerebral vascular accident) Surgical History H/O coronary artery bypass surgery (1989) H/O foot surgery H/O left knee surgery History of cardiac catheterization History of carpal tunnel release of both wrists History of coronary artery stent placement (2005) History of herniorrhaphy History of left cataract surgery History of left heart catheterization (08/10/19) History of right knee joint replacement (05/03/21) History of total left knee replacement (04/2020) Hx of hernia repair Hx of oral surgery Hx of transurethral resection of prostate Status post revision of total replacement of right knee Social History Smoking Status: Never smoker alcohol intake: never substance use type: does not use caffeine: Yes ROS ROS ED Constitutional Constitutional ED: Denies chills or fever(s) Eyes Eyes: Denies change in vision or discharge from eye(s) ENT ENT ED: Reports other Details: Congestion ; Denies discharge from eye(s), rhinorrhea or sore throat Cardiovascular Cardiovascular: Reports chest pain; Denies palpitations Respiratory/Chest Respiratory/Chest: Reports cough and dyspnea Gastrointestinal Gastrointestinal: Reports abdominal pain; Denies diarrhea, nausea or vomiting Genitourinary Genitourinary ED: Denies dysuria Musculoskeletal Musculoskeletal: Reports myalgias; Denies back pain or extremity pain Integumentary Denies Abrasions or rash Neurologic Neurologic: Reports weakness; Denies headache(s) Psychiatric Psychiatric: Denies anxiety or depression Allergic/Immunologic Allergic/Immunologic ED: Denies lip swelling or urticaria EXAM Physical Exam Const Vital Signs: 04/03/23 16:08 04/03/23 16:20 04/03/23 16:20 Temperature 99.2 F H 100.4 F H Temperature Source Temporal Temporal Pulse Rate 84 79 77 Respiratory Rate 22 H 16 18 Respiratory Effort Respiratory Depth Respiratory Pattern Blood Pressure 140/80 H 158/87 H 158/87 H Blood Pressure Mean 100 110 110 Pulse Ox 98 96 96 Oxygen Delivery Method Room Air Room Air Room Air 04/03/23 16:25 Temperature Temperature Source Pulse Rate Respiratory Rate Respiratory Effort Normal Short of Breath Respiratory Depth Normal Respiratory Pattern Normal Blood Pressure Blood Pressure Mean Pulse Ox Oxygen Delivery Method Room Air Positive well nourished and well developed General Appearance ED: well developed HEENT Reports normocephalic and head/scalp atraumatic Eyes PERRL and EOMs intact bilaterally Neck supple Chest Wall inspection of chest normal and palpation of chest normal Resp normal respiratory effort and clear to auscultation bilaterally Cardio Rhythm: abnormal rhythm irregularly irregular Heart Sounds: murmur GI normal to inspection, nondistended, normoactive bowel sounds Palpation: soft Extremity normal to inspection Neuro oriented x3 Neuro Narrative: No focal neurologic deficit. Sensorium / Orientation: alert Psych mental status grossly normal Skin no rashes or lesions noted MDM MDM MDM Narrative Medical decision making narrative: Patient placed on market specialist. Labwork obtained to evaluate for leukocytosis, anemia, and electrolyte derangement. EKG obtained to evaluate for cardiac arrhythmia/ischemia. Chest x-ray obtained to evaluate for acute lung pathology, cardiac size, or mediastinal abnormality. Patient be given Tylenol for borderline fever as well as Tessalon Perles to help his cough. History & Record Review Discussion w/independent historian: Patient and Family Lab Data Attestation: I reviewed the patient's lab results. Labs: Laboratory Results - last 24 hr 04/03/23 17:00 WBC 3.8 L RBC 3.21 L Hgb 9.6 L Hct 30.5 L MCV 95.0 H MCH 29.9 MCHC 31.5 L RDW Std Deviation 54.4 H RDW Coeff of Chas 15.7 H Plt Count 64 L MPV 10.0 Immature Gran % (Auto) 0.300 Neut % (Auto) 79.8 H Lymph % (Auto) 9.4 L [place] % (Auto) 10.2 H Eos % (Auto) 0.0 Baso % (Auto) 0.3 Absolute Neuts (auto) 3.1 Absolute Lymphs (auto) 0.36 L Nucleated RBC % 0 Differential Comment SEE COMMENTS Diff Path Review May foll Platelet Estimate MOD DEC RBC Morphology N CHROM Hypochromasia RARE Anisocytosis RARE Macrocytosis RARE Ovalocytes RARE Sodium 134 L Potassium 4.0 Chloride 108 H Carbon Dioxide 23.0 Anion Gap 3 L BUN 46 H Creatinine 2.08 H Estim Creat Clear Calc 25.35 Est GFR (MDRD) Af Amer 39 L Est GFR (MDRD) Non-Af 32 L BUN/Creatinine Ratio 22.1 H Glucose 110 H Calcium 8.5 Total Bilirubin 0.60 Direct Bilirubin 0.28 AST 28 ALT 29 Alkaline Phosphatase 137 H Total Protein 6.1 L Albumin 3.1 L Globulin 3.0 Radiography Chest X-Ray - ED: 1 View, Read by ED Physician, Chronic Changes and No Infiltrates Diagnostic Testing: Clinical Impression(s) from Imaging Studies Chest X-Ray 04/03/23 17:03 IMPRESSION: Cardiomegaly without radiographic evidence of acute cardiopulmonary disease. Electronically Signed: Bethel Jacobs MD at 17:26 EST , EKG Initial EKG: Attestation: I personally reviewed and interpreted this EKG as follows: Interpretation: Atrial Fibrillation (Atrial fibrillation at 69 bpm. No acute ischemia.) Treatment and Re-Evaluation :: CBC reveals white count low at 3.8 with a hemoglobin 9.6. Chemistry studies reveal a BUN of 46 and a creatinine 2.08. This is consistent with his baseline. Alk phos is slightly elevated at 137. LFTs are otherwise unremarkable. Portable chest x-ray per my interpretation was chronic changes with no evidence of infiltrate or CHF. Radiology interpretation is reviewed and agrees. EKG is A-fib with no evidence of ischemia. Patient does still report cough. He is taking Robitussin at home and we will add Jeannette Alicea to this. I will also write him for Mucinex as he states he is having trouble getting the thick mucus up and out when he coughs. They do have a pulse ox meter at home and will closely watch his oxygen levels. Return instructions were provided. Discharge Plan Triage Chief Complaint: Shortness of Breath ED Provider: Meghan Hoffman Dx/Rx/DC Orders Clinical Impression: COVID-19 Instructions: Caring for Someone Who Has COVID-19, Coronavirus Disease 2019 (COVID-19): Overview Prescriptions: New benzonatate 200 mg capsule 200 mg PO BID PRN (Reason: cough) Qty: 14 0RF guaifenesin [Mucinex] 1,200 mg tablet extended release 12hr 1,200 mg PO BID PRN (Reason: congestion) Qty: 14 0RF No Action acetaminophen 500 mg tablet 1,000 mg PO Q8 PRN (Reason: Pain) Patient Comments: taken at 1500 today aspirin 81 mg tablet,chewable 81 mg PO QODAY Hold Instructions: NOSEBLEEDS selenium 200 mcg tablet 200 mcg PO DAILY pramipexole 0.5 mg tablet 0.5 mg PO BID liothyronine 5 mcg tablet 5 mcg PO DAILY ferrous sulfate [FeroSul] 325 mg (65 mg iron) tablet 325 mg PO DAILY cholecalciferol (vitamin D3) [Vitamin D3] 25 mcg (1,000 unit) Tablet 25 mcg PO DAILY doxazosin 4 mg tablet 2 mg PO QHS glycopyrrolate 1 mg tablet 0.5 - 1 mg PO Q8H furosemide 40 mg tablet 40 mg PO MOWEFR nitroglycerin 0.4 mg tablet, sublingual 0.4 mg SUBLINGUAL Q5-15M PRN (Reason: chest pain) Qty: 25 11RF Rx Instructions: Take one table under the tongue every 5-15 minutes if needed. Do not exceed 3 doses. amiodarone 200 mg tablet 100 mg PO DAILY Qty: 45 3RF Hold Instructions: ? Symptoms of bradycardia 12/19/2022 levothyroxine 50 mcg tablet 50 mcg PO DAILY atorvastatin 40 mg tablet 40 mg PO QHS Qty: 90 3RF Primary Care Provider: Rick Butler Referrals: Rick Butler MD [Primary Care Provider] - 1 Week Disposition Disposition: Home, Self Care
[2023-04-03] MEDS: Benzonatate 100 MG Capsule 200 MG PO (16:50)
--- NOTE | 2023-04-03 17:03 | RAD_ITS ---
INDICATION: cough, Covid EXAMINATION/TECHNIQUE: X-RAY - portable upright AP chest x-ray COMPARISON: 11/03/2022 FINDINGS: LINES/DEVICES: None. LUNGS: No consolidation, edema or effusion. No pneumothorax. MEDIASTINUM AND CARDIOVASCULAR STRUCTURES: Stable mild cardiomegaly, CABG changes. BONES AND SOFT TISSUES: No acute changes. RAD/Chest 1 View (Portable) IMPRESSION: Cardiomegaly without radiographic evidence of acute cardiopulmonary disease. Electronically Signed: Bethel Jacobs MD at 17:26 EST ,
[2023-04-03 17:10] LABS: Absolute Lymphocyte Count 0.36 X10^3/uL (0.83-4.51); Absolute Neutrophil Count 3.1 X10^3/uL (2.0-7.7); Basophil# 0.01 X10^3/uL; Basophil% 0.3 % (0-1); Hematocrit 30.5 % (40-54); Hemoglobin 9.6 g/dL (13.0-16.5); Lymphocyte # 0.36 X10^3/ul (0.83-4.51); Lymphocyte % 9.4 % (19-41); Mean Corp Hgb Conc 31.5 g/dL (32-36); Mean Corpuscular Hgb 29.9 pg (27.0-32.0); Monocyte# 0.39 X10^3/uL; Monocyte% 10.2 % (0-10); NRBC Flagged by Analyzer 0 % (0-5); Neutrophil # 3.05 X10^3/uL (2.7-7.7); Neutrophil % 79.8 % (47-70); POSITIVE COUNT YES; POSITIVE DIFFERENTIAL YES; Platelet Count 64 K/mm3 (150-450); RBC Distribution Width CV 15.7 % (11.6-14.6); RBC Distribution Width SD 54.4 fl (35.1-43.9); Red Blood Count 3.21 M/mm3 (4.6-6.2); White Blood Count 3.8 K/mm3 (4.4-11.0)
[2023-04-03 17:24] LABS: AST(SGOT) 28 U/L (15-37); Alanine Aminotransfer ALT/SGPT 29 U/L (16-61); Albumin, Serum 3.1 g/dL (3.2-5.0); Alkaline Phosphatase 137 U/L (45-117); Anion Gap 3 (5-15); BUN 46 mg/dL (7-18); BUN/Creat Ratio 22.1 RATIO (10-20); Bilirubin, Direct 0.28 mg/dL (0.00-0.30); Calcium,Total 8.5 mg/dL (8.5-10.1); Chloride 108 mmol/L (98-107); Creatinine, Serum 2.08 mg/dL (0.70-1.30); Differential Indicated SCAN CRITERIA MET; EST Glomerular Filtration Rate 32 mL/min (>60); Est Glom Filt Rate - Afr Amer 39 mL/min (>60); Estimated Creatinine Clearance 25.35 ml/min; Glucose 110 mg/dL (74-106); Protein, Total 6.1 g/dL (6.4-8.2); Sodium Level 134 mmol/L (136-145)
[2023-04-03 17:42] LABS: Differential Comment SEE COMMENTS; Platelet Estimate MOD DEC (ADEQ)
[2023-04-03 17:43] LABS: Anisocytosis RARE; Hypochromasia RARE; Macrocytosis RARE; Ovalocyte RARE; Red Cell Morphology N CHROM NORMAL (NORM C&C)
[2023-04-03 18:32] VITALS: BP 119/60; PULSE 64; RESP 16; O2SAT 96
[2023-04-06 13:29] LABS: Pathologist Review Reviewed
== END 2023-04-03 18:42 | disposition home or self-care (01) ==
PROVIDERS: Emergency Provider Emergency Medicine; PCP Family Medicine; Visit Provider Emergency Medicine
DX: U07.1 COVID-19 (principal); J44.9 Chronic obstructive pulmonary disease, unspecified; I13.0 Hypertensive heart and chronic kidney disease with heart failure and stage 1 through stage 4 chronic kidney disease, or unspecified chronic kidney disease; I50.32 Chronic diastolic (congestive) heart failure; N18.32 Chronic kidney disease, stage 3b; I25.10 Atherosclerotic heart disease of native coronary artery without angina pectoris; E78.00 Pure hypercholesterolemia, unspecified; D63.1 Anemia in chronic kidney disease; R09.3 Abnormal sputum
CPT/HCPCS: 71045; 80048; 80076; 85025; 93005; 99284; A4216

== ENCOUNTER → 2023-04-09 | Outpatient (CLI) | payer MEDICARE, OTHER, SELFPAY | END | disposition home or self-care (01) | LOC: MFPLAB 09:14 | PROVIDERS: PCP Family Medicine; Visit Provider Family Medicine | DX: J22 Unspecified acute lower respiratory infection (principal) | CPT/HCPCS: 87070; 87077; 87205 ==

== ENCOUNTER 2023-04-16 10:57 | Outpatient (CLI) | payer MEDICARE, OTHER, SELFPAY ==
--- NOTE | 2023-04-16 11:11 | CT_ITS ---
STUDY: CT CHEST WITH CONTRAST REASON FOR EXAM: Male, 87 years old. Three-week history of cough. COPD. RADIATION DOSAGE (If Supplied By Facility): CTDIvol = ( 14.95 ) mGy, DLP = ( 372.81 ) mGycm TECHNIQUE: Transaxial imaging was performed following intravenous administration of IV 75mL Isovue-370. Individualized dose optimization techniques were used for this CT. COMPARISON: Comparison is made with prior chest from the last dated January 02, [address] scan of the chest dated September 20, 2019. FINDINGS: CHEST Small left pleural effusion mild basilar atelectasis. Minimal right pleural effusion. Sternal cerclage wires and vascular clips are present from a prior sternotomy and coronary artery bypass graft procedure (CABG). Coronary artery calcification. Normal mediastinum. Normal hilar regions. Normal unenhanced pulmonary arteries. Normal aorta arch and descending thoracic aorta. There are multi-level degenerative changes of the thoracic spine. Calcified splenic granulomas. CT/Chest WITH Contrast IMPRESSION: Small bilateral pleural effusions left slightly greater than right. No acute infiltrate is seen. Electronically Signed: Antonio Martin MD at 12:25 EST ,
[2023-04-16 11:27] LABS: Hematocrit 36.8 % (40-54); Hemoglobin 11.8 g/dL (13.0-16.5); Mean Corp Hgb Conc 32.1 g/dL (32-36); Mean Corpuscular Hgb 30.2 pg (27.0-32.0); Mean Corpuscular Volume 94.1 fL (80-94); Mean Platelet Vol. 9.9 fl (6.2-12.0); Platelet Count 146 K/mm3 (150-450); RBC Distribution Width CV 15.1 % (11.6-14.6); RBC Distribution Width SD 52.2 fl (35.1-43.9); Red Blood Count 3.91 M/mm3 (4.6-6.2); White Blood Count 7.7 K/mm3 (4.4-11.0)
[2023-04-16 12:07] LABS: BNP,B-Type NATRIURETIC PEPTIDE 262.6 pg/mL (0-100)
== END 2023-04-16 23:59 | disposition home or self-care (01) ==
LOC: CT 10:58
PROVIDERS: PCP Family Medicine; Referring Provider Family Medicine; Visit Provider Family Medicine
DX: J22 Unspecified acute lower respiratory infection (principal); R05.9 Cough, unspecified; U07.1 COVID-19; R06.02 Shortness of breath
CPT/HCPCS: 36415; 71260; 83880; 85027; Q9967; A4216

== ENCOUNTER → 2023-04-20 | Outpatient (CLI) | payer MEDICARE, OTHER, SELFPAY ==
[2023-04-20 10:54] LABS: Absolute Lymphocyte Count 1.23 X10^3/uL (0.83-4.51); Absolute Neutrophil Count 3.3 X10^3/uL (2.0-7.7); Basophil# 0.02 X10^3/uL; Basophil% 0.4 % (0-1); Eosinophil# 0.19 X10^3/uL; Eosinophils% 3.7 % (0-5); Hematocrit 37.2 % (40-54); Hemoglobin 11.5 g/dL (13.0-16.5); Lymphocyte # 1.23 X10^3/ul (0.83-4.51); Lymphocyte % 23.9 % (19-41); Mean Corp Hgb Conc 30.9 g/dL (32-36); Mean Corpuscular Volume 97.1 fL (80-94); Mean Platelet Vol. 10.2 fl (6.2-12.0); Monocyte# 0.36 X10^3/uL; NRBC Flagged by Analyzer 0 % (0-5); Neutrophil # 3.33 X10^3/uL (2.7-7.7); Neutrophil % 64.6 % (47-70); Platelet Count 131 K/mm3 (150-450); RBC Distribution Width CV 15.8 % (11.6-14.6); RBC Distribution Width SD 55.8 fl (35.1-43.9); RET-HE 35.3 pg (30-35); Red Blood Count 3.83 M/mm3 (4.6-6.2); Reticulocyte Count 1.08 % (0.5-1.5); White Blood Count 5.2 K/mm3 (4.4-11.0)
[2023-04-20 11:52] LABS: AST(SGOT) 22 U/L (15-37); Alanine Aminotransfer ALT/SGPT 25 U/L (16-61); Albumin, Serum 3.3 g/dL (3.2-5.0); Alkaline Phosphatase 149 U/L (45-117); Anion Gap 6 (5-15); BUN 37 mg/dL (7-18); BUN/Creat Ratio 23.6 RATIO (10-20); Calcium,Total 8.8 mg/dL (8.5-10.1); Chloride 107 mmol/L (98-107); Creatinine, Serum 1.57 mg/dL (0.70-1.30); EST Glomerular Filtration Rate 45 mL/min (>60); Est Glom Filt Rate - Afr Amer 54 mL/min (>60); Ferritin 287 ng/mL (26-388); Free T3 2.1 pg/mL (2.18-3.98); Globulin 3.2 g/dL (2.2-4.2); Glucose 125 mg/dL (74-106); Iron 63 ug/dL (65-175); Iron Binding Capacity,Total 270 ug/dL (250-450); Potassium 4.8 mmol/L (3.5-5.1); Protein, Total 6.5 g/dL (6.4-8.2); Sodium Level 139 mmol/L (136-145)
== END | disposition home or self-care (01) ==
LOC: MFPLAB 08:32
PROVIDERS: PCP Family Medicine; Visit Provider Family Medicine
DX: E03.9 Hypothyroidism, unspecified (principal); D64.9 Anemia, unspecified
CPT/HCPCS: 36415; 80053; 82728; 83540; 83550; 84439; 84481; 85025; 85045

== ENCOUNTER → 2023-04-21 | Outpatient (CLI) | payer MEDICARE, OTHER, SELFPAY ==
[2023-04-21 10:36] LABS: ALB/GLOB Ratio 0.9 RATIO (0.9-2.4); AST(SGOT) 19 U/L (15-37); Alanine Aminotransfer ALT/SGPT 25 U/L (16-61); Albumin, Serum 3.2 g/dL (3.2-5.0); Alkaline Phosphatase 146 U/L (45-117); Anion Gap 5 (5-15); BUN 40 mg/dL (7-18); BUN/Creat Ratio 24.1 RATIO (10-20); Calcium,Total 9.1 mg/dL (8.5-10.1); Chloride 106 mmol/L (98-107); Creatinine, Serum 1.66 mg/dL (0.70-1.30); EST Glomerular Filtration Rate 42 mL/min (>60); Est Glom Filt Rate - Afr Amer 50 mL/min (>60); Globulin 3.4 g/dL (2.2-4.2); Glucose 102 mg/dL (74-106); Magnesium 2.2 mg/dL (1.6-2.6); Potassium 4.5 mmol/L (3.5-5.1); Protein, Total 6.6 g/dL (6.4-8.2); Sodium Level 137 mmol/L (136-145)
[2023-04-21 10:50] LABS: BNP,B-Type NATRIURETIC PEPTIDE 196.7 pg/mL (0-100)
== END | disposition home or self-care (01) ==
LOC: MFPLAB 08:03
PROVIDERS: PCP Family Medicine; Visit Provider Family Medicine
DX: I50.30 Unspecified diastolic (congestive) heart failure (principal)
CPT/HCPCS: 36415; 80053; 83735; 83880

== ENCOUNTER 2023-06-01 08:20 | Outpatient (RCR) | payer MEDICARE, OTHER, SELFPAY ==
[2023-06-01 09:33] LABS: Prothrombin Time (Protime)PT. 61.4 SECONDS (11.7-14.9)
[2023-06-01 09:38] LABS: International Normalized Ratio 6.9
[2023-06-01 09:52] LABS: ALB/GLOB Ratio 1.2 RATIO (0.9-2.4); AST(SGOT) 25 U/L (15-37); Alanine Aminotransfer ALT/SGPT 26 U/L (16-61); Albumin, Serum 3.7 g/dL (3.2-5.0); Alkaline Phosphatase 158 U/L (45-117); Anion Gap 6 (5-15); BUN 51 mg/dL (7-18); BUN/Creat Ratio 28.7 RATIO (10-20); Calcium,Total 9.7 mg/dL (8.5-10.1); Chloride 111 mmol/L (98-107); Creatinine, Serum 1.78 mg/dL (0.70-1.30); EST Glomerular Filtration Rate 39 mL/min (>60); Est Glom Filt Rate - Afr Amer 47 mL/min (>60); Globulin 3.2 g/dL (2.2-4.2); Glucose 105 mg/dL (74-106); Protein, Total 6.9 g/dL (6.4-8.2); Sodium Level 141 mmol/L (136-145)
== END 2023-06-01 18:00 | disposition home or self-care (01) ==
LOC: LAB 08:20
PROVIDERS: PCP Family Medicine; Referring Provider Nurse Practitioner Family; Visit Provider Nurse Practitioner Family
DX: I48.19 Other persistent atrial fibrillation (principal); Z79.01 Long term (current) use of anticoagulants; I12.9 Hypertensive chronic kidney disease with stage 1 through stage 4 chronic kidney disease, or unspecified chronic kidney disease; N18.9 Chronic kidney disease, unspecified
CPT/HCPCS: 36415; 80053; 85610

== ENCOUNTER 2023-07-02 07:58 | Outpatient (RCR) | payer MEDICARE, OTHER, SELFPAY ==
[2023-06-04 09:06] LABS: Prothrombin Time (Protime)PT. 40.3 SECONDS (11.7-14.9)
[2023-06-04 09:14] LABS: International Normalized Ratio 4.1
[2023-06-11 09:26] LABS: International Normalized Ratio 1.6; Prothrombin Time (Protime)PT. 19.3 SECONDS (11.7-14.9)
[2023-06-25 08:31] LABS: International Normalized Ratio 1.5; Prothrombin Time (Protime)PT. 18.6 SECONDS (11.7-14.9)
[2023-06-25 08:59] LABS: Anion Gap 3 (5-15); BUN 47 mg/dL (7-18); Calcium,Total 9.7 mg/dL (8.5-10.1); Chloride 111 mmol/L (98-107); Creatinine, Serum 1.88 mg/dL (0.70-1.30); EST Glomerular Filtration Rate 36 mL/min (>60); Est Glom Filt Rate - Afr Amer 44 mL/min (>60); Glucose 103 mg/dL (74-106); Potassium 4.3 mmol/L (3.5-5.1); Sodium Level 138 mmol/L (136-145)
[2023-07-02 10:12] LABS: International Normalized Ratio 1.8; Prothrombin Time (Protime)PT. 21.1 SECONDS (11.7-14.9)
== END 2023-07-02 18:00 | disposition home or self-care (01) ==
LOC: LAB 07:58
PROVIDERS: PCP Family Medicine; Referring Provider Nurse Practitioner Family; Visit Provider Nurse Practitioner Family
DX: I48.19 Other persistent atrial fibrillation (principal); Z79.01 Long term (current) use of anticoagulants; I50.32 Chronic diastolic (congestive) heart failure
CPT/HCPCS: 36415; 80048; 85610

== ENCOUNTER 2023-07-30 07:49 | Outpatient (RCR) | payer MEDICARE, OTHER, SELFPAY ==
[2023-07-09 08:38] LABS: International Normalized Ratio 2.4; Prothrombin Time (Protime)PT. 26.2 SECONDS (11.7-14.9)
[2023-07-30 09:15] LABS: International Normalized Ratio 2.1; Prothrombin Time (Protime)PT. 23.5 SECONDS (11.7-14.9)
== END 2023-08-01 18:00 | disposition home or self-care (01) ==
LOC: LAB 07:49
PROVIDERS: PCP Family Medicine; Referring Provider Nurse Practitioner Family; Visit Provider Nurse Practitioner Family
DX: I48.19 Other persistent atrial fibrillation (principal); Z79.01 Long term (current) use of anticoagulants
CPT/HCPCS: 36415; 85610

== ENCOUNTER → 2023-08-03 | Outpatient (CLI) | payer MEDICARE, OTHER, SELFPAY ==
--- NOTE | 2023-08-03 11:06 | RAD_ITS ---
INDICATION: SOB, Diastolic CHF EXAMINATION/TECHNIQUE: X-RAY - XR Chest 2 Views COMPARISON: Prior study dated: 04/03/2023 FINDINGS: LINES/DEVICES: None. LUNGS: No focal infiltrate is seen. Minimal blunting of the left costophrenic angle small effusion. MEDIASTINUM AND CARDIOVASCULAR STRUCTURES: Mild enlargement of the cardiac silhouette. Status post median sternotomy and CABG. BONES AND SOFT TISSUES: Degenerative changes of the thoracic spine RAD/Chest PA and Lateral IMPRESSION: 1. Small left pleural effusion. 2. No infiltrate is seen. Electronically Signed: Teto Wells MD at 12:37 EDT ,
== END | disposition home or self-care (01) ==
PROVIDERS: PCP Family Medicine; Referring Provider Family Medicine; Visit Provider Family Medicine
DX: R06.02 Shortness of breath (principal); I50.30 Unspecified diastolic (congestive) heart failure
CPT/HCPCS: 71046

== ENCOUNTER → 2023-08-11 | Outpatient (CLI) | payer MEDICARE, OTHER, SELFPAY ==
[2023-08-11 09:54] LABS: Absolute Lymphocyte Count 1.01 X10^3/uL (0.83-4.51); Absolute Neutrophil Count 2.5 X10^3/uL (2.0-7.7); Basophil# 0.01 X10^3/uL; Basophil% 0.3 % (0-1); Eosinophil# 0.08 X10^3/uL; Eosinophils% 2.1 % (0-5); Hematocrit 34.6 % (40-54); Hemoglobin 11.1 g/dL (13.0-16.5); Immature Platelet Fraction 3.2 % (1.0-7.9); Lymphocyte # 1.01 X10^3/ul (0.83-4.51); Lymphocyte % 25.9 % (19-41); Mean Corp Hgb Conc 32.1 g/dL (32-36); Mean Corpuscular Hgb 30.8 pg (27.0-32.0); Mean Corpuscular Volume 96.1 fL (80-94); Mean Platelet Vol. 10.4 fl (6.2-12.0); Monocyte% 7.7 % (0-10); NRBC Flagged by Analyzer 0 % (0-5); Neutrophil # 2.49 X10^3/uL (2.7-7.7); Neutrophil % 63.7 % (47-70); POSITIVE COUNT YES; Platelet Count 85 K/mm3 (150-450); RBC Distribution Width CV 13.7 % (11.6-14.6); RBC Distribution Width SD 48.5 fl (35.1-43.9); RET-HE 33.2 pg (30-35); Reticulocyte Count 0.86 % (0.5-1.5); White Blood Count 3.9 K/mm3 (4.4-11.0)
[2023-08-11 09:56] LABS: Differential Indicated SCAN CRITERIA MET
[2023-08-11 10:11] LABS: Vitamin B12 340 pg/mL (211-911)
[2023-08-11 10:18] LABS: Differential Comment SCANNED; Platelet Estimate MOD DEC (ADEQ)
[2023-08-11 13:39] LABS: Ferritin 207 ng/mL (26-388); Iron 56 ug/dL (65-175); Iron Binding Capacity,Total 301 ug/dL (250-450); PERCENT IRON SATURATION 18.6 % (15.0-55.0)
[2023-08-11 14:27] LABS: ALB/GLOB Ratio 1.3 RATIO (0.9-2.4); AST(SGOT) 32 U/L (15-37); Alanine Aminotransfer ALT/SGPT 28 U/L (16-61); Albumin, Serum 3.8 g/dL (3.2-5.0); Alkaline Phosphatase 130 U/L (45-117); Anion Gap 6 (5-15); BUN 55 mg/dL (7-18); BUN/Creat Ratio 25.6 RATIO (10-20); Calcium,Total 9.3 mg/dL (8.5-10.1); Chloride 107 mmol/L (98-107); Creatinine, Serum 2.15 mg/dL (0.70-1.30); EST Glomerular Filtration Rate 31 mL/min (>60); Est Glom Filt Rate - Afr Amer 37 mL/min (>60); Globulin 2.9 g/dL (2.2-4.2); Glucose 105 mg/dL (74-106); Protein, Total 6.7 g/dL (6.4-8.2); Sodium Level 138 mmol/L (136-145)
== END | disposition home or self-care (01) ==
LOC: MFPLAB 08:33
PROVIDERS: Internal Medicine Hematology & Oncology; PCP Family Medicine; Visit Provider Family Medicine
DX: I50.30 Unspecified diastolic (congestive) heart failure (principal); D50.0 Iron deficiency anemia secondary to blood loss (chronic); I25.10 Atherosclerotic heart disease of native coronary artery without angina pectoris
CPT/HCPCS: 36415; 80053; 82607; 82728; 83540; 83550; 85025; 85045

== ENCOUNTER 2023-08-27 07:57 | Outpatient (RCR) | payer MEDICARE, OTHER, SELFPAY ==
[2023-08-27 08:42] LABS: International Normalized Ratio 2.1; Prothrombin Time (Protime)PT. 23.6 SECONDS (11.7-14.9)
== END 2023-09-01 22:37 | disposition home or self-care (01) ==
LOC: LAB 07:57
PROVIDERS: PCP Family Medicine; Referring Provider Nurse Practitioner Family; Visit Provider Nurse Practitioner Family
DX: I48.19 Other persistent atrial fibrillation (principal); Z79.01 Long term (current) use of anticoagulants
CPT/HCPCS: 36415; 85610

== ENCOUNTER 2023-09-07 08:04 | Outpatient (RCR) | payer MEDICARE, OTHER, SELFPAY ==
[2023-09-07 09:52] LABS: International Normalized Ratio 2.4; Prothrombin Time (Protime)PT. 25.6 SECONDS (11.7-14.9)
== END 2023-09-07 18:00 | disposition home or self-care (01) ==
LOC: LAB 08:04
PROVIDERS: PCP Family Medicine; Referring Provider Nurse Practitioner Family; Visit Provider Nurse Practitioner Family
DX: I48.19 Other persistent atrial fibrillation (principal); Z79.01 Long term (current) use of anticoagulants
CPT/HCPCS: 36415; 85610

== ENCOUNTER → 2023-09-23 | Outpatient (CLI) | payer MEDICARE, OTHER, SELFPAY ==
[2023-09-23 10:12] LABS: Absolute Neutrophil Count 2.5 X10^3/uL (2.0-7.7); Basophil# 0.01 X10^3/uL; Basophil% 0.3 % (0-1); Eosinophil# 0.06 X10^3/uL; Eosinophils% 1.6 % (0-5); Hematocrit 36.5 % (40-54); Hemoglobin 11.4 g/dL (13.0-16.5); Lymphocyte % 21.7 % (19-41); Mean Corp Hgb Conc 31.2 g/dL (32-36); Mean Corpuscular Hgb 30.3 pg (27.0-32.0); Mean Corpuscular Volume 97.1 fL (80-94); Mean Platelet Vol. 10.5 fl (6.2-12.0); Monocyte# 0.29 X10^3/uL; Monocyte% 7.9 % (0-10); NRBC Flagged by Analyzer 0 % (0-5); Neutrophil # 2.51 X10^3/uL (2.7-7.7); Neutrophil % 68.2 % (47-70); POSITIVE COUNT YES; Platelet Count 69 K/mm3 (150-450); RBC Distribution Width CV 13.9 % (11.6-14.6); RBC Distribution Width SD 49.7 fl (35.1-43.9); Red Blood Count 3.76 M/mm3 (4.6-6.2); White Blood Count 3.7 K/mm3 (4.4-11.0)
[2023-09-23 10:22] LABS: Differential Indicated SCAN CRITERIA MET
[2023-09-23 10:50] LABS: Platelet Estimate MOD DEC (ADEQ)
[2023-09-23 11:30] LABS: Anion Gap 6 (5-15); BUN 45 mg/dL (7-18); Calcium,Total 9.6 mg/dL (8.5-10.1); Chloride 111 mmol/L (98-107); EST Glomerular Filtration Rate 38 mL/min (>60); Est Glom Filt Rate - Afr Amer 46 mL/min (>60); Glucose 99 mg/dL (74-106); Potassium 4.5 mmol/L (3.5-5.1); Sodium Level 139 mmol/L (136-145)
[2023-09-23 11:41] LABS: BNP,B-Type NATRIURETIC PEPTIDE 229.8 pg/mL (0-100)
== END | disposition home or self-care (01) ==
LOC: LAB 09:12
PROVIDERS: PCP Family Medicine; Referring Provider Physician Assistant Medical; Visit Provider Physician Assistant Medical
DX: R42 Dizziness and giddiness (principal); R00.1 Bradycardia, unspecified; Z95.1 Presence of aortocoronary bypass graft; Z95.5 Presence of coronary angioplasty implant and graft; E78.49 Other hyperlipidemia; R53.83 Other fatigue; R06.09 Other forms of dyspnea; Z79.01 Long term (current) use of anticoagulants
CPT/HCPCS: 36415; 80048; 83880; 85025

== ENCOUNTER → 2023-09-30 | Outpatient (CLI) | payer MEDICARE, OTHER, SELFPAY | END | disposition home or self-care (01) | LOC: PSN 08:12 | PROVIDERS: PCP Family Medicine; Referring Provider Physician Assistant Medical; Visit Provider Physician Assistant Medical | DX: R42 Dizziness and giddiness (principal); R00.1 Bradycardia, unspecified; R53.83 Other fatigue; E78.49 Other hyperlipidemia; Z95.1 Presence of aortocoronary bypass graft; Z95.5 Presence of coronary angioplasty implant and graft | CPT/HCPCS: 93225; 93226 ==

== ENCOUNTER 2023-10-05 08:14 | Outpatient (RCR) | payer MEDICARE, OTHER, SELFPAY ==
[2023-10-05 09:56] LABS: International Normalized Ratio 2.9; Prothrombin Time (Protime)PT. 30.1 SECONDS (11.7-14.9)
== END 2023-10-05 18:00 | disposition home or self-care (01) ==
LOC: LAB 08:14
PROVIDERS: PCP Family Medicine; Referring Provider Nurse Practitioner Family; Visit Provider Nurse Practitioner Family
DX: I48.19 Other persistent atrial fibrillation (principal); Z79.01 Long term (current) use of anticoagulants
CPT/HCPCS: 36415; 85610

== ENCOUNTER → 2023-10-07 | Outpatient (CLI) | payer MEDICARE, OTHER, SELFPAY ==
--- NOTE | 2023-10-07 09:28 | CDU_ITS ---
Reason For Study: dizziess Rt. Velocities/BP Lt. Velocities/BP Prox CCA 65.5/10.7 cm/sec. Prox CCA 63.9/11.0 cm/sec. Mid CCA 59.1/9.1 cm/sec. Mid CCA 40.7/8.4 cm/sec. Dist CCA 58.2/11.9 cm/sec. Dist CCA 68.6/12.7 cm/sec. Prox ICA 45.9/7.2 cm/sec. Prox ICA 38.9/8.3 cm/sec. Mid ICA 51.4/12.8 cm/sec. Mid ICA 48.5/11.0 cm/sec. Dist ICA 55.4/16.6 cm/sec. Dist ICA 62.5/21.5 cm/sec. Rt. ICA/CCA = 0.94. Lt. ICA/CCA = 1.54. Prox ECA 87.5/9.5 cm/sec. Prox ECA 36.7/2.6 cm/sec. Rt. Vert. 47.8/7.2 cm/sec. Lt. Vert. 34.1/6.3 cm/sec. Right Extracranial There is heterogeneous, irregular atherosclerotic plaque noted in the right common carotid artery. There is homogeneous, smooth atherosclerotic plaque noted in the right internal carotid artery. The right internal carotid artery is very tortuous. There is heterogeneous, irregular atherosclerotic plaque noted in the right external carotid artery. Antegrade flow is noted in the right vertebral artery. Left Extracranial There is homogeneous, smooth atherosclerotic plaque noted in the left common carotid artery. There is heterogeneous, irregular atherosclerotic plaque noted in the left internal carotid artery. There is heterogeneous, irregular atherosclerotic plaque noted in the left external carotid artery. Antegrade flow is noted in the left vertebral artery. Procedure Carotid Duplex [id number]. This is a Carotid Duplex examination using B-mode, color flow and specral Doppler. Exam performed in department. VL/Carotid Duplex Ultrasound Interpretation Summary Mild (<50%) stenosis right extracranial internal carotid. Mild (<50%) stenosis left extracranial internal carotid. Patent and antegrade vertebrals bilaterally. Ordering Physician: Kristyn Pinto Referring Physician: Rick Butler MD Performed By: Key Fair RVT and Student
== END | disposition home or self-care (01) ==
LOC: CVS 09:26
PROVIDERS: PCP Family Medicine; Referring Provider Physician Assistant Medical; Visit Provider Physician Assistant Medical
DX: R42 Dizziness and giddiness (principal)
CPT/HCPCS: 93880

== ENCOUNTER → 2023-10-27 | Outpatient (CLI) | payer MEDICARE, OTHER, SELFPAY ==
[2023-10-27 10:04] LABS: ALB/GLOB Ratio 1.2 RATIO (0.9-2.4); AST(SGOT) 20 U/L (15-37); Alanine Aminotransfer ALT/SGPT 20 U/L (16-61); Albumin, Serum 3.9 g/dL (3.2-5.0); Alkaline Phosphatase 203 U/L (45-117); Anion Gap 7 (5-15); BUN 48 mg/dL (7-18); BUN/Creat Ratio 24.6 RATIO (10-20); Calcium,Total 10.2 mg/dL (8.5-10.1); Chloride 106 mmol/L (98-107); Creatinine, Serum 1.95 mg/dL (0.70-1.30); EST Glomerular Filtration Rate 35 mL/min (>60); Est Glom Filt Rate - Afr Amer 42 mL/min (>60); Globulin 3.3 g/dL (2.2-4.2); Glucose 97 mg/dL (74-106); Magnesium 2.1 mg/dL (1.6-2.6); Potassium 4.3 mmol/L (3.5-5.1); Protein, Total 7.2 g/dL (6.4-8.2); Sodium Level 138 mmol/L (136-145)
[2023-10-27 10:05] LABS: Absolute Neutrophil Count 3.2 X10^3/uL (2.0-7.7); Basophil# 0.02 X10^3/uL; Basophil% 0.4 % (0-1); Eosinophil# 0.26 X10^3/uL; Eosinophils% 5.2 % (0-5); Hematocrit 37.2 % (40-54); Lymphocyte % 21.9 % (19-41); Mean Corp Hgb Conc 32.3 g/dL (32-36); Mean Corpuscular Hgb 30.6 pg (27.0-32.0); Mean Corpuscular Volume 94.9 fL (80-94); Mean Platelet Vol. 10.4 fl (6.2-12.0); Monocyte# 0.41 X10^3/uL; Monocyte% 8.2 % (0-10); NRBC Flagged by Analyzer 0 % (0-5); Neutrophil # 3.22 X10^3/uL (2.7-7.7); Neutrophil % 63.9 % (47-70); Platelet Count 100 K/mm3 (150-450); RBC Distribution Width CV 13.6 % (11.6-14.6); RBC Distribution Width SD 47.4 fl (35.1-43.9); Red Blood Count 3.92 M/mm3 (4.6-6.2)
== END | disposition home or self-care (01) ==
LOC: MFPLAB 09:01
PROVIDERS: PCP Family Medicine; Visit Provider Family Medicine
DX: N18.30 Chronic kidney disease, stage 3 unspecified (principal); I50.9 Heart failure, unspecified
CPT/HCPCS: 36415; 80053; 83735; 85025

== ENCOUNTER → 2023-10-28 | Outpatient (CLI) | payer MEDICARE, OTHER, SELFPAY ==
--- NOTE | 2023-10-28 07:15 | ECHOD_ITS ---
Reason For Study: CAD/ASHD Procedure This was a 2D Doppler, Color Flow transthoracic echocardiogram. Exam performed in department. Left Ventricle Normal LV size. Moderate concentric left ventricular hypertrophy. Left ventricular systolic function is normal. The left ventricular ejection fraction is 55 %. No regional wall motion abnormalities noted. Right Ventricle Normal RV size. Normal systolic function. Atria The left atrium is moderately enlarged. Prominent eustachian valve. The right atrium is moderately enlarged. Mitral Valve Bileaflet diffuse mitral valve thickening. Mild (1+) eccentric mitral valve insufficiency. Tricuspid Valve Normal tricuspid valve. Mild (1+) tricuspid valve insufficiency. Pulmonary artery systolic pressure is 40 mmHg. Aortic Valve Trisinus/trileaflet aortic valve. Moderate focal aortic valve thickening. Peak aortic valve gradient 33 mmHg. Mean aortic valve gradient 20 mmHg. Trivial aortic valve insufficiency. Pulmonic Valve Normal pulmonic valve. Mild (1+) pulmonic valve insufficiency. Great Vessels Normal aortic root. The pulmonary artery is normal size. Inferior vena cava collapse with sniff. Pericardium/Pleural No pericardial effusion. MMode/2D Measurements & Calculations LVIDd: 4.0 cm IVSd: 1.3 cm LVOT diam: 2.2 cm LVIDs: 2.4 cm LVPWd: 1.4 cm LVOT area: 3.9 cm2 RVDd: 5.2 cm FS: 40.0 % Ao root diam: 3.9 cm LAV(MOD-bp): 88.9 ml LVAd ap4: 25.5 cm2 LAV(MOD-bp) Indexed: 46.8 ml/m2 LVLd ap4: 7.6 cm LAV(MOD-sp2): 85.9 ml EDV(MOD-sp4): 70.8 ml LAV(MOD-sp4): 90.0 ml EDV(sp4-el): 72.6 ml LVAs ap4: 15.3 cm2 LVLs ap4: 6.6 cm ESV(MOD-sp4): 30.5 ml ESV(sp4-el): 30.2 ml EF(MOD-sp4): 56.9 % EF(sp4-el): 58.4 % SV(MOD-sp4): 40.3 ml SV(sp4-el): 42.4 ml LA A4 area: 25.8 cm2 RA A4 area: 24.4 cm2 TAPSE: 1.5 cm Doppler Measurements & Calculations MV E max salas: 109.2 cm/sec Lat Peak E' Salas: 8.0 cm/sec Med Peak E' Salas: 5.0 cm/sec E/E' lat: 13.7 E/E' med: 22.0 Ao V2 max: 287.0 cm/sec AI max salas: 369.2 cm/sec LV V1 max: 94.8 cm/sec Ao max P.1 mmHg AI max P.5 mmHg LV V1 max P.6 mmHg Ao V2 mean: 210.0 cm/sec LV V1 mean P.4 mmHg Ao mean P.5 mmHg AI dec slope: 187.6 cm/sec2 LV V1 mean: 74.9 cm/sec Ao V2 VTI: 62.3 cm AI P1/2t: 576.2 msec LV V1 VTI: 22.0 cm AV (velocity ratio): 0.35 CONY(I,D): 1.4 cm2 CONY(V,D): 1.3 cm2 SV(LVOT): 86.5 ml PA V2 max: 120.4 cm/sec PI end-d salas: 141.6 cm/sec PA max PG (full): 2.8 mmHg TR max salas: 304.2 cm/sec TR max P.0 mmHg ECHO/Echo Complete Interpretation Summary Normal LV size. Moderate concentric left ventricular hypertrophy. Left ventricular systolic function is normal. The left ventricular ejection fraction is 55 %. Moderate focal aortic valve thickening. Mean aortic valve gradient 20 mmHg. Pulmonary artery systolic pressure is 40 mmHg. Ordering Physician: Kristyn Pinto Referring Physician: Rick Butler Performed By: Betty Okeefe RVT, RDCS and Student
--- NOTE | 2023-10-28 10:18 | STRESSREP ---
Stress Test Report Pharmacologic myocardial perfusion stress test. 88-year-old man with a history of coronary artery disease Resting EKG demonstrates atrial fibrillation with a rate of 62 bpm. Resting blood pressure is 130/82 mmHg. 0.4 mg of regadenoson was infused per usual protocol followed by rapid intravenous saline flush injection. Continuous EKG monitoring was performed. The maximum heart rate was 83 bpm which was 63% of max impacted heart rate the maximum workload was 1 metabolic equivalent. At rest there were no ST or T wave changes noted to suggest ischemia and at peak infusion nonspecific ST changes were noted which did not meet the criteria for ischemia. No clinical angina is noted. The final blood pressure was 138/72 mmHg. Myocardial perfusion protocol. 12.0 mCi of technetium 99m sestamibi was injected at rest. 0.4 mg of regadenoson was infused per usual protocol. At peak infusion 35 point mCi of technetium 99m sestamibi was injected stress images were obtained stress and rest images were reconstructed and compared in the short axis vertical long and horizontal long axis. Gated images were also obtained. Perfusion SPECT analysis: Review of the stress images demonstrate normal uptake of tracer noted in all areas of the myocardium. The resting images similar demonstrated normal uptake of tracer noted in all areas of the myocardium. No areas of reversibility are noted to suggest ischemia and no previous infarct is noted. Gated SPECT analysis: The gated ejection fraction is 67%. Conclusion: Normal pharmacologic myocardial perfusion stress test. Preserved ejection fraction.
== END | disposition home or self-care (01) ==
LOC: CVS 07:12
PROVIDERS: PCP Family Medicine; Referring Provider Physician Assistant Medical; Visit Provider Physician Assistant Medical
DX: I35.0 Nonrheumatic aortic (valve) stenosis (principal); R42 Dizziness and giddiness; R00.1 Bradycardia, unspecified; Z95.1 Presence of aortocoronary bypass graft; Z95.5 Presence of coronary angioplasty implant and graft; E78.49 Other hyperlipidemia; R53.83 Other fatigue
CPT/HCPCS: 78452; 93017; 93306; A9500; A4216; J2785

== ENCOUNTER 2023-11-14 08:24 | Emergency (ER) | payer MEDICARE, OTHER, SELFPAY ==
[2023-11-14 08:25] VITALS: BP 132/66; PULSE 65; RESP 12; TEMP 35.7; O2SAT 99
[2023-11-14 08:27] VITALS: BP 132/66; PULSE 66; RESP 12; TEMP 35.7; O2SAT 100; BMI 22.6
[2023-11-14 10:02] VITALS: BP 132/78; PULSE 64; RESP 18; TEMP 36.4; O2SAT 99
--- NOTE | 2023-11-14 10:36 | EDS_ITS ---
HPI History of Present Illness Chief Complaint: Wound Narrative Narrative: 88-year-old male past medical history of atrial fibrillation on Coumadin, presents for wound check of a skin tear on his right forearm that he sustained approximately a week ago. He states that he went to [employer], and had to use the restroom. He caught his right forearm on a metal hook that was hanging down. He sustained a skin tear to the area. His has been treating it with multiple dressings, but they present for wound check because he continues to bleed. They state while this happened on 06 November, 2 days later, he had his INR checked and it was not excessively high. He has been taking his Coumadin. They state that this morning when they went to change the dressing that had been in place for 4 days, and started prepping a large amount of blood. He denies any chest pain or shortness of breath, no lightheadedness, no other symptoms. While he is unsure of his last tetanus immunization, he states his wound is greater than 72 hours old. [facility] Medical History COVID-19 Hypothyroid COVID-19 Kidney disease COPD (chronic obstructive pulmonary disease) Congestive heart failure (CHF) Myocardial infarct Coronary artery disease Migraines Anemia Atrial fibrillation Chronic renal failure, stage 3b Anemia of chronic renal failure Iron deficiency anemia due to chronic blood loss History of CHF (congestive heart failure) Wears partial dentures Cancer Thyroid disease Arthritis History of renal disease Non-smoker Hypertension Nonrheumatic aortic (valve) stenosis Facial hematoma Head injury Fall Pitting edema Hypersomnolence Acute on chronic diastolic heart failure Dyspnea on exertion Wears dentures Wears glasses Prostate disease Kidney stones High cholesterol Easy bruising Excessive bleeding Parkinson's disease Loss of consciousness History of hiatal hernia History of diverticulitis Shortness of breath on exertion History of edema History of echocardiogram History of stress test History of heart attack History of irregular heartbeat Hx of melanoma of skin History of trigger finger Secondary pulmonary arterial hypertension Acute bacterial sinusitis 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 Diverticulitis Thickening of pleura Bronchiectasis Chronic diastolic (congestive) heart failure Atherosclerosis of coronary artery of galena heart without angina pectoris History of non-ST elevation myocardial infarction (NSTEMI) (01/2015) Essential (primary) hypertension Hyperlipidemia Chronic kidney disease Melanoma Osteoarthritis Home Medications ?Medication ?Instructions ?Recorded ?Last Taken ?Type cholecalciferol (vitamin D3) 25 25 mcg PO DAILY SUPPLEMENT 05/20/21 11/03/22 History mcg (1,000 unit) tablet (Vitamin D3) selenium 200 mcg tablet 200 mcg PO DAILY SUPPLEMENT 12/02/21 11/03/22 History levothyroxine 50 mcg tablet 50 mcg PO DAILY THYROID 05/20/22 11/03/22 History acetaminophen 500 mg tablet 1,000 mg PO Q8 PRN Pain 05/22/22 04/03/23 History aspirin 81 mg chewable tablet 81 mg PO QODAY HEART HEALTH 05/22/22 11/03/22 History furosemide 40 mg tablet 40 mg PO MOWEFR edema 10/09/22 10/31/22 History ferrous sulfate 325 mg (65 mg 325 mg PO DAILY anemia 10/29/22 11/03/22 History iron) tablet (FeroSul) glycopyrrolate 1 mg tablet 1 mg PO DAILY SALIVATION REDUCTION 05/22/23 Unknown History warfarin 1 mg tablet 1 mg PO DAILY #90 tabs 06/04/23 Unknown Rx doxazosin 4 mg tablet 2 mg (1/2 x 4 mg) PO QHS BLOOD 07/27/23 Unknown Rx PRESSURE #90 tabs atorvastatin 40 mg tablet 40 mg PO QHS CHOLESTEROL #90 tabs 08/10/23 Unknown Rx nitroglycerin 0.4 mg sublingual 0.4 mg sublingual Q5-15M PRN chest 09/23/23 Unknown Rx tablet pain #25 tabs potassium chloride 20 mEq 20 meq PO DAILY 09/23/23 Unknown History tablet,extended release pramipexole 1 mg tablet 1 mg PO BID 09/23/23 Unknown History Allergy/AdvReac Type Severity Reaction Status Date / Time levofloxacin Allergy Unknown PT UNSURE Verified 11/14/23 08:25 OF REACTION meloxicam Allergy Unknown PT UNSURE Verified 11/14/23 08:25 OF REACTION amlodipine AdvReac Intermediate severe leg Verified 11/14/23 08:25 edema isosorbide AdvReac headache Verified 11/14/23 08:25 Family History Father Heart disease Mother CVA (cerebral vascular accident) Surgical History Status post revision of total replacement of right knee Hx of transurethral resection of prostate History of left cataract surgery History of right knee joint replacement (05/03/21) History of cardiac catheterization Hx of oral surgery History of carpal tunnel release of both wrists Hx of hernia repair History of total left knee replacement (04/2020) H/O foot surgery H/O left knee surgery History of herniorrhaphy History of left heart catheterization (08/10/19) History of coronary artery stent placement (2005) H/O coronary artery bypass surgery (1989) Social History Smoking Status: Never smoker alcohol intake: never substance use type: does not use caffeine: Yes (about 1 time per week) ROS ROS ED ROS Narrative Constitutional: No fever, no chills. HEENT: No sore throat. No neck pain. No loss of vision. No rhinorrhea. Cardiovascular: No chest pain. No palpitations. No pedal edema. Respiratory: No cough, no shortness of breath. Abdominal: No abdominal pain. No nausea. No vomiting. Genitourinary: No dysuria. No hematuria. Musculoskeletal: No myalgias. No arthralgias. Neurologic: No headaches. No dizziness. No lightheadedness. Skin: No rash. No change in color. Positive bleeding from skin tear he sustained approximately a week ago. No purulent drainage. Psychiatric: No depression. No anxiety. EXAM Physical Exam Narrative Exam Narrative: Afebrile. Vital signs noted. Focused physical examination reveals after pressure dressing removed approximate 1.5 cm skin tear to right forearm. There is only a small amount of bleeding from the capillary bed, no brisk bleeding or pulsatile bleeding. Neurovascular intact distally with palpable radial pulse. Full movement of fingers and wrist. Const Vital Signs: 11/14/23 08:25 11/14/23 08:27 11/14/23 10:02 Temperature 96.2 F L 96.2 F L 97.6 F L Temperature Source Oral Temporal Pulse Rate 65 66 64 Respiratory Rate 12 12 18 Blood Pressure 132/66 H 132/66 H 132/78 H Blood Pressure Mean 88 88 96 Pulse Ox 99 100 99 Oxygen Delivery Method Room Air Room Air MDM MDM MDM Narrative Medical decision making narrative: I discussed with the patient and his that he could have a tetanus immunization, but his wound is greater than 72 hours old. They declined. As there is no brisk bleeding, I do not feel that the area needs to be cauterized. His dressing will be changed to a Vaseline gauze dressing with slight pressure dressing. They inquired about holding his Coumadin for the next few days. As he is on it for atrial fibrillation, they will inform the physician who checks his INR that they are going to hold his Coumadin for the next few days, then change the dressing in a few days to see and ensure that the bleeding is stopped. I do not feel that any imaging or lab [place] work is indicated. Patient and are comfortable with discharge. They will follow-up with her primary care provider for wound recheck. Return instructions to the emergency department were reviewed. Disposition is discharged home in stable condition. History & Record Review Discussion w/independent historian: Patient and Family Discharge Plan Triage Chief Complaint: Wound ED Provider: Candelario Espinoza Dx/Rx/DC Orders Clinical Impression: Skin tear of right upper extremity, Visit for wound check Instructions: ED Skin Tear (Skin Avulsion), ED Wound Check (No Infection) Prescriptions: No Action acetaminophen 500 mg tablet 1,000 mg PO Q8 PRN (Reason: Pain) Patient Comments: taken at 1500 today aspirin 81 mg tablet,chewable 81 mg PO QODAY selenium 200 mcg tablet 200 mcg PO DAILY ferrous sulfate [FeroSul] 325 mg (65 mg iron) tablet 325 mg PO DAILY potassium chloride 20 mEq tablet extended release 20 meq PO DAILY pramipexole 1 mg tablet 1 mg PO BID nitroglycerin 0.4 mg tablet, sublingual 0.4 mg SUBLINGUAL Q5-15M PRN (Reason: chest pain) Qty: 25 3RF Rx Instructions: Take one table under the tongue every 5-15 minutes if needed. Do not exceed 3 doses. cholecalciferol (vitamin D3) [Vitamin D3] 25 mcg (1,000 unit) Tablet 25 mcg PO DAILY furosemide 40 mg tablet 40 mg PO MOWE glycopyrrolate 1 mg tablet 1 mg PO DAILY levothyroxine 50 mcg tablet 50 mcg PO DAILY warfarin 1 mg tablet 1 mg PO DAILY Qty: 90 3RF Protocol: Dose Management Condition: Thursday Dose/Route: 2 mg Instruction: 2 x 1 mg tablets Condition: Thursday Dose/Route: 1 mg Instruction: 1 x 1 mg tablet Condition: Thursday Dose/Route: 1 mg Instruction: 1 x 1 mg tablet Condition: Thursday Dose/Route: 1 mg Instruction: 1 x 1 mg tablet Condition: Dose/Route: 1 mg Instruction: 1 x 1 mg tablet Condition: Thursday Dose/Route: 1 mg Instruction: 1 x 1 mg tablet Condition: Thursday Dose/Route: 2 mg Instruction: 2 x 1 mg tablets Protocol Text: Adjustment Start Date: Thursday11/09/23 INR Value: 2.9 INR Date: 11/09/23 Recheck Date: 11/16/23 doxazosin 4 mg tablet 2 mg PO QHS Qty: 90 3RF atorvastatin 40 mg tablet 40 mg PO QHS Qty: 90 3RF Primary Care Provider: Rick Butler Referrals: Rick Butler MD [Primary Care Provider] - 3-5 Days if not improving Activity Restrictions/Additional Instructions: You may want to call your doctor and hold your Coumadin for the next few days. Have your wound rechecked in the next 3 to 5 days if not improving. Return with increased bleeding, new or worsening symptoms. Print Language: Trinidadian Disposition Disposition: Home, Self Care Discharge Date/Time: 11/14/23 10:03
== END 2023-11-14 10:03 | disposition home or self-care (01) ==
PROVIDERS: Emergency Provider Emergency Medicine; PCP Family Medicine; Visit Provider Emergency Medicine
DX: S51.811A Laceration without foreign body of right forearm, initial encounter (principal); I13.0 Hypertensive heart and chronic kidney disease with heart failure and stage 1 through stage 4 chronic kidney disease, or unspecified chronic kidney disease; I50.32 Chronic diastolic (congestive) heart failure; J44.9 Chronic obstructive pulmonary disease, unspecified; I48.91 Unspecified atrial fibrillation; N18.32 Chronic kidney disease, stage 3b; I25.10 Atherosclerotic heart disease of native coronary artery without angina pectoris; E78.00 Pure hypercholesterolemia, unspecified; Z79.01 Long term (current) use of anticoagulants; Z48.00 Encounter for change or removal of nonsurgical wound dressing; X58.XXXA Exposure to other specified factors, initial encounter
CPT/HCPCS: 99282

== ENCOUNTER 2023-11-26 10:36 | Outpatient (RCR) | payer MEDICARE, OTHER, SELFPAY ==
[2023-11-02 08:36] LABS: International Normalized Ratio 3.6; Prothrombin Time (Protime)PT. 35.5 SECONDS (11.7-14.9)
[2023-11-09 09:28] LABS: International Normalized Ratio 2.9; Prothrombin Time (Protime)PT. 30.5 SECONDS (11.7-14.9)
[2023-11-26 12:27] LABS: International Normalized Ratio 1.3; Prothrombin Time (Protime)PT. 16.6 SECONDS (11.7-14.9)
== END 2023-12-02 18:00 | disposition home or self-care (01) ==
LOC: LAB 10:36
PROVIDERS: PCP Family Medicine; Referring Provider Nurse Practitioner Family; Visit Provider Nurse Practitioner Family
DX: I48.19 Other persistent atrial fibrillation (principal); Z79.01 Long term (current) use of anticoagulants
CPT/HCPCS: 36415; 85610

== ENCOUNTER 2023-12-28 07:54 | Outpatient (RCR) | payer MEDICARE, OTHER, SELFPAY ==
[2023-12-07 09:27] LABS: International Normalized Ratio 2.2; Prothrombin Time (Protime)PT. 24.4 SECONDS (11.7-14.9)
[2023-12-28 09:27] LABS: International Normalized Ratio 2.8; Prothrombin Time (Protime)PT. 29.6 SECONDS (11.7-14.9)
== END 2023-12-28 18:00 | disposition home or self-care (01) ==
LOC: LAB 07:54
PROVIDERS: PCP Family Medicine; Referring Provider Nurse Practitioner Family; Visit Provider Nurse Practitioner Family
DX: I48.19 Other persistent atrial fibrillation (principal); Z79.01 Long term (current) use of anticoagulants
CPT/HCPCS: 36415; 85610

== ENCOUNTER 2024-01-02 00:03 | Emergency (ER) | payer MEDICARE, OTHER, SELFPAY ==
[2024-01-02 00:08] VITALS: BP 119/78; PULSE 75; RESP 18; TEMP 36.8; O2SAT 94; BMI 23.2
--- NOTE | 2024-01-02 00:33 | CT_ITS ---
STUDY: CT BRAIN WITHOUT CONTRAST REASON FOR EXAM: Male, 88 years old. Headache status post fall RADIATION DOSAGE (If Supplied By Facility): CTDIvol = ( 44.99 ) mGy, DLP = ( 796.11 ) mGycm TECHNIQUE: Transaxial CT imaging of the brain was performed without administration of intravenous contrast material. Individualized dose optimization techniques were used for this CT. COMPARISON: No relevant priors. FINDINGS: Normal soft tissue structures. Normal calvarium. There is mild cerebral atrophy with widening of the extra-axial spaces and ventricular dilatation. There is mild bilateral periventricular and subcortical white matter hypoattenuation which is symmetric in distribution. Normal basal ganglia and thalami. Normal brainstem. Normal cerebellum. There is no intracranial hemorrhage. There are no findings of an acute ischemic infarction. There is mild mucoperiosteal thickening of the paranasal sinuses. CT/Brain/Head without Contrast IMPRESSION: 1. No acute intracranial abnormality. 2. Mild bilateral periventricular and subcortical white matter chronic small vessel disease with age appropriate cerebral atrophy. 3. Chronic paranasal sinus disease Electronically Signed: Hemant Arias MD at 2:01 EDT ,
--- NOTE | 2024-01-02 00:33 | CT_ITS ---
STUDY: CT CERVICAL SPINE WITHOUT CONTRAST REASON FOR EXAM: Male, 88 years old. Fall today TECHNIQUE: Transaxial CT imaging of the cervical spine was performed without administration of intravenous contrast material, followed by coronal and sagittal reformatting. Individualized dose optimization techniques were used for this CT. COMPARISON: No relevant priors. FINDINGS: The alignment of the cervical spine demonstrates mild straightening of the normal lordosis with C7 on T1 anterolisthesis. There is no definitive scoliosis. Craniocervical junction and atlantoaxial articulation are normal. Facet joints are normal alignment demonstrate mild diffuse degenerative change. There is moderate degenerative change of the intervertebral disc spaces from C2 through C6. There is mild to moderate degenerative change of the uncovertebral joints from C3 through C7. C2-C3: Mild to moderate right neural foraminal canal narrowing.. C3-C4: Moderate right and mild to moderate left neural foraminal canal narrowing.. C4-C5: Moderate bilateral neural foraminal canal narrowing. Mild spinal canal stenosis... C5-C6: Mild left neural foraminal canal narrowing.. C6-C7: Unremarkable. C7-T1: Unremarkable. Prevertebral soft tissues are unremarkable. Visualized lung apices are clear. CT/Spine Cervical without Contras IMPRESSION: 1. No acute abnormality of the cervical spine 2. Mild to moderate multilevel degenerative disc and joint disease resulting in multilevel neural foraminal canal and spinal canal stenoses. Electronically Signed: Hemant Arias MD at 2:07 EDT ,
[2024-01-02] MEDS: Acetaminophen 500 MG Tablet 1000 MG PO (00:44)
--- NOTE | 2024-01-02 01:25 | RAD_ITS ---
EXAM: XR Spine Lumbar 2 or 3 Views INDICATION: Male, 88 years old. Back pain status post fall TECHNIQUE: AP and lateral views COMPARISON: None FINDINGS: There are 6 lumbar nonrib-bearing lumbar vertebral segments. There is a compression fracture deformity at L2 which results in approximately 50% loss in vertebral body height, of uncertain acuity. There is mild depression of the superior endplates of L3 and L4 which are of uncertain acuity.. There is dextroscoliosis of the lumbar spine centered at L4. There is no focal listhesis. Visualized ribs are unremarkable. Intra-abdominal vascular calcification is noted. There is mild degenerative endplate change throughout the lumbar spine with relative preservation of disc height. There is mild to moderate degenerative change of the facet joints throughout the lumbar spine. RAD/Lumbar Spine 2 or 3 Views IMPRESSION: 1. Compression fracture deformities involving L2, L3, and L4 which are of uncertain acuity. Dedicated MR imaging for further characterization. 2. Mild multilevel degenerative disc and facet disease throughout the lumbar spine Electronically Signed: Hemant Arias MD at 2:47 EDT ,
--- NOTE | 2024-01-02 01:25 | RAD_ITS ---
EXAM: XR LEFT HAND COMPLETE, 3 OR MORE VIEWS CLINICAL INDICATION: injury; attn PIPJ #[id number] TECHNIQUE: Frontal, lateral and oblique views of the left hand. COMPARISON: No relevant prior studies available. NOTE: Images are submitted for interpretation on a delayed basis. FINDINGS: BONES/JOINTS: No acute fracture or dislocation. 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 Periarticular erosion and faint periarticular calcifications noted at first and third MCP joints. No subluxation. Normal alignment. Preservation of the joint space. No sclerotic or destructive changes observed. SOFT TISSUES: Mild soft tissue swelling about the wrist and long finger proximal phalanx. RAD/Hand Min 3 Views IMPRESSION: No acute fracture or dislocation. Findings of mild erosive arthritis at the first and third MCP joints. Electronically Signed: Christos Plaza MD at 3:45 EDT ,
[2024-01-02 01:27] LABS: International Normalized Ratio 2.1; Prothrombin Time (Protime)PT. 23.2 SECONDS (11.7-14.9)
[2024-01-02 02:03] VITALS: BP 114/59; PULSE 74; RESP 19; O2SAT 100
--- NOTE | 2024-01-02 03:55 | EDS_ITS ---
HPI HPI - Fall History of Present Illness Chief Complaint: Fall Informant: patient and family Narrative Narrative: 88-year-old male brought by family after a fall. He has been having intermittent vertigo for months, today he has been having it off and on a little more frequently and he got up to use the bathroom in the middle of the night and on his way back, he thinks he lost his balance and fell, hitting his head, injuring his left hand, and his low back. His back was not hurting him prior to this. Denies any numbness or tingling in his legs or bowel or bladder dysfunction. His neck is a little sore as well. In addition to the vertigo, the patient also has Parkinson's disease, and he is anticoagulated on warfarin. [facility] Medical History COVID-19 Hypothyroid COVID-19 Kidney disease COPD (chronic obstructive pulmonary disease) Congestive heart failure (CHF) Myocardial infarct Coronary artery disease Migraines Anemia Atrial fibrillation Chronic renal failure, stage 3b Anemia of chronic renal failure Iron deficiency anemia due to chronic blood loss History of CHF (congestive heart failure) Wears partial dentures Cancer Thyroid disease Arthritis History of renal disease Non-smoker Hypertension Nonrheumatic aortic (valve) stenosis Facial hematoma Head injury Fall Pitting edema Hypersomnolence Acute on chronic diastolic heart failure Dyspnea on exertion Wears dentures Wears glasses Prostate disease Kidney stones High cholesterol Easy bruising Excessive bleeding Parkinson's disease Loss of consciousness History of hiatal hernia History of diverticulitis Shortness of breath on exertion History of edema History of echocardiogram History of stress test History of heart attack History of irregular heartbeat Hx of melanoma of skin History of trigger finger Secondary pulmonary arterial hypertension Acute bacterial sinusitis 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 Diverticulitis Thickening of pleura Bronchiectasis Chronic diastolic (congestive) heart failure Atherosclerosis of coronary artery of three affiliated heart without angina pectoris History of non-ST elevation myocardial infarction (NSTEMI) (01/2015) Essential (primary) hypertension Hyperlipidemia Chronic kidney disease Melanoma Osteoarthritis Home Medications ?Medication ?Instructions ?Recorded ?Last Taken ?Type cholecalciferol (vitamin D3) 25 25 mcg PO DAILY SUPPLEMENT 05/20/21 11/03/22 History mcg (1,000 unit) tablet (Vitamin D3) selenium 200 mcg tablet 200 mcg PO DAILY SUPPLEMENT 12/02/21 11/03/22 History levothyroxine 50 mcg tablet 50 mcg PO DAILY THYROID 05/20/22 11/03/22 History acetaminophen 500 mg tablet 1,000 mg PO Q8 PRN Pain 05/22/22 04/03/23 History aspirin 81 mg chewable tablet 81 mg PO QODAY HEART HEALTH 05/22/22 11/03/22 History ferrous sulfate 325 mg (65 mg 325 mg PO DAILY anemia 10/29/22 11/03/22 History iron) tablet (FeroSul) glycopyrrolate 1 mg tablet 1 mg PO DAILY SALIVATION REDUCTION 05/22/23 Unknown History warfarin 1 mg tablet 1 mg PO DAILY #90 tabs 06/04/23 Unknown Rx doxazosin 4 mg tablet 2 mg (1/2 x 4 mg) PO QHS BLOOD 07/27/23 Unknown Rx PRESSURE #90 tabs atorvastatin 40 mg tablet 40 mg PO QHS CHOLESTEROL #90 tabs 08/10/23 Unknown Rx nitroglycerin 0.4 mg sublingual 0.4 mg sublingual Q5-15M PRN chest 09/23/23 Unknown Rx tablet pain #25 tabs potassium chloride 20 mEq 20 meq PO DAILY 09/23/23 Unknown History tablet,extended release pramipexole 1 mg tablet 1 mg PO BID 09/23/23 Unknown History furosemide 40 mg tablet See Rx Instructions .Route 12/07/23 Unknown Rx .COMPLEX #15 TABLETS hydrocodone-acetaminophen 5-325mg 1 tab PO Q6H PRN PRN Pain 3 days 01/02/24 Unknown Rx 5mg-325mg #10 TABLETS Allergy/AdvReac Type Severity Reaction Status Date / Time levofloxacin Allergy Unknown PT UNSURE Verified 01/02/24 00:10 OF REACTION meloxicam Allergy Unknown PT UNSURE Verified 01/02/24 00:10 OF REACTION amlodipine AdvReac Intermediate severe leg Verified 01/02/24 00:10 edema isosorbide AdvReac headache Verified 01/02/24 00:10 Family History Father Heart disease Mother CVA (cerebral vascular accident) Surgical History Status post revision of total replacement of right knee Hx of transurethral resection of prostate History of left cataract surgery History of right knee joint replacement (05/03/21) History of cardiac catheterization Hx of oral surgery History of carpal tunnel release of both wrists Hx of hernia repair History of total left knee replacement (04/2020) H/O foot surgery H/O left knee surgery History of herniorrhaphy History of left heart catheterization (08/10/19) History of coronary artery stent placement (2005) H/O coronary artery bypass surgery (1989) Social History Smoking Status: Never smoker alcohol intake: never substance use type: does not use caffeine: Yes (about 1 time per week) ROS ROS ED Constitutional Constitutional ED: Denies chills or fever(s) Eyes Eyes: Denies change in vision or diplopia ENT ENT ED: Reports disequillibrium and dizziness; Denies rhinorrhea or sore throat Cardiovascular Cardiovascular: Denies chest pain or palpitations Respiratory/Chest Respiratory/Chest: Denies cough or dyspnea Gastrointestinal Gastrointestinal: Denies abdominal pain, diarrhea, nausea or vomiting Genitourinary Genitourinary ED: Denies dysuria or hematuria Musculoskeletal Musculoskeletal: Reports back pain, extremity pain and neck pain Integumentary Denies abscess or rash Neurologic Neurologic: Reports headache(s); Denies paresthesias or weakness Psychiatric Psychiatric: Denies anxiety or suicidal thoughts EXAM Physical Exam Const Vital Signs: 01/02/24 00:08 01/02/24 00:23 01/02/24 02:03 Temperature 98.2 F Temperature Source Temporal Pulse Rate 75 74 Respiratory Rate 18 19 H Respiratory Effort Normal Blood Pressure 119/78 114/59 L Blood Pressure Mean 91 77 Pulse Ox 94 100 Oxygen Delivery Method Room Air Room Air 01/02/24 03:57 Temperature 97.8 F Temperature Source Pulse Rate 74 Respiratory Rate 16 Respiratory Effort Blood Pressure 113/53 L Blood Pressure Mean 73 Pulse Ox 96 Oxygen Delivery Method Positive well nourished and well developed General Appearance ED: well developed and NAD HEENT Reports moist mucous membranes normocephalic and atraumatic; Negative for hematoma or tenderness Eyes PERRL and EOMs intact bilaterally Neck full ROM and supple Neck Narrative: Mild diffuse midline tenderness without step-off or obvious sign of trauma. Resp normal respiratory effort and clear to auscultation bilaterally GI non-tender and non-distended Auscultation: normoactive bowel sounds Palpation: soft Back/Spine no CVA tenderness Back/Spine Narrative: Diffuse midline lumbar tenderness but no thoracic tenderness General Back: other FROM Cervical Spine: cervical spine tenderness Thoracic Spine / Upper Back: Negative for thoracic spinal tenderness Lumbar Spine / Lower Back: lumbar spinal tenderness Extremity Extremity Narrative: Swelling and tenderness to the PIPJ of the left ring and middle fingers. He is able to bend them without difficulty, all FDP, FDS, and extensor mechanisms of all fingers are intact. No other areas of bony tenderness in the hand. Otherwise, his extremities are benign and atraumatic. General Extremety ED: Yes tenderness; Negative for edema or pulses abnormal General Extremity: Negative for edema or pulses abnormal Neuro oriented x3, CN's II-XII intact bilaterally and no sensory deficits noted Neuro Narrative: Normal [id number] and [id number] bilaterally Piercy Coma Scale: document GCS findings Spontaneous Obeys Commands Oriented 15 Sensorium / Orientation: awake and alert Motor Exam: strength 5/5 throughout Skin no rashes or lesions noted and no wounds MDM MDM MDM Narrative Medical decision making narrative: Measured the patient's INR is therapeutic 2.1, also obtained CT imaging of the head and cervical spine to rule out injuries. I reviewed the images and the results which I agree with, they are both negative for anything acute. Additionally, obtained imaging of the lumbar spine and the left hand. Left hand 3 views of my interpretation negative for acute fracture of the areas of interest, PIPJ of fingers 3 and 4, in addition to the rest of the imaging/bones. With regards to the lumbar spine there are multiple abnormalities with regards to vertebral height on my interpretation; radiology in agreement stating these are compression fractures that may or may not be acute. In discussing with the patient and family, he does not usually have back pain and this is all new so they probably are acute. He was given some pain medication here which helped. We got him out of bed with assistance and he walked down the hallway very well without the need for much assistance. We offered admission he declines and wants to go home. Wrote him for some Denio, and referred him to Ortho spine for further evaluation. Family and patient comfortable with that overall plan. Lab Data Attestation: I reviewed the patient's lab results. Labs: Laboratory Results - last 24 hr 01/01/24 23:50 PT 23.2 H INR 2.1 Radiography Diagnostic Testing: Clinical Impression(s) from Imaging Studies Brain CT 01/02/24 00:33 IMPRESSION: 1. No acute intracranial abnormality. 2. Mild bilateral periventricular and subcortical white matter chronic small vessel disease with age appropriate cerebral atrophy. 3. Chronic paranasal sinus disease Electronically Signed: Hemant Arias MD at 2:01 EDT , Cervical Spine CT 01/02/24 00:33 IMPRESSION: 1. No acute abnormality of the cervical spine 2. Mild to moderate multilevel degenerative disc and joint disease resulting in multilevel neural foraminal canal and spinal canal stenoses. Electronically Signed: Hemant Arias MD at 2:07 EDT , Hand X-Ray 01/02/24 01:25 IMPRESSION: No acute fracture or dislocation. Findings of mild erosive arthritis at the first and third MCP joints. Electronically Signed: Christos Plaza MD at 3:45 EDT , Lumbar Spine X-Ray 01/02/24 01:25 IMPRESSION: 1. Compression fracture deformities involving L2, L3, and L4 which are of uncertain acuity. Dedicated MR imaging for further characterization. 2. Mild multilevel degenerative disc and facet disease throughout the lumbar spine Electronically Signed: Hemant Arias MD at 2:47 EDT , Discharge Plan Triage Chief Complaint: Fall ED Provider: Buck Mcdaniel Dx/Rx/DC Orders Clinical Impression: Compression fracture of lumbar vertebra, Contusion of left hand, Intermittent vertigo, Closed head injury without loss of consciousness, Acute cervical myofascial strain, Warfarin-induced coagulopathy Instructions: ED Fracture, Vertebral Compression Prescriptions: New hydrocodone-acetaminophen 5-325 mg tablet 1 tab PO Q6H PRN PRN (Reason: Pain) 3 Days Qty: 10 0RF No Action acetaminophen 500 mg tablet 1,000 mg PO Q8 PRN (Reason: Pain) Patient Comments: taken at 1500 today aspirin 81 mg tablet,chewable 81 mg PO QODAY selenium 200 mcg tablet 200 mcg PO DAILY ferrous sulfate [FeroSul] 325 mg (65 mg iron) tablet 325 mg PO DAILY potassium chloride 20 mEq tablet extended release 20 meq PO DAILY pramipexole 1 mg tablet 1 mg PO BID nitroglycerin 0.4 mg tablet, sublingual 0.4 mg SUBLINGUAL Q5-15M PRN (Reason: chest pain) Qty: 25 3RF Rx Instructions: Take one table under the tongue every 5-15 minutes if needed. Do not exceed 3 doses. cholecalciferol (vitamin D3) [Vitamin D3] 25 mcg (1,000 unit) Tablet 25 mcg PO DAILY glycopyrrolate 1 mg tablet 1 mg PO DAILY levothyroxine 50 mcg tablet 50 mcg PO DAILY warfarin 1 mg tablet 1 mg PO DAILY Qty: 90 3RF Protocol: Dose Management Condition: Thursday Dose/Route: 2 mg Instruction: 2 x 1 mg tablets Condition: Thursday Dose/Route: 1 mg Instruction: 1 x 1 mg tablet Condition: Thursday Dose/Route: 1 mg Instruction: 1 x 1 mg tablet Condition: Thursday Dose/Route: 1 mg Instruction: 1 x 1 mg tablet Condition: Dose/Route: 2 mg Instruction: 2 x 1 mg tablets Condition: Thursday Dose/Route: 2 mg Instruction: 2 x 1 mg tablets Condition: Thursday Dose/Route: 2 mg Instruction: 2 x 1 mg tablets Protocol Text: Adjustment Start Date: Thursday12/28/23 INR Value: 2.8 INR Date: 12/28/23 Recheck Date: 01/27/24 doxazosin 4 mg tablet 2 mg PO QHS Qty: 90 3RF atorvastatin 40 mg tablet 40 mg PO QHS Qty: 90 3RF furosemide 40 mg tablet See Rx Instructions .ROUTE .COMPLEX Qty: 15 3RF Dose Instruction: TAKE 1 TABLET BY MOUTH EVERY OTHER DAY FOR EDEMA Rx Instructions: TAKE 1 TABLET BY MOUTH EVERY OTHER DAY FOR EDEMA Primary Care Provider: Rick Butler Referrals: Ángel Marmolejo MD [Med Staff - Active Staff] - As soon as possible Rick Butler MD [Primary Care Provider] - Print Language: [place] Disposition Disposition: Home, Self Care Discharge Date/Time: 01/02/24 04:20
[2024-01-02 03:57] VITALS: BP 113/53; PULSE 74; RESP 16; TEMP 36.6; O2SAT 96
== END 2024-01-02 04:20 | disposition home or self-care (01) ==
PROVIDERS: Emergency Provider Emergency Medicine; PCP Family Medicine; Visit Provider Emergency Medicine
DX: S09.90XA Unspecified injury of head, initial encounter (principal); G20.C Parkinsonism, unspecified; M48.56XA Collapsed vertebra, not elsewhere classified, lumbar region, initial encounter for fracture; I13.0 Hypertensive heart and chronic kidney disease with heart failure and stage 1 through stage 4 chronic kidney disease, or unspecified chronic kidney disease; I50.32 Chronic diastolic (congestive) heart failure; J44.9 Chronic obstructive pulmonary disease, unspecified; N18.32 Chronic kidney disease, stage 3b; S60.222A Contusion of left hand, initial encounter; I25.10 Atherosclerotic heart disease of native coronary artery without angina pectoris; S16.1XXA Strain of muscle, fascia and tendon at neck level, initial encounter; Z79.01 Long term (current) use of anticoagulants; E78.00 Pure hypercholesterolemia, unspecified; D63.1 Anemia in chronic kidney disease; R42 Dizziness and giddiness; D68.32 Hemorrhagic disorder due to extrinsic circulating anticoagulants; W19.XXXA Unspecified fall, initial encounter
CPT/HCPCS: 70450; 72100; 72125; 73130; 85610; 99282

== ENCOUNTER → 2024-01-03 | Outpatient (CLI) | payer MEDICARE, OTHER, SELFPAY | END | disposition home or self-care (01) | PROVIDERS: PCP Family Medicine; Referring Provider Physician Assistant; Visit Provider Physician Assistant | DX: N39.0 Urinary tract infection, site not specified (principal) | CPT/HCPCS: 87077; 87086; 87088; 87186 ==

== ENCOUNTER → 2024-01-11 | Outpatient (CLI) | payer MEDICARE, OTHER, SELFPAY ==
--- NOTE | 2024-01-11 14:12 | US_ITS ---
STUDY: RENAL ULTRASOUND - COMPLETE REASON FOR EXAM: Male, 88 years old. hematuria, hx trauma/fall to R side, also hx bladder stones. ? u TECHNIQUE: Ultrasound evaluation of the kidneys was performed with real-time and static johnson-scale imaging. COMPARISON: None. FINDINGS: RIGHT KIDNEY: Normal location of the right kidney, which is normal in size. The right kidney measures 12.2 x 3.6 x 3.7 cm. There is a normal cortex of the right kidney. The renal cortex measures 1.3 cm. Multiple renal cysts are seen measuring as much as 2.6 and 3.6 cm. There is a 5 mm nonobstructing stone. There is no right hydronephrosis. DISTAL RIGHT URETER: There is non-visualization of the distal right ureter. There is no demonstrated right ureterovesical junction calculus. There is a visualized right ureteral jet. LEFT KIDNEY: Normal location of the left kidney, which is normal in size. The left kidney measures 12.9 x 4.9 x 5.6 cm. There is a normal cortex of the left kidney. The renal cortex measures 1.8 cm. Multiple renal cysts are seen measuring as much as 2.0 cm. There is a 5 mm nonobstructing stone. There is no left hydronephrosis. DISTAL LEFT URETER: There is non-visualization of the distal left ureter. There is no demonstrated left ureterovesical junction calculus. There is a visualized left ureteral jet. BLADDER: The distended urinary bladder has a volume of 147 ml. The empty urinary bladder has a volume of 79 ml. There is trabeculation with thickening of the wall of the urinary bladder. There is no demonstrated mass within the urinary bladder. There are no demonstrated bladder calculi. US/Kidney and Bladder IMPRESSION: No acute abnormalities of the kidneys. Bilateral nonobstructing stones and cysts. Abnormal bladder consistent with bladder outlet obstruction. Electronically Signed: Bj Guerra MD at 23:23 EDT ,
== END | disposition home or self-care (01) ==
LOC: US 14:11
PROVIDERS: PCP Family Medicine; Referring Provider Family Medicine; Visit Provider Family Medicine
DX: N39.41 Urge incontinence (principal); R31.9 Hematuria, unspecified; Z87.442 Personal history of urinary calculi; Z91.81 History of falling
CPT/HCPCS: 76770

== ENCOUNTER 2024-01-26 10:29 | Outpatient (RCR) | payer MEDICARE, OTHER, SELFPAY ==
[2024-01-25 09:15] LABS: International Normalized Ratio 6.5; Prothrombin Time (Protime)PT. 56.6 SECONDS (11.7-14.9)
[2024-01-26 13:13] LABS: Prothrombin Time (Protime)PT. 49.3 SECONDS (11.7-14.9)
[2024-01-26 13:17] LABS: International Normalized Ratio 5.5
== END 2024-01-26 18:00 | disposition home or self-care (01) ==
LOC: LAB 10:29
PROVIDERS: PCP Family Medicine; Referring Provider Nurse Practitioner Family; Visit Provider Nurse Practitioner Family
DX: I48.19 Other persistent atrial fibrillation (principal); Z79.01 Long term (current) use of anticoagulants; R30.0 Dysuria
CPT/HCPCS: 36415; 85610; 87077; 87086; 87088; 87186

== ENCOUNTER → 2024-04-11 | Outpatient (CLI) | payer MEDICARE, OTHER, SELFPAY ==
--- NOTE | 2024-04-11 15:30 | RAD_ITS ---
STUDY: X-RAY CHEST REASON FOR EXAM: Male, 88 years old. Shortness of breath, orthopnea TECHNIQUE: Frontal and lateral views of the chest. COMPARISON: 08/03/2023. FINDINGS: There is hyperinflation of the lungs consistent with chronic obstructive lung disease (COPD). No infiltrates or effusions. There is no demonstrated pleural abnormality. There is mild cardiac enlargement. Previous CABG. Normal mediastinum and sherlyn. Normal visualized pulmonary arteries. Normal visualized aortic arch and descending thoracic aorta. There are diffuse degenerative changes of the visualized thoracic spine. Normal visualized ribs, clavicles, and shoulders. There is no demonstrated abnormality of the visualized soft tissue structures of the upper abdomen. RAD/Chest PA and Lateral IMPRESSION: There are findings consistent with COPD. There is no evidence of acute chest disease. Electronically Signed: Bj Guerra MD at 16:02 EST ,
[2024-04-11 15:32] LABS: Absolute Lymphocyte Count 0.82 X10^3/uL (0.83-4.51); Absolute Neutrophil Count 3.5 X10^3/uL (2.0-7.7); Basophil# 0.01 X10^3/uL; Basophil% 0.2 % (0-1); Eosinophil# 0.11 X10^3/uL; Eosinophils% 2.3 % (0-5); Hematocrit 32.6 % (40-54); Hemoglobin 10.5 g/dL (13.0-16.5); Lymphocyte # 0.82 X10^3/ul (0.83-4.51); Lymphocyte % 17.2 % (19-41); Mean Corp Hgb Conc 32.2 g/dL (32-36); Mean Corpuscular Hgb 31.7 pg (27.0-32.0); Mean Corpuscular Volume 98.5 fL (80-94); Monocyte% 6.3 % (0-10); NRBC Flagged by Analyzer 0 % (0-5); Neutrophil # 3.51 X10^3/uL (2.7-7.7); Neutrophil % 73.6 % (47-70); POSITIVE COUNT YES; Platelet Count 84 K/mm3 (150-450); RBC Distribution Width SD 50.3 fl (35.1-43.9); Red Blood Count 3.31 M/mm3 (4.6-6.2); White Blood Count 4.8 K/mm3 (4.4-11.0)
[2024-04-11 15:34] LABS: Differential Indicated SCAN CRITERIA MET
[2024-04-11 15:53] LABS: Anion Gap 4 (5-15); BUN 47 mg/dL (7-18); BUN/Creat Ratio 25.7 RATIO (10-20); Calcium,Total 10.1 mg/dL (8.5-10.1); Chloride 111 mmol/L (98-107); Creatinine, Serum 1.83 mg/dL (0.70-1.30); EST Glomerular Filtration Rate 37 mL/min (>60); Est Glom Filt Rate - Afr Amer 45 mL/min (>60); Glucose 101 mg/dL (74-106); Potassium 4.3 mmol/L (3.5-5.1); Sodium Level 141 mmol/L (136-145)
[2024-04-11 15:55] LABS: BNP,B-Type NATRIURETIC PEPTIDE 240.1 pg/mL (0-100)
[2024-04-11 16:00] LABS: Color, Urine Yellow (Yellow); Glucose, Dipstick Normal (Normal); Ketone-Dipstick Negative (Negative); Leukocyte Esterase-Dipstick Negative /ul (Negative); Nitrite-Dipstick Negative (Negative); Occult Blood-Urine Negative /ul (Negative); Protein-Dipstick 30 mg/dl (Negative); Specific Gravity, Urine 1.015 (1.002-1.030); Urine Bilirubin Dipstick Negative (Negative); Urine Clarity Clear (Clear); Urine Urobilinogen 1 mg/dl (Normal)
[2024-04-11 18:44] LABS: International Normalized Ratio 2.1; Prothrombin Time (Protime)PT. 23.1 SECONDS (11.7-14.9)
[2024-04-21 17:07] LABS: Acetylcholine Receptor Binding < 0.03 nmol/L (0.00-0.24)
== END | disposition home or self-care (01) ==
PROVIDERS: Nurse Practitioner Family; PCP Family Medicine; Referring Provider Psychiatry & Neurology Neurology; Visit Provider Psychiatry & Neurology Neurology
DX: G70.00 Myasthenia gravis without (acute) exacerbation (principal); G72.9 Myopathy, unspecified; R06.02 Shortness of breath; R06.01 Orthopnea; R07.9 Chest pain, unspecified; N18.9 Chronic kidney disease, unspecified; D63.1 Anemia in chronic kidney disease; D50.0 Iron deficiency anemia secondary to blood loss (chronic); Z79.01 Long term (current) use of anticoagulants
CPT/HCPCS: 36415; 71046; 80048; 81002; 83880; 84238; 85025; 85610; 87086; 87088

== ENCOUNTER → 2024-04-13 | Outpatient (CLI) | payer MEDICARE, OTHER, SELFPAY | END | disposition home or self-care (01) | LOC: LAB 10:09 | PROVIDERS: PCP Family Medicine; Referring Provider Nurse Practitioner Family; Visit Provider Nurse Practitioner Family | DX: R06.02 Shortness of breath (principal); I48.19 Other persistent atrial fibrillation; R00.1 Bradycardia, unspecified | CPT/HCPCS: 82274 ==

== ENCOUNTER → 2024-05-09 | Outpatient (CLI) | payer MEDICARE, OTHER, SELFPAY ==
--- NOTE | 2024-05-09 08:04 | MRI_ITS ---
EXAM: MR HEAD WITHOUT INTRAVENOUS CONTRAST CLINICAL INDICATION: DIPLOPIA TECHNIQUE: Multiplanar and multisequence MR images of the brain were obtained without intravenous contrast. COMPARISON: MRI brain without contrast 03/18/2022. FINDINGS: BRAIN AND EXTRA-AXIAL SPACES: Unremarkable. No intra- or extra-axial hemorrhage. No evidence of acute infarct. No intracranial mass or mass effect. There is preservation of the crespo/white matter interface. Posterior fossa structures are unremarkable. Ventricles are appropriate for age. No hydrocephalus. Basal cisterns are patent. SELLA: Unremarkable. Normal sella turcica, pituitary gland, infundibular stalk, optic chiasm and hypothalamus. AUDITORY SYSTEM: Unremarkable. The internal auditory canals are patent. BONES/JOINTS: Unremarkable. No discrete lytic or blastic abnormalities. SINUSES: Mild mucosal thickening of the hypoplastic right maxillary sinus. Developmentally absent frontal sinus. Normal remaining paranasal sinuses. MASTOID AIR CELLS: Unremarkable as visualized. Clear. ORBITS: Unremarkable as visualized. Both globes, extraocular muscles, optic nerves and retrobulbar fat appear unremarkable. VASCULATURE: Unremarkable as visualized. Normal flow voids in the major intracranial circulation. MRI/Brain without Contrast IMPRESSION: Minimal mucosal thickening in the right maxillary sinus otherwise negative MRI brain without intravenous contrast and no significant interval change. Electronically Signed: Candelario Webb MD at 10:07 [facility] ,
== END | disposition home or self-care (01) ==
PROVIDERS: PCP Family Medicine; Referring Provider Psychiatry & Neurology Neurology; Visit Provider Psychiatry & Neurology Neurology
DX: H53.2 Diplopia (principal)
CPT/HCPCS: 70551

== ENCOUNTER 2024-05-20 12:17 | Emergency (ER) | payer MEDICARE, OTHER, SELFPAY ==
[2024-05-20 12:21] VITALS: BP 166/73; PULSE 64; RESP 16; TEMP 36.6; O2SAT 100
--- NOTE | 2024-05-20 13:03 | RAD_ITS ---
STUDY: X-RAY - RIGHT KNEE REASON FOR EXAM: Male, 88 years old. fall, pain TECHNIQUE: 4 view(s) of the knee. COMPARISON: Right knee x-ray dated February 26, 2022 FINDINGS: No visualized fracture or displaced bony fragment. Atherosclerotic calcifications are present. The prosthetic components are intact without evidence of complications. Normal proximal tibiofibular articulation. There is no demonstrated fracture. Mild anterior soft tissue swelling noted The soft tissue structures are unremarkable. RAD/Knee 4 or More Views IMPRESSION: Anterior soft tissue swelling Electronically Signed: Jonathan Arzate MD at 14:53 EST ,
--- NOTE | 2024-05-20 13:03 | RAD_ITS ---
STUDY: X-RAY - PELVIS AND RIGHT HIP REASON FOR EXAM: Male, 88 years old. Fall, pain TECHNIQUE: 3 views of the pelvis and hip. COMPARISON: None. FINDINGS: There is a non-specific bowel gas pattern. Normal visualized soft tissue structures. No demonstrated acute fracture. Atherosclerotic calcifications are present. Degenerative spurring of the hips. A surgical clip is seen in the left inguinal region. Normal bilateral iliac wings, sacroiliac joints and visualized sacrum. Normal bilateral superior and inferior pubic rami. Normal pubic symphysis. Normal bilateral ischial tuberosities. Clips are present in the pelvis. Normal visualized femoral head. Normal acetabulum. RAD/HIP, UNI W/ Pelvis 2-3 Views IMPRESSION: No acute fracture of the pelvis and hip. Electronically Signed: Jonathan Arzate MD at 14:52 EST ,
--- NOTE | 2024-05-20 13:04 | CT_ITS ---
STUDY: CT BRAIN WITHOUT CONTRAST REASON FOR EXAM: Male, 88 years old. Trauma RADIATION DOSAGE (If Supplied By Facility): CTDIvol = ( 47.06 ) mGy, DLP = ( 907.97 ) mGycm TECHNIQUE: Transaxial CT imaging of the brain was performed without administration of intravenous contrast material. Individualized dose optimization techniques were used for this CT. COMPARISON: Head CT dated January 02, 2024 FINDINGS: No visualized skull fracture or pneumocephalus or subdural hemorrhage. No extra-axial fluid collection or midline shift is seen. Normal soft tissue structures. Normal calvarium. There is moderate cerebral atrophy with widening of the extra-axial spaces and ventricular dilatation. There are areas of decreased attenuation within the white matter tracts of the supratentorial brain, consistent with microvascular disease changes. Normal basal ganglia and thalami. Normal brainstem. Normal cerebellum. There is no intracranial hemorrhage. There are no findings of an acute ischemic infarction. Normal visualized paranasal sinuses. CT/Brain/Head without Contrast IMPRESSION: 1. Chronic involutional changes of the brain. Recommendations: * Unresolved symptoms should be further assessed/pursued with neurology consult and evaluation * Advanced imaging including brain MRI, CTA, and CT brain perfusion should also be obtained if there are concerns for acute ischemia, possible malignancy, and other concerning processes or if clinical symptoms remain unresolved or worsen. Electronically Signed: Jonathan Arzate MD at 14:34 EST ,
--- NOTE | 2024-05-20 13:04 | CT_ITS ---
STUDY: CT CERVICAL SPINE WITHOUT CONTRAST REASON FOR EXAM: Male, 88 years old. Trauma RADIATION DOSAGE (If Supplied By Facility): CTDIvol = ( 16.90 ) mGy, DLP = ( 308.70 ) mGycm TECHNIQUE: High resolution transaxial imaging was performed without contrast material. Sagittal and coronal images were reconstructed. Individualized dose optimization techniques were used for this CT. COMPARISON: CT of the cervical spine dated January 02, 2024 FINDINGS: Normal craniovertebral junction. There are degenerative changes of the anterior atlantoaxial articulation. Normal odontoid process. There is reversal of the normal cervical lordosis. No visualized acute fracture or compression deformity. No demonstrated jumped facets. Moderate to severe multilevel degenerative changes are present. Normal visualized soft tissue structures. CT/Spine Cervical without Contras IMPRESSION: Multilevel degenerative changes, as described above. Electronically Signed: Jonathan Arzate MD at 14:45 EST ,
--- NOTE | 2024-05-20 13:11 | EDS_ITS ---
HPI HPI - Fall History of Present Illness Chief Complaint: Fall Narrative Narrative: Chief complaint and HPI: Mechanical fall. 88-year-old male with past medical history of atrial fibrillation on Coumadin, CAD, CHF, CKD presents for evaluation after mechanical fall. Patient states prior to arrival he was outside shoveling his driveway when he lost his balance and fell backwards. He states he hit his head. No LOC. He has not ambulated since the fall. States he was on the ground only for a couple minutes. Patient endorses right elbow pain where he has a skin tear. Also endorses right hip and right knee pain. Patient has a history of bilateral knee replacements. He denies any fever, chills, headache, vision changes, facial pain, neck pain, chest pain, shortness of breath, back pain, abdominal pain, nausea, vomiting, dysuria. Patient's tetanus was updated last year per and patient. Review of systems: See HPI Medications: As listed on the chart Allergies: As listed on the chart PFSH: Per chart Vital signs: As listed on the chart. Reviewed. Physical exam: Gen: A&O x3, NAD Head: Normocephalic, atraumatic Eyes: No sclera icterus, conjunctiva clear, PERRL, EOMI ENT: TMs clear BL, moist mucous membranes, no swelling/lacerations/blood in the mouth or the nares, No nasal septal hematoma, no facial tenderness Neck: Trachea midline, No JVD, Nontender CV: RRR, no murmurs, no chest wall TTP Resp: Lungs CTA BL, no w/r/c GI: Abd soft, non-distended, non-tender, no r/r/g Musc: Moves all extremities, no deformity, right knee is mildly tender to palpation -pain worse with movement, mild pain in the right hip with movement, no spinal TTP, no sayra step-offs, pain in the elbow with movement-skin tear Skin: Warm, dry, intact Neuro: Alert, oriented, grossly intact, sensation intact, GCS 15 Psych: Cooperative, appropriate mood and affect [facility] Medical History Hypothyroid COVID-19 Kidney disease COPD (chronic obstructive pulmonary disease) Congestive heart failure (CHF) Myocardial infarct Coronary artery disease Migraines Anemia Atrial fibrillation Chronic renal failure, stage 3b Anemia of chronic renal failure Iron deficiency anemia due to chronic blood loss History of CHF (congestive heart failure) Wears partial dentures Cancer Thyroid disease Arthritis History of renal disease Non-smoker Hypertension Nonrheumatic aortic (valve) stenosis Facial hematoma Head injury Fall Pitting edema Hypersomnolence Acute on chronic diastolic heart failure Dyspnea on exertion Wears dentures Wears glasses Prostate disease Kidney stones High cholesterol Easy bruising Excessive bleeding Parkinson's disease Loss of consciousness History of hiatal hernia History of diverticulitis Shortness of breath on exertion History of edema History of echocardiogram History of stress test History of heart attack History of irregular heartbeat Hx of melanoma of skin History of trigger finger Secondary pulmonary arterial hypertension Acute bacterial sinusitis Atherosclerosis of coronary artery 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 Diverticulitis Thickening of pleura Bronchiectasis Chronic diastolic (congestive) heart failure Atherosclerosis of coronary artery of [place] heart without angina pectoris History of non-ST elevation myocardial infarction (NSTEMI) (01/2015) Essential (primary) hypertension Hyperlipidemia Chronic kidney disease Melanoma Osteoarthritis Home Medications ?Medication ?Instructions ?Recorded ?Last Taken ?Type cholecalciferol (vitamin D3) 25 25 mcg PO DAILY SUPPLEMENT 05/20/21 11/03/22 History mcg (1,000 unit) tablet (Vitamin D3) selenium 200 mcg tablet 200 mcg PO DAILY SUPPLEMENT 12/02/21 11/03/22 History acetaminophen 500 mg tablet 1,000 mg PO Q8 PRN Pain 05/22/22 04/03/23 History aspirin 81 mg chewable tablet 81 mg PO QODA [employer] [facility] 05/22/22 11/03/22 History ferrous sulfate 325 mg (65 mg 325 mg PO DAILY anemia 10/29/22 11/03/22 History iron) tablet (FeroSul) glycopyrrolate 1 mg tablet 1 mg PO DAILY SALIVATION REDUCTION 05/22/23 Unknown History atorvastatin 40 mg tablet 40 mg PO QHS CHOLESTEROL #90 tabs 08/10/23 Unknown Rx nitroglycerin 0.4 mg sublingual 0.4 mg sublingual Q5-15M PRN chest 09/23/23 Unknown Rx tablet pain #25 tabs doxazosin 1 mg tablet 1 mg PO QHS blood pressure 02/04/24 Unknown History liothyronine 5 mcg tablet 5 mcg PO QDAY 02/04/24 Unknown History potassium chloride 20 mEq 20 meq PO MOWEFR 02/04/24 Unknown History tablet,extended release warfarin 1 mg tablet 1 mg PO DAILY #90 tabs 02/08/24 Unknown Rx pramipexole 1 mg tablet 1 mg PO BID PRN 04/12/24 Unknown History ranolazine 500 mg tablet,extended 500 mg PO BID #60 tabs 04/12/24 Unknown Rx release,12 hr Handicap Placard #1 ea 04/13/24 Unknown Rx levothyroxine 50 mcg tablet 50 mcg PO .COMPLEX THYROID 04/22/24 Unknown History furosemide 40 mg tablet 40 mg PO MOWEFR weight gain #90 04/25/24 Unknown Rx TABLETS Allergy/AdvReac Type Severity Reaction Status Date / Time levofloxacin Allergy Unknown PT UNSURE Verified 05/20/24 12:23 OF REACTION meloxicam Allergy Unknown PT UNSURE Verified 05/20/24 12:23 OF REACTION amlodipine AdvReac Intermediate severe leg Verified 05/20/24 12:23 edema isosorbide AdvReac headache Verified 05/20/24 12:23 Family History Father Heart disease Mother CVA (cerebral vascular accident) Surgical History Status post revision of total replacement of right knee Hx of transurethral resection of prostate History of left cataract surgery History of right knee joint replacement (05/03/21) History of cardiac catheterization Hx of oral surgery History of carpal tunnel release of both wrists Hx of hernia repair History of total left knee replacement (04/2020) H/O foot surgery H/O left knee surgery History of herniorrhaphy History of left heart catheterization (08/10/19) History of coronary artery stent placement (2005) H/O coronary artery bypass surgery (1989) Social History Smoking Status: Never smoker alcohol intake: never substance use type: does not use caffeine: Yes (about 1 time per week) EXAM Physical Exam Const Vital Signs: 05/20/24 12:21 05/20/24 12:32 05/20/24 14:20 Temperature 98 F Temperature Source Oral Pulse Rate 64 81 Respiratory Rate 16 16 Respiratory Effort Normal Respiratory Depth Normal Respiratory Pattern Normal Blood Pressure 166/73 H 152/83 H Blood Pressure Mean 104 106 Pulse Ox 100 97 Oxygen Delivery Method Room Air Room Air 05/20/24 15:10 Temperature 98 F Temperature Source Pulse Rate 83 Respiratory Rate 16 Respiratory Effort Respiratory Depth Respiratory Pattern Blood Pressure 131/96 H Blood Pressure Mean 107 Pulse Ox 99 Oxygen Delivery Method MDM MDM MDM Narrative Medical decision making narrative: 88-year-old male with past medical history of atrial fibrillation on Coumadin, CAD, CHF, CKD presents for evaluation after mechanical fall. Patient endorses right elbow, right hip, right knee pain. He has a skin tear to the right elbow that does not need repaired. Patient states that his fall was purely mechanical therefore I do not think any laboratory workup is needed at this time. Patient is on Coumadin therefore we will get CT head to assess for any intracranial bleed. CT neck to assess for fracture given age and fall on concrete. X-rays of the right elbow, right hip, right knee obtained to rule out fracture as well. Patient declined anything for pain. X-ray of the right elbow, right knee, right hip/pelvis was personally reviewed and interpreted by me ED physician. No acute fracture or dislocation in any of the bones. Patient does have a right knee replacement. Arthritis of the right hip. CT head and neck without any acute traumatic injury. Patient was able to ambulate in emergency department with a walker without any difficulty. Patient is stable to discharge home. Tylenol as needed for pain. Follow-up with PCP. They confirmed understand the plan. Impression: 1. Mechanical fall 2. Closed head injury on blood thinners 3. Right elbow contusion 4. Right knee contusion 5. Right hip contusion 6. Skin tear of the right elbow Radiography Diagnostic Testing: Clinical Impression(s) from Imaging Studies Hip/Pelvis X-Ray 05/20/24 13:03 IMPRESSION: No acute fracture of the pelvis and hip. Electronically Signed: Jonathan Arzate MD at 14:52 EST , Knee X-Ray 05/20/24 13:03 IMPRESSION: Anterior soft tissue swelling Electronically Signed: Jonathan Arzate MD at 14:53 EST , Brain CT 05/20/24 13:04 IMPRESSION: 1. Chronic involutional changes of the brain. Recommendations: * Unresolved symptoms should be further assessed/pursued with neurology consult and evaluation * Advanced imaging including brain MRI, CTA, and CT brain perfusion should also be obtained if there are concerns for acute ischemia, possible malignancy, and other concerning processes or if clinical symptoms remain unresolved or worsen. Electronically Signed: Jonathan Arzate MD at 14:34 EST , Cervical Spine CT 05/20/24 13:04 IMPRESSION: Multilevel degenerative changes, as described above. Electronically Signed: Jonathan Arzate MD at 14:45 EST Reading Location ID and State: [facility] / [place] , Service support , Elbow X-Ray 05/20/24 13:20 IMPRESSION: No acute fracture Electronically Signed: Jonathan Arzate MD at 14:54 EST , Discharge Plan Triage Chief Complaint: Fall ED Provider: Terrence Littlejohn Dx/Rx/DC Orders Clinical Impression: Accident due to mechanical fall without injury, Contusion of knee, right, Contusion of hip, right, Contusion of elbow, right Instructions: Falls Prevent Outside, ED Soft Tissue Contusion, ED Hip Contusion, ED Fall Prevention Prescriptions: No Action acetaminophen 500 mg tablet 1,000 mg PO Q8 PRN (Reason: Pain) Patient Comments: taken at 1500 today aspirin 81 mg tablet,chewable 81 mg PO QODAY selenium 200 mcg tablet 200 mcg PO DAILY ferrous sulfate [FeroSul] 325 mg (65 mg iron) tablet 325 mg PO DAILY doxazosin 1 mg tablet 1 mg PO QHS liothyronine 5 mcg tablet 5 mcg PO QDAY nitroglycerin 0.4 mg tablet, sublingual 0.4 mg SUBLINGUAL Q5-15M PRN (Reason: chest pain) Qty: 25 3RF Rx Instructions: Take one table under the tongue every 5-15 minutes if needed. Do not exceed 3 doses. potassium chloride 20 mEq tablet extended release 20 meq PO MOWEFR pramipexole 1 mg tablet 1 mg PO BID PRN ranolazine 500 mg tablet extended release 12 hr 500 mg PO BID Qty: 60 11RF cholecalciferol (vitamin D3) [Vitamin D3] 25 mcg (1,000 unit) Tablet 25 mcg PO DAILY glycopyrrolate 1 mg tablet 1 mg PO DAILY atorvastatin 40 mg tablet 40 mg PO QHS Qty: 90 3RF warfarin 1 mg tablet 1 mg PO DAILY Qty: 90 3RF Protocol: Dose Management Condition: Thursday Dose/Route: 2 mg Instruction: 2 x 1 mg tablets Condition: Thursday Dose/Route: 0 mg Instruction: 0 tablets Condition: Thursday Dose/Route: 0 mg Instruction: 0 tablets Condition: Thursday Dose/Route: 0 mg Instruction: 0 tablets Condition: Dose/Route: 0 mg Instruction: 0 tablets Condition: Thursday Dose/Route: 2 mg Instruction: 2 x 1 mg tablets Condition: Thursday Dose/Route: 2 mg Instruction: 2 x 1 mg tablets Protocol Text: Adjustment Start Date: Thursday01/26/24 INR Value: 5.5 INR Date: 01/26/24 Recheck Date: 01/29/24 (DME) Handicap Placard See Rx Instructions .Route .MEDSUPPLY Qty: 1 0RF Rx Instructions: Good from 04/13/2024-04/13/2029; levothyroxine 50 mcg tablet 50 mcg PO .COMPLEX Rx Instructions: 50 mcg orally 1 and a half pills (75mcg) on Thu, , and Thursday: 1 tablet (50 mcg) all other days of the week: increased per Dr. Butler.; furosemide 40 mg tablet 40 mg PO Qty: 90 3RF Primary Care Provider: Rick Butler Referrals: Rick Butler MD [Primary Care Provider] - 3-5 Days Activity Restrictions/Additional Instructions: Tylenol as needed for pain. Follow-up with primary care physician as needed. Print Language: Estonian Disposition Disposition: Home, Self Care Discharge Date/Time: 05/20/24 15:17
--- NOTE | 2024-05-20 13:20 | RAD_ITS ---
STUDY: X-RAY - RIGHT ELBOW REASON FOR EXAM: Male, 88 years old. Pain TECHNIQUE: 3 view(s) of the elbow. COMPARISON: None. FINDINGS: Normal visualized humerus, radius and ulna. Normal radiocapitellar and ulnotrochlear articulations. The soft tissue structures are unremarkable. No visualized acute fracture or displaced bony fragment. Pericapsular calcification/ossification of the lateral collateral ligament and common extensor tendon complex junction which is degenerative in nature. Atherosclerotic calcifications are present. RAD/Elbow min 3 Views IMPRESSION: No acute fracture Electronically Signed: Jonathan Arzate MD at 14:54 EST Reading Location ID and State: [facility] / [place] , Service support ,
[2024-05-20 14:20] VITALS: BP 152/83; PULSE 81; RESP 16; O2SAT 97
--- NOTE | 2024-05-20 15:09 | NURSING ---
Pt able to ambulate up and down hallway with walker, unassisted.
[2024-05-20 15:10] VITALS: BP 131/96; PULSE 83; RESP 16; TEMP 36.6; O2SAT 99
== END 2024-05-20 15:17 | disposition home or self-care (01) ==
PROVIDERS: Emergency Provider Surgery; PCP Family Medicine; Visit Provider Surgery
DX: S09.90XA Unspecified injury of head, initial encounter (principal); I13.0 Hypertensive heart and chronic kidney disease with heart failure and stage 1 through stage 4 chronic kidney disease, or unspecified chronic kidney disease; I50.32 Chronic diastolic (congestive) heart failure; J44.9 Chronic obstructive pulmonary disease, unspecified; N18.32 Chronic kidney disease, stage 3b; I25.10 Atherosclerotic heart disease of native coronary artery without angina pectoris; Z96.651 Presence of right artificial knee joint; S70.01XA Contusion of right hip, initial encounter; S80.01XA Contusion of right knee, initial encounter; E78.00 Pure hypercholesterolemia, unspecified; M16.11 Unilateral primary osteoarthritis, right hip; S50.01XA Contusion of right elbow, initial encounter; Z79.01 Long term (current) use of anticoagulants; W19.XXXA Unspecified fall, initial encounter
CPT/HCPCS: 70450; 72125; 73080; 73502; 73564; 99282

== ENCOUNTER 2024-06-03 13:28 | Observation (INO) | payer MEDICARE, OTHER, SELFPAY ==
[2024-06-03 13:31] VITALS: BP 131/71; PULSE 57; RESP 18; TEMP 36.3; O2SAT 100
[2024-06-03 15:42] VITALS: BMI 23.4
--- NOTE | 2024-06-03 16:00 | EKG12_ITS ---
Test Reason : FALL Blood Pressure : */* mmHG Vent. Rate : 61 BPM Atrial Rate : * BPM P-R Int : * ms QRS Dur : 92 ms QT Int : 414 ms P-R-T Axes : * 15 -28 degrees QTcB Int : 416 ms Atrial fibrillation Nonspecific ST and T wave abnormality Abnormal ECG Confirmed by KEELY MITCHELL, TRIXIE ([id number]), editor greeting card PAUL CHRISTIE ([id number]) on 06/06/2024 6:02:39 AM Referred By: Confirmed By: TRIXIE RIGGS MD
--- NOTE | 2024-06-03 16:23 | EDS_ITS ---
HPI History of Present Illness Chief Complaint: Lower Extremity Injury Narrative Narrative: 88-year-old male past medical history of Parkinson disease presents with right hip pain that he has had for 2 weeks after fall. Of note, he would been seen in the emergency department where x-rays were performed and were negative. He followed up with his primary care provider who ordered outpatient CT of the right hip. Patient has noticed bruising of his right hip that extends all the way down his right thigh. He is unable to put any type of pressure on his right leg. He has been ambulating with the assistance of a walker. He denies any loss of consciousness or hitting of his head when he had fallen 2 weeks ago. 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 He was sent to the emergency department after right hip CT was obtained without contrast. He is known to Dr. Good with orthopedics for bilateral TKA with a revision of his right knee. He denies other injuries. [facility] Medical History Hypothyroid COVID-19 Kidney disease COPD (chronic obstructive pulmonary disease) Congestive heart failure (CHF) Myocardial infarct Coronary artery disease Migraines Anemia Atrial fibrillation Chronic renal failure, stage 3b Anemia of chronic renal failure Iron deficiency anemia due to chronic blood loss History of CHF (congestive heart failure) Wears partial dentures Cancer Thyroid disease Arthritis History of renal disease Non-smoker Hypertension Nonrheumatic aortic (valve) stenosis Facial hematoma Head injury Fall Pitting edema Hypersomnolence Acute on chronic diastolic heart failure Dyspnea on exertion Wears dentures Wears glasses Prostate disease Kidney stones High cholesterol Easy bruising Excessive bleeding Parkinson's disease Loss of consciousness History of hiatal hernia History of diverticulitis Shortness of breath on exertion History of edema History of echocardiogram History of stress test History of heart attack History of irregular heartbeat Hx of melanoma of skin History of trigger finger Secondary pulmonary arterial hypertension Acute bacterial sinusitis Atherosclerosis of coronary artery bypass graft of [place] heart with angina pectoris Diverticulitis Thickening of pleura Bronchiectasis Chronic diastolic (congestive) heart failure Atherosclerosis of coronary artery of [place] heart without angina pectoris History of non-ST elevation myocardial infarction (NSTEMI) (01/2015) Essential (primary) hypertension Hyperlipidemia Chronic kidney disease Melanoma Osteoarthritis Home Medications ?Medication ?Instructions ?Recorded ?Last Taken ?Type cholecalciferol (vitamin D3) 25 25 mcg PO DAILY SUPPLE MENT 05/20/21 11/03/22 History mcg (1,000 unit) tablet (Vitamin D3) selenium 200 mcg tablet 200 mcg PO DAILY SUPPLEMENT 12/02/21 11/03/22 History acetaminophen 500 mg tablet 1,000 mg PO Q8 PRN Pain 04/03/23 History aspirin 81 mg chewable tablet 81 mg PO QODAY HEART HEA LTH 05/22/22 11/03/22 History ferrous sulfate 325 mg (65 mg 325 mg PO DAILY anemia 0 10/29/22 11/03/22 History iron) tablet (FeroSul) glycopyrrolate 1 mg tablet 1 mg PO DAILY SALIVATION RE DUCTION 05/22/23 Unknown History atorvastatin 40 mg tablet 40 mg PO QHS CHOLESTEROL #90 tabs 08/10/23 Unknown Rx nitroglycerin 0.4 mg sublingual 0.4 mg sublingual Q5-1 5M PRN chest 09/23/23 Unknown Rx tablet pain #25 tabs doxazosin 1 mg tablet 1 mg PO QHS blood pressure 1 Unknown History liothyronine 5 mcg tablet 5 mcg PO QDAY 02/04/24 Unkno wn History potassium chloride 20 mEq 20 meq PO MOWEFR 02/04/24 Un known History tablet,extended release warfarin 1 mg tablet 1 mg PO DAILY #90 tabs 02/07 Unknown Rx pramipexole 1 mg tablet 1 mg PO BID PRN 04/12/24 Unk nown History ranolazine 500 mg tablet,extended 500 mg PO BID #60 ta bs 04/12/24 Unknown Rx release,12 hr Handicap Placard #1 ea 04/13/24 Unknown Rx levothyroxine 50 mcg tablet 50 mcg PO .COMPLEX THYROID 04/22/24 Unknown History furosemide 40 mg tablet 40 mg PO MOWEFR weight gain #90 04/25/24 Unknown Rx TABLETS Allergy/AdvReac Type Severity Reaction Status Date / Time levofloxacin Allergy Unknown PT UNSURE Verified 06/03/24 13:30 OF REACTION meloxicam Allergy Unknown PT UNSURE Verified 06/03/24 13:30 OF REACTION amlodipine AdvReac Intermediate severe leg Verified 06/03/24 13:30 edema isosorbide AdvReac headache Verified 06/03/24 13:30 Family History Father Heart disease Mother CVA (cerebral vascular accident) Surgical History Status post revision of total replacement of right knee Hx of transurethral resection of prostate History of left cataract surgery History of right knee joint replacement (05/03/21) History of cardiac catheterization Hx of oral surgery History of carpal tunnel release of both wrists Hx of hernia repair History of total left knee replacement (04/2020) H/O foot surgery H/O left knee surgery History of herniorrhaphy History of left heart catheterization (08/10/19) History of coronary artery stent placement (2005) H/O coronary artery bypass surgery (1989) Social History Smoking Status: Never smoker alcohol intake: never substance use type: does not use caffeine: Yes (about 1 time per week) ROS ROS ED ROS Narrative Review of systems positive for right hip pain and bruising with bruising extended to right lateral to posterior thigh. Denies other injury. Unable to bear weight on right leg. EXAM Physical Exam Narrative Exam Narrative: GCS 15. ABCs intact. Focused examination does reveal diffuse tenderness throughout the right hip with noted bruising on the lateral to posterior aspect of his right lower extremity. Neurovascularly intact distally, no noted edema. Cardiovascular examination reveals mild bradycardia. Lungs clear to auscultation bilaterally. Abdomen soft and nontender. Neurological examination nonfocal and nonlateralizing. Const Vital Signs: 06/03/24 13:31 Temperature 97.3 F L Temperature Source Temporal Pulse Rate 57 L Respiratory Rate 18 Blood Pressure 131/71 H Blood Pressure Mean 91 Pulse Ox 100 Oxygen Delivery Method Room Air MDM MDM MDM Narrative Medical decision making narrative: No feel differential diagnosis is applicable in this patient with known acetabular fracture on CT scan. I entered basic laboratory work as he has been ambulating with a walker, but is having difficulty even bearing weight and is a higher fall risk. I discussed patient with Dr. Good with orthopedics who reviewed the CT scan. He states that this is nonoperative, and patient can be weightbearing as tolerated but if he needs to be admitted, it would be for possible placement in rehabilitation. Patient and his significant other are agreeable to this. Once again, in discussion with orthopedics who reviewed the CT scan it was not felt that he required transfer to a trauma center at this time. I reviewed his laboratory work after return. EKG was obtained and interpreted by myself independently as atrial fibrillation that is rate controlled at [address] changes. No STEMI. I reviewed his laboratory work and he has normal white count of 5.3 with hemoglobin stable at 9.2, platelet count low at 127. When compared to prior laboratories, he has chronic thrombocytopenia. INR is 1.6, chloride elevated at 108 which I think is nonspecific with BUN of 41 and creatinine 2.06. When compared to previous, he has chronic kidney disease. At this point in time, patient will be discussed with the hospitalist, Dr. De La Fuente for admission for placement and rehab given his difficulty ambulating even with a walker. Patient is in stable condition. History & Record Review Discussion w/independent historian: Patient and Significant other Lab Data Attestation: I reviewed the patient's lab results. Labs: Laboratory Results - last 24 hr 06/03/24 16:10 WBC 5.3 RBC 3.03 L Hgb 9.2 L Hct 29.7 L MCV 98.0 H MCH 30.4 MCHC 31.0 L RDW Std Deviation 53.0 H RDW Coeff of Chas 14.8 H Plt Count 127 L MPV 9.7 Immature Gran % (Auto) 0.200 Neut % (Auto) 75.1 H Lymph % (Auto) 15.0 L Carter % (Auto) 6.9 Eos % (Auto) 2.4 Baso % (Auto) 0.4 Absolute Neuts (auto) 4.0 Absolute Lymphs (auto) 0.80 L Nucleated RBC % 0 PT 18.9 H INR 1.6 Sodium 137 Potassium 4.5 Chloride 108 H Carbon Dioxide 23.0 Anion Gap 7 BUN 41 H Creatinine 2.06 H Estim Creat Clear Calc 25.10 Est GFR (MDRD) Af Amer 39 L Est GFR (MDRD) Non-Af 32 L BUN/Creatinine Ratio 19.9 Glucose 99 Calcium 9.5 Discharge Plan Dx/Rx/DC Orders Clinical Impression: Acetabulum fracture, right, Atrial fibrillation, Difficulty in walking involving joint Disposition Disposition: [facility] Care [facility]
[2024-06-03 16:34] LABS: Basophil# 0.02 X10^3/uL; Basophil% 0.4 % (0-1); Eosinophil# 0.13 X10^3/uL; Eosinophils% 2.4 % (0-5); Hematocrit 29.7 % (40-54); Hemoglobin 9.2 g/dL (13.0-16.5); Mean Corpuscular Hgb 30.4 pg (27.0-32.0); Mean Platelet Vol. 9.7 fl (6.2-12.0); Monocyte# 0.37 X10^3/uL; Monocyte% 6.9 % (0-10); NRBC Flagged by Analyzer 0 % (0-5); Neutrophil # 4.01 X10^3/uL (2.7-7.7); Neutrophil % 75.1 % (47-70); Platelet Count 127 K/mm3 (150-450); RBC Distribution Width CV 14.8 % (11.6-14.6); Red Blood Count 3.03 M/mm3 (4.6-6.2); White Blood Count 5.3 K/mm3 (4.4-11.0)
[2024-06-03 16:49] LABS: Anion Gap 7 (5-15); BUN 41 mg/dL (7-18); BUN/Creat Ratio 19.9 RATIO (10-20); Calcium,Total 9.5 mg/dL (8.5-10.1); Chloride 108 mmol/L (98-107); Creatinine, Serum 2.06 mg/dL (0.70-1.30); EST Glomerular Filtration Rate 32 mL/min (>60); Est Glom Filt Rate - Afr Amer 39 mL/min (>60); Glucose 99 mg/dL (74-106); Potassium 4.5 mmol/L (3.5-5.1); Sodium Level 137 mmol/L (136-145)
[2024-06-03 16:58] LABS: International Normalized Ratio 1.6; Prothrombin Time (Protime)PT. 18.9 SECONDS (11.7-14.9)
--- NOTE | 2024-06-03 17:04 | HP.PCM.HOS_ITS ---
HPI - General General Date of Admission: 06/03/24 Date of Service: 06/03/24 Chief Complaint: Right hip pain and difficulty with ambulation HPI Narrative BEVERLY GUSMAN, is a 88 M who presented to the [facility] ED on 06/03/2024 with right hip pain and difficulty with ambulation. Patient suffered a fall about 2 weeks ago and was seen in the ED on 05/20. X-ray showed no hip fracture and patient was discharged home. However he continued to have pain so PCP ordered an outpatient CT of the right hip that showed a minimally displaced right acetabular fracture. Case was discussed with Dr. Good who noted that this injury is nonoperative and patient can be weightbearing as tolerated. However, patient has been having fairly significant pain with ambulation and does not feel comfortable with going home. He lives at home with his . Hospitalist was then contacted for admission. I saw the patient at bedside in the ED, was present. Patient was sitting up comfortably in bed, conversing normally, in no acute distress. He was mentally sharp for his age. He denied any hip pain at rest, noted that he only has pain with weightbearing and attempted ambulation. States the pain starts at the lateral aspect of the hip and radiates down to the mid thigh. He has been taking Tylenol as needed for the pain with mild relief. No other acute concerns at this time. [facility] Medical History (Updated 06/03/24 @ 17:56 by Nereyda Sahu) Irregular heart beat Hypothyroid COVID-19 Kidney disease COPD (chronic obstructive pulmonary disease) Congestive heart failure (CHF) Myocardial infarct Coronary artery disease Migraines Anemia Atrial fibrillation Chronic renal failure, stage 3b Anemia of chronic renal failure Iron deficiency anemia due to chronic blood loss History of CHF (congestive heart failure) Wears partial dentures Cancer Thyroid disease Arthritis History of renal disease Non-smoker Hypertension Nonrheumatic aortic (valve) stenosis Facial hematoma Head injury Fall Pitting edema Hypersomnolence Acute on chronic diastolic heart failure Dyspnea on exertion Wears dentures Wears glasses Prostate disease Kidney stones High cholesterol Easy bruising Excessive bleeding Parkinson's disease Loss of consciousness History of hiatal hernia History of diverticulitis Shortness of breath on exertion History of edema History of echocardiogram History of stress test History of heart attack History of irregular heartbeat Hx of melanoma of skin History of trigger finger Secondary pulmonary arterial hypertension Acute bacterial sinusitis Atherosclerosis of coronary artery 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 Diverticulitis Thickening of pleura Bronchiectasis Chronic diastolic (congestive) heart failure Atherosclerosis of coronary artery of [place] heart without angina pectoris History of non-ST elevation myocardial infarction (NSTEMI) (01/2015) Essential (primary) hypertension Hyperlipidemia Chronic kidney disease Melanoma Osteoarthritis Home Medications ?Medication ?Instructions ?Recorded ?Last Taken ?Type cholecalciferol (vitamin D3) 25 25 mcg PO DAILY SUPPLE MENT 05/20/21 11/03/22 History mcg (1,000 unit) tablet (Vitamin D3) selenium 200 mcg tablet 200 mcg PO DAILY SUPPLEMENT 12/02/21 11/03/22 History acetaminophen 500 mg tablet 1,000 mg PO Q8 PRN Pain 04/03/23 History aspirin 81 mg chewable tablet 81 mg PO QODAY HEART HEA LTH 05/22/22 11/03/22 History ferrous sulfate 325 mg (65 mg 325 mg PO DAILY anemia 0 10/29/22 11/03/22 History iron) tablet (FeroSul) glycopyrrolate 1 mg tablet 1 mg PO DAILY SALIVATION RE DUCTION 05/22/23 Unknown History atorvastatin 40 mg tablet 40 mg PO QHS CHOLESTEROL #90 tabs 08/10/23 Unknown Rx nitroglycerin 0.4 mg sublingual 0.4 mg sublingual Q5-1 5M PRN chest 09/23/23 Unknown Rx tablet pain #25 tabs doxazosin 1 mg tablet 1 mg PO QHS blood pressure 1 Unknown History liothyronine 5 mcg tablet 5 mcg PO QDAY 02/04/24 Unkno wn History potassium chloride 20 mEq 20 meq PO MOWEFR 02/04/24 Un known History tablet,extended release warfarin 1 mg tablet 1 mg PO DAILY #90 tabs 02/07 Unknown Rx pramipexole 1 mg tablet 1 mg PO BID PRN 04/12/24 Unk nown History ranolazine 500 mg tablet,extended 500 mg PO BID #60 ta bs 04/12/24 Unknown Rx release,12 hr Handicap Placard #1 ea 04/13/24 Unknown Rx levothyroxine 50 mcg tablet 50 mcg PO .COMPLEX THYROID 04/22/24 Unknown History furosemide 40 mg tablet 40 mg PO MOWEFR weight gain #90 04/25/24 Unknown Rx TABLETS Allergy/AdvReac Type Severity Reaction Status Date / Time levofloxacin Allergy Unknown PT UNSURE Verified 06/03/24 13:30 OF REACTION meloxicam Allergy Unknown PT UNSURE Verified 06/03/24 13:30 OF REACTION amlodipine AdvReac Intermediate severe leg Verified 06/03/24 13:30 edema isosorbide AdvReac headache Verified 06/03/24 13:30 Family History Father Heart disease Mother CVA (cerebral vascular accident) Surgical History Status post revision of total replacement of right knee Hx of transurethral resection of prostate History of left cataract surgery History of right knee joint replacement (05/03/21) History of cardiac catheterization Hx of oral surgery History of carpal tunnel release of both wrists Hx of hernia repair History of total left knee replacement (04/2020) H/O foot surgery H/O left knee surgery History of herniorrhaphy History of left heart catheterization (08/10/19) History of coronary artery stent placement (2005) H/O coronary artery bypass surgery (1989) Social History Smoking Status: Never smoker alcohol intake: never substance use type: does not use caffeine: Yes (about 1 time per week) ROS Constitutional Constitutional: Reports weakness; Denies chills, fatigue, fever(s) or malaise Eyes Eyes: Denies change in vision Cardiovascular Cardiovascular: Denies chest pain Respiratory/Chest Respiratory/Chest: Denies shortness of breath at rest Gastrointestinal Gastrointestinal: Denies abdominal pain Musculoskeletal Musculoskeletal: Reports joint pain; Denies myalgias Neurologic Neurologic: Denies dizziness or headache(s) Vital Signs Vital Signs Vital Signs: 06/03/24 13:31 Temperature 97.3 F L Temperature Source Temporal Pulse Rate 57 L Respiratory Rate 18 Blood Pressure 131/71 H Blood Pressure Mean 91 Pulse Ox 100 Oxygen Delivery Method Room Air Weight Weight: 74.1 kg Body Mass Index (BMI) 23.4 Physical Exam Const alert, oriented x3, no apparent distress and average body habitus Constitutional Narrative: Pleasant elderly male, mentally sharp for his age, mildly fatigued appearing but otherwise sitting back comfortably in bed, conversing normally, in no acute distress. General Appearance: cooperative and comfortable HEENT normocephalic, head/scalp atraumatic, hearing grossly normal bilaterally, nasal mucous membranes and turbinates normal and moist oral mucous membranes Eyes PERRL, EOMs intact bilaterally and conjunctivae normal Neck full ROM Chest inspection of chest normal Resp normal respiratory effort, normal air movement, no use of accessory muscles and clear to auscultation bilaterally Cardio regular rate, regular rhythm, no murmurs and peripheral pulses 2+ throughout GI normal to inspection, nondistended, normoactive bowel sounds, soft to palpation, non-tender and non-distended Back/Spine normal ROM Extremity Extremity Narrative: Mild right hip pain on palpation. Did not attempt any passive movement. Skin no rashes or lesions noted Neuro moves all extremities and no focal motor deficits Speech: speech normal Psych mental status grossly normal Results Lab / Micro Data 06/03/24 16:10 06/03/24 16:10 Labs: Laboratory Results - last 24 hr 06/03/24 16:10: WBC 5.3, RBC 3.03 L, Hgb 9.2 L, Hct 29.7 L, MCV 98.0 H, MCH 30.4, MCHC 31.0 L, RDW Std Deviation 53.0 H, RDW Coeff of Chas 14.8 H, Plt Count 127 L, MPV 9.7, Immature Gran % (Auto) 0.200, Neut % (Auto) 75.1 H, Lymph % (Auto) 15.0 L, [place] % (Auto) 6.9, Eos % (Auto) 2.4, Baso % (Auto) 0.4, Absolute Neuts (auto) 4.0, Absolute Lymphs (auto) 0.80 L, Nucleated RBC % 0, PT 18.9 H, INR 1.6, Sodium 137, Potassium 4.5, Chloride 108 H, Carbon Dioxide 23.0, Anion Gap 7, BUN 41 H, Creatinine 2.06 H, Estim Creat Clear Calc 25.10, Est GFR (MDRD) Af Amer 39 L, Est GFR (MDRD) Non-Af 32 L, BUN/Creatinine Ratio 19.9, Glucose 99, Calcium 9.5 Assessment & Plan Assessment/Plan (1) Acetabulum fracture, right: (2) Difficulty in walking involving joint: PLAN: Plan Patient is an 88-year-old male who presented [facility] ED on 06/03/2024 with worsening right hip pain with ambulation. 1. Acute debility secondary to minimally displaced right acetabular fracture ? Admit under observation status to [facility]. PT/OT/case management consulted. CT lower extremity on this admission confirmed minimally displaced right hip fracture. Discussed with orthopedics on admit, nonoperative management recommended and weightbearing as tolerated. Pain control with scheduled Tylenol and oxycodone as needed. Will likely need SNF on discharge, appreciate therapy recs. 2. CKD stage IIIb ? Creatinine 2.06 on admit, at baseline. Stable. 3. Chronic iron deficiency anemia ? Hemoglobin 9.2 on admit, baseline 9-10. Stable. Continue home iron supplement. 4. Chronic persistent A-fib on warfarin with subtherapeutic INR ? INR 1.6 on admit, goal 2-3. In rate controlled A-fib on admit. Continue home warfarin and can consider giving an additional dose of warfarin while here to get back to goal INR. 5. History of CAD with remote CABG and stenting ? Follows with [place] cardiology. Stenting done in 2005 and had CABG x 4 done in 1989. Continue home aspirin, statin and ranolazine. 6. Hypothyroidism ? Continue home Synthroid and liothyronine. DVT prophylaxis: Not indicated, on warfarin CODE STATUS: DNR CCA, DNI Expected disposition: Likely SNF, 1 to 2 days Total clinical time spent by myself addressing the patient's medical issues, reviewing all the data, and collaborating with patient's care team: 55 minutes. Charges/Coding Visit Charges Inpatient E&M: 00681 Init Hosp L2
[2024-06-03 17:29] VITALS: BP 129/74; PULSE 79; RESP 16; O2SAT 98
[2024-06-03 18:40] VITALS: BP 133/78; PULSE 82; RESP 16; TEMP 36.8; O2SAT 97
[2024-06-03 18:53] VITALS: BMI 23.5
[2024-06-03 20:40] VITALS: BP 117/64; PULSE 59; RESP 18; TEMP 36.9; O2SAT 100
[2024-06-03] MEDS: Atorvastatin Calcium 40 MG Tablet PO (21:41)
[2024-06-03] MEDS: Acetaminophen 500 MG Tablet 1000 MG PO (21:42)
[2024-06-03] MEDS: Ranolazine 500 MG Tablet PO (21:42)
[2024-06-03] MEDS: 0.9% Saline Lock 10 ML Syringe IV (21:42)
[2024-06-03] MEDS: Doxazosin 1 MG Tablet PO (21:42)
[2024-06-04 00:07] VITALS: BP 138/67; PULSE 58; RESP 18; TEMP 36.4; O2SAT 99
[2024-06-04 06:55] VITALS: BP 132/74; PULSE 62; RESP 18; TEMP 36.6; O2SAT 100
[2024-06-04 07:04] LABS: Hematocrit 26.5 % (40-54); Hemoglobin 8.5 g/dL (13.0-16.5); Mean Corp Hgb Conc 32.1 g/dL (32-36); Mean Corpuscular Hgb 30.9 pg (27.0-32.0); Mean Corpuscular Volume 96.4 fL (80-94); Mean Platelet Vol. 9.7 fl (6.2-12.0); Platelet Count 107 K/mm3 (150-450); RBC Distribution Width CV 14.9 % (11.6-14.6); RBC Distribution Width SD 52.1 fl (35.1-43.9); Red Blood Count 2.75 M/mm3 (4.6-6.2); White Blood Count 3.2 K/mm3 (4.4-11.0)
[2024-06-04] MEDS: Liothyronine 5 MCG Tablet PO (07:06)
[2024-06-04] MEDS: Acetaminophen 500 MG Tablet 1000 MG PO ×3 (07:06→21:33)
[2024-06-04] MEDS: Levothyroxine 50 MCG Tablet PO (07:07)
[2024-06-04 07:31] LABS: International Normalized Ratio 1.7; Prothrombin Time (Protime)PT. 20.6 SECONDS (11.7-14.9)
[2024-06-04 07:32] LABS: Partial Thromboplast Time 34.3 Seconds (24.1-36.2)
[2024-06-04 07:44] LABS: Anion Gap 6 (5-15); BUN 42 mg/dL (7-18); BUN/Creat Ratio 21.4 RATIO (10-20); Calcium,Total 9.3 mg/dL (8.5-10.1); Chloride 109 mmol/L (98-107); Creatinine, Serum 1.96 mg/dL (0.70-1.30); EST Glomerular Filtration Rate 34 mL/min (>60); Est Glom Filt Rate - Afr Amer 42 mL/min (>60); Estimated Creatinine Clearance 26.38 ml/min; Glucose 104 mg/dL (74-106); Potassium 4.5 mmol/L (3.5-5.1); Sodium Level 140 mmol/L (136-145)
--- NOTE | 2024-06-04 07:45 | PN.HOSP_ITS ---
Reason for Visit Reason for Visit: Diagnoses Difficulty in walking, not elsewhere classified (06/03/24) Unspecified fracture of right acetabulum, initial encounter for closed fracture (06/03/24) Objective Data Objective Data Vital Signs: Vital Signs Temp Pulse Resp BP Pulse Ox O2 Del Method 97.9 F 62 18 132/74 H 100 Room Air 06/04/24 06:55 06/04/24 06:55 06/04/24 06:55 06/04/24 06:55 06/04/24 06:55 06/04/24 06:55 Oxygen Delivery Method Room Air Weight: 164 lb 1.6 oz Body Mass Index (BMI) 23.5 Intake & Output: Intake and Output for Last 24 Hours 06/02/24 06/03/24 06/04/24 23:59 23:59 23:59 Intake Total 400 / 400 Output Total 675 / 675 Balance -275 / -275 Lab / Micro Data 06/04/24 06:40 06/04/24 06:40 Labs: Laboratory Results - last 24 hr 06/03/24 16:10: WBC 5.3, RBC 3.03 L, Hgb 9.2 L, Hct 29.7 L, MCV 98.0 H, MCH 30.4, MCHC 31.0 L, RDW Std Deviation 53.0 H, RDW Coeff of Chas 14.8 H, Plt Count 127 L, MPV 9.7, Immature Gran % (Auto) 0.200, Neut % (Auto) 75.1 H, Lymph % (Auto) 15.0 L, [place] % (Auto) 6.9, Eos % (Auto) 2.4, Baso % (Auto) 0.4, Absolute Neuts (auto) 4.0, Absolute Lymphs (auto) 0.80 L, Nucleated RBC % 0, PT 18.9 H, INR 1.6, Sodium 137, Potassium 4.5, Chloride 108 H, Carbon Dioxide 23.0, Anion Gap 7, BUN 41 H, Creatinine 2.06 H, Estim Creat Clear Calc 25.10, Est GFR (MDRD) Af Amer 39 L, Est GFR (MDRD) Non-Af 32 L, BUN/Creatinine Ratio 19.9, Glucose 99, Calcium 9.5 06/03/24 23:59: Blood Type O NEGATIVE, Antibody Screen NEGATIVE 06/04/24 06:40: WBC 3.2 L, RBC 2.75 L, Hgb 8.5 L, Hct 26.5 L, MCV 96.4 H, MCH 30.9, MCHC 32.1, RDW Std Deviation 52.1 H, RDW Coeff of Chas 14.9 H, Plt Count 107 L, MPV 9.7, PT 20.6 H, INR 1.7, APTT 34.3, Sodium 140, Potassium 4.5, C hloride 109 H, Carbon Dioxide 25.0, Anion Gap 6, BUN 42 H, Creatinine 1.96 H, Estim Creat Clear Calc 26.38, Est GFR (MDRD) Af Amer 42 L, Est GFR (MDRD) Non-Af 34 L, BUN/Creatinine Ratio 21.4 H, Glucose 104, Calcium 9.3, TSH 4.240 H Physical Exam Narrative Seen and examined. Patient admitted with right acetabular fracture about 2 weeks ago. It was not clear type of fracture until he had CT scanning yesterday in ED. Conservative management. Bilateral, 2 times right knee replacement and 1 time left knee replacement Physical exam General: Alert, Oriented x3, Cooperative HEENT: Atraumatic, PERRLA, EOMI, Normocephalic Oral: No Gingival or Mucosal Lesions/ Ulcerations Neck: Supple, No JVD, Negative Carotid Bruits Chest wall/Lungs: Air entry diminished in bilateral lung bases. No crepitation/rhonchi Cardiovascular: Regular rate, Regular Rhythm, Normal S1, Normal S2, systolic murmur right second ICS, LLSB Abdomen: Bowel Sounds Present, Soft, Non Tender, Non-Distended : No dysuria. No renal angle tenderness. No suprapubic tenderness. Extremities: No edema, Capillary Refill Less than 3 Seconds Skin: Bruise over posterolateral regular spectrum right hip region to distal thigh. Musculoskeletal: Tenderness present over right greater trochanter/acetabular region. Bilateral TKR scar. ROM not attempted in right hip Neurological: Cranial nerves II-XII grossly intact, DTR 2+/4. No acute focal neurological deficit. Psych/Mental Status: Normal Affect, Appropriate. Assessment & Plan Assessment/Plan (1) Acetabulum fracture, right: (2) Difficulty in walking involving joint: PLAN: Plan Patient is an 88-year-old male who presented [facility] ED on 06/03/2024 with worsening right hip pain with ambulation after fall 2 weeks ago on right side and was initially sent home from the ED after negative x-ray. Patient was ambulating at home with pain 1. Acute debility secondary to minimally displaced right acetabular fracture ? Admit under observation status to [facility]. PT/OT/case management consulted. CT lower extremity on this admission confirmed minimally displaced right hip fracture. Patient was evaluated by orthopedic surgeon Dr. Good. I agreed with conservative management, pain control, rehab and weightbearing as tolerated. Patient also has Parkinson disease, bilateral TKR with baseline restricted mobility and gait instability. 2. CKD stage IIIb ? Creatinine 2.06 on admit, at baseline. Stable. 06/04: Creatinine 1.96 on baseline. 3. Chronic iron deficiency anemia ? Hemoglobin 9.2 on admit, baseline 9-10. Continue home iron supplement. 06/04: Hemoglobin dropped to 8.5. 4. Chronic persistent A-fib on warfarin with subtherapeutic INR ? INR 1.6 on admit, goal 2-3. In rate controlled A-fib on admit. Continue home warfarin and can consider giving an additional dose of warfarin while here to get back to goal INR. 06/04: INR 1.7. Patient on 1 mg warfarin increased to 2 mg with daily follow-up INR. 5. History of CAD with remote CABG and stenting ? Follows with [place] cardiology. Stenting done in 2005 and had CABG x 4 done in 1989. Continue home aspirin, statin and ranolazine. 6. Hypothyroidism ? Continue home Synthroid and liothyronine. DVT prophylaxis: Not indicated, on warfarin CODE STATUS: DNR CCA, DNI Charges/Coding Visit Charges Inpatient E&M: 95411 Subs Hosp L2
--- NOTE | 2024-06-04 08:40 | CONS.ORTHO ---
HPI Consult Data Date of Consult: 06/04/24 PCP / Referring MD: Dr. Espinoza HPI Narrative Reason for Consultation: Right hip pain HPI Narrative: BEVERLY GUSMAN, is a 88 M who presents today 2 weeks status post fall with right hip pain since that time. Patient initially presented to the emergency department with negative hip x-rays was sent home. Over that timeframe patient has been ambulating with a walker at home albeit in severe pain. He eventually went to see his primary care doctor yesterday and was sent for a CT scan. CT scan did reveal an acetabular fracture with minimal displacement. He presented back to the emergency department and was admitted to medicine. There is concern patient is unable to continue at home due to his decreased mobility. Additionally he was recently diagnosed with Parkinson's and instructed to begin physical therapy for his Parkinson's symptoms. Patient is resting in bed comfortably and reports moderate pain without weightbearing. Pain is more severe with weightbearing. Denies any associated numbness and tingling distally. Pain is located in the groin and hip region. Patient's is at bedside and confirms history. [facility] Medical History Irregular heart beat Hypothyroid COVID-19 Kidney disease COPD (chronic obstructive pulmonary disease) Congestive heart failure (CHF) Myocardial infarct Coronary artery disease Migraines Anemia Atrial fibrillation Chronic renal failure, stage 3b Anemia of chronic renal failure Iron deficiency anemia due to chronic blood loss History of CHF (congestive heart failure) Wears partial dentures Cancer Thyroid disease Arthritis History of renal disease Non-smoker Hypertension Nonrheumatic aortic (valve) stenosis Facial hematoma Head injury Fall Pitting edema Hypersomnolence Acute on chronic diastolic heart failure Dyspnea on exertion Wears dentures Wears glasses Prostate disease Kidney stones High cholesterol Easy bruising Excessive bleeding Parkinson's disease Loss of consciousness History of hiatal hernia History of diverticulitis Shortness of breath on exertion History of edema History of echocardiogram History of stress test History of heart attack History of irregular heartbeat Hx of melanoma of skin History of trigger finger Secondary pulmonary arterial hypertension Acute bacterial sinusitis Atherosclerosis of coronary artery bypass graft of [place] heart with angina pectoris Diverticulitis Thickening of pleura Bronchiectasis Chronic diastolic (congestive) heart failure Atherosclerosis of coronary artery of [place] heart without angina pectoris History of non-ST elevation myocardial infarction (NSTEMI) (01/2015) Essential (primary) hypertension Hyperlipidemia Chronic kidney disease Melanoma Osteoarthritis Home Medications ?Medication ?Instructions ?Recorded ?Last Taken ?Type cholecalciferol (vitamin D3) 25 25 mcg PO DAILY SUPPLEMENT 05/20/21 11/03/22 History mcg (1,000 unit) tablet (Vitamin D3) selenium 200 mcg tablet 200 mcg PO DAILY SUPPLEMENT 12/02/21 11/03/22 History acetaminophen 500 mg tablet 1,000 mg PO Q8 PRN Pain 05/22/22 04/03/23 History aspirin 81 mg chewable tablet 81 mg PO QODAY HEART HEALTH 05/22/22 11/03/22 History ferrous sulfate 325 mg (65 mg 325 mg PO DAILY anemia 10/29/22 11/03/22 History iron) tablet (FeroSul) glycopyrrolate 1 mg tablet 1 mg PO DAILY SALIVATION REDUCTION 05/22/23 Unknown History atorvastatin 40 mg tablet 40 mg PO QHS CHOLESTEROL #90 tabs 08/10/23 Unknown Rx nitroglycerin 0.4 mg sublingual 0.4 mg sublingual Q5-15M PRN chest 09/23/23 Unknown Rx tablet pain #25 tabs doxazosin 1 mg tablet 1 mg PO QHS blood pressure 02/04/24 Unknown History liothyronine 5 mcg tablet 5 mcg PO QDAY 02/04/24 Unknown History potassium chloride 20 mEq 20 meq PO MOWEFR 02/04/24 Unknown History tablet,extended release warfarin 1 mg tablet 1 mg PO DAILY #90 tabs 02/08/24 Unknown Rx pramipexole 1 mg tablet 1 mg PO BID PRN 04/12/24 Unknown History ranolazine 500 mg tablet,extended 500 mg PO BID #60 tabs 04/12/24 Unknown Rx release,12 hr Handicap Placard #1 ea 04/13/24 Unknown Rx levothyroxine 50 mcg tablet 50 mcg PO .COMPLEX THYROID 04/22/24 Unknown History furosemide 40 mg tablet 40 mg PO MOWEFR weight gain #90 04/25/24 Unknown Rx TABLETS Allergy/AdvReac Type Severity Reaction Status Date / Time levofloxacin Allergy Unknown PT UNSURE Verified 06/03/24 13:30 OF REACTION meloxicam Allergy Unknown PT UNSURE Verified 06/03/24 13:30 OF REACTION amlodipine AdvReac Intermediate severe leg Verified 06/03/24 13:30 edema isosorbide AdvReac headache Verified 06/03/24 13:30 Family History Father Heart disease Mother CVA (cerebral vascular accident) Surgical History Status post revision of total replacement of right knee Hx of transurethral resection of prostate History of left cataract surgery History of right knee joint replacement (05/03/21) History of cardiac catheterization Hx of oral surgery History of carpal tunnel release of both wrists Hx of hernia repair History of total left knee replacement (04/2020) H/O foot surgery H/O left knee surgery History of herniorrhaphy History of left heart catheterization (08/10/19) History of coronary artery stent placement (2005) H/O coronary artery bypass surgery (1989) Social History Smoking Status: Never smoker alcohol intake: never substance use type: does not use caffeine: Yes (about 1 time per week) ROS ROS Narrative 14 point review of systems is otherwise negative outside was mentioned in the HPI Vital Signs Vital Signs Vital Signs: 06/03/24 13:31 06/03/24 17:29 06/03/24 18:40 Temperature 97.3 F L 98.2 F Temperature Source Temporal Pulse Rate 57 L 79 82 Respiratory Rate 18 16 16 Respiratory Effort Respiratory Depth Respiratory Pattern Blood Pressure 131/71 H 129/74 H 133/78 H Blood Pressure Mean 91 92 96 Blood Pressure Source Blood Pressure Position Blood Pressure Location Pulse Ox 100 98 97 Oxygen Delivery Method Room Air 06/03/24 19:30 06/03/24 20:40 06/04/24 00:07 Temperature 98.4 F 97.5 F L Temperature Source Oral Oral Pulse Rate 59 L 58 L Respiratory Rate 18 18 Respiratory Effort Normal Non-Labored Respiratory Depth Normal Respiratory Pattern Normal Blood Pressure 117/64 138/67 H Blood Pressure Mean 81 90 Blood Pressure Source Monitor Monitor Blood Pressure Position Semi-Fowlers Semi-Fowlers Blood Pressure Location Right Arm Left Arm Pulse Ox 100 99 Oxygen Delivery Method Room Air Room Air Room Air 06/04/24 06:55 Temperature 97.9 F Temperature Source Oral Pulse Rate 62 Respiratory Rate 18 Respiratory Effort Respiratory Depth Respiratory Pattern Blood Pressure 132/74 H Blood Pressure Mean 93 Blood Pressure Source Monitor Blood Pressure Position Semi-Fowlers Blood Pressure Location Right Arm Pulse Ox 100 Oxygen Delivery Method Room Air Weight Weight: 164 lb 1.6 oz Body Mass Index (BMI) 23.5 Physical Exam Const alert and oriented x3 General Appearance: cooperative HEENT normocephalic Eyes PERRL Neck no JVD Resp normal respiratory effort Cardio Cardio Narrative: Regular pulse rate GI non-distended Extremity Extremity Narrative: Right lower extremity: Mild pain with logroll. Leg lengths are equal. Positive/EHL plantarflexion distally. Sensations intact light touch saphenous, sural, superficial peroneal, deep peroneal and tibial nerve distributions. Skin is intact. Neuro CN's II-XII intact bilaterally Psych affect normal Medical Records Data Attestation: I reviewed the patient's medical records Lab / Micro Data 06/04/24 06:40 06/04/24 06:40 Labs: Laboratory Results - last 24 hr 06/03/24 16:10: WBC 5.3, RBC 3.03 L, Hgb 9.2 L, Hct 29.7 L, MCV 98.0 H, MCH 30.4, MCHC 31.0 L, RDW Std Deviation 53.0 H, RDW Coeff of Chas 14.8 H, Plt Count 127 L, MPV 9.7, Immature Gran % (Auto) 0.200, Neut % (Auto) 75.1 H, Lymph % (Auto) 15.0 L, [place] % (Auto) 6.9, Eos % (Auto) 2.4, Baso % (Auto) 0.4, Absolute Neuts (auto) 4.0, Absolute Lymphs (auto) 0.80 L, Nucleated RBC % 0, PT 18.9 H, INR 1.6, Sodium 137, Potassium 4.5, Chloride 108 H, Carbon Dioxide 23.0, Anion Gap 7, BUN 41 H, Creatinine 2.06 H, Estim Creat Clear Calc 25.10, Est GFR (MDRD) Af Amer 39 L, Est GFR (MDRD) Non-Af 32 L, BUN/Creatinine Ratio 19.9, Glucose 99, Calcium 9.5 06/03/24 23:59: Blood Type O NEGATIVE, Antibody Screen NEGATIVE 06/04/24 06:40: WBC 3.2 L, RBC 2.75 L, Hgb 8.5 L, Hct 26.5 L, MCV 96.4 H, MCH 30.9, MCHC 32.1, RDW Std Deviation 52.1 H, RDW Coeff of Chas 14.9 H, Plt Count 107 L, MPV 9.7, PT 20.6 H, INR 1.7, APTT 34.3, Sodium 140, Potassium 4.5, Chloride 109 H, Carbon Dioxide 25.0, Anion Gap 6, BUN 42 H, Creatinine 1.96 H, Estim Creat Clear Calc 26.38, Est GFR (MDRD) Af Amer 42 L, Est GFR (MDRD) Non-Af 34 L, BUN/Creatinine Ratio 21.4 H, Glucose 104, Calcium 9.3, TSH 4.[address] scan of the right hip was reviewed report and images. Based on my review the patient has an anterior column minimally displaced acetabular fracture with good alignment of the joint. X-rays from 05/20 were also reviewed do not appreciate any significant abnormalities at that time. Indicative of the patient's limited displacement of the fracture. Assessment & Plan Assessment/Plan (1) Closed fracture of anterior column of right acetabulum: PLAN: Natural history of the disease process and treatment options were discussed the patient and his who are at bedside. Ultimately, patient has been walking on his hip for 2 weeks without significant displacement. Due to patient's age and concern that weightbearing restrictions would likely result in limited ability to participate in therapies I will have recommended weightbearing as tolerated at this time. The fracture remained stable after 2 weeks of weightbearing as tolerated at home. I did explain to the patient and family that there may be some residual pain in his pelvis associate with this fracture. Ultimately, patient is about to have a reasonably good outcome with nondisplaced fracture after weightbearing on it for 2 weeks. He will likely need rehabilitation as he is unable to return home due to his decreased mobility and significant pain. Additionally, while in rehab he does have Parkinson disease and would benefit from therapy for this as well. Patient should follow-up in my office in 2 weeks or upon discharge from rehab center if he remains there for greater than 2 weeks. Patient and his both demonstrate understanding and are agreeable to the current treatment plan. (2) Difficulty in walking involving joint:
[2024-06-04 09:26] VITALS: BP 147/57; PULSE 59; RESP 18; TEMP 36.8; O2SAT 98
[2024-06-04] MEDS: Aspirin 81 MG TAB.CHEW PO (09:40)
[2024-06-04] MEDS: Cholecalciferol (VIT D3) 25 MCG TABLET (1,000 UNITS) PO (09:40)
[2024-06-04] MEDS: Ranolazine 500 MG Tablet PO ×2 (09:41→21:33)
[2024-06-04] MEDS: Ferrous Sulfate 325 MG Tablet PO (13:04)
[2024-06-04 13:50] VITALS: O2SAT 98
[2024-06-04 14:00] VITALS: BP 119/58; PULSE 55; RESP 16; TEMP 35.3; O2SAT 96
--- NOTE | 2024-06-04 14:00 | CASEMGMT ---
JORGE ALBERTO CM into pt room, pt resting in bed in no distress. Discussed how therapy went today. Pt states he feels he is at his baseline and denies wanting OP therapy. Pt states has a walker and rollator at home. Denies any questions or concerns at this time.
[2024-06-04] MEDS: Jantoven 2 MG Tablet PO (15:28)
--- NOTE | 2024-06-04 16:05 | CASEMGMT ---
JORGE ALBERTO CM in to discuss HARDY form with patient. RN CM explained HARDY form, patient voiced understanding. Pt signed form and filed in chart. Pt provided with a copy of signed HARDY form. Patient had no further questions or concerns at this time.
[2024-06-04 20:10] VITALS: BP 149/72; PULSE 71; RESP 16; TEMP 36.5; O2SAT 100
[2024-06-04] MEDS: Atorvastatin Calcium 40 MG Tablet PO (21:33)
[2024-06-04] MEDS: Doxazosin 1 MG Tablet PO (21:33)
[2024-06-05 02:27] VITALS: BP 143/80; PULSE 61; RESP 16; TEMP 36.6; O2SAT 100
[2024-06-05] MEDS: 0.9% Saline Lock 10 ML Syringe IV (02:30)
[2024-06-05] MEDS: Liothyronine 5 MCG Tablet PO (05:11)
[2024-06-05] MEDS: Levothyroxine 50 MCG Tablet PO (05:12)
[2024-06-05] MEDS: Acetaminophen 500 MG Tablet 1000 MG PO (05:12)
[2024-06-05 06:11] LABS: Absolute Lymphocyte Count 0.62 X10^3/uL (0.83-4.51); Absolute Neutrophil Count 2.6 X10^3/uL (2.0-7.7); Basophil# 0.01 X10^3/uL; Basophil% 0.3 % (0-1); Eosinophil# 0.15 X10^3/uL; Eosinophils% 4.1 % (0-5); Hematocrit 26.2 % (40-54); Hemoglobin 8.5 g/dL (13.0-16.5); Lymphocyte # 0.62 X10^3/ul (0.83-4.51); Lymphocyte % 16.9 % (19-41); Mean Corp Hgb Conc 32.4 g/dL (32-36); Mean Corpuscular Hgb 31.6 pg (27.0-32.0); Mean Corpuscular Volume 97.4 fL (80-94); Mean Platelet Vol. 9.7 fl (6.2-12.0); Monocyte# 0.28 X10^3/uL; Monocyte% 7.7 % (0-10); NRBC Flagged by Analyzer 0 % (0-5); Neutrophil # 2.58 X10^3/uL (2.7-7.7); Neutrophil % 70.5 % (47-70); Platelet Count 106 K/mm3 (150-450); RBC Distribution Width CV 15.1 % (11.6-14.6); RBC Distribution Width SD 53.1 fl (35.1-43.9); Red Blood Count 2.69 M/mm3 (4.6-6.2); White Blood Count 3.7 K/mm3 (4.4-11.0)
[2024-06-05 06:34] LABS: International Normalized Ratio 1.6; Prothrombin Time (Protime)PT. 19.3 SECONDS (11.7-14.9)
[2024-06-05 06:40] LABS: Anion Gap 6 (5-15); BUN 43 mg/dL (7-18); BUN/Creat Ratio 23.4 RATIO (10-20); Calcium,Total 9.4 mg/dL (8.5-10.1); Chloride 107 mmol/L (98-107); Creatinine, Serum 1.84 mg/dL (0.70-1.30); EST Glomerular Filtration Rate 37 mL/min (>60); Est Glom Filt Rate - Afr Amer 45 mL/min (>60); Glucose 109 mg/dL (74-106); Potassium 4.5 mmol/L (3.5-5.1); Sodium Level 137 mmol/L (136-145)
[2024-06-05 07:10] VITALS: O2SAT 98
[2024-06-05 09:16] VITALS: BP 147/66; PULSE 88; RESP 18; TEMP 36.3; O2SAT 96
[2024-06-05] MEDS: Ranolazine 500 MG Tablet PO (09:48)
[2024-06-05] MEDS: Cholecalciferol (VIT D3) 25 MCG TABLET (1,000 UNITS) PO (09:48)
--- NOTE | 2024-06-05 10:25 | DCINST_ITS ---
Discharge Instructions Diet Discharge Diet: 2000 mg Sodium Diet DC O2, CPAP, BIPAP needs Home O2 Discharge instructions: No Dressing / Incision Discharge Activity: Return to Normal Activity Weight Bearing Status: Weight bearing as tolerated Dressing / Incision Call your doctor if you observe: Fever of 101 or Higher, Coldness, Increased Pain, Numbness or Tingling, Change in Color, Inability to urinate, Inability to have a bowel movement, Shortness of breath, Dizziness, Fainting spells, Swelling in the ankles, Chest pain, Prolonged hiccupping, Increased palpitations (irregular heartbeat) and Calf discomfort Follow Up Care When: IN 2 WEEKS Test Results: Test results from this visit will be discussed in further detail at your follow- up appointment, if applicable. Discharge Plan Admission Admit Date/Time: 06/03/24 17:05 Primary Reason for Your Visit: Right acetabular fracture Attending Provider: Serge Gloria Primary Care Provider: Rick Butler Consulting Providers: Huey De La Fuente Instructions Additional Instructions / Restrictions: Advised INR check on 06/07/2024. Follow-up outpatient PT with [facility] Discharge Orders/Prescriptions Prescriptions: New levothyroxine 75 mcg Tablet 75 mcg PO MoWeFr@0600 30 Days Qty: 30 0RF oxycodone 5 mg Tablet 2.5 - 5 mg PO Q6H PRN PRN (Reason: Pain Score 6-10) 3 Days Qty: 7 0RF Rx Instructions: Oxycodone 2.5 mg for moderate pain and 5 mg for severe pain respectively. Continued acetaminophen 500 mg tablet 1,000 mg PO Q8 PRN (Reason: Pain) Patient Comments: taken at 1500 today aspirin 81 mg tablet,chewable 81 mg PO QODAY selenium 200 mcg tablet 200 mcg PO DAILY ferrous sulfate [FeroSul] 325 mg (65 mg iron) tablet 325 mg PO DAILY doxazosin 1 mg tablet 1 mg PO QHS liothyronine 5 mcg tablet 5 mcg PO QDAY nitroglycerin 0.4 mg tablet, sublingual 0.4 mg SUBLINGUAL Q5-15M PRN (Reason: chest pain) Qty: 25 3RF Rx Instructions: Take one table under the tongue every 5-15 minutes if needed. Do not exceed 3 doses. potassium chloride 20 mEq tablet extended release 20 meq PO MOWEFR pramipexole 1 mg tablet 1 mg PO BID PRN ranolazine 500 mg tablet extended release 12 hr 500 mg PO BID Qty: 60 11RF cholecalciferol (vitamin D3) [Vitamin D3] 25 mcg (1,000 unit) Tablet 25 mcg PO DAILY glycopyrrolate 1 mg tablet 1 mg PO DAILY atorvastatin 40 mg tablet 40 mg PO QHS Qty: 90 3RF (DME) Handicap Placard See Rx Instructions .Route .MEDSUPPLY Qty: 1 0RF Rx Instructions: Good from 04/13/2024-04/13/2029; levothyroxine 50 mcg tablet 50 mcg PO .COMPLEX Rx Instructions: 50 mcg orally 1 and a half pills (75mcg) on Thu, , and Thursday: 1 tablet (50 mcg) all other days of the week: increased per Dr. Butler.; furosemide 40 mg tablet 40 mg PO Qty: 90 3RF Changed warfarin 1 mg tablet 2 mg PO DAILY Qty: 90 3RF Protocol: Dose Management Condition: Thursday Dose/Route: 2 mg Instruction: 2 x 1 mg tablets Condition: Thursday Dose/Route: 0 mg Instruction: 0 tablets Condition: Thursday Dose/Route: 0 mg Instruction: 0 tablets Condition: Thursday Dose/Route: 0 mg Instruction: 0 tablets Condition: Dose/Route: 0 mg Instruction: 0 tablets Condition: Thursday Dose/Route: 2 mg Instruction: 2 x 1 mg tablets Condition: Thursday Dose/Route: 2 mg Instruction: 2 x 1 mg tablets Protocol Text: Adjustment Start Date: Thursday01/26/24 INR Value: 5.5 INR Date: 01/26/24 Recheck Date: 01/29/24 Rx Instructions: INR on 06/07/2024 Referrals / Follow Up: karine lopez [Other] - Within 1 Week Rick Butler MD [Primary Care Provider] - In 1 Week Disposition Disposition (needs filled in before D/C Order can be placed): Home, Self Care
--- NOTE | 2024-06-05 10:33 | PCM.DC.SUM ---
Providers Date of Admission: 06/03/24 Date of Discharge: 06/05/24 Primary Care Physician: Dr. Rick Butler MD Reason For Visit: R ACETABULAR FRACTURE W/ DIFFICULTY AMBULATING Diagnosis Discharge Diagnosis (1) Acetabulum fracture, right: Status: Acute Code(s): S32.401A - Unspecified fracture of right acetabulum, initial encounter for closed fracture (2) Difficulty in walking involving joint: Status: Acute Code(s): R26.2 - Difficulty in walking, not elsewhere classified Plan Patient is an 88-year-old male who presented [facility] ED on 06/03/2024 with worsening right hip pain with ambulation after fall 2 weeks ago on right side and was initially sent home from the ED after negative x-ray. Patient was ambulating at home with pain 1. Acute debility secondary to minimally displaced right acetabular fracture ? Admit under observation status to [facility]. PT/OT/case management consulted. CT lower extremity on this admission confirmed minimally displaced right hip fracture. Patient was evaluated by orthopedic surgeon Dr. Good. I agreed with conservative management, pain control, rehab and weightbearing as tolerated. Patient also has Parkinson disease, bilateral TKR with baseline restricted mobility and gait instability. 2: Patient walked around the nursing station yesterday and today. Patient is discharged home. Does not have any home needs. Patient will need to outpatient PT with [facility]. Follow-up with Dr. Good in 2 weeks 2. CKD stage IIIb ? Creatinine 2.06 on admit, at baseline. Stable. 06/04: Creatinine 1.96 on baseline. 06/05: Creatinine 1.84 getting better. It is on baseline 3. Chronic iron deficiency anemia ? Hemoglobin 9.2 on admit, baseline 9-10. Continue home iron supplement. 06/04: Hemoglobin dropped to 8.5. 2: Hemoglobin 8.5/26%. On baseline 4. Chronic persistent A-fib on warfarin with subtherapeutic INR ? INR 1.6 on admit, goal 2-3. In rate controlled A-fib on admit. Continue home warfarin and can consider giving an additional dose of warfarin while here to get back to goal INR. 06/04: INR 1.7. Patient on 1 mg warfarin increased to 2 mg with daily follow-up INR. 22: INR 1.6. Continue increased dose 2 mg daily. Patient follows nurses assistant Dr. Potts. He has moderate aortic stenosis and mild MR. 5. History of CAD with remote CABG and stenting ? Follows with [facility]. Stenting done in 2005 and had CABG x 4 done in 1989. Continue home aspirin, statin and ranolazine. 6. Hypothyroidism ? Continue home Synthroid and liothyronine. DVT prophylaxis: Not indicated, on warfarin CODE STATUS: DNR CCA, DNI Discharge medication reconciliation done. Discharge follow-up instructions completed. Discharge process discussed with the patient and all questions were answered to patient's satisfaction. Follow with PCP in 1 to 2 weeks Total time spent, exact 35 minutes on discharge meds reconciliation, examination, coordination of care with nurses and ancillary staff, review of imaging and blood test and discussion with the patient on follow-up instructions. Medications at Discharge Home Medications cholecalciferol (vitamin D3) 25 mcg (1,000 unit) tablet (Vitamin D3) 25 mcg PO DAILY SUPPLEMENT 05/20/21 selenium 200 mcg tablet 200 mcg PO DAILY SUPPLEMENT 12/02/21 acetaminophen 500 mg tablet 1,000 mg PO Q8 PRN Pain 05/22/22 aspirin 81 mg [facility]wable [facility] 05/22/22 ferrous sulfate 325 mg (65 mg iron) tablet (FeroSul) 325 mg PO DAILY anemia 10/29/22 glycopyrrolate 1 mg tablet 1 mg PO DAILY SALIVATION REDUCTION 05/22/23 atorvastatin 40 mg tablet 40 mg PO QHS CHOLESTEROL #90 tabs 08/10/23 nitroglycerin 0.4 mg sublingual tablet 0.4 mg sublingual Q5-15M PRN chest pain #25 tabs 09/23/23 doxazosin 1 mg tablet 1 mg PO QHS blood pressure 02/04/24 liothyronine 5 mcg tablet 5 mcg PO QDAY 02/04/24 potassium chloride 20 mEq tablet,extended release 20 meq PO MOWEFR 02/04/24 pramipexole 1 mg tablet 1 mg PO BID PRN 04/12/24 ranolazine 500 mg tablet,extended release,12 hr 500 mg PO BID #60 tabs 04/12/24 Handicap Placard #1 ea 04/13/24 levothyroxine 50 mcg tablet 50 mcg PO .COMPLEX THYROID 04/22/24 furosemide 40 mg tablet 40 mg PO MOWEFR weight gain #90 TABLETS 04/25/24 levothyroxine 75 mcg tablet 75 mcg PO MoWeFr@0600 30 days #30 tabs 06/05/24 oxycodone 5 mg tablet 2.5 - 5 mg (0.5 - 1 x 5 mg) PO Q6H PRN PRN Pain Score 6-10 3 days #7 tabs 06/05/24 warfarin 1 mg tablet 2 mg PO DAILY #90 tabs 06/05/24 Physical Exam Narrative Seen and examined. Patient admitted with right acetabular fracture about 2 weeks ago. 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 Conservative management. Bilateral, 2 times right knee replacement and 1 time left knee replacement Physical exam General: Alert, Oriented x3, Cooperative HEENT: Atraumatic, PERRLA, EOMI, Normocephalic Oral: No Gingival or Mucosal Lesions/ Ulcerations Neck: Supple, No JVD, Negative Carotid Bruits Chest wall/Lungs: Air entry diminished in bilateral lung bases. No crepitation/rhonchi Cardiovascular: Regular rate, Regular Rhythm, Normal S1, Normal S2, systolic murmur right second ICS, LLSB Abdomen: Bowel Sounds Present, Soft, Non Tender, Non-Distended : No dysuria. No renal angle tenderness. No suprapubic tenderness. Extremities: No edema, Capillary Refill Less than 3 Seconds Skin: Bruise over posterolateral regular spectrum right hip region to distal thigh. Musculoskeletal: Mild tenderness present over right greater trochanter/acetabular region. Bilateral TKR scar. Neurological: Cranial nerves II-XII grossly intact, DTR 2+/4. No acute focal neurological deficit. Psych/Mental Status: Normal Affect, Appropriate. Weight / BMI Weight Weight: 164 lb 1.6 oz Body Mass Index (BMI) 23.5 ABG / Lab / Microbiology Data 06/05/24 05:35 06/05/24 05:35 Laboratory: Laboratory Results - last 24 hr 06/05/24 05:35: WBC 3.7 L, RBC 2.69 L, Hgb 8.5 L, Hct 26.2 L, MCV 97.4 H, MCH 31.6, MCHC 32.4, RDW Std Deviation 53.1 H, RDW Coeff of Chas 15.1 H, Plt Count 106 L, MPV 9.7, Immature Gran % (Auto) 0.500, Neut % (Auto) 70.5 H, Lymph % (Auto) 16.9 L, Menard % (Auto) 7.7, Eos % (Auto) 4.1, Baso % (Auto) 0.3, Absolute Neuts (auto) 2.6, Absolute Lymphs (auto) 0.62 L, Nucleated RBC % 0, PT 19.3 H, INR 1.6, Sodium 137, Potassium 4.5, Chloride 107, Carbon Dioxide 24.0, Anion Gap 6, BUN 43 H, Creatinine 1.84 H, Estim Creat Clear Calc 28.10, Est GFR (MDRD) Af Amer 45 L, Est GFR (MDRD) Non-Af 37 L, BUN/Creatinine Ratio 23.4 H, Glucose 109 H, Calcium 9.4 D/C Instructions Discharge Diet: 2000 mg Sodium Diet Weight Bearing Status: Weight bearing as tolerated Call your doctor if you observe: Fever of 101 or Higher, Coldness, Increased Pain, Numbness or Tingling, Change in Color, Inability to urinate, Inability to have a bowel movement, Shortness of breath, Dizziness, Fainting spells, Swelling in the ankles, Chest pain, Prolonged hiccupping, Increased palpitations (irregular heartbeat) and Calf discomfort DC O2, CPAP, BIPAP Needs Home O2 Discharge instructions: No When: IN 2 WEEKS Meaningful Use Info Meaningful Use Meaningful Use Diagnoses (Choose all that apply): None applicable Ischemic Stroke Statin Dosing Therapy Reference: STATIN DOSE THERAPY REFERENCE: * Patients > 75 years receive moderate or high dose statin therapy. * Patients 75 years or YOUNGER should receive HIGH intensity statin dose unless contraindicated. You will be required to document reason for non-treatment if statin daily dose does not meet guidelines. HIGH DOSE STATIN THERAPY DAILY Atorvastatin > than or = to 40 mg Rosuvastatin > than or = to 20 mg Amlodipine + Atorvastatin > than or = to 2.5/40 mg Ezetimibe + Simvastatin 10/80 mg Simvastatin 80mg Discharge Plan Admission Admit Date/Time: 06/03/24 17:05 Primary Reason for Your Visit: Right acetabular fracture Attending Provider: Serge Gloria Primary Care Provider: Rick Butler Consulting Providers: Huey De La Fuente Instructions Additional Instructions / Restrictions: Advised INR check on 06/07/2024. Follow-up outpatient PT with [facility] Discharge Orders/Prescriptions Prescriptions: New levothyroxine 75 mcg Tablet 75 mcg PO MoWeFr@0600 30 Days Qty: 30 0RF oxycodone 5 mg Tablet 2.5 - 5 mg PO Q6H PRN PRN (Reason: Pain Score 6-10) 3 Days Qty: 7 0RF Rx Instructions: Oxycodone 2.5 mg for moderate pain and 5 mg for severe pain respectively. Continued acetaminophen 500 mg tablet 1,000 mg PO Q8 PRN (Reason: Pain) Patient Comments: taken at 1500 today aspirin 81 mg tablet,chewable 81 mg PO QODAY selenium 200 mcg tablet 200 mcg PO DAILY ferrous sulfate [FeroSul] 325 mg (65 mg iron) tablet 325 mg PO DAILY doxazosin 1 mg tablet 1 mg PO QHS liothyronine 5 mcg tablet 5 mcg PO QDAY nitroglycerin 0.4 mg tablet, sublingual 0.4 mg SUBLINGUAL Q5-15M PRN (Reason: chest pain) Qty: 25 3RF Rx Instructions: Take one table under the tongue every 5-15 minutes if needed. Do not exceed 3 doses. potassium chloride 20 mEq tablet extended release 20 meq PO MOWEFR pramipexole 1 mg tablet 1 mg PO BID PRN ranolazine 500 mg tablet extended release 12 hr 500 mg PO BID Qty: 60 11RF cholecalciferol (vitamin D3) [Vitamin D3] 25 mcg (1,000 unit) Tablet 25 mcg PO DAILY glycopyrrolate 1 mg tablet 1 mg PO DAILY atorvastatin 40 mg tablet 40 mg PO QHS Qty: 90 3RF (DME) Handicap Placard See Rx Instructions .Route .MEDSUPPLY Qty: 1 0RF Rx Instructions: Good from 04/13/2024-04/13/2029; levothyroxine 50 mcg tablet 50 mcg PO .COMPLEX Rx Instructions: 50 mcg orally 1 and a half pills (75mcg) on Thu, , and Thursday: 1 tablet (50 mcg) all other days of the week: increased per Dr. Butler.; furosemide 40 mg tablet 40 mg PO MOWEFR Qty: 90 3RF Changed warfarin 1 mg tablet 2 mg PO DAILY Qty: 90 3RF Protocol: Dose Management Condition: Thursday Dose/Route: 2 mg Instruction: 2 x 1 mg tablets Condition: Thursday Dose/Route: 0 mg Instruction: 0 tablets Condition: Thursday Dose/Route: 0 mg Instruction: 0 tablets Condition: Thursday Dose/Route: 0 mg Instruction: 0 tablets Condition: Dose/Route: 0 mg Instruction: 0 tablets Condition: Thursday Dose/Route: 2 mg Instruction: 2 x 1 mg tablets Condition: Thursday Dose/Route: 2 mg Instruction: 2 x 1 mg tablets Protocol Text: Adjustment Start Date: Thursday01/26/24 INR Value: 5.5 INR Date: 01/26/24 Recheck Date: 01/29/24 Rx Instructions: INR on 06/07/2024 Referrals / Follow Up: karine good [Other] - Within 1 Week Rick Butler MD [Primary Care Provider] - In 1 Week Disposition Disposition (needs filled in before D/C Order can be placed): Home, Self Care Charges/Coding Visit Charges Inpatient E&M: 56694 Disch Hosp >30min
[2024-06-05] MEDS: oxyCODONE 5 MG Tablet PO (11:47)
[2024-06-05] MEDS: Ferrous Sulfate 325 MG Tablet PO (11:48)
== END 2024-06-05 14:12 | disposition home or self-care (01) ==
LOC: ED 17:23 → MS3 18:12
PROVIDERS: Admitting Provider Hospitalist; Emergency Provider Emergency Medicine; PCP Family Medicine; Visit Provider Internal Medicine
DX: S32.401A Unspecified fracture of right acetabulum, initial encounter for closed fracture (principal); G20.A1 Parkinson's disease without dyskinesia, without mention of fluctuations; I50.32 Chronic diastolic (congestive) heart failure; I13.0 Hypertensive heart and chronic kidney disease with heart failure and stage 1 through stage 4 chronic kidney disease, or unspecified chronic kidney disease; J44.9 Chronic obstructive pulmonary disease, unspecified; I48.19 Other persistent atrial fibrillation; N18.32 Chronic kidney disease, stage 3b; D63.1 Anemia in chronic kidney disease; I25.10 Atherosclerotic heart disease of native coronary artery without angina pectoris; E78.00 Pure hypercholesterolemia, unspecified; R26.2 Difficulty in walking, not elsewhere classified; Z96.653 Presence of artificial knee joint, bilateral; D50.0 Iron deficiency anemia secondary to blood loss (chronic); W19.XXXA Unspecified fall, initial encounter; E03.9 Hypothyroidism, unspecified; Z79.899 Other long term (current) drug therapy; Z79.890 Hormone replacement therapy; Z79.01 Long term (current) use of anticoagulants; Z66 Do not resuscitate
CPT/HCPCS: 36415; 80048; 84443; 85025; 85027; 85610; 85730; 86850; 86900; 86901; 93005; 94668; 97165; 99221; 99282; A4216; G0378

== ENCOUNTER → 2024-06-03 | Outpatient (CLI) | payer MEDICARE, OTHER, SELFPAY ==
--- NOTE | 2024-06-03 12:27 | CT_ITS ---
PROCEDURE: EXTREMITY LOWER WITHOUT CONTRA REASON FOR EXAM: Right lower extremity pain, status post fall. Negative x-ray by report of requesting physician. Parkinson's. TECHNIQUE: Noncontrasted CT of the right hip, with sagittal and coronal reconstructed images. COMPARISON: None provided.. FINDINGS: A minimally displaced prominent oblique fracture of the right superior acetabulum is noted, extending to the medial acetabulum (pubic bone portion). Also, some extension into the body of the iliac bone is also noted. No femoral fracture is seen. Moderate right hip joint degenerative changes are seen, also with extensive chondrocalcinosis present. Prominent arterial calcification is also seen. CT/Extremity Lower without Contra IMPRESSION: Right acetabular FRACTURE. One or more dose reduction techniques were used (e.g., Automated exposure contr ol, adjustment of the mA and/or kV according to patient size, use of iterative reconstruction technique). Reading Location: [id number]
== END | disposition home or self-care (01) ==
LOC: CT 12:25
PROVIDERS: PCP Family Medicine; Referring Provider Family Medicine; Visit Provider Family Medicine
DX: M25.551 Pain in right hip (principal); G20.A1 Parkinson's disease without dyskinesia, without mention of fluctuations
CPT/HCPCS: 73700

== ENCOUNTER → 2024-06-21 | Outpatient (CLI) | payer MEDICARE, OTHER, SELFPAY ==
[2024-06-27 16:09] LABS: ACHR Recep AB, Blocking 16 % (0-25); Acetylcholine Receptor Binding < 0.03 nmol/L (0.00-0.24)
[2024-07-02 19:08] LABS: ACHR AB Modulating 0 % (0-45)
== END | disposition home or self-care (01) ==
LOC: MFPLAB 11:53
PROVIDERS: PCP Family Medicine; Visit Provider Psychiatry & Neurology Neurology
DX: H53.2 Diplopia (principal)
CPT/HCPCS: 36415; 83519; 84238